=== PATIENT | female | born 1990 | race American Indian/Alaskan Native ===

== ENCOUNTER 2022-01-29 11:52 | Emergency (ER) | payer MEDICARE ==
[2022-01-29 12:26] VITALS: BP 134/95
--- NOTE | 2022-01-29 13:37 | Emergency Department Report ---
ED Abdominal Pain HPI - General Chief Complaint: Abdominal Pain Stated Complaint: LOW ABDOMINAL PAIN (PREG) Time Seen by Provider: 01/29/22 13:13 Source: patient Mode of arrival: Ambulatory Limitations: No Limitations - History of Present Illness Initial Comments: Patient presents questioning the status of her fetus. She states that she is . She is due sometime in March. She had received her care at [place]. She states that recently something happened and she is not going back there. She states that some geriatric social work professor created a problem for her and she is not can to be able to go back there. She does not have a ASSISTANT STORE DIRECTOR to see. She states that she came here because she was worried about the status of her fetus. She is asking for pictures that we can use) for her and document the status of her . She has no fevers or chills. There is no cough or congestion. She has no dysuria. She states that she did feel some movement prior to me walking in the room. Patient also states that she is concerned about her family stealing her tax information. She states that she has been working on that independently. She has no other complaint at this time. Patient states that she was actually at the L&D area of this institution earlier today. Apparently they walked her over here for evaluation. There is no documentation in [facility] that they evaluated the patient. The triage staff does state that she was walked over by the L&D staff. - Related Data Allergies Allergy/AdvReac Type Severity Reaction Status Date / Time No Known Allergies Allergy Verified 01/29/22 12:22 ED Review of Systems ROS: Stated complaint: LOW ABDOMINAL PAIN (PREG) Other details as noted in HPI Comment: All other systems reviewed and negative Constitutional: denies: fever Eyes: denies: vision change ENT: denies: throat pain Respiratory: other (Congestion). denies: cough Cardiovascular: denies: chest pain Endocrine: denies: unexplained weight loss Gastrointestinal: as per HPI Genitourinary: denies: dysuria Musculoskeletal: denies: back pain Skin: denies: rash Neurological: denies: headache Hematological/Lymphatic: denies: easy bruising ED Past Medical Hx - Past Medical History Hx Psychiatric Treatment: Yes - Family History Family history: no significant - Social History Smoking Status: Never Smoker ED Physical Exam - General Limitations: Physical Limitation (Patient is a difficult historian. She requires redirection.), Other (Pulse ox noted and normal) General appearance: alert, in no apparent distress, obese, other (She is restless) - Head Head exam: Present: atraumatic, normocephalic - Eye Eye exam: Present: normal appearance, PERRL, EOMI. Absent: scleral icterus - ENT ENT exam: Present: normal orophraynx, normal external ear exam - Neck Neck exam: Present: normal inspection. Absent: tenderness, meningismus - Respiratory Respiratory exam: Present: normal lung sounds bilaterally. Absent: respiratory distress - Cardiovascular Cardiovascular Exam: Present: regular rate, normal rhythm (90 on my exam) - GI/Abdominal GI/Abdominal exam: Present: soft, other (Obese with gravid uterus palpable above the umbilicus). Absent: tenderness - Extremities Exam Extremities exam: Present: normal capillary refill. Absent: pedal edema, calf tenderness - Back Exam Back exam: Absent: CVA tenderness (R), CVA tenderness (L) - Neurological Exam Neurological exam: Present: alert, oriented X3, CN II-XII intact, normal gait - Psychiatric Psychiatric exam: Present: normal mood, other (Tangential thought) - Skin Skin exam: Present: warm, dry ED Course Vital Signs 01/29/22 12:22 Temperature 97.8 F Pulse Rate 107 H Respiratory 16 Rate Blood Pressure 134/95 [Left] O2 Sat by Pulse 96 Oximetry - Reevaluation(s) Reevaluation #1: 01/29/22 14:19 Bedside ultrasound was completed. Patient has an obvious gravid uterus with good movement and good cardiac activity. There is good fluid noted. This is certainly greater than 24 weeks. - Procedure Description Procedures done: Procedure note: Bedside ultrasound. Indication: Evaluate intrauterine for activity. Patient was supine on the bed. Curvilinear probe was used to evaluate the abdominal and pelvis areas. Patient had obvious intrauterine that was greater than 24 weeks. There was good cardiac activity. There is good fluid. Patient was able to visualize the ultrasound as it was being completed. There are no complications. ED Medical Decision Making - Medical Decision Making Patient presented secondary to reports of abdominal issues and concern for the wellbeing of her fetus. She does have an intrauterine here and that certainly is greater than 24 weeks. She states that her due date would have been in March. This would put her at closed to 32 to 36 weeks depending on her actual due date. Patient does not have any abdominal discomfort on exam. She has been referred to ASSISTANT STORE DIRECTOR here. There is no dysuria or frequency. She denies having a headache or blurry vision. There is no clonus on exam. Critical care attestation.: If time is entered above; I have spent that time in minutes in the direct care of this critically ill patient, excluding procedure time. ED Disposition Clinical Impression: Intrauterine Disposition: HOME / SELF CARE / HOMELESS Is pt being admited?: No Condition: Stable Instructions: Third Trimester of , [id number], Before Baby Comes Home, Abdominal Pain (ED) Additional Instructions: Drink water. Follow-up with gynecology as referred. Return for problems. Referrals: TRACY CRISTINA MD [Staff Physician] - 3-5 Days
== END 2022-01-29 14:45 | disposition home or self-care (01) ==
LOC: ED 11:52
DX: O26.892 Other specified pregnancy related conditions, second trimester (principal); Z3A.24 24 weeks gestation of pregnancy; R10.9 Unspecified abdominal pain
CPT/HCPCS: 99282; 99283

== ENCOUNTER 2022-02-03 07:51 | Inpatient (IN) | payer MEDICARE ==
[2022-02-03] MEDS ORDERED: SODIUM CHLORIDE 0.9% 1000 ML 1,000 ML IV ONE ×2 (07:58→10:13)
--- NOTE | 2022-02-03 07:58 | Emergency Department Report ---
ED General Adult HPI - General Stated complaint: ABD PAIN Time Seen by Provider: 02/03/22 07:57 - History of Present Illness Initial comments: Patient presents secondary to abdominal pain. She came in by EMS. EMS reports that they were called for abdominal pain the patient is intermittently cooperative. Sometimes she does not want to speak and will not talk to them. They report that they would just call for abdominal pain and transported the patient here. Patient recalls seeing me a couple of days ago. She states that I did not "fix her." She states that she is incontinent of stool and urine. She states that all I did was do an ultrasound. Patient reports that she is not . She states that there is something wrong with her and that she needs to see a crime scene investigator. Patient reports that the ultrasound that I did at the [facility] and demonstrated the fetus and the cardiac activity was at her heart. She states it was not a baby and that she is not . She reports that there is something else going on and that this needs to be investigated. She then quickly starts asking for something to drink. She is asking for Ensure. She initially asked for milk and then stated that she did not want to milk. Patient is adamant that she is not despite the recent ultrasound. When asked her what the heartbeat that I demonstrated on ultrasound belong to, she stated "Shaquanna." - Related Data Allergies Allergy/AdvReac Type Severity Reaction Status Date / Time No Known Allergies Allergy Verified 02/03/22 07:58 ED Review of Systems ROS: Stated complaint: ABD PAIN Other details as noted in HPI Comment: All other systems reviewed and negative Constitutional: denies: fever Eyes: denies: vision change ENT: denies: throat pain Respiratory: denies: cough Cardiovascular: denies: chest pain Endocrine: denies: unexplained weight loss Gastrointestinal: as per HPI Genitourinary: denies: dysuria Musculoskeletal: denies: back pain Skin: denies: rash Neurological: denies: headache Hematological/Lymphatic: denies: easy bruising ED Past Medical Hx - Past Medical History Hx Psychiatric Treatment: Yes Additional medical history: - Family History Family history: other (Denied) - Social History Smoking Status: Never Smoker ED Physical Exam - General Limitations: Altered Mental Status (Delusional), Other General appearance: alert, in no apparent distress - Head Head exam: Present: atraumatic, normocephalic, normal inspection - Eye Eye exam: Present: normal appearance, PERRL, EOMI. Absent: scleral icterus - ENT ENT exam: Present: normal orophraynx, normal external ear exam - Neck Neck exam: Present: normal inspection. Absent: meningismus - Respiratory Respiratory exam: Present: normal lung sounds bilaterally. Absent: respiratory distress - Cardiovascular Cardiovascular Exam: Present: normal rhythm, tachycardia - GI/Abdominal GI/Abdominal exam: Present: soft, other (Gravid uterus palpable above the umbilicus). Absent: tenderness - Extremities Exam Extremities exam: Present: normal capillary refill - Back Exam Back exam: Absent: CVA tenderness (R), CVA tenderness (L) - Neurological Exam Neurological exam: Present: alert, oriented X3, CN II-XII intact. Absent: motor sensory deficit - Psychiatric Psychiatric exam: Present: flat affect, other (Patient is adamant that she is not despite ultrasound demonstration.) - Skin Skin exam: Present: warm, dry ED Course Vital Signs 02/03/22 02/03/22 02/03/22 07:54 08:18 08:43 Temperature 98.9 F 98.0 F Pulse Rate 114 H 106 H 104 H Respiratory 20 18 18 Rate Blood Pressure 137/88 Blood Pressure 154/100 137/88 [Right] O2 Sat by Pulse 98 99 98 Oximetry 02/03/22 02/03/22 02/03/22 08:53 08:59 09:01 Temperature Pulse Rate 103 H Respiratory 18 13 Rate Blood Pressure 137/88 170/121 Blood Pressure [Right] O2 Sat by Pulse 99 98 100 Oximetry 02/03/22 02/03/22 09:15 09:30 Temperature Pulse Rate 91 H Respiratory 24 Rate Blood Pressure 170/121 170/121 Blood Pressure [Right] O2 Sat by Pulse 100 100 Oximetry - Reevaluation(s) Reevaluation #1: 02/03/22 07:57 EMS was met. IV and labs were ordered. Old records noted. Reevaluation #2: 02/03/22 10:16 Glucose has been noted. Bicarbonate was noted. OFFICE PROFESSIONALS will be paged. Patient will be started on an insulin drip for DKA. She will require medical admission. We still have psychiatric concerns in addition. Psychiatric consult can be obtained as an inpatient. She will likely need to go to the ICU. Sodium corrects to 133. Reevaluation #3: 02/03/22 10:32 Case was briefly discussed with the hospitalist who defers the consult to the lead carpenter. They state that the health advisor will need to admit primarily with a consult to the lead carpenter and to psychiatry. The lead carpenter has been p aged. Reevaluation #4: 02/03/22 10:55 Case was discussed with the lead carpenter as well as Dr. Munoz now on for the hospitalist. It was agreed that the patient will be a medical admit with a consult to OFFICE PROFESSIONALS. ED Medical Decision Making - Lab Data Result diagrams: 02/03/22 08:56 02/03/22 08:56 Rhythm strip: Sinus tachycardia without ectopy per monitor observe 10 seconds. - Radiology Data Radiology results: report reviewed - Medical Decision Making Patient presents by ambulance secondary to reports of abdominal pain. She was completely delusional and believed that she was not here. She is currently 31 weeks. She is in DKA. She was known to be a diabetic, but there was some question as to compliance. Regardless, she has been started on insulin drip. Further IV hydration has been ordered. She is on a mental health hold due to the delusion. Psychiatric services can weigh in. OFFICE PROFESSIONALS can help manage. Patient is not actively suicidal or homicidal at this time. We will still obtain urine looking for evidence of infection. Critical Care Time: Yes (55 minutes exclusive of all procedures) Critical care attestation.: If time is entered above; I have spent that time in minutes in the direct care of this critically ill patient, excluding procedure time. ED Disposition Clinical Impression: Delusion Qualifiers: Weeks of gestation: 31 weeks Qualified Code(s): Z3A.31 - 31 weeks gestation of DKA (diabetic ketoacidosis) Qualifiers: Diabetes mellitus type: due to underlying condition Diabetes mellitus complication detail: without coma Qualified Code(s): E08.10 - Diabetes mellitus due to underlying condition with ketoacidosis without coma Disposition: 09 ADMITTED INPATIENT Is pt being admited?: Yes Condition: Stable Instructions: Diabetic Ketoacidosis (ED) Referrals: PRIMARY CARE, [Primary Care Provider] - 3-5 Days
--- NOTE | 2022-02-03 09:23 | Ultrasound Report ---
ULTRASOUND OBSTETRIC INDICATION / CLINICAL INFORMATION: abd pain, gestational age. TECHNIQUE: Transabdominal. COMPARISON: None available. FINDINGS: There is a single intrauterine . Biparietal Diameter = 7.5 cm = 30.1 weeks.days Head Circumference = 26.08 cm = 28.3 weeks.days Abdominal Circumference = 29.09 cm = 33.1 weeks.days Femur Length = 6.42 cm = 33.1 weeks.days Average Ultrasound Age (AUA) = 31.2 weeks.days Heart Rate: 145 beats per minute. Estimated Weight in grams (if calculated): 1948 Estimated Weight Growth Percentile (if calculated): 45 Position: cephalic. Cervix: closed. Length in cm (if measured): 3.3 Placenta: anterior and free of the os. Amniotic Fluid Volume: Qualitatively normal, deepest pocket measures 3.4 cm Maternal Adnexa: No significant abnormality. IMPRESSION: 1. Single, living intrauterine with estimated sonographic age of 31.2 weeks.days 2. No significant sonographic abnormality. Signer Name: Gorge Faith MD Signed: 02/03/2022 9:19 AM Workstation Name: [id number]
[2022-02-03 09:28] LABS: Basophils # (Auto) 0.1 K/mm3 (0.0-0.1); Eosinophils % (Auto) 0.3 % (0.0-4.3); Hematocrit 39.9 % (30.3-42.9); Hemoglobin 13.1 gm/dl (10.1-14.3); Lymphocytes # (Auto) 1.1 K/mm3 (1.2-5.4); Lymphocytes % (Auto) 16.4 % (13.4-35.0); Mean Corpuscular HGB Conc 33 % (30-34); Mean Corpuscular Volume 94 fl (79-97); Monocytes # (Auto) 0.4 K/mm3 (0.0-0.8); Monocytes % (Auto) 5.8 % (0.0-7.3); Platelet Count 294 K/mm3 (140-440); Red Blood Count 4.24 M/mm3 (3.65-5.03)
[2022-02-03 09:52] LABS: Alanine Aminotransferase 23 units/L (7-56); Albumin 3.9 g/dL (3.9-5); BUN/Creatinine Ratio 25; Blood Urea Nitrogen 20 mg/dL (7-17); Calcium 10.8 mg/dL (8.4-10.2); Hemolysis Index 14
[2022-02-03] MEDS ORDERED: DEXTROSE 50% IN WATER (25GM) 50 ML SYRINGE IV PRN (10:13)
[2022-02-03 10:19] LABS: Bacteria,Urine 1+ /HPF (Negative); Bilirubin,Urine NEG (Negative); Blood,Urine NEG (Negative); Color,Urine Straw (Yellow); Protein,Urine <15 mg/dL mg/dL (Negative); Urobilinogen,Urine < 2.0 mg/dL (<2.0)
[2022-02-03 10:29] LABS: Amphetamine Screen,Urine Negative; Benzodiazepines Screen,Urine Negative; Cannabinoid Screen,Urine Negative; Cocaine Screen,Urine Negative; Methadone Screen,Urine Negative; Opiate Screen,Urine Negative
[2022-02-03] MEDS: INSULIN REGULAR, HUMAN 100 UNITS in SODIUM CHLORIDE 0.9% 99 ML IV SCH (10:43)
[2022-02-03] MEDS ORDERED: ALBUTEROL 2.5 MG/3 ML NEBU IH PRN (10:53)
[2022-02-03] MEDS ORDERED: HYDROmorphone 1 MG/1 ML INJ IV PRN (10:53)
[2022-02-03] MEDS ORDERED: oxyCODONE /ACETAMINOPHEN 5-325MG TAB PO PRN (10:53)
[2022-02-03] MEDS ORDERED: ACETAMINOPHEN 325 MG TAB PO PRN (10:58)
[2022-02-03] MEDS ORDERED: SODIUM CHLORIDE 0.9% 1000 ML 2,000 ML IV ONE (10:59)
--- NOTE | 2022-02-03 10:59 | History and Physical Report ---
History of Present Illness Chief complaint: Im thirsty History of present illness: 31 YO Female with Obesity, Schizophrenia, Bipolar Disorder presents to ED for evaluation. Pt has tangential thinking and is unable to provide detailed history. Patient history taken from EMS staff, ED staff, as well as the patient's aunt who was made available by telephone for interview. As per patient's family, the patient has "always had problems". Patient reports that she last spoke with the patient 1 week ago. EMS was notified for complaints of abdominal pain. And upon arrival the patient was found to be in distress and s ubsequent transported to [facility] for further care and evaluation of the aforementioned symptoms. The patient was seen and evaluated in the emergency department. All lab and imaging studies reviewed. Patient underwent abdominal ultrasound and was found to have intrauterine at 31 weeks gestation. Patient also found to have new onset diabetes complicated by DKA. Patient admitted to ICU and initiated on DKA protocol. Critical care team consulted, CIVIL PROJECT ENGINEER team consulted. Patient exhibits tangential thinking but has a positive gag reflex and is able to protect her airway without difficulty. No further history is obtainable. No prior admission for review. No medication listed at time of admission for reconciliation. Advanced care planning conducted in ED. Patient is placed on 1013. Mental health team consulted. Past History Past Medical History: other (Schizophrenia, see HPI) Past Surgical History: Other (Neck surgery) Social history: single. denies: smoking, alcohol abuse, prescription drug abuse Family history: diabetes, hypertension Medications and Allergies Allergies Allergy/AdvReac Type Severity Reaction Status Date / Time No Known Allergies Allergy Verified 02/03/22 07:58 Active Meds: Active Medications Dextrose (Dextrose 50% In Water (25gm) 50 Ml Syringe) 0 ml IV Q30MIN PRN; Protocol PRN Reason: Hypoglycemia Insulin Human Regular 100 (units/ Sodium Chloride) 100 mls @ 1 mls/hr IV TITR SHARON; Protocol Last Admin: 02/03/22 10:43 Dose: 8 units/hr, 8 mls/hr Sodium Chloride (Nacl 0.9% 1000 Ml) 1,000 mls @ 999 mls/hr IV BOLUS ONE Stop: 02/03/22 11:13 Last Admin: 02/03/22 10:47 Dose: 999 mls/hr Review of Systems ROS unobtainable: due to mental status Exam - Constitutional Vitals: Temp Pulse Resp BP Pulse Ox 98.0 F 91 H 24 170/121 100 02/03/22 08:43 02/03/22 09:15 02/03/22 09:15 02/03/22 09:30 02/03/22 09:30 General appearance: Present: mild distress, obese - EENT Eyes: Present: PERRL ENT: hearing intact, clear oral mucosa - Neck Neck: Present: supple, normal ROM - Respiratory Respiratory effort: normal Respiratory: bilateral: CTA - Cardiovascular Rhythm: other (tachycardia) Heart Sounds: Present: S1 & S2. Absent: rub, click - Extremities Extremities: pulses symmetrical, No edema Peripheral Pulses: within normal limits - Abdominal General gastrointestinal: Present: soft, non-tender, non-distended Female genitourinary: Present: normal - Integumentary Integumentary: Present: clear, dry - Musculoskeletal Musculoskeletal: generalized weakness - Psychiatric Psychiatric: no appropriate mood/affect, no intact judgment & insight, no memory intact, agitated - Neurologic Neurologic: CNII-XII intact, moves all extremities Results - Labs CBC & Chem 7: 02/03/22 08:56 02/03/22 13:24 Labs: Abnormal lab results 02/03/22 02/03/22 02/03/22 Range/Units 08:56 08:56 08:56 Lymph # (Auto) 1.1 L (1.2-5.4) K/mm3 Seg Neutrophils % 76.5 H (40.0-70.0) % Sodium 124 L (137-145) mmol/L Potassium 5.1 H (3.6-5.0) mmol/L Chloride 86.9 L (98-107) mmol/L Carbon Dioxide 12 L (22-30) mmol/L BUN 20 H (7-17) mg/dL Glucose 661 H* (65-100) mg/dL Calcium 10.8 H (8.4-10.2) mg/dL Salicylates < 0.3 L (2.8-20.0) mg/dL Acetaminophen (10.0-30.0) ug/mL 02/03/22 Range/Units 08:56 Lymph # (Auto) (1.2-5.4) K/mm3 Seg Neutrophils % (40.0-70.0) % Sodium (137-145) mmol/L Potassium (3.6-5.0) mmol/L Chloride (98-107) mmol/L Carbon Dioxide (22-30) mmol/L BUN (7-17) mg/dL Glucose (65-100) mg/dL Calcium (8.4-10.2) mg/dL Salicylates (2.8-20.0) mg/dL Acetaminophen 5.0 L (10.0-30.0) ug/mL Assessment and Plan - Patient Problems (1) DKA (diabetic ketoacidosis) Current Visit: Yes Status: Acute Qualifiers: Diabetes mellitus type: due to underlying condition Diabetes mellitus complication detail: without coma Qualified Code(s): E08.10 - Diabetes mellitus due to underlying condition with ketoacidosis without coma Plan to address problem: DKA protocol: Insulin protocol, IV fluid resuscitation therapy, serial lactic acid level, serial BMP, monitor anion gap, monitor fluid balance, potassium repletion as per protocol. The high probability of a clinically significant, sudden or life threatening deterioration of the [endocrine, renal] system(s) required my full and direct attention, intervention and personal management. The aggregate critical care time was [65] minutes. This time is in addition to time spent performing reported procedures but includes the following: [x] Data Review and interpretation [x] Patient assessment and monitoring of vital signs [x] Documentation [x] Medication orders and management (2) Encephalopathy Current Visit: Yes Status: Acute Plan to address problem: Neuro check, seizure precautions, aspiration precautions. Treat DKA. (3) Schizophrenia Current Visit: Yes Status: Acute Qualifiers: 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(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 Plan to address problem: Mental health team consulted, medical management as per mental health team. Supportive care. (4) Psychosis Current Visit: Yes Status: Acute Plan to address problem: Mental health team consulted. [address] (5) Obesity hypoventilation syndrome Current Visit: Yes Status: Acute Plan to address problem: Balanced diet, increase physical activity at discharge, outpatient pulmonary follow-up for sleep study. (6) DVT prophylaxis Current Visit: Yes Status: Acute Plan to address problem: SCDs bilateral lower extremities while in bed (7) Advance care planning Current Visit: Yes Status: Acute Plan to address problem: Disease education conducted, care plan discussed, diagnoses discussed, prognosis discussed, patient is full code. Discussed Patient care with Aunt, Adalgisa Gr . Pt Aunt is 83 years old and is hearing impaired. Pt aunt last spoke with patient 1 week ago and acknowledges that patient has schizophrenia and was diagnosed in high school. Pt in unable to live independently as per family. +30 minutes. Case management consulted for assistance with discharge planning and placement.
--- NOTE | 2022-02-03 11:29 | Consultation ---
History of Present Illness - Reason for Consult Consult date: 02/03/22 Reason for consult: delusional - History of Present Psychiatric Illness The patient was seen today. She is a/o x 3, but her thoughts are somewhat disorganized. The patient says she is not doing so good. She says her stomach is hurting and she want's whatever is in her out. The patient starts jumping from subject to subject of unrelated things. When asked was she suicidal, she says "I want some fish, hushpuppies, and sanjana slaw." She then says "I had an apartment but I got kicked out of in during the pandemic." She says "I was arrested once." I ask the patient again was she suicidal, she says "no, not at the moment but I was at one point. Can you get me some fish?" She denies hallucinations of any kind. She denies any illicit drug use. She says "I used to do crack cocaine but I been clean a year." She says she has a history of bipolar and schizophrenia. She says "I take depakote, and I was on lithium." She says "I take my medication everyday so I don't need to be no 1013." PAST PSYCHIATRIC HISTORY Diagnoses: schizophrenia and bipolar Suicide attempts or Self-harm behavior: Denies Prior psychiatric hospitalizations: Yes Substance Abuse history: Crack cocaine Previous psychiatric medications tried: depakote, lithium Outpatient treatment: Yes PAST MEDICAL HISTORY: None reported Family Psychiatric History: None reported or documented SOCIAL HISTORY Living arrangement: states she lives alone Marital status: Single REVIEW OF SYSTEMS Constitutional: Negative for weight loss ENT: Negative for stridor Respiratory: Negative for cough or hemoptysis All other systems reviewed and are negative MENTAL STATUS EXAMINATION General Appearance and Behavior: Age appropriate, good hygiene, wearing appropriate clothes, good eye contact, calm, cooperative Cooperation: Participating/engaged Psychomotor Behavior: Psychomotor normal Mood: not good Affect and affective range: congruent with stated mood Thought Process: illogical, disorganized Thought Content: None Speech: normal tone and pace Suicidal Ideation: Denies Homicidal Ideation: Denies Hallucinations: Denies Delusions: None elicited Impulse Control: Limited Insight and Judgment: Limited insight and judgment Memory: Limited Attention: Divided Orientation: Alert, oriented Assessment and Plan Delirium Treatment Plan No meds at this time. Will reassess the need for meds once blood glucose is normalized The patients disorientation is likely due to elevated blood glucose Medical: per primary Sitter: per primary Disposition: Do not recommend acute psychiatric inpatient treatment Will follow for med management Case staffed with Dr. Frederick Medications and Allergies Allergies Allergy/AdvReac Type Severity Reaction Status Date / Time No Known Allergies Allergy Verified 02/03/22 07:58 Active Meds: Active Medications Acetaminophen (Acetaminophen 325 Mg Tab) 650 mg PO Q6H PRN PRN Reason: Pain MILD(1-3)/Fever >100.5/TERRELL Albuterol (Albuterol 2.5 Mg/3 Ml Nebu) 2.5 mg IH Q3H PRN PRN Reason: Shortness Of Breath Dextrose (Dextrose 50% In Water (25gm) 50 Ml Syringe) 0 ml IV Q30MIN PRN; Protocol PRN Reason: Hypoglycemia Hydromorphone HCl (Hydromorphone 1 Mg/1 Ml Inj) 0.5 mg IV Q23H PRN PRN Reason: Pain , Severe (7-10) Insulin Human Regular 100 (units/ Sodium Chloride) 100 mls @ 1 mls/hr IV TITR SHARON; Protocol Last Admin: 02/03/22 10:43 Dose: 8 units/hr, 8 mls/hr Sodium Chloride (Nacl 0.9% 1000 Ml) 2,000 mls @ 999 mls/hr IV BOLUS ONE Stop: 02/03/22 12:59 Sodium Chloride (Nacl 0.9% 1000 Ml) 1,000 mls @ 150 mls/hr IV DIRECT SHARON Oxycodone/Acetaminophen (Oxycodone /Acetaminophen 5-325mg Tab) 1 tab PO Q16H PRN PRN Reason: Pain, Moderate (4-6) Sodium Bicarbonate (Sodium Bicarb 8.4% 50 Meq/50 Ml Syringe) 50 meq IV ONCE ONE Stop: 02/03/22 12:01 Sodium Chloride (Sodium Chloride 0.9% 10 Ml Flush Syringe) 10 ml IV BID SHARON Sodium Chloride (Sodium Chloride 0.9% 10 Ml Flush Syringe) 10 ml IV PRN PRN PRN Reason: LINE FLUSH Mental Status Exam - Vital signs Last Vital Signs Temp 98.0 F 02/03/22 08:43 Pulse 91 H 02/03/22 09:15 Resp 24 02/03/22 09:15 BP 170/121 02/03/22 09:30 Pulse Ox 100 02/03/22 09:30 Results Result Diagrams: 02/03/22 08:56 02/03/22 08:56 Abnormal lab results 02/03/22 02/03/22 02/03/22 Range/Units 08:56 08:56 08:56 Lymph # (Auto) 1.1 L (1.2-5.4) K/mm3 Seg Neutrophils % 76.5 H (40.0-70.0) % Sodium 124 L (137-145) mmol/L Potassium 5.1 H (3.6-5.0) mmol/L Chloride 86.9 L (98-107) mmol/L Carbon Dioxide 12 L (22-30) mmol/L BUN 20 H (7-17) mg/dL Glucose 661 H* (65-100) mg/dL Calcium 10.8 H (8.4-10.2) mg/dL Salicylates < 0.3 L (2.8-20.0) mg/dL Acetaminophen (10.0-30.0) ug/mL 02/03/22 Range/Units 08:56 Lymph # (Auto) (1.2-5.4) K/mm3 Seg Neutrophils % (40.0-70.0) % Sodium (137-145) mmol/L Potassium (3.6-5.0) mmol/L Chloride (98-107) mmol/L Carbon Dioxide (22-30) mmol/L BUN (7-17) mg/dL Glucose (65-100) mg/dL Calcium (8.4-10.2) mg/dL Salicylates (2.8-20.0) mg/dL Acetaminophen 5.0 L (10.0-30.0) ug/mL All other labs normal.
[2022-02-03] MEDS ORDERED: SODIUM BICARB 8.4% 50 MEQ/50 ML SYRINGE IV ONE (12:00)
[2022-02-03 14:15] LABS: BUN/Creatinine Ratio 23; Blood Urea Nitrogen 18 mg/dL (7-17); Calcium 9.9 mg/dL (8.4-10.2); Hemolysis Index 8
[2022-02-03 18:40] LABS: Blood Urea Nitrogen 17 mg/dL (7-17); Hemolysis Index 1
[2022-02-03 18:42] LABS: BUN/Creatinine Ratio 24
[2022-02-03] MEDS: SODIUM CHLORIDE 0.9% 1000 ML 1,000 ML IV SCH (20:30)
[2022-02-03 20:55] LABS: Blood Urea Nitrogen 18 mg/dL (7-17); Calcium 9.6 mg/dL (8.4-10.2); Hemolysis Index 3
[2022-02-03 20:56] LABS: BUN/Creatinine Ratio 30
[2022-02-03 23:49] LABS: Blood Urea Nitrogen 17 mg/dL (7-17); Calcium 9.3 mg/dL (8.4-10.2); Hemolysis Index 8
[2022-02-03 23:51] LABS: BUN/Creatinine Ratio 28
[2022-02-04] MEDS: SODIUM CHLORIDE 0.9% 1000 ML 1,000 ML IV SCH (03:00)
[2022-02-04] MEDS: INSULIN REGULAR, HUMAN 100 UNITS in SODIUM CHLORIDE 0.9% 99 ML IV SCH (03:00)
[2022-02-04 04:34] LABS: Blood Urea Nitrogen 16 mg/dL (7-17); Calcium 8.8 mg/dL (8.4-10.2); Hemolysis Index 2
[2022-02-04 04:35] LABS: BUN/Creatinine Ratio 32
[2022-02-04] MEDS ORDERED: D5W/0.45% NACL/KCL 20 MEQ 20 MEQ/1,000 ML BAG IV SCH (07:00)
[2022-02-04] MEDS ORDERED: DEXTROSE 50% IN WATER (25GM) 50 ML SYRINGE IV PRN (08:42)
[2022-02-04] MEDS ORDERED: oxyCODONE /ACETAMINOPHEN 5-325MG TAB PO PRN (08:44)
[2022-02-04] MEDS ORDERED: DEXTROSE 10% *Hypoglycemia IV PRN (08:51)
[2022-02-04] MEDS ORDERED: INSULIN GLARGINE 100 UNITS/ML SUB-Q SCH ×2 (09:00→22:00)
[2022-02-04 10:56] LABS: Blood Urea Nitrogen 14 mg/dL (7-17); Calcium 9.2 mg/dL (8.4-10.2); Hemolysis Index 18
[2022-02-04 10:58] LABS: BUN/Creatinine Ratio 23
[2022-02-04] MEDS: INSULIN LISPRO 100 UNIT/ML SUB-Q SCH ×3 (11:40→22:36)
[2022-02-04] MEDS ORDERED: LACTATED RINGERS 1,000 ML IV ONE (12:15)
--- NOTE | 2022-02-04 13:34 | Consultation ---
History of Present Illness Consult date: 02/04/22 Requesting physician: CHEPE DAVEY History of present illness: PULMONARY/CCM CONSULT NOTE (Full dictation # [id number]) Please see dictated notes for full details Past History Past Medical History: other (Schizophrenia, see HPI) Past Surgical History: Other (Neck surgery) Social history: single. denies: smoking, alcohol abuse, prescription drug abuse Family history: diabetes, hypertension Medications and Allergies Allergies Allergy/AdvReac Type Severity Reaction Status Date / Time No Known Allergies Allergy Verified 02/03/22 07:58 Home Medications Medication Instructions Recorded Confirmed Last Taken Type Aspirin EC [Halfprin EC] 81 mg PO QDAY 02/05/22 02/05/[address] [DepaKOTE DR] 500 mg PO BID 02/05/22 02/05/22 Unknown History Fluticasone [Flonase] 1 spray NS QDAY 02/05/22 02/05/22 Unknown History Loratadine [Allergy Relief] 10 mg PO QDAY 02/05/22 02/05/22 Unknown History OLANzapine ZYDIS [ZyPREXA Zydis] 5 mg PO DAILY 02/05/22 02/05/22 Unknown History Olanzapine [Olanzapine Odt] 10 mg PO QHS 02/05/22 02/05/22 Unknown History Vit-Fe Fumar-FA [ 1 tab PO QDAY 02/05/22 02/05/22 Unknown History Vitamin] Active Meds: Active Medications Acetaminophen (Acetaminophen 325 Mg Tab) 650 mg PO Q6H PRN PRN Reason: Pain MILD(1-3)/Fever >100.5/TERRELL Albuterol (Albuterol 2.5 Mg/3 Ml Nebu) 2.5 mg IH Q3H PRN PRN Reason: Shortness Of Breath Dextrose (Dextrose 10% *Hypoglycemia) 0 ml IV PRN PRN PRN Reason: Hypoglycemia Insulin Glargine (Insulin Glargine 100 Units/Ml) 30 units SUB-Q QAMDIAB SHARON Last Admin: 02/04/22 09:23 Dose: 30 units Insulin Human Lispro (Insulin Lispro 100 Unit/Ml) 0 unit SUB-Q ACHS SHARON; Protocol Last Admin: 02/04/22 11:40 Dose: 6 unit Oxycodone/Acetaminophen (Oxycodone /Acetaminophen 5-325mg Tab) 1 tab PO Q6H PRN PRN Reason: Pain, Moderate (4-6) Sodium Chloride (Sodium Chloride 0.9% 10 Ml Flush Syringe) 10 ml IV BID SHARON Last Admin: 02/04/22 09:24 Dose: 10 ml Sodium Chloride (Sodium Chloride 0.9% 10 Ml Flush Syringe) 10 ml IV PRN PRN PRN Reason: LINE FLUSH Physical Examination Vital signs: Vital Signs Temp Pulse Resp BP Pulse Ox 98.9 F 114 H 20 154/100 98 02/03/22 07:54 02/03/22 07:54 02/03/22 07:54 02/03/22 07:54 02/03/22 07:54 Results - Laboratory Findings CBC and BMP: 02/05/22 05:30 02/05/22 05:30 Abnormal lab findings: Abnormal Labs 02/03/22 02/03/22 02/03/22 08:56 08:56 08:56 Lymph # (Auto) 1.1 L Seg Neutrophils % 76.5 H VBG pH Sodium 124 L Potassium 5.1 H Chloride 86.9 L Carbon Dioxide 12 L BUN 20 H Creatinine Glucose 661 H* POC Glucose Hemoglobin A1c Calcium 10.8 H Phosphorus Salicylates < 0.3 L Acetaminophen 02/03/22 02/03/22 02/03/22 08:56 12:03 13:07 Lymph # (Auto) Seg Neutrophils % VBG pH Sodium Potassium Chloride Carbon Dioxide BUN Creatinine Glucose POC Glucose 507 H 474 H Hemoglobin A1c Calcium Phosphorus Salicylates Acetaminophen 5.0 L 02/03/22 02/03/22 02/03/22 13:21 13:24 13:24 Lymph # (Auto) Seg Neutrophils % VBG pH 7.292 L Sodium 128 L Potassium Chloride 93.6 L Carbon Dioxide 13 L BUN 18 H Creatinine Glucose 508 H* POC Glucose Hemoglobin A1c Calcium Phosphorus 5.10 H Salicylates Acetaminophen 02/03/22 02/03/22 02/03/22 14:22 15:14 16:18 Lymph # (Auto) Seg Neutrophils % VBG pH Sodium Potassium Chloride Carbon Dioxide BUN Creatinine Glucose POC Glucose 509 H 483 H 385 H Hemoglobin A1c Calcium Phosphorus Salicylates Acetaminophen 02/03/22 02/03/22 02/03/22 17:09 18:06 18:15 Lymph # (Auto) Seg Neutrophils % VBG pH Sodium 130 L Potassium Chloride 95.6 L Carbon Dioxide 17 L BUN Creatinine Glucose 452 H POC Glucose 445 H 411 H Hemoglobin A1c Calcium Phosphorus Salicylates Acetaminophen 02/03/22 02/03/22 02/03/22 19:38 20:26 20:50 Lymph # (Auto) Seg Neutrophils % VBG pH Sodium 128 L Potassium Chloride 96.2 L Carbon Dioxide 15 L BUN 18 H Creatinine Glucose 415 H POC Glucose 422 H 380 H Hemoglobin A1c Calcium Phosphorus Salicylates Acetaminophen 02/03/22 02/03/22 02/03/22 21:58 23:04 23:13 Lymph # (Auto) Seg Neutrophils % VBG pH Sodium 129 L Potassium Chloride 97.1 L Carbon Dioxide 15 L BUN Creatinine Glucose 389 H POC Glucose 318 H 398 H Hemoglobin A1c Calcium Phosphorus Salicylates Acetaminophen 02/04/22 02/04/22 02/04/22 00:14 01:21 02:44 Lymph # (Auto) Seg Neutrophils % VBG pH Sodium Potassium Chloride Carbon Dioxide BUN Creatinine Glucose POC Glucose 383 H 348 H 269 H Hemoglobin A1c Calcium Phosphorus Salicylates Acetaminophen 02/04/22 02/04/22 02/04/22 03:06 03:51 04:58 Lymph # (Auto) Seg Neutrophils % VBG pH Sodium 132 L Potassium Chloride Carbon Dioxide 15 L BUN Creatinine 0.5 L Glucose 252 H POC Glucose 231 H 212 H Hemoglobin A1c Calcium Phosphorus Salicylates Acetaminophen 02/04/22 02/04/22 02/04/22 05:43 06:43 07:32 Lymph # (Auto) Seg Neutrophils % VBG pH Sodium Potassium Chloride Carbon Dioxide BUN Creatinine Glucose POC Glucose 180 H 197 H 237 H Hemoglobin A1c Calcium Phosphorus Salicylates Acetaminophen 02/04/22 02/04/22 02/04/22 08:29 09:32 10:26 Lymph # (Auto) Seg Neutrophils % VBG pH Sodium 131 L Potassium Chloride Carbon Dioxide 14 L BUN Creatinine Glucose 427 H POC Glucose 238 H 285 H Hemoglobin A1c Calcium Phosphorus Salicylates Acetaminophen 02/04/22 02/04/22 02/04/22 10:26 10:28 11:31 Lymph # (Auto) Seg Neutrophils % VBG pH Sodium Potassium Chloride Carbon Dioxide BUN Creatinine Glucose POC Glucose 406 H 312 H Hemoglobin A1c 10.0 H Calcium Phosphorus Salicylates Acetaminophen
--- NOTE | 2022-02-04 14:13 | Progress Note ---
Subjective - Reason for Consult Consult date: 02/04/22 Reason for consult: mental health evaluation - Chief Complaint Chief complaint: The patient was seen today. She continues to present with some confusion and flight of ideas " I don't like to deal with younger people, they've lied on me before." She denies any current suicidal/homicidal ideation and denies hallucinations. REVIEW OF SYSTEMS Constitutional: Negative for weight loss ENT: Negative for stridor Respiratory: Negative for cough or hemoptysis All other systems reviewed and are negative MENTAL STATUS EXAMINATION General Appearance and Behavior: Age appropriate, good hygiene, wearing appropriate clothes, good eye contact, calm, cooperative Cooperation: Participating/engaged Psychomotor Behavior: Psychomotor normal Mood: " good" Affect and affective range: constricted Thought Process: illogical, disorganized Thought Content: None Speech: normal tone and pace Suicidal Ideation: Denies Homicidal Ideation: Denies Hallucinations: Denies Delusions: None elicited Impulse Control: Limited Insight and Judgment: Limited insight and judgment Memory: Limited Attention: Divided Orientation: Alert, oriented Assessment and Plan Delirium Treatment Plan Start Haldol 5mg po BID Medical: per primary Sitter: per primary Disposition: Do not recommend acute psychiatric inpatient treatment Will follow for med management Case staffed with Dr. Frederick Medications and Allergies Mental Status Exam - Vital signs Last Vital Signs Temp 98.1 F 02/04/22 12:30 Pulse 94 H 02/04/22 12:50 Resp 33 H 02/04/22 12:50 BP 157/79 02/04/22 12:50 Pulse Ox 99 02/04/22 12:50
[2022-02-04] MEDS ORDERED: HALOPERIDOL 5 MG TAB PO SCH (15:00)
--- NOTE | 2022-02-04 15:23 | Consultation ---
History of Present Illness Consult date: 02/04/22 Reason for consult: other () History of present illness: Pt casper 29 year old morbidly obese patient who presented to the ED confused and delusional. Pt was found to be in DKA. Pt happens to be 31 weeks although patient denies presence of . Pt has had no care. Past History Past Medical History: diabetes Social history: single Medications and Allergies Allergies Allergy/AdvReac Type Severity Reaction Status Date / Time No Known Allergies Allergy Verified 02/03/22 07:58 Home Medications Medication Instructions Recorded Confirmed Last Taken Type Aspirin EC [Halfprin EC] 81 mg PO QDAY 02/05/22 02/05/[address] [DepaKOTE DR] 500 mg PO BID 02/05/22 02/05/22 Unknown History Fluticasone [Flonase] 1 spray NS QDAY 02/05/22 02/05/22 Unknown History Loratadine [Allergy Relief] 10 mg PO QDAY 02/05/22 02/05/22 Unknown History OLANzapine ZYDIS [ZyPREXA Zydis] 5 mg PO DAILY 02/05/22 02/05/22 Unknown History Olanzapine [Olanzapine Odt] 10 mg PO QHS 02/05/22 02/05/22 Unknown History Vit-Fe Fumar-FA [ 1 tab PO QDAY 02/05/22 02/05/22 Unknown History Vitamin] Active Meds: Active Medications Acetaminophen (Acetaminophen 325 Mg Tab) 650 mg PO Q6H PRN PRN Reason: Pain MILD(1-3)/Fever >100.5/TERRELL Albuterol (Albuterol 2.5 Mg/3 Ml Nebu) 2.5 mg IH Q3H PRN PRN Reason: Shortness Of Breath Dextrose (Dextrose 10% *Hypoglycemia) 0 ml IV PRN PRN PRN Reason: Hypoglycemia Insulin Glargine (Insulin Glargine 100 Units/Ml) 30 units SUB-Q QAMDIAB SHARON Last Admin: 02/04/22 09:23 Dose: 30 units Insulin Human Lispro (Insulin Lispro 100 Unit/Ml) 0 unit SUB-Q ACHS SHARON; Protocol Last Admin: 02/04/22 11:40 Dose: 6 unit Multivitamins/Iron/Calcium ( Pnd83-Th Fumarate-Folic Acid Vit Tab) 1 each PO ONCE ONE Stop: 02/04/22 15:22 Oxycodone/Acetaminophen (Oxycodone /Acetaminophen 5-325mg Tab) 1 tab PO Q6H PRN PRN Reason: Pain, Moderate (4-6) Sodium Chloride (Sodium Chloride 0.9% 10 Ml Flush Syringe) 10 ml IV BID SHARON Last Admin: 02/04/22 09:24 Dose: 10 ml Sodium Chloride (Sodium Chloride 0.9% 10 Ml Flush Syringe) 10 ml IV PRN PRN PRN Reason: LINE FLUSH Review of Systems All systems: negative Psychiatric: anxiety, disorientation, hallucinations, paranoia, difficulties concentrating, confusion, mood swings - Vital Signs Vital signs: Vital Signs Temp Pulse Resp BP Pulse Ox 98.9 F 114 H 20 154/100 98 02/03/22 07:54 02/03/22 07:54 02/03/22 07:54 02/03/22 07:54 02/03/22 07:54 Temp Pulse Resp BP Pulse Ox 98.1 F 97 H 23 163/68 100 02/04/22 12:30 02/04/22 14:40 02/04/22 14:40 02/04/22 14:40 02/04/22 14:40 - Physical Exam Breasts: Cardiovascular: Normal S2 Abdomen: Positive: normal appearance, distention Vulva: both: normal Adnexa: both: normal Extremities: Deep Tendon Reflex Grade: Normal +2 Results Result Diagrams: 02/05/22 05:30 02/05/22 05:30 Abnormal lab results 02/03/22 02/03/22 02/03/22 Range/Units 16:18 17:09 18:06 Sodium 130 L (137-145) mmol/L Chloride 95.6 L (98-107) mmol/L Carbon Dioxide 17 L (22-30) mmol/L BUN (7-17) mg/dL Creatinine (0.6-1.2) mg/dL Glucose 452 H (65-100) mg/dL POC Glucose 385 H 445 H (70-105) mg/dL Hemoglobin A1c (4-6) % 02/03/22 02/03/22 02/03/22 Range/Units 18:15 19:38 20:26 Sodium 128 L (137-145) mmol/L Chloride 96.2 L (98-107) mmol/L Carbon Dioxide 15 L (22-30) mmol/L BUN 18 H (7-17) mg/dL Creatinine (0.6-1.2) mg/dL Glucose 415 H (65-100) mg/dL POC Glucose 411 H 422 H (70-105) mg/dL Hemoglobin A1c (4-6) % 02/03/22 02/03/22 02/03/22 Range/Units 20:50 21:58 23:04 Sodium 129 L (137-145) mmol/L Chloride 97.1 L (98-107) mmol/L Carbon Dioxide 15 L (22-30) mmol/L BUN (7-17) mg/dL Creatinine (0.6-1.2) mg/dL Glucose 389 H (65-100) mg/dL POC Glucose 380 H 318 H (70-105) mg/dL Hemoglobin A1c (4-6) % 02/03/22 02/04/22 02/04/22 Range/Units 23:13 00:14 01:21 Sodium (137-145) mmol/L Chloride (98-107) mmol/L Carbon Dioxide (22-30) mmol/L BUN (7-17) mg/dL Creatinine (0.6-1.2) mg/dL Glucose (65-100) mg/dL POC Glucose 398 H 383 H 348 H (70-105) mg/dL Hemoglobin A1c (4-6) % 02/04/22 02/04/22 02/04/22 Range/Units 02:44 03:06 03:51 Sodium 132 L (137-145) mmol/L Chloride (98-107) mmol/L Carbon Dioxide 15 L (22-30) mmol/L BUN (7-17) mg/dL Creatinine 0.5 L (0.6-1.2) mg/dL Glucose 252 H (65-100) mg/dL POC Glucose 269 H 231 H (70-105) mg/dL Hemoglobin A1c (4-6) % 02/04/22 02/04/22 02/04/22 Range/Units 04:58 05:43 06:43 Sodium (137-145) mmol/L Chloride (98-107) mmol/L Carbon Dioxide (22-30) mmol/L BUN (7-17) mg/dL Creatinine (0.6-1.2) mg/dL Glucose (65-100) mg/dL POC Glucose 212 H 180 H 197 H (70-105) mg/dL Hemoglobin A1c (4-6) % 02/04/22 02/04/22 02/04/22 Range/Units 07:32 08:29 09:32 Sodium (137-145) mmol/L Chloride (98-107) mmol/L Carbon Dioxide (22-30) mmol/L BUN (7-17) mg/dL Creatinine (0.6-1.2) mg/dL Glucose (65-100) mg/dL POC Glucose 237 H 238 H 285 H (70-105) mg/dL Hemoglobin A1c (4-6) % 02/04/22 02/04/22 02/04/22 Range/Units 10:26 10:26 10:28 Sodium 131 L (137-145) mmol/L Chloride (98-107) mmol/L Carbon Dioxide 14 L (22-30) mmol/L BUN (7-17) mg/dL Creatinine (0.6-1.2) mg/dL Glucose 427 H (65-100) mg/dL POC Glucose 406 H (70-105) mg/dL Hemoglobin A1c 10.0 H (4-6) % 02/04/22 Range/Units 11:31 Sodium (137-145) mmol/L Chloride (98-107) mmol/L Carbon Dioxide (22-30) mmol/L BUN (7-17) mg/dL Creatinine (0.6-1.2) mg/dL Glucose (65-100) mg/dL POC Glucose 312 H (70-105) mg/dL Hemoglobin A1c (4-6) % All other labs normal. Assessment and Plan Pt is a 31 year old female with extensive psych history and delusional. Pt also in severe DKA requiring ICU management. Recommend testing q shift. Psych management. Will consult manager social responsibility and case management to deal with psych issues.
[2022-02-04 16:09] LABS: Blood Urea Nitrogen 16 mg/dL (7-17); Hemolysis Index 6
[2022-02-04 16:14] LABS: BUN/Creatinine Ratio 32
[2022-02-04] MEDS ORDERED: LACTATED RINGERS 1,000 ML IV SCH (17:00)
[2022-02-04] MEDS ORDERED: PRENATAL VIT27-FE FUMARATE-FOLIC ACID VIT TAB PO ONE (18:00)
--- NOTE | 2022-02-04 18:17 | Progress Note ---
<MARCIANOSaeLESLIEChiquita - Last Filed: 02/04/22 18:15> Assessment and Plan Assessment and plan: This is a 31-year-old female with obesity, schizophrenia, bipolar disorder who is 31 weeks admitted with DKA and new onset diabetes mellitus Neuro: Delirium, h/o schizophrenia and bipolar disorder -Psych consulted, appreciate recommendations -Currently 1013 -Avoid delirium -Reorientation as needed -Maintain sleep-wake cycle -Transfer with sitter -Home medications list includes Depakote which we will hold at this time Cardiac: SR -Blood pressure monitor per protocol Respiratory: NAD -Supplemental oxygen as needed -SPO2 monitoring -Pulmonary hygiene GI: Morbid obesity -24 hours +25 mL -PPI -CC diet -Encourage lifestyle modifications upon discharge : Pseudo-hyponatremia, metabolic acidosis -Corrected sodium 146 -Strict intake and output -Renally dose medications -Avoid nephrotoxic medications -Trend BMP ID: NAD -COVID-19 PCR negative -Monitor WBC and temperature curve Endo: S/p DKA, new onset diabetes mellitus -S/p insulin drip -Avoid hypoglycemia -Transition to SSI and long-acting insulin, titrate as needed -Accu-checks AC and at bedtime -Hemoglobin A1c 10.0 -We will likely need discharge with diabetic supplies. -Given to liters LR bolus today Heme: NAD -Trend CBC -Transfuse hemoglobin less than 7 -Monitor for signs of bleeding -SCDs to BLE while in bed OB: Intrauterine at 31 weeks gestation -OB consulted, appreciate recommendations -Per protocol OB will be primary upon transfer from ICU - care per OB The high probability of a clinically significant, sudden or life threatening deterioration of the [endo/psych] system(s) required my full and direct attention, intervention and personal management. The aggregate critical care time was [60] minutes. This time is in addition to time spent performing reported procedures but includes the following: [x] Data Review and interpretation [x] Patient assessment and monitoring of vital signs [x] Documentation [x] Medication orders and management Disposition Plan: Transfer to floor Total Time Spent with Patient (Minutes): 60 History Interval history: This is a 31-year-old female with obesity, schizophrenia, bipolar disorder who presented to the emergency department on 02/03 with tangential thinking via EMS with complaints of abdominal pain. Patient underwent abdominal ultrasound and was found to have intrauterine at 31 weeks gestation and lab work revealed DKA with new onset diabetes mellitus. Patient was initiated on the DKA protocol admitted to the ICU with CC, AUTO BODY ESTIMATOR consults. Patient was placed at this time 13 in the emergency department and psych was consulted. Hospital course to date: 02/04: Patient anion gap closed, given 2 L LR bolus, transition to SSI and long- acting insulin. Patient will be transferred to the floor. Per policy OB will become attending. Hospitalist Physical - Physical exam Narrative exam: Unable to complete physical exam as patient refused examination - Constitutional Vitals: Temp Pulse Resp BP Pulse Ox 97.8 F 95 H 23 163/68 99 02/04/22 16:00 02/04/22 15:37 02/04/22 15:38 02/04/22 14:40 02/04/22 15:38 General appearance: Present: mild distress, obese Results - Labs CBC & Chem 7: 02/03/22 08:56 02/04/22 15:26 Labs: Laboratory Last Values WBC 6.9 K/mm3 (4.5-11.0) 02/03/22 08:56 RBC 4.24 M/mm3 (3.65-5.03) 02/03/22 08:56 Hgb 13.1 gm/dl (10.1-14.3) 02/03/22 08:56 Hct 39.9 % (30.3-42.9) 02/03/22 08:56 MCV 94 fl (79-97) 02/03/22 08:56 MCH 31 pg (28-32) 02/03/22 08:56 MCHC 33 % (30-34) 02/03/22 08:56 RDW 14.0 % (13.2-15.2) 02/03/22 08:56 Plt Count 294 K/mm3 (140-440) 02/03/22 08:56 Lymph % (Auto) 16.4 % (13.4-35.0) 02/03/22 08:56 Edmonson % (Auto) 5.8 % (0.0-7.3) 02/03/22 08:56 Eos % (Auto) 0.3 % (0.0-4.3) 02/03/22 08:56 Baso % (Auto) 1.0 % (0.0-1.8) 02/03/22 08:56 Lymph # (Auto) 1.1 K/mm3 (1.2-5.4) L 02/03/22 08:56 Edmonson # (Auto) 0.4 K/mm3 (0.0-0.8) 02/03/22 08:56 Eos # (Auto) 0.0 K/mm3 (0.0-0.4) 02/03/22 08:56 Baso # (Auto) 0.1 K/mm3 (0.0-0.1) 02/03/22 08:56 Seg Neutrophils % 76.5 % (40.0-70.0) H 02/03/22 08:56 Seg Neutrophils # 5.3 K/mm3 (1.8-7.7) 02/03/22 08:56 VBG pH 7.292 (7.320-7.420) L 02/03/22 13:21 Sodium 131 mmol/L (137-145) L 02/04/22 15:26 Potassium 4.1 mmol/L (3.6-5.0) 02/04/22 15:26 Chloride 99.5 mmol/L (98-107) 02/04/22 15:26 Carbon Dioxide 16 mmol/L (22-30) L 02/04/22 15:26 Anion Gap 20 mmol/L 02/04/22 15:26 BUN 16 mg/dL (7-17) 02/04/22 15:26 Creatinine 0.5 mg/dL (0.6-1.2) L 02/04/22 15:26 Estimated GFR > 60 ml/min 02/04/22 15:26 BUN/Creatinine Ratio 32 % 02/04/22 15:26 Glucose 321 mg/dL (65-100) H 02/04/22 15:26 POC Glucose 296 mg/dL (70-105) H 02/04/22 16:29 Hemoglobin A1c 10.0 % (4-6) H 02/04/22 10:26 Calcium 9.0 mg/dL (8.4-10.2) 02/04/22 15:26 Phosphorus 5.10 mg/dL (2.5-4.5) H 02/03/22 13:24 Magnesium 1.80 mg/dL (1.7-2.3) 02/03/22 13:24 Total Bilirubin 0.30 mg/dL (0.1-1.2) 02/03/22 08:56 AST 18 units/L (5-40) 02/03/22 08:56 ALT 23 units/L (7-56) 02/03/22 08:56 Alkaline Phosphatase 107 units/L (35-129) 02/03/22 08:56 Total Protein 7.9 g/dL (6.3-8.2) 02/03/22 08:56 Albumin 3.9 g/dL (3.9-5) 02/03/22 08:56 Albumin/Globulin Ratio 1.0 % 02/03/22 08:56 TSH 2.740 mlU/mL (0.270-4.200) 02/03/22 08:56 Urine Color Straw (Yellow) 02/03/22 09:41 Urine Turbidity Clear (Clear) 02/03/22 09:41 Urine pH 5.0 (5.0-7.0) 02/03/22 09:41 Ur Specific Holstein 1.025 (1.003-1.030) 02/03/22 09:41 Urine Protein <15 mg/dl mg/dL (Negative) 02/03/22 09:41 Urine Glucose (UA) >=500 mg/dL (Negative) 02/03/22 09:41 Urine Ketones 80 mg/dL (Negative) 02/03/22 09:41 Urine Blood Neg (Negative) 02/03/22 09:41 Urine Nitrite Neg (Negative) 02/03/22 09:41 Urine Bilirubin Neg (Negative) 02/03/22 09:41 Urine Urobilinogen < 2.0 mg/dL (<2.0) 02/03/22 09:41 Ur Leukocyte Esterase Neg (Negative) 02/03/22 09:41 Urine WBC (Auto) 1.0 /HPF (0.0-6.0) 02/03/22 09:41 Urine RBC (Auto) 1.0 /HPF (0.0-6.0) 02/03/22 09:41 U Epithel Cells (Auto) < 1.0 /HPF (0-13.0) 02/03/22 09:41 Urine Bacteria (Auto) 1+ /HPF (Negative) 02/03/22 09:41 Urine Yeast (Budding) Few /HPF 02/03/22 09:41 Salicylates < 0.3 mg/dL (2.8-20.0) L 02/03/22 08:56 Urine Opiates Screen Negative 02/03/22 09:41 Urine Methadone Screen Negative 02/03/22 09:41 Acetaminophen 5.0 ug/mL (10.0-30.0) L 02/03/22 08:56 Ur Barbiturates Screen Negative 02/03/22 09:41 Ur Phencyclidine Scrn Negative 02/03/22 09:41 Ur Amphetamines Screen Negative 02/03/22 09:41 U Benzodiazepines Scrn Negative 02/03/22 09:41 Urine Cocaine Screen Negative 02/03/22 09:41 U Marijuana (THC) Screen Negative 02/03/22 09:41 Drugs of Abuse Note Disclamer 02/03/22 09:41 Plasma/Serum Alcohol < 0.01 % (0-0.07) 02/03/22 08:56 Coronavirus (PCR) Negative (Negative) 02/03/22 09:41 Easley/IV: Voiding Method Toilet Active Medications - Current Medications Current Medications: Generic Name Dose Route Start Last Admin Trade Name Freq PRN Reason Stop Dose Admin Acetaminophen 650 mg 02/03/22 10:58 Acetaminophen 325 Mg Tab PO Q6H PRN Pain MILD(1-3)/Fever >100.5/TERRELL Albuterol 2.5 mg 02/03/22 10:53 Albuterol 2.5 Mg/3 Ml Nebu IH Q3H PRN Shortness Of Breath Dextrose 0 ml 02/04/22 08:51 Dextrose 10% *Hypoglycemia IV PRN PRN Hypoglycemia Lactated Ringer's 1,000 mls @ 999 mls/hr 02/04/22 17:00 02/04/22 17:21 Lactated Ringers IV 02/04/22 20:00 999 mls/hr BOLUS SHARON Administration Insulin Glargine 30 units 02/04/22 22:00 Insulin Glargine 100 Units/Ml SUB-Q QHS SHARON Insulin Human Lispro 0 unit 02/04/22 11:30 02/04/22 17:20 Insulin Lispro 100 Unit/Ml SUB-Q 4 unit ACHS SHARON Administration Protocol Oxycodone/Acetaminophen 1 tab 02/04/22 08:44 Oxycodone /Acetaminophen 5-325mg Tab PO Q6H PRN Pain, Moderate (4-6) Sodium Chloride 10 ml 02/03/22 22:00 02/04/22 09:24 Sodium Chloride 0.9% 10 Ml Flush Syringe IV 10 ml BID SHARON Administration Sodium Chloride 10 ml 02/03/22 10:58 Sodium Chloride 0.9% 10 Ml Flush Syringe IV PRN PRN LINE FLUSH Nutrition/Malnutrition Assess - Dietary Evaluation Nutrition/Malnutrition Findings: Nutrition Notes Start: 02/04/22 15:36 Freq: Status: Active Protocol: Document 02/04/22 15:36 JESÚSMANI (Rec: 02/04/22 15:43 TNALL [id number]) Nutrition Notes Need for Assessment generated from: MD Order,Education Initial or Follow up Brief Note Current Diagnosis Diabetes Other Pertinent Diagnosis New onset DM, 31-week , DKA, schizophrenia, Bipolar D/O Current Diet Consistent CHO Labs/Tests A1C 10 Subjective/Other Information RD consulted for diet education. Pt requests double portions; consumed 100% of lunch today. Pt with tangential conversation, but aware of current dx of DM. Pt willing to listen to discussion about food sources of CHO and necessity of monitoring CHO intake to better control BS. Burn Absent Trauma Absent Current % PO Good (75-100%) Minimum of two criteria No #1 Nutrition Diagnosis Food and nutrition-related knowledge deficit Etiology new onset DM As Evidenced by Signs and Symptoms A1C 10; pt unable to verbalize food sources of CHO Nutrition Intervention Teaching Recipient Patient Learning Readiness Good Teaching Methods Discussion,Demonstration, Handout Response to Teaching Return demonstration, Reinforcement needed Education Handouts Provided Meal Planning using MyPlate Food Sources of Carbohydrates Barriers to Learning Emotional,Financial, Environmental Actions To Overcome Barriers Other Goal #1 Improve BS control Goal #2 Adhere to CHO-controlled diet Anticipated Discharge Needs: CHO-controlled diet Revisit per MD consult or patient Sign Off request: <JAMISON GILLIS E - Last Filed: 02/05/22 07:32> Assessment and Plan Assessment and plan: I saw and evaluated the patient. I agree with the findings and the plan of care as documented in the Nurse Practitioner's~note, with the following corrections and additions. Hospitalist Physical - Constitutional Vitals: Temp Pulse Resp BP Pulse Ox 98.0 F 79 18 136/75 97 02/05/22 06:00 02/05/22 05:04 02/05/22 05:04 02/05/22 05:04 02/05/22 05:04 Results - Labs CBC & Chem 7: 02/05/22 05:30 02/05/22 05:30 Labs: Laboratory Last Values WBC 5.7 K/mm3 (4.5-11.0) 02/05/22 05:30 RBC 3.45 M/mm3 (3.65-5.03) L 02/05/22 05:30 Hgb 11.0 gm/dl (10.1-14.3) 02/05/22 05:30 Hct 31.3 % (30.3-42.9) D 02/05/22 05:30 MCV 91 fl (79-97) 02/05/22 05:30 MCH 32 pg (28-32) 02/05/22 05:30 MCHC 35 % (30-34) H 02/05/22 05:30 RDW 13.6 % (13.2-15.2) 02/05/22 05:30 Plt Count 175 K/mm3 (140-440) 02/05/22 05:30 Lymph % (Auto) 16.4 % (13.4-35.0) 02/03/22 08:56 Edmonson % (Auto) 5.8 % (0.0-7.3) 02/03/22 08:56 Eos % (Auto) 0.3 % (0.0-4.3) 02/03/22 08:56 Baso % (Auto) 1.0 % (0.0-1.8) 02/03/22 08:56 Lymph # (Auto) 1.1 K/mm3 (1.2-5.4) L 02/03/22 08:56 Edmonson # (Auto) 0.4 K/mm3 (0.0-0.8) 02/03/22 08:56 Eos # (Auto) 0.0 K/mm3 (0.0-0.4) 02/03/22 08:56 Baso # (Auto) 0.1 K/mm3 (0.0-0.1) 02/03/22 08:56 Seg Neutrophils % 76.5 % (40.0-70.0) H 02/03/22 08:56 Seg Neutrophils # 5.3 K/mm3 (1.8-7.7) 02/03/22 08:56 ABG pH 7.366 (7.320-7.450) 02/05/22 05:00 POC ABG pCO2 32.0 mmHg (32.0-48.0) 02/05/22 05:00 POC ABG pO2 87.0 mmHg (83-108) 02/05/22 05:00 POC ABG HCO3 17.9 02/05/22 05:00 ABG O2 Saturation 97.1 (0-100) 02/05/22 05:00 POC ABG Base Excess -6.1 02/05/22 05:00 ABG Hemoglobin 16.9 (12.0-17.5) 02/05/22 05:00 ABG Oxyhemoglobin 96.1 (94-98) 02/05/22 05:00 ABG Methemoglobin 0 (0.0-1.5) 02/05/22 05:00 VBG pH 7.292 (7.320-7.420) L 02/03/22 13:21 Carboxyhemoglobin 1.0 (0.5-1.5) 02/05/22 05:00 FiO2 % 80 02/05/22 05:00 Sodium 136 mmol/L (137-145) L 02/05/22 05:30 Potassium 4.1 mmol/L (3.6-5.0) 02/05/22 05:30 Chloride 104.4 mmol/L (98-107) 02/05/22 05:30 Carbon Dioxide 18 mmol/L (22-30) L 02/05/22 05:30 Anion Gap 18 mmol/L 02/05/22 05:30 BUN 14 mg/dL (7-17) 02/05/22 05:30 Creatinine 0.5 mg/dL (0.6-1.2) L 02/05/22 05:30 Estimated GFR > 60 ml/min 02/05/22 05:30 BUN/Creatinine Ratio 28 % 02/05/22 05:30 Glucose 298 mg/dL (65-100) H 02/05/22 05:30 POC Glucose 287 mg/dL (70-105) H 02/04/22 21:08 Hemoglobin A1c 10.0 % (4-6) H 02/04/22 10:26 Calcium 8.5 mg/dL (8.4-10.2) 02/05/22 05:30 Phosphorus 3.60 mg/dL (2.5-4.5) 02/05/22 05:30 Magnesium 1.60 mg/dL (1.7-2.3) L 02/05/22 05:30 Total Bilirubin 0.30 mg/dL (0.1-1.2) 02/03/22 08:56 AST 18 units/L (5-40) 02/03/22 08:56 ALT 23 units/L (7-56) 02/03/22 08:56 Alkaline Phosphatase 107 units/L (35-129) 02/03/22 08:56 Total Protein 7.9 g/dL (6.3-8.2) 02/03/22 08:56 Albumin 3.9 g/dL (3.9-5) 02/03/22 08:56 Albumin/Globulin Ratio 1.0 % 02/03/22 08:56 TSH 2.740 mlU/mL (0.270-4.200) 02/03/22 08:56 Urine Color Straw (Yellow) 02/03/22 09:41 Urine Turbidity Clear (Clear) 02/03/22 09:41 Urine pH 5.0 (5.0-7.0) 02/03/22 09:41 Ur Specific Holstein 1.025 (1.003-1.030) 02/03/22 09:41 Urine Protein <15 mg/dl mg/dL (Negative) 02/03/22 09:41 Urine Glucose (UA) >=500 mg/dL (Negative) 02/03/22 09:41 Urine Ketones 80 mg/dL (Negative) 02/03/22 09:41 Urine Blood Neg (Negative) 02/03/22 09:41 Urine Nitrite Neg (Negative) 02/03/22 09:41 Urine Bilirubin Neg (Negative) 02/03/22 09:41 Urine Urobilinogen < 2.0 mg/dL (<2.0) 02/03/22 09:41 Ur Leukocyte Esterase Neg (Negative) 02/03/22 09:41 Urine WBC (Auto) 1.0 /HPF (0.0-6.0) 02/03/22 09:41 Urine RBC (Auto) 1.0 /HPF (0.0-6.0) 02/03/22 09:41 U Epithel Cells (Auto) < 1.0 /HPF (0-13.0) 02/03/22 09:41 Urine Bacteria (Auto) 1+ /HPF (Negative) 02/03/22 09:41 Urine Yeast (Budding) Few /HPF 02/03/22 09:41 Salicylates < 0.3 mg/dL (2.8-20.0) L 02/03/22 08:56 Urine Opiates Screen Negative 02/03/22 09:41 Urine Methadone Screen Negative 02/03/22 09:41 Acetaminophen 5.0 ug/mL (10.0-30.0) L 02/03/22 08:56 Ur Barbiturates Screen Negative 02/03/22 09:41 Ur Phencyclidine Scrn Negative 02/03/22 09:41 Ur Amphetamines Screen Negative 02/03/22 09:41 U Benzodiazepines Scrn Negative 02/03/22 09:41 Urine Cocaine Screen Negative 02/03/22 09:41 U Marijuana (THC) Screen Negative 02/03/22 09:41 Drugs of Abuse Note Disclamer 02/03/22 09:41 Plasma/Serum Alcohol < 0.01 % (0-0.07) 02/03/22 08:56 Coronavirus (PCR) Negative (Negative) 02/03/22 09:41 Easley/IV: Voiding Method Toilet Active Medications - Current Medications Current Medications: Generic Name Dose Route Start Last Admin Trade Name Freq PRN Reason Stop Dose Admin Acetaminophen 650 mg 02/03/22 10:58 Acetaminophen 325 Mg Tab PO Q6H PRN Pain MILD(1-3)/Fever >100.5/TERRELL Albuterol 2.5 mg 02/03/22 10:53 Albuterol 2.5 Mg/3 Ml Nebu IH Q3H PRN Shortness Of Breath Dextrose 0 ml 02/04/22 08:51 Dextrose 10% *Hypoglycemia IV PRN PRN Hypoglycemia Insulin Glargine 30 units 02/04/22 22:00 02/04/22 22:33 Insulin Glargine 100 Units/Ml SUB-Q 30 units QHS SHARON Administration Insulin Human Lispro 0 unit 02/04/22 11:30 02/04/22 22:36 Insulin Lispro 100 Unit/Ml SUB-Q 6 unit ACHS SHARON Administration Protocol Oxycodone/Acetaminophen 1 tab 02/04/22 08:44 Oxycodone /Acetaminophen 5-325mg Tab PO Q6H PRN Pain, Moderate (4-6) Sodium Chloride 10 ml 02/03/22 22:00 02/04/22 22:45 Sodium Chloride 0.9% 10 Ml Flush Syringe IV 10 ml BID SHARON Administration Sodium Chloride 10 ml 02/03/22 10:58 Sodium Chloride 0.9% 10 Ml Flush Syringe IV PRN PRN LINE FLUSH Nutrition/Malnutrition Assess - Dietary Evaluation Nutrition/Malnutrition Findings: Nutrition Notes Start: 02/04/22 15:36 Freq: Status: Active Protocol: Document 02/04/22 15:36 JESÚSMANI (Rec: 02/04/22 15:43 NHALL [id number]) Nutrition Notes Need for Assessment generated from: MD Order,Education Initial or Follow up Brief Note Current Diagnosis Diabetes Other Pertinent Diagnosis New onset DM, 31-week , DKA, schizophrenia, Bipolar D/O Current Diet Consistent CHO Labs/Tests A1C 10 Subjective/Other Information RD consulted for diet education. Pt requests double portions; consumed 100% of lunch today. Pt with tangential conversation, but aware of current dx of DM. Pt willing to listen to discussion about food sources of CHO and necessity of monitoring CHO intake to better control BS. Burn Absent Trauma Absent Current % PO Good (75-100%) Minimum of two criteria No #1 Nutrition Diagnosis Food and nutrition-related knowledge deficit Etiology new onset DM As Evidenced by Signs and Symptoms A1C 10; pt unable to verbalize food sources of CHO Nutrition Intervention Teaching Recipient Patient Learning Readiness Good Teaching Methods Discussion,Demonstration, Handout Response to Teaching Return demonstration, Reinforcement needed Education Handouts Provided Meal Planning using MyPlate Food Sources of Carbohydrates Barriers to Learning Emotional,Financial, Environmental Actions To Overcome Barriers Other Goal #1 Improve BS control Goal #2 Adhere to CHO-controlled diet Anticipated Discharge Needs: CHO-controlled diet Revisit per MD consult or patient Sign Off request:
[2022-02-05 06:03] LABS: Hematocrit 31.3 % (30.3-42.9); Mean Corpuscular HGB Conc 35 % (30-34); Mean Corpuscular Volume 91 fl (79-97); Platelet Count 175 K/mm3 (140-440); Red Blood Count 3.45 M/mm3 (3.65-5.03); Red Cell Distribution Width 13.6 % (13.2-15.2)
[2022-02-05 06:21] LABS: Blood Urea Nitrogen 14 mg/dL (7-17); Calcium 8.5 mg/dL (8.4-10.2); Hemolysis Index 0
[2022-02-05 06:38] LABS: BUN/Creatinine Ratio 28
[2022-02-05] MEDS: INSULIN LISPRO 100 UNIT/ML SUB-Q SCH ×4 (08:11→22:09)
--- NOTE | 2022-02-05 12:26 | Progress Note ---
Assessment and Plan Diabetic ketoacidosis Mild metabolic encephalopathy Schizophrenia Obesity Gravid state Mild hyperkalemia Bipolar disorder - Psych evaluation - HYDROTREATER OPERATOR following - prn supplemental oxygen to keep O2 sats > 90% - prn bronchodilators (ASA) with pulm hygiene per RT - avoid nephrotoxins, renally dose all medications - mobility protocols to prevent pressure ulcers - PT/OT as tolerated - Wound care per RN/WCT - continue accuchecks with glycemic control per SSI for target blood glucose < 180 mg/dL - tobacco abstinence strongly counseled at the bedside (attempted) - home oxygen evaluation at discharge - GI & VTE prophylaxis - Flu & pneumovax per protocol - prn analgesia per pain score - continue other care per attending / other consultants ... re-evaluate in am & prn Subjective Date of service: 02/05/22 Principal diagnosis: DKA; AMS; Schizophrenia; Obesity; Gravid state; Bipolar disorder Interval history: Patient is seen today for: DKA; AMS; Schizophrenia; Obesity; Gravid state; Bipolar disorder Seen and examined at bedside; 24hour events reviewed; nursing and respiratory care staff consulted; no adverse overnight events reported to me; resting in bed; no new issues; still with schizoid personality Objective Vital Signs - 12hr 02/05/22 02/05/22 02/05/22 01:19 04:00 05:04 Temperature 97.5 F L Pulse Rate 91 H 89 79 Respiratory 18 18 Rate Blood Pressure 112/71 136/75 O2 Sat by Pulse 99 97 Oximetry 02/05/22 02/05/22 02/05/22 06:00 08:20 10:39 Temperature 98.0 F 97.3 F L Pulse Rate 94 H Respiratory 19 Rate Blood Pressure 137/71 O2 Sat by Pulse 99 98 Oximetry Constitutional: no acute distress Eyes: non-icteric ENT: oropharynx moist Neck: supple, no lymphadenopathy, no JVD Effort: normal Ascultation: Bilateral: clear Percussion: Bilateral: not dull Cardiovascular: regular rate and rhythm Gastrointestinal: normoactive bowel sounds, soft, non-tender, non-distended Integumentary: normal Extremities: no cyanosis, no edema, pulses normal, no ischemia or petechiae Neurologic: non-focal exam, pupils equal and round, motor strength normal and Psychiatric: other (poor insight and judgment) CBC and BMP: 02/05/22 05:30 02/06/22 05:19 ABG, PT/INR, D-dimer: ABG ABG pH 7.366 (7.320-7.450) 02/05/22 05:00 POC ABG pCO2 32.0 mmHg (32.0-48.0) 02/05/22 05:00 POC ABG pO2 87.0 mmHg (83-108) 02/05/22 05:00 POC ABG HCO3 17.9 02/05/22 05:00 ABG O2 Saturation 97.1 (0-100) 02/05/22 05:00 Abnormal lab findings: Abnormal Labs 02/03/22 02/03/22 02/03/22 08:56 08:56 08:56 RBC MCHC Lymph # (Auto) 1.1 L Seg Neutrophils % 76.5 H VBG pH Sodium 124 L Potassium 5.1 H Chloride 86.9 L Carbon Dioxide 12 L BUN 20 H Creatinine Glucose 661 H* POC Glucose Hemoglobin A1c Calcium 10.8 H Phosphorus Magnesium Salicylates < 0.3 L Acetaminophen 02/03/22 02/03/22 02/03/22 08:56 12:03 13:07 RBC MCHC Lymph # (Auto) Seg Neutrophils % VBG pH Sodium Potassium Chloride Carbon Dioxide BUN Creatinine Glucose POC Glucose 507 H 474 H Hemoglobin A1c Calcium Phosphorus Magnesium Salicylates Acetaminophen 5.0 L 02/03/22 02/03/22 02/03/22 13:21 13:24 13:24 RBC MCHC Lymph # (Auto) Seg Neutrophils % VBG pH 7.292 L Sodium 128 L Potassium Chloride 93.6 L Carbon Dioxide 13 L BUN 18 H Creatinine Glucose 508 H* POC Glucose Hemoglobin A1c Calcium Phosphorus 5.10 H Magnesium Salicylates Acetaminophen 02/03/22 02/03/22 02/03/22 14:22 15:14 16:18 RBC MCHC Lymph # (Auto) Seg Neutrophils % VBG pH Sodium Potassium Chloride Carbon Dioxide BUN Creatinine Glucose POC Glucose 509 H 483 H 385 H Hemoglobin A1c Calcium Phosphorus Magnesium Salicylates Acetaminophen 02/03/22 02/03/22 02/03/22 17:09 18:06 18:15 RBC MCHC Lymph # (Auto) Seg Neutrophils % VBG pH Sodium 130 L Potassium Chloride 95.6 L Carbon Dioxide 17 L BUN Creatinine Glucose 452 H POC Glucose 445 H 411 H Hemoglobin A1c Calcium Phosphorus Magnesium Salicylates Acetaminophen 02/03/22 02/03/22 02/03/22 19:38 20:26 20:50 RBC MCHC Lymph # (Auto) Seg Neutrophils % VBG pH Sodium 128 L Potassium Chloride 96.2 L Carbon Dioxide 15 L BUN 18 H Creatinine Glucose 415 H POC Glucose 422 H 380 H Hemoglobin A1c Calcium Phosphorus Magnesium Salicylates Acetaminophen 02/03/22 02/03/22 02/03/22 21:58 23:04 23:13 RBC MCHC Lymph # (Auto) Seg Neutrophils % VBG pH Sodium 129 L Potassium Chloride 97.1 L Carbon Dioxide 15 L BUN Creatinine Glucose 389 H POC Glucose 318 H 398 H Hemoglobin A1c Calcium Phosphorus Magnesium Salicylates Acetaminophen 02/04/22 02/04/22 02/04/22 00:14 01:21 02:44 RBC MCHC Lymph # (Auto) Seg Neutrophils % VBG pH Sodium Potassium Chloride Carbon Dioxide BUN Creatinine Glucose POC Glucose 383 H 348 H 269 H Hemoglobin A1c Calcium Phosphorus Magnesium Salicylates Acetaminophen 02/04/22 02/04/22 02/04/22 03:06 03:51 04:58 RBC MCHC Lymph # (Auto) Seg Neutrophils % VBG pH Sodium 132 L Potassium Chloride Carbon Dioxide 15 L BUN Creatinine 0.5 L Glucose 252 H POC Glucose 231 H 212 H Hemoglobin A1c Calcium Phosphorus Magnesium Salicylates Acetaminophen 02/04/22 02/04/22 02/04/22 05:43 06:43 07:32 RBC MCHC Lymph # (Auto) Seg Neutrophils % VBG pH Sodium Potassium Chloride Carbon Dioxide BUN Creatinine Glucose POC Glucose 180 H 197 H 237 H Hemoglobin A1c Calcium Phosphorus Magnesium Salicylates Acetaminophen 02/04/22 02/04/22 02/04/22 08:29 09:32 10:26 RBC MCHC Lymph # (Auto) Seg Neutrophils % VBG pH Sodium 131 L Potassium Chloride Carbon Dioxide 14 L BUN Creatinine Glucose 427 H POC Glucose 238 H 285 H Hemoglobin A1c Calcium Phosphorus Magnesium Salicylates Acetaminophen 02/04/22 02/04/22 02/04/22 10:26 10:28 11:31 RBC MCHC Lymph # (Auto) Seg Neutrophils % VBG pH Sodium Potassium Chloride Carbon Dioxide BUN Creatinine Glucose POC Glucose 406 H 312 H Hemoglobin A1c 10.0 H Calcium Phosphorus Magnesium Salicylates Acetaminophen 02/04/22 02/04/22 02/04/22 15:26 16:29 21:08 RBC MCHC Lymph # (Auto) Seg Neutrophils % VBG pH Sodium 131 L Potassium Chloride Carbon Dioxide 16 L BUN Creatinine 0.5 L Glucose 321 H POC Glucose 296 H 287 H Hemoglobin A1c Calcium Phosphorus Magnesium Salicylates Acetaminophen 02/05/22 02/05/22 02/05/22 05:30 05:30 07:31 RBC 3.45 L MCHC 35 H Lymph # (Auto) Seg Neutrophils % VBG pH Sodium 136 L Potassium Chloride Carbon Dioxide 18 L BUN Creatinine 0.5 L Glucose 298 H POC Glucose 295 H Hemoglobin A1c Calcium Phosphorus Magnesium 1.60 L Salicylates Acetaminophen 02/05/22 11:41 RBC MCHC Lymph # (Auto) Seg Neutrophils % VBG pH Sodium Potassium Chloride Carbon Dioxide BUN Creatinine Glucose POC Glucose 269 H Hemoglobin A1c Calcium Phosphorus Magnesium Salicylates Acetaminophen Allied health notes reviewed: nursing
--- NOTE | 2022-02-05 12:30 | Event Note ---
Date: 02/05/22 Upon entry into the room, the patient requested that I leave. I notified the patient of who I was and why I was coming to see her; however, she still requested that I leave without examining her. Will reassess tomorrow morning.
--- NOTE | 2022-02-05 18:43 | Consultation ---
DATE OF CONSULTATION: 02/04/2022 PULMONARY CRITICAL CARE CONSULTATION CONSULTING PHYSICIAN: Dr. Munoz. REASON FOR CONSULTATION: Diabetic ketoacidosis. CHIEF COMPLAINT AND HISTORY OF PRESENT ILLNESS: The patient is a now 31-year-old female with past medical history significant amongst other things for a diagnosis of obesity, but also schizophrenia, who came into the Emergency Room after Emergency Medical Services were called for complaints of abdominal pain. EMS found her in distress. They brought her to the Emergency Room. On abdominal ultrasound showed that she had an intrauterine at 31 weeks of gestation. She also had new-onset diabetes complicated by diabetic ketoacidosis. She was admitted to the intensive care unit, started on IV insulin on DKA protocol, and we are asked to assist with management. When I stopped by to see her, she was resting in her room. She actually had a one-on-one sitter in the room. She was having obvious tangential thinking, but she was not agitated at that time. History taking was virtually impossible. The patient had apparently been placed on a 1013 hold and psychiatric consult has been placed. She remained on an insulin drip up until this morning when she was transitioned to a longer acting product after her anion gap closed. I do not have any history of cough or hemoptysis, fevers or chills. She states she is feeling better in a brief period of lucidity. The above is as much of the history of presentation as I have. Her tobacco use history is unknown, as she is unable to answer my question. PAST MEDICAL HISTORY: Schizophrenia, obesity, bipolar disorder. PAST SURGICAL HISTORY: She has had neck surgery. MEDICATIONS: She was on at the time I stopped by to see her according to the medication administration record included the following: Tylenol 650 mg p.o. q. 6 hours p.r.n. mild pain or fever, albuterol nebulizer treatments 2.5 mg nebulized q. 3 hours p.r.n. shortness of breath, Lantus insulin 30 units subcutaneous q.a.m., insulin via sliding scale. Percocet 5/325 mg 1 tablet p.o. q. 6 hours p.r.n. moderate pain. ALLERGIES: No known drug allergies. DIET: Obese lady, acute weight loss or gain history is unknown. FAMILY AND SOCIAL HISTORY: Lives in the community . Alcohol, tobacco or illicit drug use or abuse history is unknown. FAMILY HISTORY: Otherwise unknown. REVIEW OF SYSTEMS: Unobtainable secondary to the patient's medical and mental condition since she has been here, no gross hematochezia or melena, no gross hematuria, no hematemesis, no hemoptysis, no witnessed seizures. Review of systems otherwise unobtainable or as in body of history above. PHYSICAL EXAMINATION: VITAL SIGNS: On presentation and since she has been afebrile, temperature 98.9 degrees Fahrenheit, pulse of 114, respiratory rate of 20, blood pressure 154/100, O2 sats 98%, inspired oxygen concentration at that time was not recorded. GENERAL: She is a young, obese female. Normocephalic, atraumatic. Resting in bed with normal respiratory effort at rest. HEAD, EYES, EARS, NOSE AND THROAT: Anicteric. No conjunctival erythema. Oropharynx was moist. NECK: No gross jugular venous distention, no thyromegaly. She does have a large neck circumference. Grossly, there were no palpable lymph nodes in the supraclavicular or submandibular lymph node chains. LUNGS: Auscultation of both lung cassidy unremarkable. Lungs are clear bilaterally. HEART: Sounds 1 and 2 are heard. There were regular rate and rhythm at the time of my evaluation without overt rubs or murmurs. ABDOMEN: Soft, full, distended. Bowel sounds are positive, nontender, no palpable hepatosplenomegaly. EXTREMITIES: Without overt digital clubbing or cyanosis, no pedal edema. Pedal pulses are 2+ bilaterally. NEUROLOGIC: Pupils are equal, round, about 4 mm, reactive to light. Extraocular muscle movements are intact. She moves all 4 extremities spontaneously. SKIN: Normal turgor in the areas examined without overt cellulitis or rash. Please see the wound care nurses' notes for full description of her skin. PSYCHIATRIC: Mood was normal. Affect was somewhat excited. She had tangential thinking with poor judgment and insight. LABORATORY DATA: From my review are as follows: Admission white cell count was 6900, hemoglobin 13.1, hematocrit 39.9, platelet count 294. No manual differential. Serum sodium was 124 at presentation, potassium 5.1, chloride 87, bicarbonate 12, BUN 23, creatinine 0.8, glucose was 661. Liver function tests are within normal limits. TSH within normal limits. Urinalysis was negative for nitrites and leukocyte esterase, 1+ bacteria. Urine drug screen was presumptive negative. Aspirin, Tylenol, alcohol levels within normal limits, not elevated. Coronavirus PCR was negative. No microbiology studies for my review. An ultrasound was done, an obstetrics ultrasound. It was read as showing a gravid uterus. Single, living, intrauterine with estimated sonographic age of 31 weeks and 2 days. No significant abnormality. ASSESSMENT: 1. Diabetic ketoacidosis. 2. Mild metabolic encephalopathy. 3. History of schizophrenia. 4. Obesity. 5. Gravid state. 6. Mild hyperkalemia at presentation. 7. History of bipolar disorder. PLAN: She has done well. She is now off the IV insulin therapy. We will continue long-acting insulin while also using the sliding scale. Diabetic education will probably be a challenge, but will be offered about the same. Psychiatry evaluation is ongoing. She will remain on a 1013. She will be transferred to the medical floor, doing better. Thank you very much for the consult. We will follow along and make further recommendations as picture progresses/becomes clearer. TID: [id number] RECEIPT: [id number] JOSIAH/SANJEEV/JOHANNY
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
[2022-02-05] MEDS: INSULIN GLARGINE 100 UNITS/ML SUB-Q SCH (22:10)
[2022-02-06 06:36] LABS: Alanine Aminotransferase 20 units/L (7-56); Albumin 3.5 g/dL (3.9-5); BUN/Creatinine Ratio 24; Blood Urea Nitrogen 12 mg/dL (7-17); Calcium 9.2 mg/dL (8.4-10.2); Hemolysis Index 2
[2022-02-06] MEDS: INSULIN LISPRO 100 UNIT/ML SUB-Q SCH ×3 (11:13→21:18)
--- NOTE | 2022-02-06 13:35 | Progress Note ---
Assessment and Plan Diabetic ketoacidosis Mild metabolic encephalopathy Schizophrenia Obesity Gravid state Mild hyperkalemia Bipolar disorder - Psych evaluation ongoing - tighten glycemic control - continue care as below otherwise; - FIRE ENGINEER following - prn supplemental oxygen to keep O2 sats > 90% - prn bronchodilators (ASA) with pulm hygiene per RT - avoid nephrotoxins, renally dose all medications - mobility protocols to prevent pressure ulcers - PT/OT as tolerated - Wound care per RN/WCT - continue accuchecks with glycemic control per SSI for target blood glucose < 180 mg/dL - tobacco abstinence strongly counseled at the bedside (attempted) - home oxygen evaluation at discharge - GI & VTE prophylaxis - Flu & pneumovax per protocol - prn analgesia per pain score - continue other care per attending / other consultants ... re-evaluate in am & prn Subjective Date of service: 02/06/22 Principal diagnosis: DKA; AMS; Schizophrenia; Obesity; Gravid state; Bipolar disorder Interval history: Patient is seen today for: DKA; AMS; Schizophrenia; Obesity; Gravid state; Bipolar disorder Seen and examined at bedside; 24hour events reviewed; nursing and respiratory care staff consulted; no adverse overnight events reported to me; resting in bed; no new issues; pleasant today; less pressured speech or tangential thinking; denies acute chest pain or SOB; says "still trying to understand her diabetes diagnosis" Objective Vital Signs - 12hr 02/06/22 02/06/22 02/06/22 04:18 05:58 06:00 Temperature 96.5 F L 98.6 F 97.8 F Pulse Rate 84 81 84 Respiratory 18 18 20 Rate Blood Pressure 120/63 127/77 Blood Pressure 120/63 [Right] O2 Sat by Pulse 96 96 96 Oximetry 02/06/22 10:54 Temperature 97.7 F Pulse Rate 92 H Respiratory 22 Rate Blood Pressure 137/87 Blood Pressure [Right] O2 Sat by Pulse 99 Oximetry Constitutional: no acute distress Eyes: non-icteric ENT: oropharynx moist Neck: supple, no lymphadenopathy, no JVD Effort: normal Ascultation: Bilateral: clear Percussion: Bilateral: not dull Cardiovascular: regular rate and rhythm Gastrointestinal: normoactive bowel sounds, soft, non-tender, non-distended Integumentary: normal Extremities: no cyanosis, no edema, pulses normal, no ischemia or petechiae Neurologic: non-focal exam, pupils equal and round, CN II-XII normal, motor strength normal and Psychiatric: mood appropriate, affect normal CBC and BMP: 02/05/22 05:30 02/06/22 05:19 ABG, PT/INR, D-dimer: ABG ABG pH 7.366 (7.320-7.450) 02/05/22 05:00 POC ABG pCO2 32.0 mmHg (32.0-48.0) 02/05/22 05:00 POC ABG pO2 87.0 mmHg (83-108) 02/05/22 05:00 POC ABG HCO3 17.9 02/05/22 05:00 ABG O2 Saturation 97.1 (0-100) 02/05/22 05:00 Abnormal lab findings: Abnormal Labs 02/03/22 02/03/22 02/03/22 08:56 08:56 08:56 RBC MCHC Lymph # (Auto) 1.1 L Seg Neutrophils % 76.5 H VBG pH Sodium 124 L Potassium 5.1 H Chloride 86.9 L Carbon Dioxide 12 L BUN 20 H Creatinine Glucose 661 H* POC Glucose Hemoglobin A1c Calcium 10.8 H Phosphorus Magnesium Albumin Salicylates < 0.3 L Acetaminophen 02/03/22 02/03/22 02/03/22 08:56 12:03 13:07 RBC MCHC Lymph # (Auto) Seg Neutrophils % VBG pH Sodium Potassium Chloride Carbon Dioxide BUN Creatinine Glucose POC Glucose 507 H 474 H Hemoglobin A1c Calcium Phosphorus Magnesium Albumin Salicylates Acetaminophen 5.0 L 02/03/22 02/03/22 02/03/22 13:21 13:24 13:24 RBC MCHC Lymph # (Auto) Seg Neutrophils % VBG pH 7.292 L Sodium 128 L Potassium Chloride 93.6 L Carbon Dioxide 13 L BUN 18 H Creatinine Glucose 508 H* POC Glucose Hemoglobin A1c Calcium Phosphorus 5.10 H Magnesium Albumin Salicylates Acetaminophen 02/03/22 02/03/22 02/03/22 14:22 15:14 16:18 RBC MCHC Lymph # (Auto) Seg Neutrophils % VBG pH Sodium Potassium Chloride Carbon Dioxide BUN Creatinine Glucose POC Glucose 509 H 483 H 385 H Hemoglobin A1c Calcium Phosphorus Magnesium Albumin Salicylates Acetaminophen 02/03/22 02/03/22 02/03/22 17:09 18:06 18:15 RBC MCHC Lymph # (Auto) Seg Neutrophils % VBG pH Sodium 130 L Potassium Chloride 95.6 L Carbon Dioxide 17 L BUN Creatinine Glucose 452 H POC Glucose 445 H 411 H Hemoglobin A1c Calcium Phosphorus Magnesium Albumin Salicylates Acetaminophen 02/03/22 02/03/22 02/03/22 19:38 20:26 20:50 RBC MCHC Lymph # (Auto) Seg Neutrophils % VBG pH Sodium 128 L Potassium Chloride 96.2 L Carbon Dioxide 15 L BUN 18 H Creatinine Glucose 415 H POC Glucose 422 H 380 H Hemoglobin A1c Calcium Phosphorus Magnesium Albumin Salicylates Acetaminophen 02/03/22 02/03/22 02/03/22 21:58 23:04 23:13 RBC MCHC Lymph # (Auto) Seg Neutrophils % VBG pH Sodium 129 L Potassium Chloride 97.1 L Carbon Dioxide 15 L BUN Creatinine Glucose 389 H POC Glucose 318 H 398 H Hemoglobin A1c Calcium Phosphorus Magnesium Albumin Salicylates Acetaminophen 02/04/22 02/04/22 02/04/22 00:14 01:21 02:44 RBC MCHC Lymph # (Auto) Seg Neutrophils % VBG pH Sodium Potassium Chloride Carbon Dioxide BUN Creatinine Glucose POC Glucose 383 H 348 H 269 H Hemoglobin A1c Calcium Phosphorus Magnesium Albumin Salicylates Acetaminophen 02/04/22 02/04/22 02/04/22 03:06 03:51 04:58 RBC MCHC Lymph # (Auto) Seg Neutrophils % VBG pH Sodium 132 L Potassium Chloride Carbon Dioxide 15 L BUN Creatinine 0.5 L Glucose 252 H POC Glucose 231 H 212 H Hemoglobin A1c Calcium Phosphorus Magnesium Albumin Salicylates Acetaminophen 02/04/22 02/04/22 02/04/22 05:43 06:43 07:32 RBC MCHC Lymph # (Auto) Seg Neutrophils % VBG pH Sodium Potassium Chloride Carbon Dioxide BUN Creatinine Glucose POC Glucose 180 H 197 H 237 H Hemoglobin A1c Calcium Phosphorus Magnesium Albumin Salicylates Acetaminophen 02/04/22 02/04/22 02/04/22 08:29 09:32 10:26 RBC MCHC Lymph # (Auto) Seg Neutrophils % VBG pH Sodium 131 L Potassium Chloride Carbon Dioxide 14 L BUN Creatinine Glucose 427 H POC Glucose 238 H 285 H Hemoglobin A1c Calcium Phosphorus Magnesium Albumin Salicylates Acetaminophen 02/04/22 02/04/22 02/04/22 10:26 10:28 11:31 RBC MCHC Lymph # (Auto) Seg Neutrophils % VBG pH Sodium Potassium Chloride Carbon Dioxide BUN Creatinine Glucose POC Glucose 406 H 312 H Hemoglobin A1c 10.0 H Calcium Phosphorus Magnesium Albumin Salicylates Acetaminophen 02/04/22 02/04/22 02/04/22 15:26 16:29 21:08 RBC MCHC Lymph # (Auto) Seg Neutrophils % VBG pH Sodium 131 L Potassium Chloride Carbon Dioxide 16 L BUN Creatinine 0.5 L Glucose 321 H POC Glucose 296 H 287 H Hemoglobin A1c Calcium Phosphorus Magnesium Albumin Salicylates Acetaminophen 02/05/22 02/05/22 02/05/22 05:30 05:30 07:31 RBC 3.45 L MCHC 35 H Lymph # (Auto) Seg Neutrophils % VBG pH Sodium 136 L Potassium Chloride Carbon Dioxide 18 L BUN Creatinine 0.5 L Glucose 298 H POC Glucose 295 H Hemoglobin A1c Calcium Phosphorus Magnesium 1.60 L Albumin Salicylates Acetaminophen 02/05/22 02/05/22 02/05/22 11:41 16:04 20:39 RBC MCHC Lymph # (Auto) Seg Neutrophils % VBG pH Sodium Potassium Chloride Carbon Dioxide BUN Creatinine Glucose POC Glucose 269 H 338 H 337 H Hemoglobin A1c Calcium Phosphorus Magnesium Albumin Salicylates Acetaminophen 02/05/22 02/06/22 02/06/22 21:59 05:19 05:51 RBC MCHC Lymph # (Auto) Seg Neutrophils % VBG pH Sodium 136 L Potassium Chloride Carbon Dioxide 21 L BUN Creatinine 0.5 L Glucose 263 H POC Glucose 385 H 277 H Hemoglobin A1c Calcium Phosphorus Magnesium Albumin 3.5 L Salicylates Acetaminophen 02/06/22 11:08 RBC MCHC Lymph # (Auto) Seg Neutrophils % VBG pH Sodium Potassium Chloride Carbon Dioxide BUN Creatinine Glucose POC Glucose 318 H Hemoglobin A1c Calcium Phosphorus Magnesium Albumin Salicylates Acetaminophen Allied health notes reviewed: nursing
--- NOTE | 2022-02-06 13:51 | Ultrasound Report ---
ULTRASOUND OBSTETRIC LIMITED INDICATION / CLINICAL INFORMATION: well being. Clinical Gestational Age (GA) in weeks.days: 33 weeks 4 days TECHNIQUE: Transabdominal. COMPARISON: OB ultrasound 02/03/2022. FINDINGS: NUMBER: Single PRESENTATION: cephalic CERVIX: closed. Length in cm (if measured): Not measured. PLACENTA: Anterior grade 1 and free of the os. MATERNAL ADNEXA: No significant abnormality. AMNIOTIC FLUID VOLUME: normal AMNIOTIC FLUID INDEX (BANDAR) in cm (if measured): 18.1 cm MEASUREMENTS: - Biparietal Diameter = 7.6 cm = 30.5 weeks.days - Head Circumference = 28.5 cm = 31.2 weeks.days - Abdominal Circumference = 28.3 cm = 32.2 weeks.days - Femur Length = 6.3 cm = 32.5 weeks.days - Estimated Weight (in grams, if calculated): 1918 g - Heart Rate (beats per minute): 147 BPM ADDITIONAL FINDINGS: None. PERCENTILE ESTIMATED WEIGHT (if calculated): Not calculated. AVERAGE ULTRASOUND AGE (AUA) in weeks.days = 31.5 IMPRESSION: 1. Single intrauterine with AUA of 31.5 weeks.days 2. No significant sonographic abnormality. Scribed by: Jessi Mcdonald RDMS, [employer], [place] Scribed: 02/06/2022 10:40 AM I have reviewed the images, agree with this report, and edited this report as needed. Signer Name: Connor Mcgee MD Signed: 02/06/2022 1:46 PM Workstation Name: [id number]
[2022-02-06] MEDS: INSULIN GLARGINE 100 UNITS/ML SUB-Q SCH (21:25)
[2022-02-07] MEDS: INSULIN LISPRO 100 UNIT/ML SUB-Q SCH ×4 (08:38→17:43)
--- NOTE | 2022-02-07 10:57 | Progress Note ---
Assessment and Plan 31year old female with uncontrolled diabetes and schizophrenia Transfer to L&D Consult [facility] for uncontrolled diabetes management Discontinue 1013 hold for psych. Contact case management for discharge plan Subjective - Subjective Date of service: 02/07/22 Principal diagnosis: DKA; AMS; Schizophrenia; Obesity; Gravid state; Bipolar disorder Interval history: Pt is a 31 year old who presented to ED with DKA and confusion. Pt is no longer in ICU, but her sugars remain very elevated. Pt is also 32 weeks . Pt was placed on 1013 hold due to ER doctor assessment, but does not seem to be a threat to herself or her baby at this time. Pt seems confused with some timeline and details of past events, but reports that she had a baby in 2019 that was taken from her by her brothers girlfriend and that she has been trying to get custody of the child. Pt is also concerned about establishing a stable living situation once she is discharged and would like help facilitating the same. Patient reports: new complaints, movement normal Objective - Vital Signs Vital Signs: Vital Signs - 12hr 02/07/22 02/07/22 05:07 08:41 Temperature 97.8 F Pulse Rate 81 Respiratory 20 Rate Blood Pressure 114/56 O2 Sat by Pulse 97 97 Oximetry - Exam Breasts: deferred Cardiovascular: Regular rate, Normal S1, Normal S2 Lungs: Clear to auscultation, Normal air movement Abdomen: Present: normal appearance, soft, normal bowel sounds Vulva: both: normal Uterus: Present: normal, firm - Labs Labs: Abnormal Labs 02/03/22 02/03/22 02/03/22 08:56 08:56 08:56 RBC MCHC Lymph # (Auto) 1.1 L Seg Neutrophils % 76.5 H VBG pH Sodium 124 L Potassium 5.1 H Chloride 86.9 L Carbon Dioxide 12 L BUN 20 H Creatinine Glucose 661 H* POC Glucose Hemoglobin A1c Calcium 10.8 H Phosphorus Magnesium Albumin Salicylates < 0.3 L Acetaminophen 02/03/22 02/03/22 02/03/22 08:56 12:03 13:07 RBC MCHC Lymph # (Auto) Seg Neutrophils % VBG pH Sodium Potassium Chloride Carbon Dioxide BUN Creatinine Glucose POC Glucose 507 H 474 H Hemoglobin A1c Calcium Phosphorus Magnesium Albumin Salicylates Acetaminophen 5.0 L 02/03/22 02/03/22 02/03/22 13:21 13:24 13:24 RBC MCHC Lymph # (Auto) Seg Neutrophils % VBG pH 7.292 L Sodium 128 L Potassium Chloride 93.6 L Carbon Dioxide 13 L BUN 18 H Creatinine Glucose 508 H* POC Glucose Hemoglobin A1c Calcium Phosphorus 5.10 H Magnesium Albumin Salicylates Acetaminophen 02/03/22 02/03/22 02/03/22 14:22 15:14 16:18 RBC MCHC Lymph # (Auto) Seg Neutrophils % VBG pH Sodium Potassium Chloride Carbon Dioxide BUN Creatinine Glucose POC Glucose 509 H 483 H 385 H Hemoglobin A1c Calcium Phosphorus Magnesium Albumin Salicylates Acetaminophen 02/03/22 02/03/22 02/03/22 17:09 18:06 18:15 RBC MCHC Lymph # (Auto) Seg Neutrophils % VBG pH Sodium 130 L Potassium Chloride 95.6 L Carbon Dioxide 17 L BUN Creatinine Glucose 452 H POC Glucose 445 H 411 H Hemoglobin A1c Calcium Phosphorus Magnesium Albumin Salicylates Acetaminophen 02/03/22 02/03/22 02/03/22 19:38 20:26 20:50 RBC MCHC Lymph # (Auto) Seg Neutrophils % VBG pH Sodium 128 L Potassium Chloride 96.2 L Carbon Dioxide 15 L BUN 18 H Creatinine Glucose 415 H POC Glucose 422 H 380 H Hemoglobin A1c Calcium Phosphorus Magnesium Albumin Salicylates Acetaminophen 02/03/22 02/03/22 02/03/22 21:58 23:04 23:13 RBC MCHC Lymph # (Auto) Seg Neutrophils % VBG pH Sodium 129 L Potassium Chloride 97.1 L Carbon Dioxide 15 L BUN Creatinine Glucose 389 H POC Glucose 318 H 398 H Hemoglobin A1c Calcium Phosphorus Magnesium Albumin Salicylates Acetaminophen 02/04/22 02/04/22 02/04/22 00:14 01:21 02:44 RBC MCHC Lymph # (Auto) Seg Neutrophils % VBG pH Sodium Potassium Chloride Carbon Dioxide BUN Creatinine Glucose POC Glucose 383 H 348 H 269 H Hemoglobin A1c Calcium Phosphorus Magnesium Albumin Salicylates Acetaminophen 02/04/22 02/04/22 02/04/22 03:06 03:51 04:58 RBC MCHC Lymph # (Auto) Seg Neutrophils % VBG pH Sodium 132 L Potassium Chloride Carbon Dioxide 15 L BUN Creatinine 0.5 L Glucose 252 H POC Glucose 231 H 212 H Hemoglobin A1c Calcium Phosphorus Magnesium Albumin Salicylates Acetaminophen 02/04/22 02/04/22 02/04/22 05:43 06:43 07:32 RBC MCHC Lymph # (Auto) Seg Neutrophils % VBG pH Sodium Potassium Chloride Carbon Dioxide BUN Creatinine Glucose POC Glucose 180 H 197 H 237 H Hemoglobin A1c Calcium Phosphorus Magnesium Albumin Salicylates Acetaminophen 02/04/22 02/04/22 02/04/22 08:29 09:32 10:26 RBC MCHC Lymph # (Auto) Seg Neutrophils % VBG pH Sodium 131 L Potassium Chloride Carbon Dioxide 14 L BUN Creatinine Glucose 427 H POC Glucose 238 H 285 H Hemoglobin A1c Calcium Phosphorus Magnesium Albumin Salicylates Acetaminophen 02/04/22 02/04/22 02/04/22 10:26 10:28 11:31 RBC MCHC Lymph # (Auto) Seg Neutrophils % VBG pH Sodium Potassium Chloride Carbon Dioxide BUN Creatinine Glucose POC Glucose 406 H 312 H Hemoglobin A1c 10.0 H Calcium Phosphorus Magnesium Albumin Salicylates Acetaminophen 02/04/22 02/04/22 02/04/22 15:26 16:29 21:08 RBC MCHC Lymph # (Auto) Seg Neutrophils % VBG pH Sodium 131 L Potassium Chloride Carbon Dioxide 16 L BUN Creatinine 0.5 L Glucose 321 H POC Glucose 296 H 287 H Hemoglobin A1c Calcium Phosphorus Magnesium Albumin Salicylates Acetaminophen 02/05/22 02/05/22 02/05/22 05:30 05:30 07:31 RBC 3.45 L MCHC 35 H Lymph # (Auto) Seg Neutrophils % VBG pH Sodium 136 L Potassium Chloride Carbon Dioxide 18 L BUN Creatinine 0.5 L Glucose 298 H POC Glucose 295 H Hemoglobin A1c Calcium Phosphorus Magnesium 1.60 L Albumin Salicylates Acetaminophen 02/05/22 02/05/22 02/05/22 11:41 16:04 20:39 RBC MCHC Lymph # (Auto) Seg Neutrophils % VBG pH Sodium Potassium Chloride Carbon Dioxide BUN Creatinine Glucose POC Glucose 269 H 338 H 337 H Hemoglobin A1c Calcium Phosphorus Magnesium Albumin Salicylates Acetaminophen 02/05/22 02/06/22 02/06/22 21:59 05:19 05:51 RBC MCHC Lymph # (Auto) Seg Neutrophils % VBG pH Sodium 136 L Potassium Chloride Carbon Dioxide 21 L BUN Creatinine 0.5 L Glucose 263 H POC Glucose 385 H 277 H Hemoglobin A1c Calcium Phosphorus Magnesium Albumin 3.5 L Salicylates Acetaminophen 02/06/22 02/06/22 02/07/22 11:08 21:05 07:53 RBC MCHC Lymph # (Auto) Seg Neutrophils % VBG pH Sodium Potassium Chloride Carbon Dioxide BUN Creatinine Glucose POC Glucose 318 H 393 H 232 H Hemoglobin A1c Calcium Phosphorus Magnesium Albumin Salicylates Acetaminophen Laboratory Results - last 24 hr 02/06/22 02/06/22 02/07/22 11:08 21:05 07:53 POC Glucose 318 H 393 H 232 H
--- NOTE | 2022-02-07 11:25 | Progress Note ---
Assessment and Plan Diabetic ketoacidosis Mild metabolic encephalopathy Schizophrenia Obesity Gravid state Mild hyperkalemia Bipolar disorder - Psych evaluation ongoing - tighten glycemic control - continue care as below otherwise; - ASSISTANT PROFESSOR OF NURSING following - prn supplemental oxygen to keep O2 sats > 90% - prn bronchodilators (ASA) with pulm hygiene per RT - avoid nephrotoxins, renally dose all medications - mobility protocols to prevent pressure ulcers - PT/OT as tolerated - Wound care per RN/WCT - continue accuchecks with glycemic control per SSI for target blood glucose < 180 mg/dL - tobacco abstinence strongly counseled at the bedside (attempted) - home oxygen evaluation at discharge - GI & VTE prophylaxis - Flu & pneumovax per protocol - prn analgesia per pain score - continue other care per attending / other consultants ... re-evaluate in am & prn ... will see prn post transfer Subjective Date of service: 02/07/22 Principal diagnosis: DKA; AMS; Schizophrenia; Obesity; Gravid state; Bipolar disorder Interval history: Patient is seen today for: DKA; AMS; Schizophrenia; Obesity; Gravid state; Bipolar disorder Seen and examined at bedside; 24hour events reviewed; nursing and respiratory care staff consulted; no adverse overnight events reported to me; resting in bed; to transfer to ASSISTANT PROFESSOR OF NURSING [place]; no new issues Objective Vital Signs - 12hr 02/07/22 02/07/22 05:07 08:41 Temperature 97.8 F Pulse Rate 81 Respiratory 20 Rate Blood Pressure 114/56 O2 Sat by Pulse 97 97 Oximetry Constitutional: no acute distress Eyes: non-icteric ENT: oropharynx moist Neck: supple, no lymphadenopathy, no JVD Effort: normal Ascultation: Bilateral: clear Percussion: Bilateral: not dull Cardiovascular: regular rate and rhythm Gastrointestinal: normoactive bowel sounds, soft, non-tender, non-distended Integumentary: normal Extremities: no cyanosis, no edema, pulses normal, no ischemia or petechiae Neurologic: non-focal exam, pupils equal and round, CN II-XII normal, motor strength normal and Psychiatric: mood appropriate, affect normal CBC and BMP: 02/08/22 09:43 02/06/22 05:19 ABG, PT/INR, D-dimer: ABG ABG pH 7.366 (7.320-7.450) 02/05/22 05:00 POC ABG pCO2 32.0 mmHg (32.0-48.0) 02/05/22 05:00 POC ABG pO2 87.0 mmHg (83-108) 02/05/22 05:00 POC ABG HCO3 17.9 02/05/22 05:00 ABG O2 Saturation 97.1 (0-100) 02/05/22 05:00 Abnormal lab findings: Abnormal Labs 02/03/22 02/03/22 02/03/22 08:56 08:56 08:56 RBC MCHC Lymph # (Auto) 1.1 L Seg Neutrophils % 76.5 H VBG pH Sodium 124 L Potassium 5.1 H Chloride 86.9 L Carbon Dioxide 12 L BUN 20 H Creatinine Glucose 661 H* POC Glucose Hemoglobin A1c Calcium 10.8 H Phosphorus Magnesium Albumin Salicylates < 0.3 L Acetaminophen 02/03/22 02/03/22 02/03/22 08:56 12:03 13:07 RBC MCHC Lymph # (Auto) Seg Neutrophils % VBG pH Sodium Potassium Chloride Carbon Dioxide BUN Creatinine Glucose POC Glucose 507 H 474 H Hemoglobin A1c Calcium Phosphorus Magnesium Albumin Salicylates Acetaminophen 5.0 L 02/03/22 02/03/22 02/03/22 13:21 13:24 13:24 RBC MCHC Lymph # (Auto) Seg Neutrophils % VBG pH 7.292 L Sodium 128 L Potassium Chloride 93.6 L Carbon Dioxide 13 L BUN 18 H Creatinine Glucose 508 H* POC Glucose Hemoglobin A1c Calcium Phosphorus 5.10 H Magnesium Albumin Salicylates Acetaminophen 02/03/22 02/03/22 02/03/22 14:22 15:14 16:18 RBC MCHC Lymph # (Auto) Seg Neutrophils % VBG pH Sodium Potassium Chloride Carbon Dioxide BUN Creatinine Glucose POC Glucose 509 H 483 H 385 H Hemoglobin A1c Calcium Phosphorus Magnesium Albumin Salicylates Acetaminophen 02/03/22 02/03/22 02/03/22 17:09 18:06 18:15 RBC MCHC Lymph # (Auto) Seg Neutrophils % VBG pH Sodium 130 L Potassium Chloride 95.6 L Carbon Dioxide 17 L BUN Creatinine Glucose 452 H POC Glucose 445 H 411 H Hemoglobin A1c Calcium Phosphorus Magnesium Albumin Salicylates Acetaminophen 02/03/22 02/03/22 02/03/22 19:38 20:26 20:50 RBC MCHC Lymph # (Auto) Seg Neutrophils % VBG pH Sodium 128 L Potassium Chloride 96.2 L Carbon Dioxide 15 L BUN 18 H Creatinine Glucose 415 H POC Glucose 422 H 380 H Hemoglobin A1c Calcium Phosphorus Magnesium Albumin Salicylates Acetaminophen 02/03/22 02/03/22 02/03/22 21:58 23:04 23:13 RBC MCHC Lymph # (Auto) Seg Neutrophils % VBG pH Sodium 129 L Potassium Chloride 97.1 L Carbon Dioxide 15 L BUN Creatinine Glucose 389 H POC Glucose 318 H 398 H Hemoglobin A1c Calcium Phosphorus Magnesium Albumin Salicylates Acetaminophen 02/04/22 02/04/22 02/04/22 00:14 01:21 02:44 RBC MCHC Lymph # (Auto) Seg Neutrophils % VBG pH Sodium Potassium Chloride Carbon Dioxide BUN Creatinine Glucose POC Glucose 383 H 348 H 269 H Hemoglobin A1c Calcium Phosphorus Magnesium Albumin Salicylates Acetaminophen 02/04/22 02/04/22 02/04/22 03:06 03:51 04:58 RBC MCHC Lymph # (Auto) Seg Neutrophils % VBG pH Sodium 132 L Potassium Chloride Carbon Dioxide 15 L BUN Creatinine 0.5 L Glucose 252 H POC Glucose 231 H 212 H Hemoglobin A1c Calcium Phosphorus Magnesium Albumin Salicylates Acetaminophen 02/04/22 02/04/22 02/04/22 05:43 06:43 07:32 RBC MCHC Lymph # (Auto) Seg Neutrophils % VBG pH Sodium Potassium Chloride Carbon Dioxide BUN Creatinine Glucose POC Glucose 180 H 197 H 237 H Hemoglobin A1c Calcium Phosphorus Magnesium Albumin Salicylates Acetaminophen 02/04/22 02/04/22 02/04/22 08:29 09:32 10:26 RBC MCHC Lymph # (Auto) Seg Neutrophils % VBG pH Sodium 131 L Potassium Chloride Carbon Dioxide 14 L BUN Creatinine Glucose 427 H POC Glucose 238 H 285 H Hemoglobin A1c Calcium Phosphorus Magnesium Albumin Salicylates Acetaminophen 02/04/22 02/04/22 02/04/22 10:26 10:28 11:31 RBC MCHC Lymph # (Auto) Seg Neutrophils % VBG pH Sodium Potassium Chloride Carbon Dioxide BUN Creatinine Glucose POC Glucose 406 H 312 H Hemoglobin A1c 10.0 H Calcium Phosphorus Magnesium Albumin Salicylates Acetaminophen 02/04/22 02/04/22 02/04/22 15:26 16:29 21:08 RBC MCHC Lymph # (Auto) Seg Neutrophils % VBG pH Sodium 131 L Potassium Chloride Carbon Dioxide 16 L BUN Creatinine 0.5 L Glucose 321 H POC Glucose 296 H 287 H Hemoglobin A1c Calcium Phosphorus Magnesium Albumin Salicylates Acetaminophen 02/05/22 02/05/22 02/05/22 05:30 05:30 07:31 RBC 3.45 L MCHC 35 H Lymph # (Auto) Seg Neutrophils % VBG pH Sodium 136 L Potassium Chloride Carbon Dioxide 18 L BUN Creatinine 0.5 L Glucose 298 H POC Glucose 295 H Hemoglobin A1c Calcium Phosphorus Magnesium 1.60 L Albumin Salicylates Acetaminophen 02/05/22 02/05/22 02/05/22 11:41 16:04 20:39 RBC MCHC Lymph # (Auto) Seg Neutrophils % VBG pH Sodium Potassium Chloride Carbon Dioxide BUN Creatinine Glucose POC Glucose 269 H 338 H 337 H Hemoglobin A1c Calcium Phosphorus Magnesium Albumin Salicylates Acetaminophen 02/05/22 02/06/22 02/06/22 21:59 05:19 05:51 RBC MCHC Lymph # (Auto) Seg Neutrophils % VBG pH Sodium 136 L Potassium Chloride Carbon Dioxide 21 L BUN Creatinine 0.5 L Glucose 263 H POC Glucose 385 H 277 H Hemoglobin A1c Calcium Phosphorus Magnesium Albumin 3.5 L Salicylates Acetaminophen 02/06/22 02/06/22 02/07/22 11:08 21:05 07:53 RBC MCHC Lymph # (Auto) Seg Neutrophils % VBG pH Sodium Potassium Chloride Carbon Dioxide BUN Creatinine Glucose POC Glucose 318 H 393 H 232 H Hemoglobin A1c Calcium Phosphorus Magnesium Albumin Salicylates Acetaminophen Allied health notes reviewed: nursing
[2022-02-07] MEDS: INSULIN NPH/REGULAR 70/30 INJ SUB-Q SCH ×2 (12:30→17:42)
--- NOTE | 2022-02-07 13:34 | Consultation ---
History of Present Illness Consult date: 02/07/22 Requesting physician: SIM SANCHEZ Reason for consult: medical complication (DKA, Schitzophrenia at 32 weeks) History of present illness: RE: MELA LYONS (: : 1990) Intrauterine at approximately 32 weeks Diabetic ketoacidosis. Mild metabolic encephalopathy. Schizophrenia. Morbid obesity. Mild hyperkalemia. Bipolar disorder. Hemoglobin A1C: Not available Date: January As you are aware, this is a 31 year old para 1001 who is currently at ~32 weeks gestation (based on an CANDACE of ----- ). This patient presents to the emergency room at [facility] and noted to have diabetic ketoacidosis and confusion. Patient was previously in the ICU and is currently now on the hospital floor. Her blood sugars remain elevated. [facility] was called to evaluate this patient and to determine the need and utility of insulin therapy. I was able to discuss the case with the patient however patient is having flight of ideas and it is unclear if I communicating effectively with the patient. We would recommend ongoing psychiatric assessment while the patient is hospitalized CURRENT PRESENTATION: As noted above the patient has flight of ideas but does not express suicidal ideation at this time. Her most recent blood sugar value was 258 mg/dL. Current blood pressure: WNL. RECENT BLOOD SUGAR VALUES: 318, 393, 232, 258 PAST OBSTETRICAL HISTORY: See notes in hospital chart. 2019: at term. weight unknown delivered at [facility] patient does not have custody of this child. PAST MEDICAL HISTORY: Diabetic ketoacidosis. Mild metabolic encephalopathy. Schizophrenia. Morbid obesity. Mild hyperkalemia. Bipolar disorder. Hemoglobin A1C: Not available ULTRASOUND AT [facility] (02/06/2022) [place] location: anterior, grade 1 Presentation: cephalic heart rate: 148 beats/minute Amniotic fluid index: 18.1 cm Biophysical profile score: Not done EFW: 1918 g FHR: 147 bpm AUA consistent with 31.5 weeks. No significant sonographic abnormality PREVIOUS ULTRASOUNDS AT [facility]: none. CURRENT LABS: See notes in patients chart. Past History Past Medical History: diabetes Medications and Allergies Allergies Allergy/AdvReac Type Severity Reaction Status Date / Time No Known Allergies Allergy Verified 02/03/22 07:58 Home Medications Medication Instructions Recorded Confirmed Last Taken Type Aspirin EC [Halfprin EC] 81 mg PO QDAY 02/05/22 02/05/[address] [DepYordan DR] 500 mg PO BID 02/05/22 02/05/22 Unknown History Fluticasone [Flonase] 1 spray NS QDAY 02/05/22 02/05/22 Unknown History Loratadine [Allergy Relief] 10 mg PO QDAY 02/05/22 02/05/22 Unknown History OLANzapine ZYDIS [ZyPREXA Zydis] 5 mg PO DAILY 02/05/22 02/05/22 Unknown History Olanzapine [Olanzapine Odt] 10 mg PO QHS 02/05/22 02/05/22 Unknown History Vit-Fe Fumar-FA [ 1 tab PO QDAY 02/05/22 02/05/22 Unknown History Vitamin] Active Meds: Active Medications Acetaminophen (Acetaminophen 325 Mg Tab) 650 mg PO Q6H PRN PRN Reason: Pain MILD(1-3)/Fever >100.5/TERRELL Albuterol (Albuterol 2.5 Mg/3 Ml Nebu) 2.5 mg IH Q3H PRN PRN Reason: Shortness Of Breath Dextrose (Dextrose 10% *Hypoglycemia) 0 ml IV PRN PRN PRN Reason: Hypoglycemia Insulin Glargine (Insulin Glargine 100 Units/Ml) [facility] Admin: 02/06/22 21:25 Dose: 60 units Insulin Human Isoph/Insulin Regular (Insulin Nph/Regular 70/30 Inj) 18 unit SUB-Q [facility] Last Admin: 02/07/22 12:30 Dose: 18 unit Insulin Human Lispro (Insulin Lispro 100 Unit/Ml) 0 unit SUB-Q [facility]; Protocol Last Admin: 02/07/22 12:30 Dose: 6 unit Oxycodone/Acetaminophen (Oxycodone /Acetaminophen 5-325mg Tab) 1 tab PO Q6H PRN PRN Reason: Pain, Moderate (4-6) Sodium Chloride (Sodium Chloride 0.9% 10 Ml Flush Syringe) 10 ml IV BID [facility] Last Admin: 02/07/22 12:31 Dose: 10 ml Sodium Chloride (Sodium Chloride 0.9% 10 Ml Flush Syringe) 10 ml IV PRN PRN PRN Reason: LINE FLUSH - Vital Signs Vital signs: Vital Signs Temp Pulse Resp BP Pulse Ox 98.9 F 114 H 20 154/100 98 02/03/22 07:54 02/03/22 07:54 02/03/22 07:54 02/03/22 07:54 02/03/22 07:54 Temp Pulse Resp BP Pulse Ox 98.3 F 102 H 16 142/89 98 02/07/22 11:24 02/07/22 11:24 02/07/22 11:24 02/07/22 11:24 02/07/22 11:24 Results Result Diagrams: 02/05/22 05:30 02/06/22 05:19 Abnormal lab results 02/06/22 02/07/22 02/07/22 Range/Units 21:05 07:53 11:46 POC Glucose 393 H 232 H 258 H (70-105) mg/dL All other labs normal. Assessment and Plan 2020 Criteria for GDM: Pre--gestational diabetes, well controlled. Delivery at full-term. 39 weeks and zero days to 39 weeks and six days Pre--gestational diabetes with vascular complications, poor glucose control or prior stillbirth. Late delivery early term. 36 weeks and zero days to 38 weeks and six days. Gestational diabetes well controlled on diet and exercise. Full term delivery. 39 weeks and zero days to 40 weeks and six days. Gestational diabetes on medication. Full term delivery. 39 weeks and zero days to 39 weeks and six days Gestational diabetes is poorly controlled. Late and early term delivery. Individualized based on patient criteria. Anywhere from 36 weeks and zero days to 38 weeks and six days. ASSESSMENT Intrauterine at approximately 32 weeks Diabetic ketoacidosis. Mild metabolic encephalopathy. Schizophrenia. Morbid obesity. Mild hyperkalemia. Bipolar disorder. Hemoglobin A1C: Not available RECOMMENDATIONS: 1. We appreciate the consultations from the hospitalist and pulmonology. 2. As needed supplemental oxygen to keep O2 sats greater than 90%. 3. As needed bronchodilators with pulmonary hygiene for respiratory therapist. 4. Mobility protocols to prevent pressure ulcers. 5. Physical therapy as 6. tolerated. 7. Agree with continuation of Accu-Cheks with glycemic control per SSI for target blood sugars below 180 mg/dL. Per hospitalist. 8. Once the patient achieves blood sugars less than 180 we would recommend a standing dose of insulin and a gestational sliding scale as noted below. 9. Retake blood sugar at 2 hours after EACH sliding dose noted below and repeat sliding scale dose of insulin based on FSG. a. < 140: Hold Humalog Insulin b. 140-160: Humalog 4 Units c. 161-180: Humalog 6 Units d. 180-200: Humalog 10 Units e. 200-220: Humalog 12 Units f. 220-260: Humalog 14 Units g. >260: 16 Humalog Units 10. 11. We have reviewed the importance of proper glycemic control in order to avoid complications including stillbirth. 12. We recommend ongoing psychiatric evaluation as well as social work interventions in this . 13. At this time the patient is not a candidate for steroids to mature lung maturity Thank you for allowing us to participate in the care of this patient. We look forward to the opportunity to assist in her continued management. If you have any questions, we may be reached [phone]. Brandyn Vargas M.D.
--- NOTE | 2022-02-07 14:36 | Progress Note ---
Subjective - Reason for Consult Consult date: 02/07/22 Reason for consult: Delirium - Chief Complaint Chief complaint: The patient was seen today. She continues be disorganized and hyperverbal. The patient states that she is doing well. She reports that she is not sure if she is , showing her abdomen and stating " do this look like or sickness? I don't trust what they are saying." She denies any current suicidal/homicidal ideation and denies hallucinations. REVIEW OF SYSTEMS Constitutional: Negative for weight loss ENT: Negative for stridor Respiratory: Negative for cough or hemoptysis All other systems reviewed and are negative MENTAL STATUS EXAMINATION General Appearance and Behavior: Age appropriate, good hygiene, wearing appropriate clothes, good eye contact, calm, cooperative Cooperation: Participating/engaged Psychomotor Behavior: Psychomotor normal Mood: " ok" Affect and affective range: Incongruent with stated mood Thought Process: illogical, disorganized Thought Content: Paranoid Speech: normal tone and pace Suicidal Ideation: Denies Homicidal Ideation: Denies Hallucinations: Denies Delusions:Paranoid Impulse Control: Limited Insight and Judgment: Limited insight and judgment Memory: Limited Attention: Divided Orientation: Alert, oriented Assessment and Plan Delirium Treatment Plan Medical: per primary Sitter: per primary Disposition: Do not recommend acute psychiatric inpatient treatment Will follow for med management Case staffed with Dr. Frederick Medications and Allergies Mental Status Exam - Vital signs Last Vital Signs Temp 98.3 F 02/07/22 11:24 Pulse 102 H 02/07/22 11:24 Resp 16 02/07/22 11:24 BP 142/89 02/07/22 11:24 Pulse Ox 98 02/07/22 11:24
[2022-02-07] MEDS ORDERED: INSULIN NPH/REGULAR 70/30 INJ SUB-Q SCH (17:00)
[2022-02-07] MEDS ORDERED: ZOLPIDEM 5 MG TAB PO PRN (20:12)
[2022-02-07] MEDS: INSULIN GLARGINE 100 UNITS/ML SUB-Q SCH (21:44)
[2022-02-08] MEDS: INSULIN LISPRO 100 UNIT/ML SUB-Q SCH ×4 (00:23→16:04)
[2022-02-08] MEDS: INSULIN NPH/REGULAR 70/30 INJ SUB-Q SCH (07:16)
[2022-02-08 10:30] LABS: Hematocrit 31.9 % (30.3-42.9); Hemoglobin 11.1 gm/dl (10.1-14.3); Mean Corpuscular HGB Conc 35 % (30-34); Mean Corpuscular Volume 93 fl (79-97); Platelet Count 188 K/mm3 (140-440); Red Blood Count 3.45 M/mm3 (3.65-5.03)
[2022-02-08 10:52] LABS: Alanine Aminotransferase 18 units/L (7-56); Albumin 3.2 g/dL (3.9-5); Blood Urea Nitrogen 18 mg/dL (7-17); Calcium 9.5 mg/dL (8.4-10.2); Hemolysis Index 13
[2022-02-08 10:55] LABS: BUN/Creatinine Ratio 30
--- NOTE | 2022-02-08 11:20 | Progress Note ---
Subjective - Reason for Consult Consult date: 02/08/22 Reason for consult: delusional - Chief Complaint Chief complaint: The patient was seen today. She is calm and cooperative. She is pleasant. She appears slightly delusional, but they are not harmful or threatening in nature. The patient remembers me from a few days ago. She says she's doing a lot better. She says she is ready to get out of the hospital. The patient says "I'm ready to get my life together. If I got to go to a fpc or whatever. I just hope I don't get anybody nasty or the wrong roommate." She says "I'm not perfect but I do pretty good taking care of myself." She says "I also want any program that would help me take care of my baby." She denies SI/HI. She says "no, I never had any of that." She denies hallucinations of any kind,. The patient says she's been sleeping real good and her appetite is good. REVIEW OF SYSTEMS Constitutional: Negative for weight loss ENT: Negative for stridor Respiratory: Negative for cough or hemoptysis All other systems reviewed and are negative MENTAL STATUS EXAMINATION General Appearance and Behavior: Age appropriate, good hygiene, wearing appropriate clothes, good eye contact, calm, cooperative Cooperation: Participating/engaged Psychomotor Behavior: Psychomotor normal Mood: a lot better Affect and affective range: congruent with stated mood Thought Process: goal directed Thought Content: None Speech: normal tone and pace Suicidal Ideation: Denies Homicidal Ideation: Denies Hallucinations: Denies Delusions: None elicited Impulse Control: Limited Insight and Judgment: Limited insight and judgment Memory: Limited Attention: Divided Orientation: Alert, oriented Assessment and Plan Delirium Hx of schizophrenia Treatment Plan Olanzapine 2.5mg po daily Medical: per primary Sitter: per primary Disposition: Do not recommend acute psychiatric inpatient treatment The [facility]par[facility] buncher to give the patient all necessary resources Will sign off. Thanks Case staffed with Dr. Frederick Mental Status Exam - Vital signs Last Vital Signs Temp 96.7 F L 02/08/22 07:23 Pulse 85 02/08/22 07:23 Resp 14 02/08/22 07:23 BP 154/72 02/08/22 07:23 Pulse Ox 98 02/08/22 07:23
--- NOTE | 2022-02-08 12:04 | Progress Note ---
Assessment and Plan IUP at 32 weeks with type 2 diabetes and schizphrenia. Pt is now refusing insulin and is "ready to go" Pt states that she can and will manage her blood sugar at home. Psychiatry left a prescription on the chart and "signed off" stating that the patient needs no further treatment that they can offer. Case management has found placement for patient that will take her today. Will arrange for patient to get clothes and be relocated to facility with follow up with OB as an outpatient. Subjective - Subjective Date of service: 02/08/22 Principal diagnosis: DKA; AMS; Schizophrenia; Obesity; Gravid state; Bipolar disorder Interval history: Pt is a 31 year old who presented to ED with DKA and confusion. Pt is also 32 weeks . Pt was placed on 1013 hold due to ER doctor assessment, but does not seem to be a threat to herself or her baby at this time. Pt seems confused with some timeline and details of past events, but reports that she had a baby in 2019 that was taken from her by her brothers girlfriend and that she has been trying to get custody of the child. Pt is also concerned about establishing a stable living situation once she is discharged and would like help facilitating the same. She is not looking to harm herself or the baby. Pt stated today, "I'm ready to get out of here" Pt has intermittently refused further insulin stating that "she can manage it herself". Patient reports: new complaints, movement normal Objective - Vital Signs Vital Signs: Vital Signs - 12hr 02/08/22 02/08/22 07:06 07:23 Temperature 96.7 F L Pulse Rate 85 Respiratory 14 Rate Blood Pressure 154/72 Blood Pressure 154/72 [Right] O2 Sat by Pulse 98 Oximetry O2 Sat by Pulse 98 Oximetry [ Bilateral Throughout] - Exam Breasts: deferred Cardiovascular: Regular rate, Normal S1, Normal S2 Lungs: Clear to auscultation Abdomen: Present: normal appearance, soft, normal bowel sounds, other (gravid) Uterus: Present: normal, firm FHR: auscultation normal Uterine Contraction Monitor Mode: Palpation - Labs Labs: Abnormal Labs 02/03/22 02/03/22 02/03/22 08:56 08:56 08:56 RBC MCHC Lymph # (Auto) 1.1 L Seg Neutrophils % 76.5 H VBG pH Sodium 124 L Potassium 5.1 H Chloride 86.9 L Carbon Dioxide 12 L BUN 20 H Creatinine Glucose 661 H* POC Glucose Hemoglobin A1c Calcium 10.8 H Phosphorus Magnesium Albumin Salicylates < 0.3 L Acetaminophen 02/03/22 02/03/22 02/03/22 08:56 12:03 13:07 RBC MCHC Lymph # (Auto) Seg Neutrophils % VBG pH Sodium Potassium Chloride Carbon Dioxide BUN Creatinine Glucose POC Glucose 507 H 474 H Hemoglobin A1c Calcium Phosphorus Magnesium Albumin Salicylates Acetaminophen 5.0 L 02/03/22 02/03/22 02/03/22 13:21 13:24 13:24 RBC MCHC Lymph # (Auto) Seg Neutrophils % VBG pH 7.292 L Sodium 128 L Potassium Chloride 93.6 L Carbon Dioxide 13 L BUN 18 H Creatinine Glucose 508 H* POC Glucose Hemoglobin A1c Calcium Phosphorus 5.10 H Magnesium Albumin Salicylates Acetaminophen 02/03/22 02/03/22 02/03/22 14:22 15:14 16:18 RBC MCHC Lymph # (Auto) Seg Neutrophils % VBG pH Sodium Potassium Chloride Carbon Dioxide BUN Creatinine Glucose POC Glucose 509 H 483 H 385 H Hemoglobin A1c Calcium Phosphorus Magnesium Albumin Salicylates Acetaminophen 02/03/22 02/03/22 02/03/22 17:09 18:06 18:15 RBC MCHC Lymph # (Auto) Seg Neutrophils % VBG pH Sodium 130 L Potassium Chloride 95.6 L Carbon Dioxide 17 L BUN Creatinine Glucose 452 H POC Glucose 445 H 411 H Hemoglobin A1c Calcium Phosphorus Magnesium Albumin Salicylates Acetaminophen 02/03/22 02/03/22 02/03/22 19:38 20:26 20:50 RBC MCHC Lymph # (Auto) Seg Neutrophils % VBG pH Sodium 128 L Potassium Chloride 96.2 L Carbon Dioxide 15 L BUN 18 H Creatinine Glucose 415 H POC Glucose 422 H 380 H Hemoglobin A1c Calcium Phosphorus Magnesium Albumin Salicylates Acetaminophen 02/03/22 02/03/22 02/03/22 21:58 23:04 23:13 RBC MCHC Lymph # (Auto) Seg Neutrophils % VBG pH Sodium 129 L Potassium Chloride 97.1 L Carbon Dioxide 15 L BUN Creatinine Glucose 389 H POC Glucose 318 H 398 H Hemoglobin A1c Calcium Phosphorus Magnesium Albumin Salicylates Acetaminophen 02/04/22 02/04/22 02/04/22 00:14 01:21 02:44 RBC MCHC Lymph # (Auto) Seg Neutrophils % VBG pH Sodium Potassium Chloride Carbon Dioxide BUN Creatinine Glucose POC Glucose 383 H 348 H 269 H Hemoglobin A1c Calcium Phosphorus Magnesium Albumin Salicylates Acetaminophen 02/04/22 02/04/22 02/04/22 03:06 03:51 04:58 RBC MCHC Lymph # (Auto) Seg Neutrophils % VBG pH Sodium 132 L Potassium Chloride Carbon Dioxide 15 L BUN Creatinine 0.5 L Glucose 252 H POC Glucose 231 H 212 H Hemoglobin A1c Calcium Phosphorus Magnesium Albumin Salicylates Acetaminophen 02/04/22 02/04/22 02/04/22 05:43 06:43 07:32 RBC MCHC Lymph # (Auto) Seg Neutrophils % VBG pH Sodium Potassium Chloride Carbon Dioxide BUN Creatinine Glucose POC Glucose 180 H 197 H 237 H Hemoglobin A1c Calcium Phosphorus Magnesium Albumin Salicylates Acetaminophen 02/04/22 02/04/22 02/04/22 08:29 09:32 10:26 RBC MCHC Lymph # (Auto) Seg Neutrophils % VBG pH Sodium 131 L Potassium Chloride Carbon Dioxide 14 L BUN Creatinine Glucose 427 H POC Glucose 238 H 285 H Hemoglobin A1c Calcium Phosphorus Magnesium Albumin Salicylates Acetaminophen 02/04/22 02/04/22 02/04/22 10:26 10:28 11:31 RBC MCHC Lymph # (Auto) Seg Neutrophils % VBG pH Sodium Potassium Chloride Carbon Dioxide BUN Creatinine Glucose POC Glucose 406 H 312 H Hemoglobin A1c 10.0 H Calcium Phosphorus Magnesium Albumin Salicylates Acetaminophen 02/04/22 02/04/22 02/04/22 15:26 16:29 21:08 RBC MCHC Lymph # (Auto) Seg Neutrophils % VBG pH Sodium 131 L Potassium Chloride Carbon Dioxide 16 L BUN Creatinine 0.5 L Glucose 321 H POC Glucose 296 H 287 H Hemoglobin A1c Calcium Phosphorus Magnesium Albumin Salicylates Acetaminophen 02/05/22 02/05/22 02/05/22 05:30 05:30 07:31 RBC 3.45 L MCHC 35 H Lymph # (Auto) Seg Neutrophils % VBG pH Sodium 136 L Potassium Chloride Carbon Dioxide 18 L BUN Creatinine 0.5 L Glucose 298 H POC Glucose 295 H Hemoglobin A1c Calcium Phosphorus Magnesium 1.60 L Albumin Salicylates Acetaminophen 02/05/22 02/05/22 02/05/22 11:41 16:04 20:39 RBC MCHC Lymph # (Auto) Seg Neutrophils % VBG pH Sodium Potassium Chloride Carbon Dioxide BUN Creatinine Glucose POC Glucose 269 H 338 H 337 H Hemoglobin A1c Calcium Phosphorus Magnesium Albumin Salicylates Acetaminophen 02/05/22 02/06/22 02/06/22 21:59 05:19 05:51 RBC MCHC Lymph # (Auto) Seg Neutrophils % VBG pH Sodium 136 L Potassium Chloride Carbon Dioxide 21 L BUN Creatinine 0.5 L Glucose 263 H POC Glucose 385 H 277 H Hemoglobin A1c Calcium Phosphorus Magnesium Albumin 3.5 L Salicylates Acetaminophen 02/06/22 02/06/22 02/07/22 11:08 21:05 07:53 RBC MCHC Lymph # (Auto) Seg Neutrophils % VBG pH Sodium Potassium Chloride Carbon Dioxide BUN Creatinine Glucose POC Glucose 318 H 393 H 232 H Hemoglobin A1c Calcium Phosphorus Magnesium Albumin Salicylates Acetaminophen 02/07/22 02/07/22 02/07/22 11:46 16:08 20:03 RBC MCHC Lymph # (Auto) Seg Neutrophils % VBG pH Sodium Potassium Chloride Carbon Dioxide BUN Creatinine Glucose POC Glucose 258 H 209 H 247 H Hemoglobin A1c Calcium Phosphorus Magnesium Albumin Salicylates Acetaminophen 02/08/22 02/08/22 02/08/22 00:09 06:06 09:12 RBC MCHC Lymph # (Auto) Seg Neutrophils % VBG pH Sodium Potassium Chloride Carbon Dioxide BUN Creatinine Glucose POC Glucose 502 H 388 H 360 H Hemoglobin A1c Calcium Phosphorus Magnesium Albumin Salicylates Acetaminophen 02/08/22 02/08/22 09:43 09:43 RBC 3.45 L MCHC 35 H Lymph # (Auto) Seg Neutrophils % VBG pH Sodium 133 L Potassium Chloride Carbon Dioxide 18 L BUN 18 H Creatinine Glucose 387 H POC Glucose Hemoglobin A1c Calcium Phosphorus Magnesium Albumin 3.2 L Salicylates Acetaminophen Laboratory Results - last 24 hr 02/07/22 02/07/22 02/08/22 16:08 20:03 00:09 WBC RBC Hgb Hct MCV MCH MCHC RDW Plt Count Sodium Potassium Chloride Carbon Dioxide Anion Gap BUN Creatinine Estimated GFR BUN/Creatinine Ratio Glucose POC Glucose 209 H 247 H 502 H Calcium Total Bilirubin AST ALT Alkaline Phosphatase Total Protein Albumin Albumin/Globulin Ratio 02/08/22 02/08/22 02/08/22 06:06 09:12 09:43 WBC 5.5 RBC 3.45 L Hgb 11.1 Hct 31.9 MCV 93 MCH 32 MCHC 35 H RDW 14.0 Plt Count 188 Sodium Potassium Chloride Carbon Dioxide Anion Gap BUN Creatinine Estimated GFR BUN/Creatinine Ratio Glucose POC Glucose 388 H 360 H Calcium Total Bilirubin AST ALT Alkaline Phosphatase Total Protein Albumin Albumin/Globulin Ratio 02/08/22 09:43 WBC RBC Hgb Hct MCV MCH MCHC RDW Plt Count Sodium 133 L Potassium 4.3 Chloride 98.5 Carbon Dioxide 18 L Anion Gap 21 BUN 18 H Creatinine 0.6 Estimated GFR > 60 BUN/Creatinine Ratio 30 Glucose 387 H POC Glucose Calcium 9.5 Total Bilirubin < 0.20 AST 14 ALT 18 Alkaline Phosphatase 81 Total Protein 6.3 Albumin 3.2 L Albumin/Globulin Ratio 1.0
--- NOTE | 2022-02-08 17:25 | Consultation ---
History of Present Illness Consult date: 02/08/22 Requesting physician: SIM SANCHEZ History of present illness: Ms. Posey this is a 31 year old para 1001 who is currently 33 5/7 weeks gestati on This patient presents to the emergency room at [facility] and noted to have diabetic ketoacidosis and confusion. Patient was previously in the ICU and is currently now on the hospital floor. Her blood sugars remain elevated. [facility] was called to evaluate this patient and to determine the need and utility of insulin therapy. Patient with Schiz and difficult to obtain accurate information Transferred from Med floor DKA and Insulin drip BS's remain high 387 and 235 US 02/06/22 EFW at 1918 grams 13% with AC at 21% EFM 120-130 Cat I per nurse Nurse reports current Insulin regimen - but patient noncompliant with insulin and diet Humulin 70/30 . Lantus 60 in am and Humulin 18 q 4 hours ??? See below changes would make if compliant Explained increase risk of Demise when BS's uncontrolled HbA1c at 10.0% on 02/04/22 CURRENT PRESENTATION: As noted above the patient has flight of ideas but does not express suicidal ideation at this time. Her most recent blood sugar value was 258 mg/dL. Current blood pressure: WNL. PAST OBSTETRICAL HISTORY: See notes in hospital chart. 2019: at term. weight unknown delivered at [facility] patient does not have custody of this child. PAST MEDICAL HISTORY: Diabetic ketoacidosis. Mild metabolic encephalopathy. Schizophrenia. Morbid obesity. Mild hyperkalemia. Bipolar disorder. Hemoglobin A1C: at 10% on 02/04/22 ULTRASOUND AT [facility] (02/06/2022) [place] Presentation: cephalic Amniotic fluid index: 18.1 cm EFW: 1918 g AUA consistent with 31.5 weeks. No significant sonographic abnormality Past History Past Medical History: diabetes - Obstetrical History : 3 Medications and Allergies Allergies Allergy/AdvReac Type Severity Reaction Status Date / Time No Known Allergies Allergy Verified 02/03/22 07:58 Home Medications Medication Instructions Recorded Confirmed Last Taken Type OLANzapine [ZyPREXA] 2.5 mg PO QDAY #30 tablet 02/08/22 Unknown Rx Active Meds: Active Medications Acetaminophen (Acetaminophen 325 Mg Tab) 650 mg PO Q6H PRN PRN Reason: Pain MILD(1-3)/Fever >100.5/TERRELL Dextrose (Dextrose 10% *Hypoglycemia) 0 ml IV PRN PRN PRN Reason: Hypoglycemia Insulin Glargine (Insulin Glargine 100 Units/Ml) 60 units SUB-Q QHS [facility] Last Admin: 02/07/22 21:44 Dose: 60 units Insulin Human Isoph/Insulin Regular (Insulin Nph/Regular 70/30 Inj) 18 unit SUB-Q AC [facility] Last Admin: 02/08/22 07:16 Dose: 18 unit Insulin Human Lispro (Insulin Lispro 100 Unit/Ml) 0 unit SUB-Q [facility]; Protocol Last Admin: 02/08/22 16:04 Dose: 4 unit Olanzapine (Olanzapine 2.5 Mg Tab) 2.5 mg PO QDAY [facility] Oxycodone/Acetaminophen (Oxycodone /Acetaminophen 5-325mg Tab) 1 tab PO Q6H PRN PRN Reason: Pain, Moderate (4-6) Sodium Chloride (Sodium Chloride 0.9% 10 Ml Flush Syringe) 10 ml IV BID [facility] Last Admin: 02/07/22 12:31 Dose: 10 ml Sodium Chloride (Sodium Chloride 0.9% 10 Ml Flush Syringe) 10 ml IV PRN PRN PRN Reason: LINE FLUSH Zolpidem Tartrate (Zolpidem 5 Mg Tab) 10 mg PO QHS PRN PRN Reason: Sleep - Vital Signs Vital signs: Vital Signs Temp Pulse Resp BP Pulse Ox 98.9 F 114 H 20 154/100 98 02/03/22 07:54 02/03/22 07:54 02/03/22 07:54 02/03/22 07:54 02/03/22 07:54 Temp Pulse Resp BP Pulse Ox 96.7 F L 85 14 154/72 98 02/08/22 07:23 02/08/22 07:23 02/08/22 07:23 02/08/22 07:23 02/08/22 07:23 Results Result Diagrams: 02/08/22 09:43 02/08/22 09:43 Abnormal lab results 02/07/22 02/08/22 02/08/22 Range/Units 20:03 00:09 06:06 RBC (3.65-5.03) M/mm3 MCHC (30-34) % Sodium (137-145) mmol/L Carbon Dioxide (22-30) mmol/L BUN (7-17) mg/dL Glucose (65-100) mg/dL POC Glucose 247 H 502 H 388 H (70-105) mg/dL Albumin (3.9-5) g/dL 02/08/22 02/08/22 02/08/22 Range/Units 09:12 09:43 09:43 RBC 3.45 L (3.65-5.03) M/mm3 MCHC 35 H (30-34) % Sodium 133 L (137-145) mmol/L Carbon Dioxide 18 L (22-30) mmol/L BUN 18 H (7-17) mg/dL Glucose 387 H (65-100) mg/dL POC Glucose 360 H (70-105) mg/dL Albumin 3.2 L (3.9-5) g/dL 02/08/22 02/08/22 Range/Units 12:05 15:59 RBC (3.65-5.03) M/mm3 MCHC (30-34) % Sodium (137-145) mmol/L Carbon Dioxide (22-30) mmol/L BUN (7-17) mg/dL Glucose (65-100) mg/dL POC Glucose 235 H 230 H (70-105) mg/dL Albumin (3.9-5) g/dL All other labs normal. Assessment and Plan ASSESSMENT Intrauterine at approximately 33 5/7 weeks Diabetic ketoacidosis. Mild metabolic encephalopathy. Schizophrenia. Morbid obesity. Mild hyperkalemia. Bipolar disorder. Hemoglobin A1C: 10% RECOMMENDATIONS: 1. We appreciate the consultations from the hospitalist and pulmonology. 2. As needed supplemental oxygen to keep O2 sats greater than 90%. 3. As needed bronchodilators with pulmonary hygiene for respiratory therapist. 4. Mobility protocols to prevent pressure ulcers. 5. Physical therapy as 6. tolerated. 7. Agree with continuation of Accu-Cheks with glycemic control per SSI for target blood sugars below 180 mg/dL. Per hospitalist. 8. Once the patient achieves blood sugars less than 180 we would recommend a standing dose of insulin and a gestational sliding scale as noted below. 9. Retake blood sugar at 2 hours after EACH sliding dose noted below and repeat sliding scale dose of insulin based on FSG. a. < 140: Hold Humalog Insulin b. 140-160: Humalog 4 Units c. 161-180: Humalog 6 Units d. 180-200: Humalog 10 Units e. 200-220: Humalog 12 Units f. 220-260: Humalog 14 Units g. >260: 16 Humalog Units 10. 11. We have reviewed the importance of proper glycemic control in order to avoid complications including stillbirth. 12. We recommend ongoing psychiatric evaluation as well as social work interventions in this . 13. At this time the patient is not a candidate for steroids to mature lung maturit 14. Agricultural Mechanic arranged for patient to be placed a GROCERY WORKER arranged housing for patient at [facility] [address]ESS [address] [address] [address] [place] [phone] [place] [phone]. 15. Would try to arrange for [facility] to assist wi th Insulin and diabetic control 16. Based on weight would follow sliding scale above and start new Spit Dose Regimen as Follows Humulin N 60 units and Humolog 30 units before breakfast Humulog 22 units before dinner Humulin N 22 units at bedtime accuchecks fasting and 2 hour PP's FU APA weekly US/BPP Consider delivery at 35 weeks if remains noncompliant and BS uncontrolled
--- NOTE | 2022-02-08 18:07 | Discharge Summary ---
Providers - Providers Date of Admission: 02/03/22 10:58 Date of discharge: 02/08/22 Attending physician: SIM SANCHEZ 02/03/22 07:58 Consult to Mental Health [CONS] Stat Reason For Exam: delusional 02/03/22 10:13 Consult to Dietitian/Nutrition [CONS] Routine Physician Instructions: Reason For Exam: DKA Reason for Consult: Nutrition Recommendations Reason for Consult: Diet education 02/03/22 10:29 Consult to Physician [CONS] Routine Comment: Consulting Provider: KEITH ROWLAND Physician Instructions: Reason For Exam: dka 02/03/22 10:54 Consult to Physician [CONS] Routine Comment: Consulting Provider: SIM SANCHEZ Physician Instructions: Reason For Exam: 02/03/22 15:03 Consult to Case Management [CONS] Routine Services Needed at Discharge: Other Notified:: In a.m. Additional Physician Instructions: Discharge planning/placement. Patient has schizophrenia and is unable to live independently. Patient is currently and at 31 weeks gestation. Anticipate department of her family and children services involvement. 02/05/22 19:44 Consult to Physician [CONS] Urgent Comment: Consulting Provider: DANNIE WILLIAM Physician Instructions: Reason For Exam: diabetic management 02/07/22 10:59 Consult to Case Management [CONS] Stat Services Needed at Discharge: Hand Etcher Notified:: case management Additional Physician Instructions: Pt needs discharge planning. She is schizophrenic but has apparently lived on her own before. Pt is "unsure" that she is really , however she does want to be sent home and needs help with placement. She will also need help with medications Primary care physician: ADDICTION SOCIAL WORKER Hospitalization Reason for admission: other (diabetes and DKA) Condition at discharge: Stable Disposition: 04 INTERMED[facility]ATE [facility]ARE FACILITY - Discharge Diagnoses (1) DKA (diabetic ketoacidosis) Status: Acute Qualifiers: Diabetes mellitus type: due to underlying condition Diabetes mellitus complication detail: without coma Qualified Code(s): E08.10 - Diabetes mellitus due to underlying condition with ketoacidosis without coma (2) Delusion Status: Acute (3) Status: Acute Qualifiers: Weeks of gestation: 31 weeks Qualified Code(s): Z3A.31 - 31 weeks gestation of (4) Schizophrenia Status: Acute Qualifiers: 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(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 Plan - Discharge Medications Prescriptions: OLANzapine [ZyPREXA] 2.5 mg PO QDAY #30 tablet - Provider Discharge Summary Activity: routine, no sex for 6 weeks, no heavy lifting 4 weeks, no strenuous exercise Diet: routine Instructions: routine Additional instructions: [] Smoking cessation referral if applicable(refer to patient education folder for contact #) [] Refer to [facility]'s [facility] Booklet Call your doctor immediately for: * Fever > 100.5 * Heavy vaginal bleeding ( >1 pad per hour) * Severe persistent headache * Shortness of breath * Reddened, hot, painful area to leg or breast * Drainage or odor from incision. * Keep incision clean and dry at all times and follow doctor's instructions regarding bathing/showering - Follow up plan Follow up: PRIMARY CARE, [Primary Care Provider] - 10 Days
[2022-02-09] MEDS: INSULIN LISPRO 100 UNIT/ML SUB-Q SCH (08:07)
[2022-02-09] MEDS: INSULIN NPH/REGULAR 70/30 INJ SUB-Q SCH (08:08)
[2022-02-09 10:07] VITALS: BP 117/69
--- NOTE | 2022-02-09 10:11 | Ultrasound Report ---
ULTRASOUND OBSTETRIC LIMITED ULTRASOUND BIOPHYSICAL PROFILE INDICATION / CLINICAL INFORMATION: nonreactive NST. TECHNIQUE: Transabdominal. COMPARISON: None available. FINDINGS: BREATHING MOVEMENT = 2 GROSS BODY MOVEMENT = 2 TONE = 2 QUALITATIVE AMNIOTIC FLUID VOLUME = 2 TOTAL BIOPHYSICAL SCORE = 8/8 HEART RATE (beats per minute): 135 PRESENTATION: Cephalic. ADDITIONAL FINDINGS: None. IMPRESSION: 1. Biophysical Score = 8/8 Signer Name: Govind Acosta MD Signed: 02/09/2022 10:06 AM Workstation Name: [id number]
== END 2022-02-09 10:00 | disposition short-term general hospital (02) | DRG 831 ==
LOC: ED 07:51 → CC1 10:58 → 3A 02-04 22:07 → UNDODISIN 02-06 14:35 → LD 02-07 15:41
PROVIDERS: ADMIT Internal Medicine; ATTEND Obstetrics & Gynecology
DX: O24.419 Gestational diabetes mellitus in pregnancy, unspecified control (principal); G93.41 Metabolic encephalopathy; F20.1 Disorganized schizophrenia; E87.2 Acidosis; E66.2 Morbid (severe) obesity with alveolar hypoventilation; Z3A.31 31 weeks gestation of pregnancy; F29 Unspecified psychosis not due to a substance or known physiological condition; Z20.822 Contact with and (suspected) exposure to COVID-19; O99.343 Other mental disorders complicating pregnancy, third trimester; F20.9 Schizophrenia, unspecified; O99.213 Obesity complicating pregnancy, third trimester; Z71.3 Dietary counseling and surveillance; F31.9 Bipolar disorder, unspecified; O99.283 Endocrine, nutritional and metabolic diseases complicating pregnancy, third trimester; E87.5 Hyperkalemia; O99.353 Diseases of the nervous system complicating pregnancy, third trimester; Z82.49 Family history of ischemic heart disease and other diseases of the circulatory system; Z83.3 Family history of diabetes mellitus
CPT/HCPCS: 36415; 76805; 76816; 76819; 80048; 80053; 80307; 80320; 81001; 82010; 82805; 82962; 83036; 83735; 84100; 84443; 85025; 85027; G0378; J3480; Q0162; Q0177; Q9967; G0480; J1815; J7030; J7120; U0003

== ENCOUNTER 2022-02-09 19:18 | Inpatient (IN) | payer MEDICARE ==
[2022-02-09] MEDS ORDERED: diphenhydrAMINE 25 MG CAP PO PRN (21:37)
[2022-02-09] MEDS ORDERED: SIMETHICONE 80 MG CHEW TAB PO PRN (21:37)
[2022-02-09] MEDS ORDERED: ONDANSETRON 4 MG/2 ML INJ IV PRN (21:37)
[2022-02-09] MEDS ORDERED: ACETAMINOPHEN 325 MG TAB PO PRN (21:37)
[2022-02-09] MEDS ORDERED: MAGNESIUM HYDROXIDE (MOM) ORAL LIQD UDC PO PRN (21:37)
[2022-02-09] MEDS ORDERED: DOCUSATE SODIUM 100 MG CAP PO PRN (21:37)
[2022-02-09] MEDS ORDERED: ALUM-MAG HYDROXIDE-SIMETHICONE 200-200-20MG/5ML ORAL LIQD 30 ML PO PRN (21:37)
--- NOTE | 2022-02-09 21:59 | History and Physical Report ---
<JESSY ROJAS AristeoChiquita - Last Filed: 02/10/22 01:19> History of Present Illness Date of examination: 02/09/22 Date of admission: 02/09/2022 Chief complaint: I came to the hospital because I am diabetic and don't want my baby to . History of present illness: Pt is a @ 32+ wks who presented to triage with c/o wanting to check on her baby because she does not want her baby to d/t diabetes. She has a long history of mental illness: schizophrenia and bipolar disease. Her previous admissions to [facility] were reviewed. She was recently admitted to the hospital d/t DKA, newly diagnosed diabetes. She was delusional and confused so she was placed on a 1013 hold. She was sent to a medication floor for management of her diabetes with an insulin drip, but was eventually sent back to labor and delivery for an unknown cause. CM found a home for the patient to go to, but when she arrived at the home, the patient refused to get off the stretcher and she was sent back to [facility] for further management? Her brother apparently drop her off. So it is unknown how she got from the senior living back to the hospital. Case management note from 02/09/2022 1235 pm: 008- 09:00-12:07 David Posey-FRANCINE received call from Janeth- [phone] with [facility] who stated the drivers are @ [facility] and the facility is stating they dont have a room for her. FRANCINE contacted Jhonatan [phone] with [facility] who stated he forgot to tell staff the room is reserved for Ms. Posey. Ms Edmondson. Returned [employer] call @ [facility] and informed her of the above and the room was available. However, Ms. Posey was stating to [facility] Staff there were more men than women at the facility and she doesnt feel safe and refuse to get off the stretcher. [facility] will bring back to [facility]. FRANCINE contacted [facility] Service Board [phone], spoke with telephone services sales representative Mikaela, [facility] (per previous note) and informed of the above who stated they will send out mobile crisis unit. FRANCINE informed ER Charge Nurse-Chris of the above. Charge Nurse stated patient came back to the facility got off the stretcher and left the hospital prior to being triaged. FRANCINE contacted Levarmarlon at [facility] and informed her the patient is not longer at the hospital. CM then attempted to contact NOK aunt Adalgisa Gr [phone] to inform of the above, contact information left with message to return call. CM the contacted cousin Rodríguez Gr [phone] and informed him of the above. Mr. Gr stated she does this. (Of note. Mr. Gr did not answer phone when CM called from hospital phone. He did fruit picker machine operator when called from [facility] personal phone. Past History Past Medical History: diabetes, other (Schziophrenia, Bi-polar) Past Surgical History: no surgical history - Obstetrical History : 3 Medications and Allergies Allergies Allergy/AdvReac Type Severity Reaction Status Date / Time No Known Allergies Allergy Verified 02/03/22 07:58 Home Medications Medication Instructions Recorded Confirmed Last Taken Type OLANzapine [ZyPREXA] 2.5 mg PO QDAY #30 tablet 02/08/22 02/10/22 Unknown Rx Active Meds: Active Medications Acetaminophen (Acetaminophen 325 Mg Tab) 650 mg PO Q4H PRN PRN Reason: Pain MILD(1-3)/Fever >100.5/TERRELL Al Hydrox/Mg Hydrox/Simethicone (Alum-Mag Hydroxide-Simethicone [phone]/5ml Oral Liqd 30 Ml) 30 ml PO Q6H PRN PRN Reason: Indigestion Diphenhydramine HCl (Diphenhydramine 25 Mg Cap) 25 mg PO Q6H PRN PRN Reason: Itching Docusate Sodium (Docusate Sodium 100 Mg Cap) 100 mg PO Q12H PRN PRN Reason: Constipation Magnesium Hydroxide (Magnesium Hydroxide (Mom) Oral Liqd Udc) 30 ml PO QHS PRN PRN Reason: Laxative Effect Multivitamins/Iron/Calcium ( Hta51-Kq Fumarate-Folic Acid Vit Tab) 1 each PO QDAY SHARON Ondansetron HCl (Ondansetron 4 Mg/2 Ml Inj) 4 mg IV Q6H PRN PRN Reason: Nausea And Vomiting Simethicone (Simethicone 80 Mg Chew Tab) 80 mg PO Q6H PRN PRN Reason: Gas pain - Physical Exam Breasts: Positive: deferred Cardiovascular: Regular rate Lungs: Positive: Normal air movement Abdomen: Positive: normal appearance, soft Uterus: Positive: enlarged (Morbid obese, uterus. ) Extremities: Positive: edema (+ 1 trace edema.) - Obstetrical FHR: category 1 Uterine Contraction Monitor Mode: External Uterine Contraction Pattern: Absent Results Result Diagrams: 02/09/22 22:30 02/09/22 22:30 Abnormal lab results 02/09/22 Range/Units 21:06 POC Glucose 443 H (70-105) mg/dL All other labs normal. <DEDRICK VO D - Last Filed: 02/10/22 14:58> History of Present Illness Date of admission: 02/10/22 03:42 Past History Past Medical History: other (Schziophrenia, Bi-polar, has been admitted to [facility] in the past) Social history: single, other (h/o drug abuse according to Mental health provider note at last visit) - Obstetrical History Para: 1 Hx # Term Pregnancies: 1 (Preeclampsia (2019) [place]) Induced : 1 (states she was admitted to [facility] and made to have the baby at ~3mos, she does not knpw why(2010)) Medications and Allergies Active Meds: Active Medications Acetaminophen (Acetaminophen 500 Mg Tab) 1,000 mg PO Q6H PRN PRN Reason: Pain MILD(1-3)/Fever >100.5/TERRELL Al Hydrox/Mg Hydrox/Simethicone (Alum-Mag Hydroxide-Simethicone [phone]/5ml Oral Liqd 30 Ml) 30 ml PO Q6H PRN PRN Reason: Indigestion Dextrose (Dextrose 10% *Hypoglycemia) 0 ml IV PRN PRN PRN Reason: Hypoglycemia Diphenhydramine HCl (Diphenhydramine 25 Mg Cap) 25 mg PO Q6H PRN PRN Reason: Itching Docusate Sodium (Docusate Sodium 100 Mg Cap) 100 mg PO Q12H PRN PRN Reason: Constipation Insulin Glargine (Insulin Glargine 100 Units/Ml) 10 units SUB-Q QHS SHARON Insulin Human Lispro (Insulin Lispro 100 Unit/Ml) 0 unit SUB-Q ACHS SHARON; Protocol Magnesium Hydroxide (Magnesium Hydroxide (Mom) Oral Liqd Udc) 30 ml PO QHS PRN PRN Reason: Laxative Effect Multivitamins/Iron/Calcium ( Xrb22-Pq Fumarate-Folic Acid Vit Tab) 1 each PO QDAY SHARON Olanzapine (Olanzapine 2.5 Mg Tab) 2.5 mg PO QDAY SHARON Ondansetron HCl (Ondansetron 4 Mg/2 Ml Inj) 4 mg IV Q6H PRN PRN Reason: Nausea And Vomiting Simethicone (Simethicone 80 Mg Chew Tab) 80 mg PO Q6H PRN PRN Reason: Gas pain Review of Systems All systems: negative - Vital Signs Vital signs: Vital Signs Pulse BP 93 H 128/71 02/09/22 22:12 02/09/22 22:12 Temp Pulse Resp BP Pulse Ox 98.0 F 92 H 20 140/89 100 02/10/22 03:56 02/10/22 03:56 02/10/22 03:56 02/10/22 03:56 02/10/22 03:56 Results Result Diagrams: 02/09/22 22:30 02/09/22 22:30 Abnormal lab results 02/09/22 02/09/22 02/09/22 Range/Units 21:06 22:30 22:30 RBC 3.51 L (3.65-5.03) M/mm3 MCHC 35 H (30-34) % Story % (Auto) 12.8 H (0.0-7.3) % ABG pO2 (80.0-90.0) mm Hg ABG HCO3 (20.0-26.0) mmol/L ABG Base Excess (-2.0-3.0) mmol/L ABG Hemoglobin (12.0-16.0) gm/dl Sodium 134 L (137-145) mmol/L Carbon Dioxide 20 L (22-30) mmol/L Glucose 452 H (65-100) mg/dL POC Glucose 443 H (70-105) mg/dL Albumin 3.4 L (3.9-5) g/dL 02/10/22 02/10/22 Range/Units 04:16 04:35 RBC (3.65-5.03) M/mm3 MCHC (30-34) % Story % (Auto) (0.0-7.3) % ABG pO2 104.0 H (80.0-90.0) mm Hg ABG HCO3 19.0 L (20.0-26.0) mmol/L ABG Base Excess -4.8 L (-2.0-3.0) mmol/L ABG Hemoglobin 11.7 L (12.0-16.0) gm/dl Sodium (137-145) mmol/L Carbon Dioxide (22-30) mmol/L Glucose (65-100) mg/dL POC Glucose 291 H (70-105) mg/dL Albumin (3.9-5) g/dL All other labs normal. Assessment and Plan - Patient Problems (1) Intrauterine Current Visit: Yes Status: Acute Plan to address problem: Patient was transferred to Medical floor d/t L&D staffs' concern for the ability to management this patient. 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
--- NOTE | 2022-02-09 22:03 | Ultrasound Report ---
ULTRASOUND OBSTETRIC LIMITED ULTRASOUND BIOPHYSICAL PROFILE INDICATION / CLINICAL INFORMATION: well being. TECHNIQUE: Transabdominal. COMPARISON: Earlier same day FINDINGS: BREATHING MOVEMENT = 2 GROSS BODY MOVEMENT = 2 TONE = 2 QUALITATIVE AMNIOTIC FLUID VOLUME = 2 TOTAL BIOPHYSICAL SCORE = 8/8 HEART RATE (beats per minute): 137 AMNIOTIC FLUID INDEX (cm) = 8.2 (normal = 7-24 cm) PRESENTATION: Cephalic. ADDITIONAL FINDINGS: None. IMPRESSION: 1. Biophysical Score = 8/8 Signer Name: Govind Acosta MD Signed: 02/09/2022 9:58 PM Workstation Name: [id number]
[2022-02-09 23:08] LABS: Basophils % (Auto) 0.5 % (0.0-1.8); Eosinophils % (Auto) 0.7 % (0.0-4.3); Hematocrit 32.5 % (30.3-42.9); Hemoglobin 11.4 gm/dl (10.1-14.3); Lymphocytes # (Auto) 1.8 K/mm3 (1.2-5.4); Lymphocytes % (Auto) 28.7 % (13.4-35.0); Mean Corpuscular HGB Conc 35 % (30-34); Mean Corpuscular Volume 93 fl (79-97); Monocytes # (Auto) 0.8 K/mm3 (0.0-0.8); Monocytes % (Auto) 12.8 % (0.0-7.3); Platelet Count 196 K/mm3 (140-440); Red Blood Count 3.51 M/mm3 (3.65-5.03)
[2022-02-09 23:16] LABS: INR 0.9 (0.87-1.13)
[2022-02-09 23:25] LABS: Alanine Aminotransferase 18 units/L (7-56); Albumin 3.4 g/dL (3.9-5); Blood Urea Nitrogen 16 mg/dL (7-17); Calcium 9.1 mg/dL (8.4-10.2); Hemolysis Index 1
[2022-02-09 23:26] LABS: BUN/Creatinine Ratio 23
[2022-02-10] MEDS ORDERED: DEXTROSE 50% IN WATER (25GM) 50 ML SYRINGE IV PRN (00:09)
[2022-02-10] MEDS ORDERED: DEXTROSE 10% *Hypoglycemia IV PRN (00:22)
--- NOTE | 2022-02-10 00:56 | Consultation ---
History of Present Illness - Reason for Consult Consult date: 02/10/22 hyperglycemia Requesting physician: DEDRICK VO - History of Present Illness @ 32+ wks who presented to triage with c/o wanting to check on her baby because she does not want her baby to d/t diabetes. She has a long history of mental illness: schizophrenia and bipolar disease. Her previous admissions to [facility] were reviewed. She was recently admitted to the hospital d/t DKA, newly diagnosed diabetes. In the hospital patient blood glucose is 452, bicarb 20 anion gap 19 ketone neg ative's were going to. Put the patient on insulin sliding scale and Lantus subcu and consult diabetic education Past History Past Medical History: diabetes, other (Schizophrenia, bipolar disorder) Past Surgical History: No surgical history Social history: no significant social history Family history: no significant family history Medications and Allergies Allergies Allergy/AdvReac Type Severity Reaction Status Date / Time No Known Allergies Allergy Verified 02/03/22 07:58 Home Medications Medication Instructions Recorded Confirmed Last Taken Type OLANzapine [ZyPREXA] 2.5 mg PO QDAY #30 tablet 02/08/22 Unknown Rx Active Meds: Active Medications Acetaminophen (Acetaminophen 500 Mg Tab) 1,000 mg PO Q6H PRN PRN Reason: Pain MILD(1-3)/Fever >100.5/TERRELL Al Hydrox/Mg Hydrox/Simethicone (Alum-Mag Hydroxide-Simethicone [phone]/5ml Oral Liqd 30 Ml) 30 ml PO Q6H PRN PRN Reason: Indigestion Dextrose (Dextrose 10% *Hypoglycemia) 0 ml IV PRN PRN PRN Reason: Hypoglycemia Diphenhydramine HCl (Diphenhydramine 25 Mg Cap) 25 mg PO Q6H PRN PRN Reason: Itching Docusate Sodium (Docusate Sodium 100 Mg Cap) 100 mg PO Q12H PRN PRN Reason: Constipation Insulin Glargine (Insulin Glargine 100 Units/Ml) 10 units SUB-Q QHS SHARON Insulin Human Lispro (Insulin Lispro 100 Unit/Ml) 0 unit SUB-Q ACHS SHARON; Protocol Magnesium Hydroxide (Magnesium Hydroxide (Mom) Oral Liqd Udc) 30 ml PO QHS PRN PRN Reason: Laxative Effect Multivitamins/Iron/Calcium ( Lgm34-Me Fumarate-Folic Acid Vit Tab) 1 each PO QDAY SHARON Olanzapine (Olanzapine 2.5 Mg Tab) 2.5 mg PO QDAY SHARON Olanzapine (Olanzapine 2.5 Mg Tab) 2.5 mg PO QDAY SHARON Ondansetron HCl (Ondansetron 4 Mg/2 Ml Inj) 4 mg IV Q6H PRN PRN Reason: Nausea And Vomiting Simethicone (Simethicone 80 Mg Chew Tab) 80 mg PO Q6H PRN PRN Reason: Gas pain Review of Systems Constitutional: other Exam - Constitutional Vitals: Temp Pulse Resp BP Pulse Ox 97.7 F 80 128/71 98 02/09/22 22:37 02/10/22 00:49 02/09/22 22:12 02/10/22 00:49 General appearance: Present: no acute distress, well-nourished - EENT Eyes: Present: PERRL ENT: hearing intact, clear oral mucosa - Neck Neck: Present: supple, normal ROM - Respiratory Respiratory effort: normal Respiratory: bilateral: CTA - Cardiovascular Heart Sounds: Present: S1 & S2. Absent: rub, click - Extremities Extremities: pulses symmetrical, No edema Peripheral Pulses: within normal limits - Abdominal General gastrointestinal: Present: soft, non-tender, non-distended, normal bowel sounds Female genitourinary: Present: normal - Integumentary Integumentary: Present: clear, warm, dry - Musculoskeletal Musculoskeletal: gait normal, strength equal bilaterally - Psychiatric Psychiatric: appropriate mood/affect, intact judgment & insight - Neurologic Neurologic: CNII-XII intact, moves all extremities Results - Labs CBC & Chem 7: 02/09/22 22:30 02/09/22 22:30 Labs: Abnormal lab results 02/09/22 02/09/22 02/09/22 Range/Units 21:06 22:30 22:30 RBC 3.51 L (3.65-5.03) M/mm3 MCHC 35 H (30-34) % [place] % (Auto) 12.8 H (0.0-7.3) % Sodium 134 L (137-145) mmol/L Carbon Dioxide 20 L (22-30) mmol/L Glucose 452 H (65-100) mg/dL POC Glucose 443 H (70-105) mg/dL Albumin 3.4 L (3.9-5) g/dL Assessment and Plan - Patient Problems (1) Hyperglycemia due to type 2 diabetes mellitus Current Visit: Yes Status: Acute Plan to address problem: Put the patient on 1800 kcal ADA diet. Humalog sliding scale Accu-Chek before meals and at bedtime moderate dose coverage. Lantus 10 units subcu nightly and diabetic education. We will recheck the hemoglobin A1c. BMP in the morning (2) Current Visit: No Status: Acute Qualifiers: Weeks of gestation: 31 weeks Qualified Code(s): Z3A.31 - 31 weeks gestation of Plan to address problem: Patient is G2, P1 at 32+ weeks. Management as per INVENTORY ASSOCIATE (3) Schizophrenia Current Visit: No Status: Acute Qualifiers: 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(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 Plan to address problem: Stable. We will continue the Zyprexa 2.5 mg p.o. daily if okay with INVENTORY ASSOCIATE. (4) DVT prophylaxis Current Visit: No Status: Acute Plan to address problem: As per OBG
[2022-02-10 04:43] LABS: ABG Base Excess -4.8 mmol/L (-2.0-3.0); ABG Methemoglobin 0.5 % (0.0-1.5); ABG Oxygen Saturation 97.8 % (95.0-99.0); ABG PCO2 31.3 mm Hg; ABG PH 7.401 pH Units (7.350-7.450)
--- NOTE | 2022-02-10 08:42 | Event Note ---
Date: 02/10/22 History of Present Illness @ 32+ wks who presented to triage with c/o wanting to check on her baby because she does not want her baby to d/t diabetes. She has a long history of mental illness: schizophrenia and bipolar disease. Her previous admissions to [facility] were reviewed. She was recently admitted to the hospital d/t DKA, newly diagnosed diabetes. In the hospital patient blood glucose is 452, bicarb 20 anion gap 19 ketone negative's were going to. Put the patient on insulin sliding scale and Lantus subcu and consult diabetic education Hospital Course: 02/10: Talked to patient this morning who was initially refusing all therapy. OB was in room and patient eventually agreed to be complaint with testing and therapy administered. Addition of basal bolus regimen for optimized glycemic control. D/w OBgyn, ok to transfer to L&D. Would recommend d/c olanzipine as this can make gestational diabetes worse. Would consider Abilify and psych consultation if patient will be remaining in hospital. Assessment and Plan (1) Hyperglycemia due to type 2 diabetes mellitus Current Visit: Yes Status: Acute Plan to address problem: Put the patient on 1800 kcal ADA diet. Blood sugars elevated overnight, last check 238. Increase lantus to 30 units subq qhs Add humulin R 5 units achs Correctional scale insulin accuchecks achs would recommend d/c zyprexa. Patient is refusing med this AM but it is a known agent that can worsen gestational diabetes. May benefit from alternative agent such as abilify. (2) Current Visit: No Status: Acute Qualifiers: Weeks of gestation: 31 weeks Qualified Code(s): Z3A.31 - 31 weeks gestation of Plan to address problem: Patient is G2, P1 at 32+ weeks. Management as per HOME ENERGY CONSULTANT (3) Schizophrenia Current Visit: No Status: Acute Qualifiers: 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(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 Plan to address problem: d/c Zyprexa 2.5 mg p.o. daily if okay with HOME ENERGY CONSULTANT. Would recommend Abilify, risk/benefit. At this time, patient was declining all antipyschotics d/t concerns for harm to baby. Would likely benefit from further education. Would recommend psychiatry consultation if patient will remain in hospital. (4) DVT prophylaxis Current Visit: No Status: Acute Plan to address problem: As per OBG
[2022-02-10] MEDS: INSULIN LISPRO 100 UNIT/ML SUB-Q SCH ×4 (10:29→21:58)
[2022-02-10] MEDS: PRENATAL VIT27-FE FUMARATE-FOLIC ACID VIT TAB PO SCH (10:30)
--- NOTE | 2022-02-10 11:17 | Progress Note ---
Assessment and Plan - Patient Problems (1) Intrauterine Current Visit: No Status: Acute Plan to address problem: I was informed this am NST cannot be performed on telemetry b/c the monitor is broken, will move patient \back to L&D for monitoring, Dr. Faith aware/ (2) Hyperglycemia due to type 2 diabetes mellitus Current Visit: Yes Status: Chronic Plan to address problem: Patient state she was not aware she had DM until her recent admission, again explaine the importance of BS control and increased risk for her baby dying if her BS are not controlled. She was informed she will be taught to [facility] check her BS and the give herslf insulin. She was also informed she will be transferred back to L&D. She voiced understanding and agrees with POC at this time (3) Obesity, Class III, BMI 40-49.9 (morbid obesity) Current Visit: Yes Status: Acute (4) DVT prophylaxis Current Visit: No Status: Acute (5) Schizophrenia Current Visit: No Status: Acute Qualifiers: 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(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 Plan to address problem: Continue Zyprexa (6) Homeless single person Current Visit: Yes Status: Acute Plan to address problem: She did not feel safe at the previous facility where was taken, SW/CM consulted Subjective - Subjective Date of service: 02/10/22 Principal diagnosis: IUP@32 1/ ewga, uncontrolled DM Interval history: Sitting on the sise of her bed, no new complaints. Patient reports: movement normal, no new complaints, no loss of fluid, no vaginal bleeding, no contractions Objective - Vital Signs Vital Signs: Vital Signs - 12hr 02/09/22 02/09/22 02/09/22 22:19 22:24 22:29 Temperature Pulse Rate 84 94 H 88 Respiratory Rate Blood Pressure O2 Sat by Pulse 98 98 99 Oximetry 02/09/22 02/09/22 02/09/22 22:34 22:37 22:39 Temperature 97.7 F Pulse Rate 87 83 Respiratory Rate Blood Pressure O2 Sat by Pulse 100 98 Oximetry 02/09/22 02/09/22 02/09/22 22:44 22:49 22:54 Temperature Pulse Rate 82 80 82 Respiratory Rate Blood Pressure O2 Sat by Pulse 99 99 98 Oximetry 02/09/22 02/09/22 02/09/22 22:59 23:04 23:09 Temperature Pulse Rate 89 84 88 Respiratory Rate Blood Pressure O2 Sat by Pulse 99 99 99 Oximetry 02/09/22 02/09/22 02/09/22 23:14 23:19 23:24 Temperature Pulse Rate 93 H 84 85 Respiratory Rate Blood Pressure O2 Sat by Pulse 97 95 100 Oximetry 02/09/22 02/09/22 02/09/22 23:29 23:34 23:39 Temperature Pulse Rate 85 87 85 Respiratory Rate Blood Pressure O2 Sat by Pulse 99 99 98 Oximetry 02/09/22 02/09/22 02/09/22 23:44 23:49 23:54 Temperature Pulse Rate 100 H 85 78 Respiratory Rate Blood Pressure O2 Sat by Pulse 99 98 99 Oximetry 02/09/22 02/10/22 02/10/22 23:59 00:04 00:09 Temperature Pulse Rate 78 79 80 Respiratory Rate Blood Pressure O2 Sat by Pulse 100 98 100 Oximetry 02/10/22 02/10/22 02/10/22 00:14 00:19 00:24 Temperature Pulse Rate 85 78 82 Respiratory Rate Blood Pressure O2 Sat by Pulse 99 98 98 Oximetry 02/10/22 02/10/22 02/10/22 00:29 00:34 00:39 Temperature Pulse Rate 79 82 83 Respiratory Rate Blood Pressure O2 Sat by Pulse 98 98 98 Oximetry 02/10/22 02/10/22 02/10/22 00:44 00:49 00:54 Temperature Pulse Rate 81 80 83 Respiratory Rate Blood Pressure O2 Sat by Pulse 99 98 98 Oximetry 02/10/22 02/10/22 02/10/22 00:59 01:04 01:09 Temperature Pulse Rate 83 86 87 Respiratory Rate Blood Pressure O2 Sat by Pulse 98 98 98 Oximetry 02/10/22 02/10/22 02/10/22 01:14 01:19 01:25 Temperature Pulse Rate 91 H 99 H 100 H Respiratory Rate Blood Pressure O2 Sat by Pulse 98 99 81 L Oximetry 02/10/22 02/10/22 02/10/22 01:26 01:31 01:36 Temperature Pulse Rate 91 H 95 H 86 Respiratory Rate Blood Pressure O2 Sat by Pulse 81 L 99 99 Oximetry 02/10/22 02/10/22 02/10/22 01:41 03:56 08:00 Temperature 98.0 F Pulse Rate 84 92 H Respiratory 20 Rate Blood Pressure 140/89 O2 Sat by Pulse 99 100 96 Oximetry - Labs Labs: Abnormal Labs 02/09/22 02/09/22 02/09/22 21:06 22:30 22:30 RBC 3.51 L MCHC 35 H [place] % (Auto) 12.8 H ABG pO2 ABG HCO3 ABG Base Excess ABG Hemoglobin Sodium 134 L Carbon Dioxide 20 L Glucose 452 H POC Glucose 443 H Albumin 3.4 L 02/10/22 02/10/22 02/10/22 04:16 04:35 09:49 RBC MCHC [place] % (Auto) ABG pO2 104.0 H ABG HCO3 19.0 L ABG Base Excess -4.8 L ABG Hemoglobin 11.7 L Sodium Carbon Dioxide Glucose POC Glucose 291 H 248 H Albumin Laboratory Results - last 24 hr 02/09/22 02/09/22 02/09/22 21:06 22:30 22:30 WBC 6.3 RBC 3.51 L Hgb 11.4 Hct 32.5 MCV 93 MCH 32 MCHC 35 H RDW 14.0 Plt Count 196 Lymph % (Auto) 28.7 Mil[place] % (Auto) 12.8 H Eos % (Auto) 0.7 Baso % (Auto) 0.5 Lymph # (Auto) 1.8 [place] # (Auto) 0.8 Eos # (Auto) 0.0 Baso # (Auto) 0.0 Seg Neutrophils % 57.3 Seg Neutrophils # 3.6 PT 13.1 INR 0.90 ABG pH ABG pCO2 ABG pO2 ABG HCO3 ABG O2 Saturation ABG O2 Content ABG Base Excess ABG Hemoglobin ABG Carboxyhemoglobin ABG Methemoglobin Oxyhemoglobin FiO2 Sodium Potassium Chloride Carbon Dioxide Anion Gap BUN Creatinine Estimated GFR BUN/Creatinine Ratio Glucose POC Glucose 443 H Ketones Quantitative Calcium Total Bilirubin AST ALT Alkaline Phosphatase Total Protein Albumin Albumin/Globulin Ratio 02/09/22 02/09/22 02/10/22 22:30 22:30 04:16 WBC RBC Hgb Hct MCV MCH MCHC RDW Plt Count Lymph % (Auto) Mil[place] % (Auto) Eos % (Auto) Baso % (Auto) Lymph # (Auto) [place] # (Auto) Eos # (Auto) Baso # (Auto) Seg Neutrophils % Seg Neutrophils # PT INR ABG pH ABG pCO2 ABG pO2 ABG HCO3 ABG O2 Saturation ABG O2 Content ABG Base Excess ABG Hemoglobin ABG Carboxyhemoglobin ABG Methemoglobin Oxyhemoglobin FiO2 Sodium 134 L Potassium 4.6 Chloride 99.8 Carbon Dioxide 20 L Anion Gap 19 BUN 16 Creatinine 0.7 Estimated GFR > 60 BUN/Creatinine Ratio 23 Glucose 452 H POC Glucose 291 H Ketones Quantitative Negative Calcium 9.1 Total Bilirubin < 0.20 AST 14 ALT 18 Alkaline Phosphatase 81 Total Protein 6.6 Albumin 3.4 L Albumin/Globulin Ratio 1.1 02/10/22 02/10/22 04:35 09:49 WBC RBC Hgb Hct MCV MCH MCHC RDW Plt Count Lymph % (Auto) [place] % (Auto) Eos % (Auto) Baso % (Auto) Lymph # (Auto) [place] # (Auto) Eos # (Auto) Baso # (Auto) Seg Neutrophils % Seg Neutrophils # PT INR ABG pH 7.401 ABG pCO2 31.3 ABG pO2 104.0 H ABG HCO3 19.0 L ABG O2 Saturation 97.8 ABG O2 Content 16.0 ABG Base Excess -4.8 L ABG Hemoglobin 11.7 L ABG Carboxyhemoglobin 1.1 ABG Methemoglobin 0.5 Oxyhemoglobin 96.3 FiO2 21 Sodium Potassium Chloride Carbon Dioxide Anion Gap BUN Creatinine Estimated GFR BUN/Creatinine Ratio Glucose POC Glucose 248 H Ketones Quantitative Calcium Total Bilirubin AST ALT Alkaline Phosphatase Total Protein Albumin Albumin/Globulin Ratio
--- NOTE | 2022-02-10 12:11 | Event Note ---
Date: 02/10/22 Now cheese weigher states patient cannot be transferred back to L&D for monitoring b/c there is no staff available. RN Banking And Finance Instructor aware. Will order BPP now. She still needs to be transferred to L&D for monitoring. cheese weigher aware.
[2022-02-10] MEDS ORDERED: INSULIN REGULAR, HUMAN 100 UNITS/1 ML SUB-Q ONE (12:15)
[2022-02-10] MEDS: INSULIN REGULAR, HUMAN 100 UNITS/1 ML SUB-Q SCH ×3 (12:28→21:57)
[2022-02-10] MEDS ORDERED: INSULIN GLARGINE 100 UNITS/ML SUB-Q SCH ×2 (22:00)
[2022-02-10 23:58] LABS: Blood Urea Nitrogen 11 mg/dL (7-17); Calcium 8.5 mg/dL (8.4-10.2); Hemolysis Index 8
[2022-02-11] LABS: BUN/Creatinine Ratio 28
--- NOTE | 2022-02-11 08:37 | Event Note ---
Improved AM blood sugars and glycemic control with BS < 200. Patient would likely benefit from superintendent operating services OP and education on diabetic diet. IM service will sign off. Thank you for allowing for us to participate in the care of this patient and please re-consult if further assistance is needed.
--- NOTE | 2022-02-11 09:07 | Progress Note ---
Assessment and Plan earliest known u/s done 11/30/2021(23+0) gives EDC of 03/29/2022. u/s from 12/04/2020 @ [facility] gives EDC 03/30/2022. will assign 03/29/2022 as final EDC. Nurse informed of new EDC. Pt standing up eating breakfast. She reports +FM, denies ctx/SROM/vag bleeding. Pt requesting to go outside she may go to garden for 30 minutes if accompanied by hospital staff. Pt denies any current complaints or concerns. - Patient Problems (1) 33 weeks gestation of Current Visit: Yes Status: Acute Plan to address problem: NST q4hrs (2) GDM (gestational diabetes mellitus) Current Visit: Yes Status: Acute Qualifiers: Gestational diabetes mellitus control: insulin-controlled Trimester: third trimester Qualified Code(s): O24.414 - Gestational diabetes mellitus in , insulin controlled (3) Homeless single person Current Visit: Yes Status: Acute (4) Schizophrenia Current Visit: No Status: Acute Qualifiers: Schizophrenia type: paranoid schizophrenia Qualified Code(s): F20.0 - Paranoid schizophrenia Plan to address problem: mental health consult ordered continue with therapeutic communication and reorienting patient as needed. Pt seems to be in good spirits today. (5) Gestational hypertension Current Visit: Yes Status: Acute Qualifiers: Trimester: third trimester Qualified Code(s): O13.3 - Gestational [-induced] hypertension without significant proteinuria, third trimester Plan to address problem: [place] [facility] [place] Will closely monitor b/p's Subjective - Subjective Date of service: 02/11/22 Principal diagnosis: IUP@ 33 3/7 ewga, uncontrolled DM & GHTN Patient reports: movement normal, no new complaints, no loss of fluid, no vaginal bleeding, no contractions Objective - Vital Signs Vital Signs: Vital Signs - 12hr 02/11/22 05:05 Temperature 98.7 F - Labs Labs: Abnormal Labs 02/09/22 02/09/22 02/09/22 21:06 22:30 22:30 RBC 3.51 L MCHC 35 H [place] % (Auto) 12.8 H ABG pO2 ABG HCO3 ABG Base Excess ABG Hemoglobin Sodium 134 L Chloride Carbon Dioxide 20 L Creatinine Glucose 452 H POC Glucose 443 H Albumin 3.4 L 02/10/22 02/10/22 02/10/22 04:16 04:35 09:49 RBC MCHC [place] % (Auto) ABG pO2 104.0 H ABG HCO3 19.0 L ABG Base Excess -4.8 L ABG Hemoglobin 11.7 L Sodium Chloride Carbon Dioxide Creatinine Glucose POC Glucose 291 H 248 H Albumin 02/10/22 02/10/22 02/10/22 11:39 17:07 21:33 RBC MCHC [place] % (Auto) ABG pO2 ABG HCO3 ABG Base Excess ABG Hemoglobin Sodium Chloride Carbon Dioxide Creatinine Glucose POC Glucose 350 H 201 H 187 H Albumin 02/10/22 02/11/22 23:00 08:13 RBC MCHC [place] % (Auto) ABG pO2 ABG HCO3 ABG Base Excess ABG Hemoglobin Sodium 130 L Chloride 96.9 L Carbon Dioxide 19 L Creatinine 0.4 L Glucose 223 H POC Glucose 170 H Albumin Laboratory Results - last 24 hr 02/10/22 02/10/22 02/10/22 06:05 09:45 09:49 Sodium Potassium Chloride Carbon Dioxide Anion Gap BUN Creatinine Estimated GFR BUN/Creatinine Ratio Glucose POC Glucose 248 H Calcium Nasal Screen MRSA (PCR) Negative Coronavirus (PCR) Negative 02/10/22 02/10/22 02/10/22 11:39 17:07 21:33 Sodium Potassium Chloride Carbon Dioxide Anion Gap BUN Creatinine Estimated GFR BUN/Creatinine Ratio Glucose POC Glucose 350 H 201 H 187 H Calcium Nasal Screen MRSA (PCR) Coronavirus (PCR) 02/10/22 02/11/22 23:00 08:13 Sodium 130 L Potassium 4.0 Chloride 96.9 L Carbon Dioxide 19 L Anion Gap 18 BUN 11 Creatinine 0.4 L Estimated GFR > 60 BUN/Creatinine Ratio 28 Glucose 223 H POC Glucose 170 H Calcium 8.5 Nasal Screen MRSA (PCR) Coronavirus (PCR)
[2022-02-11] MEDS: INSULIN LISPRO 100 UNIT/ML SUB-Q SCH ×3 (09:25→17:04)
[2022-02-11] MEDS: INSULIN REGULAR, HUMAN 100 UNITS/1 ML SUB-Q SCH ×3 (09:27→17:03)
--- NOTE | 2022-02-11 13:12 | Event Note ---
Date: 02/11/22 Agree with wood caulker exam and note. Will con't current management. Medicine teams has signed off at this time as BGs have improved. Will await recommendations from MFM and input from psych. Case manage will also need to provide guidance in placement for this pt in [facility]pc as she states she is homeless.
--- NOTE | 2022-02-11 20:35 | Event Note ---
Date: 02/11/22 Pt stepped out of her room, and then called JuanJ osé and asked to speak to me. Pt states she doesn't want anyone to take care of her tonight except for blood sugar checks. Patient states "It's getting late and I have a bad eye. I am an old lady." She states she does not want any monitoring until the morning when a new nurse comes on. Pt voiced wanting an older nurse and that Jordyn is too young. Pt states she will allow CN Juan José to check her sugars "but its not time yet." Advised patient that she has the right to refuse care but we are trying to take care of her and her baby. Patient states she understands.
[2022-02-12] MEDS: INSULIN LISPRO 100 UNIT/ML SUB-Q SCH ×5 (07:36→20:59)
--- NOTE | 2022-02-12 08:13 | Progress Note ---
Assessment and Plan - Patient Problems (1) Intrauterine Current Visit: Yes Status: Acute Plan to address problem: CANDACE changed to 03/30/22 by 23 wk US performed 11/30/21. Note in chart, CANDACE confirmed with patient who agrees. (2) Hyperglycemia due to type 2 diabetes mellitus Current Visit: Yes Status: Chronic Plan to address problem: The below pertinent recommendations are from the previous admission's [facility] note dated 02/08/2022. Will start Split mixed and the SSI regimen as recommended. Waiting for any additional recommendations. She has not been reassessed by [facility] as of yet. Agree with continuation of Accu-Cheks with glycemic control per SSI for target blood sugars below 180 mg/dL. Per hospitalist. 8. Once the patient achieves blood sugars less than 180 we would recommend a standing dose of insulin and a gestational sliding scale as noted below. 9. Retake blood sugar at 2 hours after EACH sliding dose noted below and repeat sliding scale dose of insulin based on FSG. a. < 140: Hold Humalog Insulin b. 140-160: Humalog 4 Units c. 161-180: Humalog 6 Units d. 180-200: Humalog 10 Units e. 200-220: Humalog 12 Units f. 220-260: Humalog 14 Units g. >260: 16 Humalog Units 10. 11. We have reviewed the importance of proper glycemic control in order to avoid complications including stillbirth. 12. We recommend ongoing psychiatric evaluation as well as social work interventions in this . 13. At this time the patient is not a candidate for steroids to mature lung maturit 15. Would try to arrange for [facility] to assist with Insulin and diabetic control 16. Based on weight would follow sliding scale above and start new Spit Dose Regimen as Follows Humulin N 60 units and Humolog 30 units before breakfast Humulog 22 units before dinner Humulin N 22 units at bedtime accuchecks fasting and 2 hour PP's FU [facility] weekly US/BPP Consider delivery at 35 weeks if remains noncompliant and BS uncontrolled NICU consulted Waiting for MFM to determine if inpatient hospitalization until delivery is a recommendation for this patient who is noncompliant, homeless, has uncontrolled DM, limited resources and schizophrenia. Also need to confirm any changes in management since her last admission. Orders and plan of care were meticulously reviewed with RN and patient. Questions were encouraged and answered. She voiced understanding. Again emphaisized the importance of controlled BS to prevent brain damage or . (3) Obesity, Class III, BMI 40-49.9 (morbid obesity) Current Visit: Yes Status: Acute (4) DVT prophylaxis Current Visit: Yes Status: Acute (5) Schizophrenia Current Visit: No Status: Acute Qualifiers: Schizophrenia type: paranoid schizophrenia Qualified Code(s): F20.0 - Paranoid schizophrenia Subjective - Subjective Date of service: 02/12/22 Principal diagnosis: IUP@ 33 02/04 ewga, uncontrolled DM & GHTN Interval history: No complaints, +FM Patient reports: movement normal, no new complaints, no loss of fluid, no vaginal bleeding, no contractions Objective - Labs Labs: Abnormal Labs 02/09/22 02/09/22 02/09/22 21:06 22:30 22:30 RBC 3.51 L MCHC 35 H [place] % (Auto) 12.8 H ABG pO2 ABG HCO3 ABG Base Excess ABG Hemoglobin Sodium 134 L Chloride Carbon Dioxide 20 L Creatinine Glucose 452 H POC Glucose 443 H Albumin 3.4 L 02/10/22 02/10/22 02/10/22 04:16 04:35 09:49 RBC MCHC [place] % (Auto) ABG pO2 104.0 H ABG HCO3 19.0 L ABG Base Excess -4.8 L ABG Hemoglobin 11.7 L Sodium Chloride Carbon Dioxide Creatinine Glucose POC Glucose 291 H 248 H Albumin 02/10/22 02/10/22 02/10/22 11:39 17:07 21:33 RBC MCHC [place] % (Auto) ABG pO2 ABG HCO3 ABG Base Excess ABG Hemoglobin Sodium Chloride Carbon Dioxide Creatinine Glucose POC Glucose 350 H 201 H 187 H Albumin 02/10/22 02/11/22 02/11/22 23:00 08:13 11:47 RBC MCHC [place] % (Auto) ABG pO2 ABG HCO3 ABG Base Excess ABG Hemoglobin Sodium 130 L Chloride 96.9 L Carbon Dioxide 19 L Creatinine 0.4 L Glucose 223 H POC Glucose 170 H 188 H Albumin 02/11/22 02/12/22 16:48 07:14 RBC MCHC [place] % (Auto) ABG pO2 ABG HCO3 ABG Base Excess ABG Hemoglobin Sodium Chloride Carbon Dioxide Creatinine Glucose POC Glucose 157 H 173 H Albumin Laboratory Results - last 24 hr 02/11/22 02/11/22 02/11/22 08:13 11:47 16:48 POC Glucose 170 H 188 H 157 H 02/12/22 07:14 POC Glucose 173 H
[2022-02-12] MEDS: INSULIN REGULAR, HUMAN 100 UNITS/1 ML SUB-Q SCH (08:20)
--- NOTE | 2022-02-12 08:26 | Event Note ---
Date: 02/12/22 Pt states that she is doing okay this AM. We discussed coordination of her care. Pt states that she has been working on finding a place to stay. Provider witnessed patient giving herself insulin and nurse teaching her how to given herself insulin. What will be taught to the patient at noon is how to draw up her insulin, administer the insulin, and proper insulin regime. Pt has no OB complaints. Denies vaginal bleeding, LOF, ctxs. Awaiting recommendations from mental health and [facility].
[2022-02-12] MEDS: PRENATAL VIT27-FE FUMARATE-FOLIC ACID VIT TAB PO SCH ×2 (10:10→11:13)
--- NOTE | 2022-02-12 11:23 | Progress Note ---
Subjective - Reason for Consult Consult date: 02/12/22 Reason for consult: MHE - Chief Complaint Chief complaint: The patient was seen today. She was recently seen by psych and cleared. During my evaluation, the patient is calm, cooperative and pleasant. She is a/o x 3. She is sitting on side of the bed writing out goals. She asks me to read them and let her know what I think. She then reads them out to me, she has one goal listed that she will call the [facility] to help find her a place to live. She says she will walk for exercise to help keep her baby healthy. She also states a goal as being able to take her own blood sugar and learn how to give herself insulin. She denies SI/HI or hallucinations. The patient says "there is noting wrong with my mental health. I've been calm and everything. I haven't been hype. I just need a place to go." She says "I just want them to find me a place to go." The patient says "so my great aunt wont worry about me." I ask her where was her great aunt. The patient replied that she was at home. She says "but I don't want to live with her. I want me and my baby to have out own place." REVIEW OF SYSTEMS Constitutional: Negative for weight loss ENT: Negative for stridor Respiratory: Negative for cough or hemoptysis All other systems reviewed and are negative MENTAL STATUS EXAMINATION General Appearance and Behavior: Age appropriate, good hygiene, wearing appropriate clothes, good eye contact, calm, cooperative Cooperation: Participating/engaged Psychomotor Behavior: Psychomotor normal Mood: a lot better Affect and affective range: congruent with stated mood Thought Process: goal directed Thought Content: None Speech: normal tone and pace Suicidal Ideation: Denies Homicidal Ideation: Denies Hallucinations: Denies Delusions: None elicited Impulse Control: Limited Insight and Judgment: Limited insight and judgment Memory: Limited Attention: Divided Orientation: Alert, oriented Assessment and Plan Hx of schizophrenia Treatment Plan Restart Olanzapine 2.5mg po daily Consult case management for assistance with placement Medical: per primary Sitter: per primary Disposition: Do not recommend acute psychiatric inpatient treatment The client services manager to give the patient all necessary resources including shelters and group homes Will sign off. Thanks Case staffed with Dr. Frederick Mental Status Exam - Vital signs Last Vital Signs Temp 97.9 F 02/11/22 12:18 Pulse 90 02/12/22 10:37 Resp 16 02/10/22 17:20 BP 140/71 02/12/22 10:12 Pulse Ox 98 02/12/22 10:37
--- NOTE | 2022-02-12 18:13 | Event Note ---
Date: 02/12/22 Now available to speak with patient. Called Danielle BEAR who now states the patient no longer desires to speak with me.
[2022-02-13 06:30] LABS: Blood Urea Nitrogen 7 mg/dL (7-17); Hemolysis Index 0
[2022-02-13 06:31] LABS: BUN/Creatinine Ratio 18
[2022-02-13] MEDS: INSULIN LISPRO 100 UNIT/ML SUB-Q SCH ×8 (08:00→23:21)
--- NOTE | 2022-02-13 08:41 | Progress Note ---
Assessment and Plan 31y/o @ 33+4, no care., dated by earliest known u/s (11/30 - 0). She continues to refuse care and tell providers and staff when they can come to her room and when they must leave. pt does not do well with any change of plans. She does not seem to understand the importance diabetic management in or otherwise. She frequently refuses monitoring of the baby. pt refused zyprexa yesterday, if she refuses zyprexa again today will re- consult mental health. Dr. Castano aware of patient's status. - Patient Problems (1) 33 weeks gestation of Current Visit: Yes Status: Acute (2) GDM (gestational diabetes mellitus) Current Visit: Yes Status: Acute Qualifiers: Gestational diabetes mellitus control: insulin-controlled Trimester: third trimester Qualified Code(s): O24.414 - Gestational diabetes mellitus in , insulin controlled (3) Homeless single person Current Visit: Yes Status: Acute (4) Schizophrenia Current Visit: No Status: Acute Qualifiers: Schizophrenia type: paranoid schizophrenia Qualified Code(s): F20.0 - Paranoid schizophrenia Plan to address problem: pt evaluated by mental char, they do not feel she needs inpatient psychiatric care Pt currently refusing all medications (except insulin) Continue teaching re: selfcare and diabetes management Utilize therapeutic communication and redirection (5) Gestational hypertension Current Visit: Yes Status: Acute Qualifiers: Trimester: third trimester Qualified Code(s): O13.3 - Gestational [-induced] hypertension without significant proteinuria, third trimester Plan to address problem: dx noted on records from [facility] [place] visit 11/30/2021 Will closely monitor b/p's no s/s pre-e (6) Noncompliance by refusing service Current Visit: Yes Status: Acute Plan to address problem: Pt frequently refuses monitoring and/or vital signs She has shown interest in checking her blood glucose and giving herself insulin but not consistently she has yet to go 24hrs without refusing care. Subjective - Subjective Date of service: 02/13/22 Principal diagnosis: IUP@ 33 4/7 ewga, uncontrolled DM & GHTN, psychosis Patient reports: movement normal, no new complaints, no loss of fluid, no vaginal bleeding, no contractions Objective - Vital Signs Vital Signs: Vital Signs - 12hr 02/13/22 02/13/22 02/13/22 01:00 01:01 01:05 Pulse Rate 118 H 93 H O2 Sat by Pulse 83 L 82 L 97 Oximetry 02/13/22 02/13/22 02/13/22 01:10 01:15 01:20 Pulse Rate 85 92 H 86 O2 Sat by Pulse 99 99 99 Oximetry 02/13/22 02/13/22 01:25 01:30 Pulse Rate 84 88 O2 Sat by Pulse 99 98 Oximetry - Exam Breasts: normal Cardiovascular: Regular rate Lungs: Normal air movement Abdomen: Present: normal appearance, soft Uterine Contraction Pattern: Absent - Labs Labs: Abnormal Labs 02/09/22 02/09/22 02/09/22 21:06 22:30 22:30 RBC 3.51 L MCHC 35 H [place] % (Auto) 12.8 H ABG pO2 ABG HCO3 ABG Base Excess ABG Hemoglobin Sodium 134 L Chloride Carbon Dioxide 20 L Creatinine Glucose 452 H POC Glucose 443 H Albumin 3.4 L 02/10/22 02/10/22 02/10/22 04:16 04:35 09:49 RBC MCHC [place] % (Auto) ABG pO2 104.0 H ABG HCO3 19.0 L ABG Base Excess -4.8 L ABG Hemoglobin 11.7 L Sodium Chloride Carbon Dioxide Creatinine Glucose POC Glucose 291 H 248 H Albumin 02/10/22 02/10/22 02/10/22 11:39 17:07 21:33 RBC MCHC [place] % (Auto) ABG pO2 ABG HCO3 ABG Base Excess ABG Hemoglobin Sodium Chloride Carbon Dioxide Creatinine Glucose POC Glucose 350 H 201 H 187 H Albumin 02/10/22 02/11/22 02/11/22 23:00 08:13 11:47 RBC MCHC [place] % (Auto) ABG pO2 ABG HCO3 ABG Base Excess ABG Hemoglobin Sodium 130 L Chloride 96.9 L Carbon Dioxide 19 L Creatinine 0.4 L Glucose 223 H POC Glucose 170 H 188 H Albumin 02/11/22 02/12/22 02/12/22 16:48 07:14 10:49 RBC MCHC [place] % (Auto) ABG pO2 ABG HCO3 ABG Base Excess ABG Hemoglobin Sodium Chloride Carbon Dioxide Creatinine Glucose POC Glucose 157 H 173 H 220 H Albumin 02/12/22 02/12/22 02/12/22 13:02 16:03 20:44 RBC MCHC [place] % (Auto) ABG pO2 ABG HCO3 ABG Base Excess ABG Hemoglobin Sodium Chloride Carbon Dioxide Creatinine Glucose POC Glucose 208 H 113 H 162 H Albumin 02/13/22 05:40 RBC MCHC [place] % (Auto) ABG pO2 ABG HCO3 ABG Base Excess ABG Hemoglobin Sodium 132 L Chloride Carbon Dioxide 17 L Creatinine 0.4 L Glucose 168 H POC Glucose Albumin Laboratory Results - last 24 hr 02/12/22 02/12/22 02/12/22 10:49 13:02 16:03 Sodium Potassium Chloride Carbon Dioxide Anion Gap BUN Creatinine Estimated GFR BUN/Creatinine Ratio Glucose POC Glucose 220 H 208 H 113 H Calcium 02/12/22 02/13/22 20:44 05:40 Sodium 132 L Potassium 4.1 Chloride 100.8 Carbon Dioxide 17 L Anion Gap 18 BUN 7 Creatinine 0.4 L Estimated GFR > 60 BUN/Creatinine Ratio 18 Glucose 168 H POC Glucose 162 H Calcium 9.0
[2022-02-13] MEDS: INSULIN NPH, HUMAN 100 UNIT/1 ML SUB-Q SCH ×2 (09:21→23:24)
[2022-02-13] MEDS: PRENATAL VIT27-FE FUMARATE-FOLIC ACID VIT TAB PO SCH (10:10)
--- NOTE | 2022-02-13 10:55 | Ultrasound Report ---
ULTRASOUND OBSTETRIC LIMITED ULTRASOUND BIOPHYSICAL PROFILE INDICATION / CLINICAL INFORMATION: well being. Clinical Gestational Age (GA) in weeks, days: 34 weeks 4 days TECHNIQUE: Transabdominal. COMPARISON: Ultrasound biophysical profile 02/09/2022. FINDINGS: BREATHING MOVEMENT = 2 GROSS BODY MOVEMENT = 2 TONE = 2 QUALITATIVE AMNIOTIC FLUID VOLUME = 2 TOTAL BIOPHYSICAL SCORE = 8/8 HEART RATE (beats per minute): 156 BPM PRESENTATION: Cephalic. ADDITIONAL FINDINGS: None. IMPRESSION: 1. Biophysical Score = 8/8 Scribed by: Jessi Mcdonald RDMS, RVT, RMSKS Scribed: 02/13/2022 9:11 AM I have reviewed the images, agree with this report, and edited this report as needed. Signer Name: Silvio Keane MD Signed: 02/13/2022 10:51 AM Workstation Name: [id number]
--- NOTE | 2022-02-13 11:15 | Event Note ---
Date: 02/13/22 Pt refused some of her AM insulin and is continuing to refuse zyprexa. Dr. will aware, will re-consult mental health.
--- NOTE | 2022-02-13 13:21 | Event Note ---
Date: 02/13/22 Dr. Orourke from [facility] called to review blood sugar log. Reviewed all results for past 48hrs and advised MD that patient has been noncompliant with taking insulin and allowing staff to monitor baby. BPP this AM 07/08. requested MD to come see patient to see if she would respond differently to his teaching. MD states to make sure we are documenting patient's refusal of care.
--- NOTE | 2022-02-13 14:50 | Consultation ---
Consult Note - Parent Education I met with parent(s) and discussed the following:: Possible need for IV fluids/T PN and IV antibiotics, Possible need for umbilical lines, Slow feeding advancement and monitoring of tolerance. NG/OG feeds Parent(s) demonstrated understanding of all the information:: No Additional Comment: Thank for asking the NICU team for consult on Ms. Posey. She is 31y/o at 33+4, date is based on earlier ultrasound done at 23 weeks. She has limited care and non compliant. Ms Posey suffers from paranoid schizophrenia and diabetes. She is said to be non compliant with treatment and instruction. The following issues associated with IDM was discussed with Ms Posey. Risk of respiratory distress. Risk of hypoglycemia. Risk of delivery problems due to macrosomia. Feeding Difficulties. Cardiac problems associated with of diabetic mother. I also discussed uncertain length of stay in the NICU based on baby's condition. Delivery is planned at 35 weeks. Ms Posey was very distracted all during the consult and unsure if she fully understand the information that was given to her about her baby. Also present at the consult was Ms Yoder (L&D nurse for Ms Posey). Total time spent for consult was 30 minutes Assessment and Plan - Assessment Gestation:: 33 Baby's gender: Female - Plan Plan: Agree with Mag & steroids Will attend delivery Please call NICU with questions
[2022-02-14] MEDS: INSULIN LISPRO 100 UNIT/ML SUB-Q SCH ×6 (07:58→22:08)
[2022-02-14] MEDS: INSULIN NPH, HUMAN 100 UNIT/1 ML SUB-Q SCH (08:43)
[2022-02-14] MEDS: PRENATAL VIT27-FE FUMARATE-FOLIC ACID VIT TAB PO SCH ×2 (08:45→09:58)
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
--- NOTE | 2022-02-14 12:40 | Progress Note ---
Subjective - Reason for Consult Consult date: 02/14/22 Reason for consult: refusing meds - Chief Complaint Chief complaint: The patient was seen today. She was recently seen by psych and cleared. Psych was consulted again due to the patient refusing her medications. During my evaluation the patient is calm, cooperative and polite. She is writing a letter and asks me if I want to read it. She says she's writing it to the social security place to see what she can do to help her child's father get disability. I ask the patient why had she not taken her medication. The patient replies, "Ms. Dubon, like I told you. There is nothing wrong with me mentally. I feel stable. I just need them to find a place to go." She states "yesterday the social media strategist and another lady came in here. I asked them politely if they would leave my room, because I didn't like the way they were talking to me." The patient says "but I was calm. I was a little upset but I still was calm." The patient says "I take care of myself. I do what I'm supposed to do. I don't know why they keep sending you up here." The patient denies SI/HI or hallucinations of any kind. REVIEW OF SYSTEMS Constitutional: Negative for weight loss ENT: Negative for stridor Respiratory: Negative for cough or hemoptysis All other systems reviewed and are negative MENTAL STATUS EXAMINATION General Appearance and Behavior: Age appropriate, good hygiene, wearing appropriate clothes, good eye contact, calm, cooperative, polite Cooperation: Participating/engaged Psychomotor Behavior: Psychomotor normal Mood: good Affect and affective range: congruent with stated mood Thought Process: goal directed Thought Content: None Speech: normal tone and pace Suicidal Ideation: Denies Homicidal Ideation: Denies Hallucinations: Denies Delusions: None elicited Impulse Control: Limited Insight and Judgment: Limited insight and judgment Memory: Limited Attention: Divided Orientation: Alert, oriented Assessment and Plan Hx of schizophrenia Treatment Plan Consult case management for assistance with placement Medical: per primary Sitter: per primary Disposition: The patient disposition still stands. Do not recommend acute psychiatric inpatient treatment. The strip machine tender to give the patient all necessary resources including shelters and group homes Will sign off. Thanks Case staffed with Dr. Frederick Mental Status Exam - Vital signs Last Vital Signs Temp 97.5 F L 02/14/22 12:08 Pulse 101 H 02/14/22 12:08 Resp 18 02/14/22 12:08 BP 156/88 02/14/22 12:08 Pulse Ox 100 02/14/22 12:08
--- NOTE | 2022-02-14 13:34 | Progress Note ---
Assessment and Plan A. IUP 33.6 weeks DM - most recent HGbA1C of 10% ( 02/04/2022) - under her current medical management improved BS levels during this admission - 02/14/2022 FBS 121 - 02/14/2022 PPB 142 - under the management of PSYCHIATRIC hospitalist - recently admitted and discharged for DKA - pt refused am NPH insulin Morbid Obesity Mental health disorders ( Schizophrenia and Bioplar disorder ) - refuses her medical therapy of Zyrexa - evaluation by Mental char providers - denies HI/SI History of drug use GHTN - am BP of 132/81 mm Hg History of PTD at 24 weeks - FTD s/p PTD History of PreE - No ANESTHESIA ATTENDING features History of COVID 19 infection during this - 02/10/2022 Negative screen during this admission s/p NICU consult P. if possible continuous EFM Regarding refusal of pysch meds Consult mental health Increase QHS NPH to 24 units SQ ( currently NPH 22 units SQ) Obtain PreE labs inc 24 hr urine Obtain US for interval growth BPP twice a week Perform PreE labs As per ACOG poorly controlled /noncompliance of DM timing of delivery at 36 weeks unless there is intervening indication Contraindication to continued expectant management, in which delivery is indicated, include the followin. -Cerbrovascular disturbances unresponsive to medical management 2. -Unrelenting right upper quadrant pain 3. -Liver function tests greater than 2x the upper limit of normal 4. -Thrombocytopenia <100,000/microL 5. -Creatinine greater than 1.1 mg/dL 6. -Eclampsia 7. -Pulmonary edema 8. -Hypertension requiring initiation of fast upward titration of oral agents or multiple pushes of IV anti-hypetensives unresponsive to therapy Subjective - Subjective Date of service: 02/14/22 (@ 1200) Principal diagnosis: IUP@ 33 6/7 weeks, uncontrolled DM, GHTN, psychosis Patient reports: movement normal, other (Denies sxs of PreE ), no new complaints, no loss of fluid, no vaginal bleeding, no contractions Objective - Vital Signs Vital Signs: Vital Signs - 12hr 02/14/22 02/14/22 02/14/22 07:30 07:42 07:43 Temperature Pulse Rate 84 93 H Respiratory Rate Blood Pressure 142/84 O2 Sat by Pulse 87 86 Oximetry O2 Sat by Pulse 98 Oximetry [ Bilateral] 02/14/22 02/14/22 02/14/22 07:44 12:05 12:06 Temperature 97.5 F L Pulse Rate 91 H 58 L Respiratory 18 Rate Blood Pressure 132/81 O2 Sat by Pulse 100 83 L 86 Oximetry O2 Sat by Pulse Oximetry [ Bilateral] 02/14/22 02/14/22 12:07 12:08 Temperature 97.5 F L Pulse Rate 93 H 101 H Respiratory 18 Rate Blood Pressure 149/92 156/88 O2 Sat by Pulse 100 Oximetry O2 Sat by Pulse Oximetry [ Bilateral] - Exam Breasts: deferred Lungs: Normal air movement Abdomen: Present: other (NT). Absent: tenderness, guarding Uterus: Present: normal (for EGA ) FHR: category 1 (During am NST ) Uterine Contraction Monitor Mode: Palpation Uterine Contraction Pattern: Absent Extremities: normal - Labs Labs: Abnormal Labs 02/09/22 02/09/22 02/09/22 21:06 22:30 22:30 RBC 3.51 L MCHC 35 H [place] % (Auto) 12.8 H ABG pO2 ABG HCO3 ABG Base Excess ABG Hemoglobin Sodium 134 L Chloride Carbon Dioxide 20 L Creatinine Glucose 452 H POC Glucose 443 H Albumin 3.4 L 02/10/22 02/10/22 02/10/22 04:16 04:35 09:49 RBC MCHC [place] % (Auto) ABG pO2 104.0 H ABG HCO3 19.0 L ABG Base Excess -4.8 L ABG Hemoglobin 11.7 L Sodium Chloride Carbon Dioxide Creatinine Glucose POC Glucose 291 H 248 H Albumin 02/10/22 02/10/22 02/10/22 11:39 17:07 21:33 RBC MCHC [place] % (Auto) ABG pO2 ABG HCO3 ABG Base Excess ABG Hemoglobin Sodium Chloride Carbon Dioxide Creatinine Glucose POC Glucose 350 H 201 H 187 H Albumin 02/10/22 02/11/22 02/11/22 23:00 08:13 11:47 RBC MCHC [place] % (Auto) ABG pO2 ABG HCO3 ABG Base Excess ABG Hemoglobin Sodium 130 L Chloride 96.9 L Carbon Dioxide 19 L Creatinine 0.4 L Glucose 223 H POC Glucose 170 H 188 H Albumin 02/11/22 02/12/22 02/12/22 16:48 07:14 10:49 RBC MCHC [place] % (Auto) ABG pO2 ABG HCO3 ABG Base Excess ABG Hemoglobin Sodium Chloride Carbon Dioxide Creatinine Glucose POC Glucose 157 H 173 H 220 H Albumin 02/12/22 02/12/22 02/12/22 13:02 16:03 20:44 RBC MCHC [place] % (Auto) ABG pO2 ABG HCO3 ABG Base Excess ABG Hemoglobin Sodium Chloride Carbon Dioxide Creatinine Glucose POC Glucose 208 H 113 H 162 H Albumin 02/13/22 02/13/22 02/13/22 05:40 08:23 12:19 RBC MCHC [place] % (Auto) ABG pO2 ABG HCO3 ABG Base Excess ABG Hemoglobin Sodium 132 L Chloride Carbon Dioxide 17 L Creatinine 0.4 L Glucose 168 H POC Glucose 148 H 150 H Albumin 02/13/22 02/13/22 02/13/22 16:54 20:03 22:51 RBC MCHC [place] % (Auto) ABG pO2 ABG HCO3 ABG Base Excess ABG Hemoglobin Sodium Chloride Carbon Dioxide Creatinine Glucose POC Glucose 156 H 154 H 155 H Albumin 02/14/22 02/14/22 07:41 11:19 RBC MCHC [place] % (Auto) ABG pO2 ABG HCO3 ABG Base Excess ABG Hemoglobin Sodium Chloride Carbon Dioxide Creatinine Glucose POC Glucose 121 H 142 H Albumin Laboratory Results - last 24 hr 02/13/22 02/13/22 02/13/22 16:54 20:03 22:51 POC Glucose 156 H 154 H 155 H 02/14/22 02/14/22 07:41 11:19 POC Glucose 121 H 142 H - Allied health notes Allied health notes reviewed: case management (prior Mental health note reviewed) - Results US- obstetric: report reviewed (02/13/2022 PSYCHIATRIC BPP ultrasound BPP of 07/08)
--- NOTE | 2022-02-15 00:02 | Event Note ---
Date: 02/14/22 (Late Entry) Spoke with patient round 2000 regarding the need to collect a 24 hour urine starting in the AM. Explained why 24 hour urine is to be collect and the process for collecting it. Pt was allowed to ask questions but at the time, she did not have any.
[2022-02-15 08:16] LABS: Alanine Aminotransferase 17 units/L (7-56)
[2022-02-15] MEDS: INSULIN LISPRO 100 UNIT/ML SUB-Q SCH ×3 (08:29→17:54)
[2022-02-15] MEDS: INSULIN NPH, HUMAN 100 UNIT/1 ML SUB-Q SCH (08:29)
--- NOTE | 2022-02-15 09:40 | Progress Note ---
Assessment and Plan Pt denies TERRELL, RUQ pain, SOB, chest pain, vision changes, edema, abdominal pain, LOF, and VB. Reports +FM. Pt appears anxious. POC and precautions reviewed. Pt verbalizes understanding and agrees to POC. - Patient Problems (1) 34 weeks gestation of Current Visit: Yes Status: Acute Plan to address problem: if possible continuous EFM BPP twice a week, 02/09/2207/08 and 02/13/2207/08; next ordered with growth scan on 02/16/22 As per APA recommendations, DM timing of delivery at 36 weeks unless there is intervening indication Contraindication to continued expectant management, in which delivery is indicated, include the followin. -Cerbrovascular disturbances unresponsive to medical management 2. -Unrelenting right upper quadrant pain 3. -Liver function tests greater than 2x the upper limit of normal 4. -Thrombocytopenia <100,000/microL 5. -Creatinine greater than 1.1 mg/dL 6. -Eclampsia 7. -Pulmonary edema 8. -Hypertension requiring initiation of fast upward titration of oral agents or multiple pushes of IV anti-hypetensives unresponsive to therapy (2) Bipolar disorder Current Visit: Yes Status: Acute Plan to address problem: Psych to follow (3) Gestational hypertension Current Visit: Yes Status: Acute Qualifiers: Trimester: third trimester Qualified Code(s): O13.3 - Gestational [-induced] hypertension without significant proteinuria, third trimester Plan to address problem: Preeclampsia labs ordered with 24 hr urine testing Monitor BP and ssx for worsening status (4) Homeless single person Current Visit: Yes Status: Acute (5) Noncompliance by refusing service Current Visit: Yes Status: Acute (6) Obesity, Class III, BMI 40-49.9 (morbid obesity) Current Visit: Yes Status: Acute (7) Schizophrenia Current Visit: No Status: Acute Qualifiers: Schizophrenia type: paranoid schizophrenia Qualified Code(s): F20.0 - Paranoid schizophrenia (8) Diabetes mellitus affecting Current Visit: Yes Status: Acute Plan to address problem: Accuchecks and sliding scale as ordered Humulin N 60 / Humulog 30 in am Humulog 22 at dinner Humulin N 24 at bedtime Subjective - Subjective Date of service: 02/15/22 Principal diagnosis: IUP@ 34 weeks, uncontrolled DM, GHTN, psychosis Patient reports: movement normal, other (Denies ssx of PreE ), no new complaints, no loss of fluid, no vaginal bleeding, no contractions Objective - Vital Signs Vital Signs: Vital Signs - 12hr 02/14/22 02/14/22 02/14/22 22:22 22:23 22:24 Temperature 97.3 F L Pulse Rate 90 90 89 Respiratory 18 Rate Blood Pressure 132/73 Blood Pressure 132/73 [Left] O2 Sat by Pulse 98 99 Oximetry O2 Sat by Pulse Oximetry [ Bilateral] 02/14/22 22:25 Temperature Pulse Rate Respiratory Rate Blood Pressure Blood Pressure [Left] O2 Sat by Pulse Oximetry O2 Sat by Pulse 98 Oximetry [ Bilateral] - Exam Breasts: deferred Lungs: Normal air movement Abdomen: Present: normal appearance, soft. Absent: distention, tenderness, guarding Uterus: Present: normal, other (Gravid) FHR comments: minimal variability noted at 1630, otherwise category 1 FHT's strip noted; RN aware and requested to put pt back on monitor now Uterine Contraction Monitor Mode: Palpation Uterine Contraction Pattern: Absent Uterine Tone Measurement Phase: Resting Extremities: normal - Labs Labs: Abnormal Labs 02/09/22 02/09/22 02/09/22 21:06 22:30 22:30 RBC 3.51 L MCHC 35 H [place] % (Auto) 12.8 H ABG pO2 ABG HCO3 ABG Base Excess ABG Hemoglobin Sodium 134 L Chloride Carbon Dioxide 20 L Creatinine Glucose 452 H POC Glucose 443 H Albumin 3.4 L 02/10/22 02/10/22 02/10/22 04:16 04:35 09:49 RBC MCHC [place] % (Auto) ABG pO2 104.0 H ABG HCO3 19.0 L ABG Base Excess -4.8 L ABG Hemoglobin 11.7 L Sodium Chloride Carbon Dioxide Creatinine Glucose POC Glucose 291 H 248 H Albumin 02/10/22 02/10/22 02/10/22 11:39 17:07 21:33 RBC MCHC [place] % (Auto) ABG pO2 ABG HCO3 ABG Base Excess ABG Hemoglobin Sodium Chloride Carbon Dioxide Creatinine Glucose POC Glucose 350 H 201 H 187 H Albumin 02/10/22 02/11/22 02/11/22 23:00 08:13 11:47 RBC MCHC [place] % (Auto) ABG pO2 ABG HCO3 ABG Base Excess ABG Hemoglobin Sodium 130 L Chloride 96.9 L Carbon Dioxide 19 L Creatinine 0.4 L Glucose 223 H POC Glucose 170 H 188 H Albumin 02/11/22 02/12/22 02/12/22 16:48 07:14 10:49 RBC MCHC [place] % (Auto) ABG pO2 ABG HCO3 ABG Base Excess ABG Hemoglobin Sodium Chloride Carbon Dioxide Creatinine Glucose POC Glucose 157 H 173 H 220 H Albumin 02/12/22 02/12/22 02/12/22 13:02 16:03 20:44 RBC MCHC [place] % (Auto) ABG pO2 ABG HCO3 ABG Base Excess ABG Hemoglobin Sodium Chloride Carbon Dioxide Creatinine Glucose POC Glucose 208 H 113 H 162 H Albumin 02/13/22 02/13/22 02/13/22 05:40 08:23 12:19 RBC MCHC [place] % (Auto) ABG pO2 ABG HCO3 ABG Base Excess ABG Hemoglobin Sodium 132 L Chloride Carbon Dioxide 17 L Creatinine 0.4 L Glucose 168 H POC Glucose 148 H 150 H Albumin 02/13/22 02/13/22 02/13/22 16:54 20:03 22:51 RBC MCHC [place] % (Auto) ABG pO2 ABG HCO3 ABG Base Excess ABG Hemoglobin Sodium Chloride Carbon Dioxide Creatinine Glucose POC Glucose 156 H 154 H 155 H Albumin 02/14/22 02/14/22 02/14/22 07:41 11:19 14:06 RBC MCHC [place] % (Auto) ABG pO2 ABG HCO3 ABG Base Excess ABG Hemoglobin Sodium Chloride Carbon Dioxide Creatinine Glucose POC Glucose 121 H 142 H 110 H Albumin 02/14/22 02/14/22 02/15/22 17:08 22:01 07:43 RBC MCHC [place] % (Auto) ABG pO2 ABG HCO3 ABG Base Excess ABG Hemoglobin Sodium Chloride Carbon Dioxide Creatinine 0.4 L Glucose POC Glucose 148 H 151 H Albumin 02/15/22 08:01 RBC MCHC [place] % (Auto) ABG pO2 ABG HCO3 ABG Base Excess ABG Hemoglobin Sodium Chloride Carbon Dioxide Creatinine Glucose POC Glucose 134 H Albumin Laboratory Results - last 24 hr 02/14/22 02/14/22 02/14/22 11:19 14:06 16:18 Creatinine Estimated GFR POC Glucose 142 H 110 H 98 Uric Acid AST ALT Lactate Dehydrogenase 02/14/22 02/14/22 02/15/22 17:08 22:01 07:43 Creatinine 0.4 L Estimated GFR > 60 POC Glucose 148 H 151 H Uric Acid 4.0 AST 18 ALT 17 Lactate Dehydrogenase 156 02/15/22 08:01 Creatinine Estimated GFR POC Glucose 134 H Uric Acid AST ALT Lactate Dehydrogenase
[2022-02-15] MEDS: PRENATAL VIT27-FE FUMARATE-FOLIC ACID VIT TAB PO SCH (11:33)
--- NOTE | 2022-02-15 13:09 | Consultation ---
History of Present Illness Consult date: 02/15/22 Requesting physician: DEDRICK VO History of present illness: IUP 33.6 weeks DM - most recent HGbA1C of 10% ( 02/04/2022) - under her current medical management improved BS levels during this admission Now compliant taking Insulin Humulin N 60 / Humulog 30 in am Humulog 22 at dinner Humulin N 24 at bedtime - 02/14 - FBS at 121, PB at 142, PL at 110, PD at 148 - 02/15 - FBS at 134, PB at 106 Nurses report High BS 162 since - under the management of [facility] hospitalist - recently admitted and discharged for DKA - pt refused am NPH insulin Morbid Obesity Mental health disorders ( Schizophrenia and Bioplar disorder ) - refuses her medical therapy of Zyrexa - evaluation by Mental char providers - denies HI/SI History of drug use GHTN 132/73 on 02/15/22 History of PTD at 24 weeks - FTD s/p PTD History of PreE - 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 History of COVID 19 infection during this - 02/10/2022 Negative screen during this admission s/p NICU consult EFM Categ I - 135 to 145 Occ ctx BPP 02/13/22 8/8 Past History Past Medical History: other (Schziophrenia, Bi-polar, has been admitted to [facility] in the past) - Obstetrical History : 3 Medications and Allergies Allergies Allergy/AdvReac Type Severity Reaction Status Date / Time No Known Allergies Allergy Verified 02/03/22 07:58 Home Medications Medication Instructions Recorded Confirmed Last Taken Type OLANzapine [ZyPREXA] 2.5 mg PO QDAY #30 tablet 02/08/22 02/10/22 Unknown Rx Active Meds: Active Medications Acetaminophen (Acetaminophen 500 Mg Tab) 1,000 mg PO Q6H PRN PRN Reason: Pain MILD(1-3)/Fever >100.5/TERRELL Al Hydrox/Mg Hydrox/Simethicone (Alum-Mag Hydroxide-Simethicone [id number]/5ml Oral Liqd 30 Ml) 30 ml PO Q6H PRN PRN Reason: Indigestion Dextrose (Dextrose 10% *Hypoglycemia) 0 ml IV PRN PRN PRN Reason: Hypoglycemia Diphenhydramine HCl (Diphenhydramine 25 Mg Cap) 25 mg PO Q6H PRN PRN Reason: Itching Docusate Sodium (Docusate Sodium 100 Mg Cap) 100 mg PO Q12H PRN PRN Reason: Constipation Insulin Human Lispro (Insulin Lispro 100 Unit/Ml) 0 unit SUB-Q ACHS [facility]; Protocol Last Admin: 02/15/22 08:40 Dose: Not Given Insulin Human Lispro (Insulin Lispro 100 Unit/Ml) 30 unit SUB-Q QDDIAB [facility] Last Admin: 02/15/22 08:29 Dose: 30 unit Insulin Human Lispro (Insulin Lispro 100 Unit/Ml) 22 unit SUB-Q QPMDIAB [facility] Last Admin: 02/14/22 17:21 Dose: 22 unit Insulin Human NPH (Insulin Nph, Human 100 Unit/1 Ml) 60 unit SUB-Q QDDIAB [facility] Last Admin: 02/15/22 08:29 Dose: 60 unit Insulin Human NPH (Insulin Nph, Human 100 Unit/1 Ml) [facility] Magn[facility] Hydroxide (Magnesium Hydroxide (Mom) Oral Liqd Udc) 30 ml PO QHS PRN PRN Reason: Laxative Effect Multivitamins/Iron/Calcium ( Mir74-Ka Fumarate-Folic Acid Vit Tab) 1 each PO QDAY [facility] Last Admin: 02/15/22 11:33 Dose: 1 each Olanzapine (Olanzapine 2.5 Mg Tab) 2.5 mg PO QDAY [facility] Last Admin: 02/15/22 11:34 Dose: Not Given Ondansetron HCl (Ondansetron 4 Mg/2 Ml Inj) 4 mg IV Q6H PRN PRN Reason: Nausea And Vomiting Simethicone (Simethicone 80 Mg Chew Tab) 80 mg PO Q6H PRN PRN Reason: Gas pain - Vital Signs Vital signs: Vital Signs Pulse BP 93 H 128/71 02/09/22 22:12 02/09/22 22:12 Temp Pulse Resp BP Pulse Ox 98.3 F 89 18 132/73 98 02/15/22 08:00 02/15/22 08:00 02/14/22 22:22 02/15/22 08:00 02/15/22 08:00 Results Result Diagrams: 02/09/22 22:30 02/15/22 07:43 Abnormal lab results 02/14/22 02/14/22 02/14/22 Range/Units 14:06 17:08 22:01 Creatinine (0.6-1.2) mg/dL POC Glucose 110 H 148 H 151 H (70-105) mg/dL 02/15/22 02/15/22 02/15/22 Range/Units 07:43 08:01 12:12 Creatinine 0.4 L (0.6-1.2) mg/dL POC Glucose 134 H 106 H (70-105) mg/dL All other labs normal. Assessment and Plan Impression 1. [place] IUP at 33 6/7 weeks 2. DM 3. Gest HTN 4. Obesity 5. Schiz Recommendations P. if possible continuous EFM Psyh to follow Continue Humulin N 60 / Humulog 30 in am Humulog 22 at dinner Humulin N 24 at bedtime Also Sliding Scale orders were written Delivery at 36 weeks if remains compliant in house Obtain PreE labs inc 24 hr urine Obtain US for interval growth BPP twice a week Perform PreE labs As per ACOG poorly controlled /noncompliance of DM timing of delivery at 36 weeks unless there is intervening indication Contraindication to continued expectant management, in which delivery is indicated, include the followin. -Cerbrovascular disturbances unresponsive to medical management 2. -Unrelenting right upper quadrant pain 3. -Liver function tests greater than 2x the upper limit of normal 4. -Thrombocytopenia <100,000/microL 5. -Creatinine greater than 1.1 mg/dL 6. -Eclampsia 7. -Pulmonary edema 8. -Hypertension requiring initiation of fast upward titration of oral agents or multiple pushes of IV anti-hypetensives unresponsive to therapy
--- NOTE | 2022-02-15 19:42 | Event Note ---
Date: 02/15/22 Patient refused Zypexa, stating it's not the right medication, appears manic at this time will reconsult psychiatrist
[2022-02-16] MEDS: INSULIN LISPRO 100 UNIT/ML SUB-Q SCH ×6 (01:53→19:25)
[2022-02-16] MEDS: INSULIN NPH, HUMAN 100 UNIT/1 ML SUB-Q SCH ×2 (01:57→09:20)
[2022-02-16] MEDS: PRENATAL VIT27-FE FUMARATE-FOLIC ACID VIT TAB PO SCH ×2 (10:36→18:50)
--- NOTE | 2022-02-16 12:12 | Progress Note ---
Assessment and Plan - Patient Problems (1) 34 weeks gestation of Current Visit: Yes Status: Acute (2) Bipolar disorder Current Visit: Yes Status: Acute Plan to address problem: -refusing meds prescribed by psych providers -Reconsulted by Dr. Hdez on yesterday as pt seems more manic (3) Diabetes mellitus affecting Current Visit: Yes Status: Acute Qualifiers: Trimester: third trimester Qualified Code(s): O24.913 - Unspecified diabet es mellitus in , third trimester Plan to address problem: -care and recommendations as per MFM -BS are improved -refused sono today for growth and well being. Will order again for the am (4) Gestational hypertension Current Visit: Yes Status: Acute Qualifiers: Trimester: third trimester Qualified Code(s): O13.3 - Gestational [-induced] hypertension without significant proteinuria, third trimester Plan to address problem: -s/p spike in BP on yesterday -24hour urine completed but results pending (5) Homeless single person Current Visit: Yes Status: Acute Plan to address problem: -has not been coorperative with clinical social work aide regarding placement and has refused to speak to clinical social work aide personel at times Subjective - Subjective Date of service: 02/16/22 Principal diagnosis: IUP@ 34 weeks, uncontrolled DM, GHTN, psychosis Interval history: Pt did not allow sonogram to be done this am stating they did not knock on her door an when the pet resort concierge asked her if she remembered her the pt states the tech was lying and she did not know her. I d/w the importance of monitoring well being to prevent . Pt states she knows this and that her baby is not going to though every one keeps telling her this. Again I redirected pt and stated that the purpose for the monitoring is to prevent a poor out come ie . She states she knows this and did not want them to do the ultrasound today because they did not know on her door before entering and that was a vilation #1. Pt continued to speak over the provider as I was trying to given plan of care. I d/w pt the purpose of the 24 hr urine. She states her blood pressure was elevated due to no answering her regarding if students were attending her care. I d/w that I am not a student and that she is getting the urine to determine if she has pre E as this could mean delivery at 34 to 36 wks vs 36 weeks as planned or discussed previously by DENIS. She expressed understanding. She continues to decline psych meds and questions insulin regimen. I d/w that changes that have been made and as she is is better controlled on the scheduled dosages, she will not need the SSI as much. She e xpressed understanding. Charge nurse and RN taking care of pt today at bedside this am at time of my visit. She has no OB complaints at this time. Patient reports: movement normal, other (Denies ssx of PreE ), no new complaints, no loss of fluid, no vaginal bleeding, no contractions Objective - Vital Signs Vital Signs: Vital Signs - 12hr 02/16/22 02/16/22 02/16/22 00:11 00:16 00:21 Temperature Pulse Rate 81 79 81 Respiratory Rate Blood Pressure Blood Pressure [Left] O2 Sat by Pulse 99 99 99 Oximetry O2 Sat by Pulse Oximetry [ Bilateral] 02/16/22 02/16/22 02/16/22 00:26 00:31 00:36 Temperature Pulse Rate 81 80 77 Respiratory Rate Blood Pressure Blood Pressure [Left] O2 Sat by Pulse 99 99 99 Oximetry O2 Sat by Pulse Oximetry [ Bilateral] 02/16/22 02/16/22 02/16/22 00:41 00:46 00:51 Temperature Pulse Rate 84 82 80 Respiratory Rate Blood Pressure Blood Pressure [Left] O2 Sat by Pulse 99 99 99 Oximetry O2 Sat by Pulse Oximetry [ Bilateral] 02/16/22 02/16/22 02/16/22 00:56 01:01 01:06 Temperature Pulse Rate 78 80 79 Respiratory Rate Blood Pressure Blood Pressure [Left] O2 Sat by Pulse 99 99 99 Oximetry O2 Sat by Pulse Oximetry [ Bilateral] 02/16/22 02/16/22 02/16/22 01:11 01:16 01:21 Temperature Pulse Rate 76 84 81 Respiratory Rate Blood Pressure Blood Pressure [Left] O2 Sat by Pulse 99 99 99 Oximetry O2 Sat by Pulse Oximetry [ Bilateral] 02/16/22 02/16/22 02/16/22 01:26 01:31 01:36 Temperature Pulse Rate 79 76 78 Respiratory Rate Blood Pressure Blood Pressure [Left] O2 Sat by Pulse 98 98 96 Oximetry O2 Sat by Pulse Oximetry [ Bilateral] 02/16/22 02/16/22 02/16/22 01:41 01:46 01:51 Temperature Pulse Rate 78 74 84 Respiratory Rate Blood Pressure Blood Pressure [Left] O2 Sat by Pulse 99 98 98 Oximetry O2 Sat by Pulse Oximetry [ Bilateral] 02/16/22 02/16/22 02/16/22 01:56 02:01 02:06 Temperature Pulse Rate 82 72 86 Respiratory Rate Blood Pressure Blood Pressure [Left] O2 Sat by Pulse 98 98 98 Oximetry O2 Sat by Pulse Oximetry [ Bilateral] 02/16/22 02/16/22 02/16/22 02:11 02:16 02:21 Temperature Pulse Rate 88 92 H 82 Respiratory Rate Blood Pressure Blood Pressure [Left] O2 Sat by Pulse 98 99 99 Oximetry O2 Sat by Pulse Oximetry [ Bilateral] 02/16/22 02/16/22 02/16/22 02:26 02:31 02:36 Temperature Pulse Rate 78 84 85 Respiratory Rate Blood Pressure Blood Pressure [Left] O2 Sat by Pulse 99 98 99 Oximetry O2 Sat by Pulse Oximetry [ Bilateral] 02/16/22 02/16/22 02/16/22 02:41 02:46 02:51 Temperature Pulse Rate 86 85 96 H Respiratory Rate Blood Pressure Blood Pressure [Left] O2 Sat by Pulse 98 99 99 Oximetry O2 Sat by Pulse Oximetry [ Bilateral] 02/16/22 02/16/22 02/16/22 02:56 03:01 03:04 Temperature Pulse Rate 92 H 85 88 Respiratory Rate Blood Pressure 141/90 Blood Pressure [Left] O2 Sat by Pulse 99 100 Oximetry O2 Sat by Pulse Oximetry [ Bilateral] 02/16/22 02/16/22 02/16/22 03:06 03:08 03:11 Temperature 97.6 F Pulse Rate 84 89 Respiratory Rate Blood Pressure Blood Pressure [Left] O2 Sat by Pulse 99 99 Oximetry O2 Sat by Pulse Oximetry [ Bilateral] 02/16/22 02/16/22 02/16/22 03:16 03:24 03:29 Temperature Pulse Rate 83 93 H 87 Respiratory Rate Blood Pressure Blood Pressure [Left] O2 Sat by Pulse 99 100 100 Oximetry O2 Sat by Pulse Oximetry [ Bilateral] 02/16/22 02/16/22 02/16/22 03:34 03:39 03:44 Temperature Pulse Rate 87 82 82 Respiratory Rate Blood Pressure Blood Pressure [Left] O2 Sat by Pulse 100 100 100 Oximetry O2 Sat by Pulse Oximetry [ Bilateral] 02/16/22 02/16/22 02/16/22 03:49 03:54 03:59 Temperature Pulse Rate 81 82 77 Respiratory Rate Blood Pressure Blood Pressure [Left] O2 Sat by Pulse 99 100 100 Oximetry O2 Sat by Pulse Oximetry [ Bilateral] 02/16/22 02/16/22 02/16/22 04:04 04:09 04:14 Temperature Pulse Rate 85 86 86 Respiratory Rate Blood Pressure Blood Pressure [Left] O2 Sat by Pulse 98 99 99 Oximetry O2 Sat by Pulse Oximetry [ Bilateral] 02/16/22 02/16/22 02/16/22 04:19 04:24 04:29 Temperature Pulse Rate 87 79 83 Respiratory Rate Blood Pressure Blood Pressure [Left] O2 Sat by Pulse 100 100 99 Oximetry O2 Sat by Pulse Oximetry [ Bilateral] 02/16/22 02/16/22 02/16/22 04:34 04:39 04:44 Temperature Pulse Rate 85 85 87 Respiratory Rate Blood Pressure Blood Pressure [Left] O2 Sat by Pulse 98 99 99 Oximetry O2 Sat by Pulse Oximetry [ Bilateral] 02/16/22 02/16/22 02/16/22 04:49 04:54 04:59 Temperature Pulse Rate 92 H 91 H 96 H Respiratory Rate Blood Pressure Blood Pressure [Left] O2 Sat by Pulse 99 100 100 Oximetry O2 Sat by Pulse Oximetry [ Bilateral] 02/16/22 02/16/22 02/16/22 05:04 05:09 05:14 Temperature Pulse Rate 87 85 86 Respiratory Rate Blood Pressure Blood Pressure [Left] O2 Sat by Pulse 100 100 100 Oximetry O2 Sat by Pulse Oximetry [ Bilateral] 02/16/22 02/16/22 02/16/22 05:19 05:24 05:29 Temperature Pulse Rate 86 79 79 Respiratory Rate Blood Pressure Blood Pressure [Left] O2 Sat by Pulse 99 99 99 Oximetry O2 Sat by Pulse Oximetry [ Bilateral] 02/16/22 02/16/22 02/16/22 05:34 05:39 05:44 Temperature Pulse Rate 83 82 79 Respiratory Rate Blood Pressure Blood Pressure [Left] O2 Sat by Pulse 98 99 100 Oximetry O2 Sat by Pulse Oximetry [ Bilateral] 02/16/22 02/16/22 02/16/22 05:49 05:54 05:59 Temperature Pulse Rate 75 80 80 Respiratory Rate Blood Pressure Blood Pressure [Left] O2 Sat by Pulse 100 99 99 Oximetry O2 Sat by Pulse Oximetry [ Bilateral] 02/16/22 02/16/22 02/16/22 06:04 06:09 06:14 Temperature Pulse Rate 86 74 94 H Respiratory Rate Blood Pressure Blood Pressure [Left] O2 Sat by Pulse 99 98 100 Oximetry O2 Sat by Pulse Oximetry [ Bilateral] 02/16/22 02/16/22 02/16/22 06:19 06:24 06:29 Temperature Pulse Rate 92 H 100 H 80 Respiratory Rate Blood Pressure Blood Pressure [Left] O2 Sat by Pulse 99 99 100 Oximetry O2 Sat by Pulse Oximetry [ Bilateral] 02/16/22 02/16/22 02/16/22 06:34 06:36 06:39 Temperature Pulse Rate 87 77 79 Respiratory Rate Blood Pressure 161/102 137/72 Blood Pressure [Left] O2 Sat by Pulse 100 99 Oximetry O2 Sat by Pulse Oximetry [ Bilateral] 02/16/22 02/16/22 02/16/22 06:43 06:44 06:49 Temperature 97.7 F Pulse Rate 83 82 Respiratory Rate Blood Pressure Blood Pressure [Left] O2 Sat by Pulse 99 99 Oximetry O2 Sat by Pulse Oximetry [ Bilateral] 02/16/22 02/16/22 02/16/22 06:54 06:59 07:04 Temperature Pulse Rate 86 76 85 Respiratory Rate Blood Pressure Blood Pressure [Left] O2 Sat by Pulse 99 98 100 Oximetry O2 Sat by Pulse Oximetry [ Bilateral] 02/16/22 02/16/22 02/16/22 07:10 07:11 07:23 Temperature 98.1 F Pulse Rate 80 80 Respiratory 20 Rate Blood Pressure 136/79 Blood Pressure 136/79 [Left] O2 Sat by Pulse 100 Oximetry O2 Sat by Pulse 100 Oximetry [ Bilateral] - Exam Lungs: Normal air movement FHR: category 1 - Labs Labs: Abnormal Labs 02/09/22 02/09/22 02/09/22 21:06 22:30 22:30 RBC 3.51 L MCHC 35 H [place] % (Auto) 12.8 H ABG pO2 ABG HCO3 ABG Base Excess ABG Hemoglobin Sodium 134 L Chloride Carbon Dioxide 20 L Creatinine Glucose 452 H POC Glucose 443 H Albumin 3.4 L 03/02/10/22 02/10/22 04:16 04:35 09:49 RBC MCHC [place] % (Auto) ABG pO2 104.0 H ABG HCO3 19.0 L ABG Base Excess -4.8 L ABG Hemoglobin 11.7 L Sodium Chloride Carbon Dioxide Creatinine Glucose POC Glucose 291 H 248 H Albumin 02/10/22 02/10/22 02/10/22 11:39 17:07 21:33 RBC MCHC [place] % (Auto) ABG pO2 ABG HCO3 ABG Base Excess ABG Hemoglobin Sodium Chloride Carbon Dioxide Creatinine Glucose POC Glucose 350 H 201 H 187 H Albumin 02/10/22 02/11/22 02/11/22 23:00 08:13 11:47 RBC MCHC [place] % (Auto) ABG pO2 ABG HCO3 ABG Base Excess ABG Hemoglobin Sodium 130 L Chloride 96.9 L Carbon Dioxide 19 L Creatinine 0.4 L Glucose 223 H POC Glucose 170 H 188 H Albumin 02/11/22 02/12/22 02/12/22 16:48 07:14 10:49 RBC MCHC [place] % (Auto) ABG pO2 ABG HCO3 ABG Base Excess ABG Hemoglobin Sodium Chloride Carbon Dioxide Creatinine Glucose POC Glucose 157 H 173 H 220 H Albumin 02/12/22 02/12/22 02/12/22 13:02 16:03 20:44 RBC MCHC [place] % (Auto) ABG pO2 ABG HCO3 ABG Base Excess ABG Hemoglobin Sodium Chloride Carbon Dioxide Creatinine Glucose POC Glucose 208 H 113 H 162 H Albumin 02/13/22 02/13/22 02/13/22 05:40 08:23 12:19 RBC MCHC [place] % (Auto) ABG pO2 ABG HCO3 ABG Base Excess ABG Hemoglobin Sodium 132 L Chloride Carbon Dioxide 17 L Creatinine 0.4 L Glucose 168 H POC Glucose 148 H 150 H Albumin 02/13/22 02/13/22 02/13/22 16:54 20:03 22:51 RBC MCHC [place] % (Auto) ABG pO2 ABG HCO3 ABG Base Excess ABG Hemoglobin Sodium Chloride Carbon Dioxide Creatinine Glucose POC Glucose 156 H 154 H 155 H Albumin 02/14/22 02/14/22 02/14/22 07:41 11:19 14:06 RBC MCHC [place] % (Auto) ABG pO2 ABG HCO3 ABG Base Excess ABG Hemoglobin Sodium Chloride Carbon Dioxide Creatinine Glucose POC Glucose 121 H 142 H 110 H Albumin 02/14/22 02/14/22 02/15/22 17:08 22:01 07:43 RBC MCHC [place] % (Auto) ABG pO2 ABG HCO3 ABG Base Excess ABG Hemoglobin Sodium Chloride Carbon Dioxide Creatinine 0.4 L Glucose POC Glucose 148 H 151 H Albumin 02/15/22 02/15/22 02/15/22 08:01 12:12 22:07 RBC MCHC [place] % (Auto) ABG pO2 ABG HCO3 ABG Base Excess ABG Hemoglobin Sodium Chloride Carbon Dioxide Creatinine Glucose POC Glucose 134 H 106 H 66 L Albumin 02/16/22 06:31 RBC MCHC [place] % (Auto) ABG pO2 ABG HCO3 ABG Base Excess ABG Hemoglobin Sodium Chloride Carbon Dioxide Creatinine Glucose POC Glucose 135 H Albumin Laboratory Results - last 24 hr 02/15/22 02/15/22 02/15/22 07:03 07:35 12:12 POC Glucose 106 H Urine Total Volume 1900 1900 02/15/22 02/15/22 02/16/22 17:01 22:07 06:31 POC Glucose 82 66 L 135 H Urine Total Volume
--- NOTE | 2022-02-16 13:39 | Progress Note ---
Subjective Date of service: 02/16/22 Principal diagnosis: IUP@ 34 weeks, uncontrolled DM, GHTN, psychosis Subjective Comment: The patient was seen today. She was seen responding to internal stimuli and continues to present with disorganized thoughts. She reports having uncontrollable laugh. REVIEW OF SYSTEMS Constitutional: Negative for weight loss ENT: Negative for stridor Respiratory: Negative for cough or hemoptysis All other systems reviewed and are negative MENTAL STATUS EXAMINATION General Appearance and Behavior: Age appropriate, good hygiene, wearing appropriate clothes, good eye contact, calm, cooperative, polite Cooperation: Participating/engaged Psychomotor Behavior: Psychomotor normal Mood: "ok" Affect and affective range: Incongruent with stated mood Thought Process: Disorganized Thought Content: Delusions Speech: normal tone and pace Suicidal Ideation: Denies Homicidal Ideation: Denies Hallucinations: Denies Delusions: Yes Impulse Control: Limited Insight and Judgment: Limited insight and judgment Memory: Limited Attention: Divided Orientation: Alert, oriented Assessment and Plan Schizophrenia 1013 Treatment Plan Latuda is preferred for the patient however, not available on Hospital's formulary. The patient agreed on the treatment plan, and understood the potential benefits outweigh potential risks . Start Haldol 2mg po BID Consult case management for assistance with placement Medical: per primary Sitter: per primary Disposition: The patient disposition still stands. Do not recommend acute psychiatric inpatient treatment. The yarn man to give the patient all necessary resources including shelters and group homes Will follow for medication management. Thanks Case staffed with Dr. Frederick Mental Status Exam Medications and Allergies Allergies Allergy/AdvReac Type Severity Reaction Status Date / Time No Known Allergies Allergy Verified 02/03/22 07:58 Home Medications Medication Instructions Recorded Confirmed Last Taken Type OLANzapine [ZyPREXA] 2.5 mg PO QDAY #30 tablet 02/08/22 02/10/22 Unknown Rx Active Meds: Active Medications Acetaminophen (Acetaminophen 500 Mg Tab) 1,000 mg PO Q6H PRN PRN Reason: Pain MILD(1-3)/Fever >100.5/TERRELL Al Hydrox/Mg Hydrox/Simethicone (Alum-Mag Hydroxide-Simethicone [id number]/5ml Oral Liqd 30 Ml) 30 ml PO Q6H PRN PRN Reason: Indigestion Dextrose (Dextrose 10% *Hypoglycemia) 0 ml IV PRN PRN PRN Reason: Hypoglycemia Docusate Sodium (Docusate Sodium 100 Mg Cap) 100 mg PO Q12H PRN PRN Reason: Constipation Insulin Human Lispro (Insulin Lispro 100 Unit/Ml) 0 unit SUB-Q ACHS [facility]; Protocol Last Admin: 02/16/22 09:37 Dose: Not Given Insulin Human Lispro (Insulin Lispro 100 Unit/Ml) 30 unit SUB-Q QDDIAB [facility] Last Admin: 02/16/22 09:20 Dose: 30 unit Insulin Human Lispro (Insulin Lispro 100 Unit/Ml) 22 unit SUB-Q QPMDIAB [facility] Last Admin: 02/15/22 17:54 Dose: 22 unit Insulin Human NPH (Insulin Nph, Human 100 Unit/1 Ml) 60 unit SUB-Q QDDIAB [facility] Last Admin: 02/16/22 09:20 Dose: 60 unit Insulin Human NPH (Insulin Nph, Human 100 Unit/1 Ml) [facility] Last Admin: 02/16/22 01:57 Dose: Not Given Magnesium Hydroxide (Magnesium Hydroxide (Mom) Oral Liqd Udc) 30 ml PO QHS PRN PRN Reason: Laxative Effect Multivitamins/Iron/Calcium ( Mby59-Ho Fumarate-Folic Acid Vit Tab) 1 each PO QDAY [facility] Last Admin: 02/16/22 10:36 Dose: Not Given Olanzapine (Olanzapine 2.5 Mg Tab) 2.5 mg PO QDAY [facility] Last Admin: 02/16/22 10:36 Dose: Not Given Ondansetron HCl (Ondansetron 4 Mg/2 Ml Inj) 4 mg IV Q6H PRN PRN Reason: Nausea And Vomiting Simethicone (Simethicone 80 Mg Chew Tab) 80 mg PO Q6H PRN PRN Reason: Gas pain Results - Results Labs/Vitals: Laboratory Last Values WBC 6.3 K/mm3 (4.5-11.0) 02/09/22 22:30 RBC 3.51 M/mm3 (3.65-5.03) L 02/09/22 22:30 Hgb 11.4 gm/dl (10.1-14.3) 02/09/22 22:30 Hct 32.5 % (30.3-42.9) 02/09/22 22:30 MCV 93 fl (79-97) 02/09/22 22:30 MCH 32 pg (28-32) 02/09/22: MCHC 35 % (30-34) H 02/09/22: RDW 14.0 % (13.2-15.2) 02/09/22: Plt Count 196 K/mm3 (140-440) 02/09/22: Lymph % (Auto) 28.7 % (13.4-35.0) 02/09/22: [place] % (Auto) 12.8 % (0.0-7.3) H 02/09/22: Eos % (Auto) 0.7 % (0.0-4.3) 02/09/22: Baso % (Auto) 0.5 % (0.0-1.8) 02/09/22: Lymph # (Auto) 1.8 K/mm3 (1.2-5.4) 02/09/22: [place] # (Auto) 0.8 K/mm3 (0.0-0.8) 02/09/22: Eos # (Auto) 0.0 K/mm3 (0.0-0.4) 02/09/22: Baso # (Auto) 0.0 K/mm3 (0.0-0.1) 02/09/22: Seg Neutrophils % 57.3 % (40.0-70.0) 02/09/22: Seg Neutrophils # 3.6 K/mm3 (1.8-7.7) 02/09/22: PT 13.1 Sec. (12.2-14.9) 02/09/22: INR 0.90 (0.87-1.13) 02/09/22: ABG pH 7.401 pH Units (7.350-7.450) 02/10/22 04:35 ABG pCO2 31.3 mm Hg 02/10/22 04:35 ABG pO2 104.0 mm Hg (80.0-90.0) H 02/10/22 04:35 ABG HCO3 19.0 mmol/L (20.0-26.0) L 02/10/22 04:35 ABG O2 Saturation 97.8 % (95.0-99.0) 02/10/22 04:35 ABG O2 Content 16.0 (0.0-44) 02/10/22 04:35 ABG Base Excess -4.8 mmol/L (-2.0-3.0) L 02/10/22 04:35 ABG Hemoglobin 11.7 gm/dl (12.0-16.0) L 02/10/22 04:35 ABG Carboxyhemoglobin 1.1 % (0.0-5.0) 02/10/22 04:35 ABG Methemoglobin 0.5 % (0.0-1.5) 02/10/22 04:35 Oxyhemoglobin 96.3 % (95.0-99.0) 02/10/22 04:35 FiO2 21 % 02/10/22 04:35 Sodium 132 mmol/L (137-145) L 02/13/22 05:40 Potassium 4.1 mmol/L (3.6-5.0) 02/13/22 05:40 Chloride 100.8 mmol/L (98-107) 02/13/22 05:40 Carbon Dioxide 17 mmol/L (22-30) L 02/13/22 05:40 Anion Gap 18 mmol/L 02/13/22 05:40 BUN 7 mg/dL (7-17) 02/13/22 05:40 Creatinine 0.4 mg/dL (0.6-1.2) L 02/15/22 07:43 Estimated GFR > 60 ml/min 02/15/22 07:43 BUN/Creatinine Ratio 18 % 02/13/22 05:40 Glucose 168 mg/dL (65-100) H 02/13/22 05:40 POC Glucose 135 mg/dL (70-105) H 02/16/22 06:31 Ketones Quantitative Negative (Negative) 02/09/22 22:30 Uric Acid 4.0 mg/dL (3.5-7.6) 02/15/22 07:43 Calcium 9.0 mg/dL (8.4-10.2) 02/13/22 05:40 Total Bilirubin < 0.20 mg/dL (0.1-1.2) 02/09/22 22:30 AST 18 units/L (5-40) 02/15/22 07:43 ALT 17 units/L (7-56) 02/15/22 07:43 Alkaline Phosphatase 81 units/L (35-129) 02/09/22 22:30 Lactate Dehydrogenase 156 units/L (91-180) 02/15/22 07:43 Total Protein 6.6 g/dL (6.3-8.2) 02/09/22 22:30 Albumin 3.4 g/dL (3.9-5) L 02/09/22 22:30 Albumin/Globulin Ratio 1.1 % 02/09/22 22:30 Urine Total Volume 1900 ml 02/15/22 07:35 Nasal Screen MRSA (PCR) Negative (Negative) 02/10/22 06:05 Coronavirus (PCR) Negative (Negative) 02/10/22 09:45 Last Vital Signs Temp 98.1 F 02/16/22 07:11 Pulse 80 02/16/22 07:11 Resp 20 02/16/22 07:11 BP 136/79 02/16/22 07:11 Pulse Ox 100 02/16/22 07:23
[2022-02-16 13:44] LABS: Creatinine 24 Hour,Urine 1.3 (0.8-2.8)
--- NOTE | 2022-02-16 14:20 | Event Note ---
Date: 02/16/22 Total protein is <300mg /24hrs so does not appear to be superimposed pre E. Results d/w pt. Will con't current treatment.
--- NOTE | 2022-02-16 14:58 | Event Note ---
Date: 02/16/22 Called and spoke with mental health provider that saw pt today and confirmed as per notes she has been made a 1013. Charge nurse made aware of the order and arrangements being made on labor and delivery to put this in place. It is due to pt refusing meds and not getting better. It was stated that it was needed for pt to get the IM Haldol but this was not stated in the notes. Staff has been made aware of both IM and po orders for the Haldol that have been written. They are to call the psych provider if there are any questions regarding the this change in treatment plan.
[2022-02-16] MEDS ORDERED: HALOPERIDOL LACTATE 5 MG/1 ML INJ IM ONE (15:51)
--- NOTE | 2022-02-16 16:29 | Event Note ---
Date: 02/16/22 I was called by executive staff assistant Marcy stating that charge nurse was requesting restraints for the pt due to violent out burst and throwing objects while RN was in room trying to evaluate her. I advised that I was not sure about the policy with restraints and will need to check into it and see the pt prior to giving the order. Shortly after(about two to five minutes) I was called by domestic housekeeper who advised she did not feel the pt needed restraints but need time to calm down. I arrived on the floor as I was speaking to [facility] supervisor on the phone to find pt sitting in chair with sitter in the room and security outside the room. She was refusing to speak with me and answer any of my questions at this time stating she needed to calm down and does not want to talk at this time. Pt was given the IM haldol by domestic housekeeper prior to my arrival on the floor. I also spoke with risk management regarding the pt and it was advised that the restraints should not be used at this time if not needed whether the pt was on the labor floor or the medicine floor. Due to the high risk nature of the , she needs to be monitored on labor and delivery and I did not feel comfortable moving pt to medicine floor. When I was at the [facility] the pt was in the room with the sitter sitting the the chair and appeared to be agitated but was not violent toward this provider. I explained the need for monitoring and need to access if she and th shiraz are ok. States she does not need any evaluation at this time and she just wants to leave. I advised that she is not able to leave the hospital at this time. Pt now in room and allowing sitter to take vital signs. She did not allow assigned RN or charge nurse to speak to her or be in the room at this time or place monitors or obtain vital signs. I advised to staffing that we will do our best to monitor the pt and the baby as she allows us to. She is refusing the monitoring and the ultra sounds scheduled for today. Will allow the medication to take affect at this time and attempt the po regimen as recommended by psych.
[2022-02-16] MEDS: HALOPERIDOL 2 MG TAB PO SCH ×2 (19:24→22:12)
[2022-02-16] MEDS: ACETAMINOPHEN 500 MG TAB PO PRN (22:55)
--- NOTE | 2022-02-17 09:02 | Event Note ---
Date: 02/17/22 Called by [employer] informing provider that the pt is refusing any treatment at this time ie sonogram, accuchecks, monitoring the baby ect. It has been noted. Will speak with pt later this am when rounds are done. When speaking with the pt on yesterday evening she did not respond to provider when an evaluation was attempting to be made. There is some concern about the status of the baby as we are not able to monitor as we need to. Yesterday she did allow monitoring and heart tones were normal but she did not keep belts in place for full nst.
--- NOTE | 2022-02-17 12:31 | Progress Note ---
Assessment and Plan - Patient Problems (1) 34 weeks gestation of Current Visit: Yes Status: Acute (2) Bipolar disorder Current Visit: Yes Status: Acute Qualifiers: Current bipolar episode type: manic Plan to address problem: -psych wrote for IM haldol x 1 then po. pt has refused the po meds. She is not a hostile as on yesterday but did still need redirection and does not seem to fully grasp her treatment plan. -will defer to psych regarding regulation of pt medications. (3) Diabetes mellitus affecting Current Visit: Yes Status: Acute Qualifiers: Trimester: third trimester Qualified Code(s): O24.913 - Unspecified diabetes mellitus in , third trimester Plan to address problem: -uable to do continued monitoring, unable to do accuchecks, pt note eating food at this time stating to do so would put her in caridac arrest -otheriwse will attempt to follow plan laid out by mfm. (4) Gestational hypertension Current Visit: Yes Status: Acute Qualifiers: Trimester: third trimester Qualified Code(s): O13.3 - Gestational [-induced] hypertension without significant proteinuria, third trimester (5) Homeless single person Current Visit: Yes Status: Acute Plan to address problem: -has not been coorperative with social welfare administrator regarding placement and has refused to speak to social welfare administrator personel at times -currently 1013 status by psych Subjective - Subjective Date of service: 02/17/22 Principal diagnosis: IUP@ 34 1/7 weeks, uncontrolled DM, GHTN, psychosis Interval history: Pt has refused all treatments including NST, sonograms and accuchecks as well as blood pressure checks. She did allow me to do FHTs with the doppler and they were noted to be 143 to 146. She requested a particular nurse to do her blood pressures after she agreed to allow her to do so and when she arrived, she then declined. Pt states she knows that her baby is ok and she does not want to mess up her bed and this is why she did not allow the sonogram or the NST. I inquired if she would allow the sono on tomorrow and she states no. Pt does seem to understand the importance of needing these evaluations but states she does not feel like having them done at this time. She has not had any haldol since yesterday when it was given IM. She has refused all po meds and her insulin. I d/w with bath house attendant regarding if pt needs to be transferred to a facility that has an ob psych unit. She advised that tomorrow pt would be discussed on the teams meeting and would give provider more input regarding this. Patient reports: movement normal, other (Denies ssx of PreE ), no new complaints, no loss of fluid, no vaginal bleeding, no contractions Objective - Vital Signs Vital Signs: Vital Signs - 12hr 02/17/22 02/17/22 02/17/22 06:16 06:17 06:22 Pulse Rate 99 H 90 92 H Blood Pressure 135/92 141/93 O2 Sat by Pulse 85 95 94 Oximetry 02/17/22 02/17/22 02/17/22 06:23 06:29 06:38 Pulse Rate 94 H 106 H Blood Pressure 133/85 O2 Sat by Pulse 90 0 L Oximetry 02/17/22 02/17/22 02/17/22 06:51 07:09 07:12 Pulse Rate 91 H 166 H Blood Pressure O2 Sat by Pulse 81 L 82 L 81 L Oximetry 02/17/22 02/17/22 02/17/22 07:16 07:21 07:32 Pulse Rate 78 93 H 115 H Blood Pressure O2 Sat by Pulse 81 L 86 81 L Oximetry 02/17/22 02/17/22 02/17/22 07:38 08:02 08:24 Pulse Rate 146 H 97 H Blood Pressure O2 Sat by Pulse 83 L 91 0 L Oximetry 02/17/22 02/17/22 02/17/22 08:33 08:40 08:41 Pulse Rate 63 Blood Pressure O2 Sat by Pulse 85 83 L 83 L Oximetry 02/17/22 02/17/22 02/17/22 08:45 08:51 11:53 Pulse Rate 95 H Blood Pressure 143/105 O2 Sat by Pulse 78 L 87 99 Oximetry 02/17/22 02/17/22 11:55 11:56 Pulse Rate 91 H 84 Blood Pressure 171/102 165/92 O2 Sat by Pulse Oximetry - Exam FHR: auscultation normal - Labs Labs: Abnormal Labs 02/09/22 02/09/22 02/09/22 21:06 22:30 22:30 RBC 3.51 L MCHC 35 H [place] % (Auto) 12.8 H ABG pO2 ABG HCO3 ABG Base Excess ABG Hemoglobin Sodium 134 L Chloride Carbon Dioxide 20 L Creatinine Glucose 452 H POC Glucose 443 H Albumin 3.4 L Urine Creatinine 02/10/22 02/10/22 02/10/22 04:16 04:35 09:49 RBC MCHC [place] % (Auto) ABG pO2 104.0 H ABG HCO3 19.0 L ABG Base Excess -4.8 L ABG Hemoglobin 11.7 L Sodium Chloride Carbon Dioxide Creatinine Glucose POC Glucose 291 H 248 H Albumin Urine Creatinine 02/10/22 02/10/22 02/10/22 11:39 17:07 21:33 RBC MCHC [place] % (Auto) ABG pO2 ABG HCO3 ABG Base Excess ABG Hemoglobin Sodium Chloride Carbon Dioxide Creatinine Glucose POC Glucose 350 H 201 H 187 H Albumin Urine Creatinine 02/10/22 02/11/22 02/11/22 23:00 08:13 11:47 RBC MCHC [place] % (Auto) ABG pO2 ABG HCO3 ABG Base Excess ABG Hemoglobin Sodium 130 L Chloride 96.9 L Carbon Dioxide 19 L Creatinine 0.4 L Glucose 223 H POC Glucose 170 H 188 H Albumin Urine Creatinine 02/11/22 02/12/22 02/12/22 16:48 07:14 10:49 RBC MCHC [place] % (Auto) ABG pO2 ABG HCO3 ABG Base Excess ABG Hemoglobin Sodium Chloride Carbon Dioxide Creatinine Glucose POC Glucose 157 H 173 H 220 H Albumin Urine Creatinine 02/12/22 02/12/22 02/12/22 13:02 16:03 20:44 RBC MCHC [place] % (Auto) ABG pO2 ABG HCO3 ABG Base Excess ABG Hemoglobin Sodium Chloride Carbon Dioxide Creatinine Glucose POC Glucose 208 H 113 H 162 H Albumin Urine Creatinine 02/13/22 02/13/22 02/13/22 05:40 08:23 12:19 RBC MCHC [place] % (Auto) ABG pO2 ABG HCO3 ABG Base Excess ABG Hemoglobin Sodium 132 L Chloride Carbon Dioxide 17 L Creatinine 0.4 L Glucose 168 H POC Glucose 148 H 150 H Albumin Urine Creatinine 02/13/22 02/13/22 02/13/22 16:54 20:03 22:51 RBC MCHC [place] % (Auto) ABG pO2 ABG HCO3 ABG Base Excess ABG Hemoglobin Sodium Chloride Carbon Dioxide Creatinine Glucose POC Glucose 156 H 154 H 155 H Albumin Urine Creatinine 02/14/22 02/14/22 02/14/22 07:41 11:19 14:06 RBC MCHC [place] % (Auto) ABG pO2 ABG HCO3 ABG Base Excess ABG Hemoglobin Sodium Chloride Carbon Dioxide Creatinine Glucose POC Glucose 121 H 142 H 110 H Albumin Urine Creatinine 02/14/22 02/14/22 02/15/22 17:08 22:01 07:35 RBC MCHC [place] % (Auto) ABG pO2 ABG HCO3 ABG Base Excess ABG Hemoglobin Sodium Chloride Carbon Dioxide Creatinine Glucose POC Glucose 148 H 151 H Albumin Urine Creatinine 69.0 H 02/15/22 02/15/22 02/15/22 07:43 08:01 12:12 RBC MCHC [place] % (Auto) ABG pO2 ABG HCO3 ABG Base Excess ABG Hemoglobin Sodium Chloride Carbon Dioxide Creatinine 0.4 L Glucose POC Glucose 134 H 106 H Albumin Urine Creatinine 02/15/22 02/16/22 02/16/22 22:07 06:31 17:51 RBC MCHC [place] % (Auto) ABG pO2 ABG HCO3 ABG Base Excess ABG Hemoglobin Sodium Chloride Carbon Dioxide Creatinine Glucose POC Glucose 66 L 135 H 142 H Albumin Urine Creatinine Laboratory Results - last 24 hr 02/15/22 02/15/22 02/16/22 07:03 07:35 15:34 POC Glucose 78 Urine Creatinine 69.0 H Ur Creatinine 24 Hour 1.3 Ur Total Protein 24 Hr 152.00 Urine Total Protein 8 02/16/22 17:51 POC Glucose 142 H Urine Creatinine Ur Creatinine 24 Hour Ur Total Protein 24 Hr Urine Total Protein
[2022-02-17] MEDS: HALOPERIDOL 2 MG TAB PO SCH ×2 (13:34→22:34)
--- NOTE | 2022-02-17 13:51 | Progress Note ---
Subjective - Reason for Consult Consult date: 02/17/22 Reason for consult: Paranoia - Chief Complaint Chief complaint: The patient was seen today. She continues to be disorganized and paranoid. The patient is refusing meds; took meds this afternoon after some encouragement. REVIEW OF SYSTEMS Constitutional: Negative for weight loss ENT: Negative for stridor Respiratory: Negative for cough or hemoptysis All other systems reviewed and are negative MENTAL STATUS EXAMINATION General Appearance and Behavior: Age appropriate, good hygiene, wearing appropriate clothes, good eye contact, calm, cooperative, polite Cooperation: Participating Psychomotor Behavior: Psychomotor normal Mood: OK Affect and affective range: Incongruent with stated mood Thought Process: goal directed Thought Content: Paranoid Speech: normal tone and pace Suicidal Ideation: Denies Homicidal Ideation: Denies Hallucinations: Denies Delusions: Yes Impulse Control: Limited Insight and Judgment: Limited insight and judgment Memory: Limited Attention: Divided Orientation: Alert, oriented Assessment and Plan Schizophrenia Treatment Plan 1013 Continue Haldol 2mg po and give IM if patient refuse PO. Consult case management for assistance with placement Medical: per primary Sitter: per primary Disposition: The patient disposition still stands. Do not recommend acute ps ychiatric inpatient treatment. Will follow for medication management. Thanks Case staffed with Dr. Frederick Mental Status Exam - Vital signs Last Vital Signs Temp 97.2 F L 02/16/22 19:05 Pulse 84 02/17/22 11:56 Resp 20 02/16/22 19:05 BP 165/92 02/17/22 11:56 Pulse Ox 99 02/17/22 11:53
[2022-02-17] MEDS: INSULIN LISPRO 100 UNIT/ML SUB-Q SCH ×5 (19:11→22:33)
[2022-02-17] MEDS: INSULIN NPH, HUMAN 100 UNIT/1 ML SUB-Q SCH ×2 (19:13→22:33)
[2022-02-17] MEDS: PRENATAL VIT27-FE FUMARATE-FOLIC ACID VIT TAB PO SCH (19:13)
[2022-02-18] MEDS: INSULIN LISPRO 100 UNIT/ML SUB-Q SCH ×7 (07:20→23:11)
[2022-02-18] MEDS: INSULIN NPH, HUMAN 100 UNIT/1 ML SUB-Q SCH ×3 (09:06→22:25)
[2022-02-18] MEDS: PRENATAL VIT27-FE FUMARATE-FOLIC ACID VIT TAB PO SCH (09:11)
[2022-02-18] MEDS: HALOPERIDOL 2 MG TAB PO SCH ×2 (09:13→22:09)
--- NOTE | 2022-02-18 11:30 | Progress Note ---
Assessment and Plan Pt cooperative, alert, and calm during exam. POC and precautions reviewed. Questions encouraged. No questions voiced. Pt verbalizes understanding and agrees to POC. Sitter present at bedside. Dr. Orozco made aware. - Patient Problems (1) 34 weeks gestation of Current Visit: Yes Status: Acute Plan to address problem: NST q4h BPP twice a week, last completed on 02/17: 8/8, BANDAR 16.4cm, EFW 2356g; BPP next ordered 02/20/22 (2) Bipolar disorder Current Visit: Yes Status: Acute Qualifiers: Current bipolar episode type: manic Plan to address problem: 1013 status currently Psych to follow Haldol per orders (3) Gestational hypertension Current Visit: Yes Status: Acute Qualifiers: Trimester: third trimester Qualified Code(s): O13.3 - Gestational [-induced] hypertension without significant proteinuria, third trimester Plan to address problem: Preeclampsia labs completed Monitor BP and ssx for worsening status (4) Homeless single person Current Visit: Yes Status: Acute (5) Noncompliance by refusing service Current Visit: Yes Status: Acute (6) Obesity, Class III, BMI 40-49.9 (morbid obesity) Current Visit: Yes Status: Acute (7) Schizophrenia Current Visit: No Status: Acute Qualifiers: Schizophrenia type: paranoid schizophrenia Qualified Code(s): F20.0 - Paranoid schizophrenia (8) Diabetes mellitus affecting Current Visit: Yes Status: Acute Qualifiers: Trimester: third trimester Qualified Code(s): O24.913 - Unspecified diabetes mellitus in , third trimester Plan to address problem: Accuchecks and sliding scale as ordered Humulin N 60 / Humulog 30 in am Humulog 22 at dinner Humulin N 24 at bedtime Subjective - Subjective Date of service: 02/18/22 Principal diagnosis: IUP@ 34 2/7 weeks, uncontrolled DM, GHTN, psychosis Patient reports: movement normal, other (Denies TERRELL, vision changes, and RUQ pain today), no new complaints, no loss of fluid, no vaginal bleeding, no contractions Objective - Vital Signs Vital Signs: Vital Signs - 12hr 02/18/22 02/18/22 02/18/22 03:24 03:27 03:29 Temperature 98.1 F Pulse Rate 84 76 80 Respiratory Rate Blood Pressure 114/53 Blood Pressure 106/55 [Left] O2 Sat by Pulse 99 99 Oximetry O2 Sat by Pulse Oximetry [ Bilateral] 02/18/22 02/18/22 02/18/22 09:01 10:51 11:03 Temperature Pulse Rate 114 H 70 Respiratory Rate Blood Pressure Blood Pressure [Left] O2 Sat by Pulse 84 92 Oximetry O2 Sat by Pulse 98 Oximetry [ Bilateral] 02/18/22 02/18/22 02/18/22 11:04 11:11 11:17 Temperature 98.5 F Pulse Rate 95 H 88 Respiratory 15 Rate Blood Pressure 145/90 Blood Pressure 145/90 [Left] O2 Sat by Pulse 99 77 L 82 L Oximetry O2 Sat by Pulse Oximetry [ Bilateral] 02/18/22 02/18/22 02/18/22 11:22 11:23 11:27 Temperature Pulse Rate 85 151 H Respiratory Rate Blood Pressure Blood Pressure [Left] O2 Sat by Pulse 83 L 81 L 82 L Oximetry O2 Sat by Pulse Oximetry [ Bilateral] - Exam Lungs: Normal air movement Abdomen: Present: normal appearance, soft, other (gravid) FHR: auscultation normal, category 1 Uterine Contraction Monitor Mode: Palpation Uterine Tone Measurement Phase: Resting Extremities: normal - Labs Labs: Abnormal Labs 02/09/22 02/09/22 02/09/22 21:06 22:30 22:30 RBC 3.51 L MCHC 35 H [place] % (Auto) 12.8 H ABG pO2 ABG HCO3 ABG Base Excess ABG Hemoglobin Sodium 134 L Chloride Carbon Dioxide 20 L Creatinine Glucose 452 H POC Glucose 443 H Albumin 3.4 L Urine Creatinine 02/10/22 02/10/22 02/10/22 04:16 04:35 09:49 RBC MCHC [place] % (Auto) ABG pO2 104.0 H ABG HCO3 19.0 L ABG Base Excess -4.8 L ABG Hemoglobin 11.7 L Sodium Chloride Carbon Dioxide Creatinine Glucose POC Glucose 291 H 248 H Albumin Urine Creatinine 02/10/22 02/10/22 02/10/22 11:39 17:07 21:33 RBC MCHC [place] % (Auto) ABG pO2 ABG HCO3 ABG Base Excess ABG Hemoglobin Sodium Chloride Carbon Dioxide Creatinine Glucose POC Glucose 350 H 201 H 187 H Albumin Urine Creatinine 02/10/22 02/11/22 02/11/22 23:00 08:13 11:47 RBC MCHC [place] % (Auto) ABG pO2 ABG HCO3 ABG Base Excess ABG Hemoglobin Sodium 130 L Chloride 96.9 L Carbon Dioxide 19 L Creatinine 0.4 L Glucose 223 H POC Glucose 170 H 188 H Albumin Urine Creatinine 02/11/22 02/12/22 02/12/22 16:48 07:14 10:49 RBC MCHC [place] % (Auto) ABG pO2 ABG HCO3 ABG Base Excess ABG Hemoglobin Sodium Chloride Carbon Dioxide Creatinine Glucose POC Glucose 157 H 173 H 220 H Albumin Urine Creatinine 02/12/22 02/12/22 02/12/22 13:02 16:03 20:44 RBC MCHC [place] % (Auto) ABG pO2 ABG HCO3 ABG Base Excess ABG Hemoglobin Sodium Chloride Carbon Dioxide Creatinine Glucose POC Glucose 208 H 113 H 162 H Albumin Urine Creatinine 02/13/22 02/13/22 02/13/22 05:40 08:23 12:19 RBC MCHC [place] % (Auto) ABG pO2 ABG HCO3 ABG Base Excess ABG Hemoglobin Sodium 132 L Chloride Carbon Dioxide 17 L Creatinine 0.4 L Glucose 168 H POC Glucose 148 H 150 H Albumin Urine Creatinine 02/13/22 02/13/22 02/13/22 16:54 20:03 22:51 RBC MCHC [place] % (Auto) ABG pO2 ABG HCO3 ABG Base Excess ABG Hemoglobin Sodium Chloride Carbon Dioxide Creatinine Glucose POC Glucose 156 H 154 H 155 H Albumin Urine Creatinine 02/14/22 02/14/22 02/14/22 07:41 11:19 14:06 RBC MCHC [place] % (Auto) ABG pO2 ABG HCO3 ABG Base Excess ABG Hemoglobin Sodium Chloride Carbon Dioxide Creatinine Glucose POC Glucose 121 H 142 H 110 H Albumin Urine Creatinine 02/14/22 02/14/22 02/15/22 17:08 22:01 07:35 RBC MCHC [place] % (Auto) ABG pO2 ABG HCO3 ABG Base Excess ABG Hemoglobin Sodium Chloride Carbon Dioxide Creatinine Glucose POC Glucose 148 H 151 H Albumin Urine Creatinine 69.0 H 02/15/22 02/15/22 02/15/22 07:43 08:01 12:12 RBC MCHC [place] % (Auto) ABG pO2 ABG HCO3 ABG Base Excess ABG Hemoglobin Sodium Chloride Carbon Dioxide Creatinine 0.4 L Glucose POC Glucose 134 H 106 H Albumin Urine Creatinine 02/15/22 02/16/22 02/16/22 22:07 06:31 17:51 RBC MCHC [place] % (Auto) ABG pO2 ABG HCO3 ABG Base Excess ABG Hemoglobin Sodium Chloride Carbon Dioxide Creatinine Glucose POC Glucose 66 L 135 H 142 H Albumin Urine Creatinine 02/17/22 02/18/22 19:57 06:57 RBC MCHC [place] % (Auto) ABG pO2 ABG HCO3 ABG Base Excess ABG Hemoglobin Sodium Chloride Carbon Dioxide Creatinine Glucose POC Glucose 185 H 159 H Albumin Urine Creatinine Laboratory Results - last 24 hr 02/17/22 02/18/22 19:57 06:57 POC Glucose 185 H 159 H
--- NOTE | 2022-02-18 13:45 | Ultrasound Report ---
ULTRASOUND OBSTETRIC LIMITED ULTRASOUND BIOPHYSICAL PROFILE INDICATION / CLINICAL INFORMATION: GDM, well being. Clinical Gestational Age (GA) in weeks, days: 35 weeks 2 days TECHNIQUE: Transabdominal. COMPARISON: biophysical profile 02/13/2022. FINDINGS: BREATHING MOVEMENT = 2 GROSS BODY MOVEMENT = 2 TONE = 2 QUALITATIVE AMNIOTIC FLUID VOLUME = 2 TOTAL BIOPHYSICAL SCORE = 8/8 HEART RATE (beats per minute): 152 BPM AMNIOTIC FLUID INDEX (cm) = 16.4 cm (normal = 7-24 cm) PRESENTATION: Cephalic. MEASUREMENTS: - Biparietal Diameter = 8.0 cm = 32.0 weeks.days - Head Circumference = 29.7 cm = 32.6 weeks.days - Abdominal Circumference = 30.4 cm = 34.3 weeks.days - Femur Length = 6.8 cm = 0 35.0 weeks.days - Estimated Weight (in grams, if calculated): 2356 g AVERAGE ULTRASOUND AGE (AUA) in weeks.days = 33.4 ADDITIONAL FINDINGS: None. IMPRESSION: 1. Biophysical Score = 8/8 2. Single intrauterine with AUA of 33.4 weeks.days Scribed by: Jessi Mcdonald RDMS, [employer], [place] Scribed: 02/18/2022 10:09 AM I have reviewed the images, agree with this report, and edited this report as needed. Signer Name: Torsten Zhou MD Signed: 02/18/2022 1:41 PM Workstation Name: [id number]
[2022-02-19] MEDS: INSULIN LISPRO 100 UNIT/ML SUB-Q SCH ×6 (08:00→22:26)
--- NOTE | 2022-02-19 08:11 | Progress Note ---
Assessment and Plan Pt in chair about to eat breakfast. Denies CTX,LOF,VB. Voiced good FM. States "Everything is fine, now can I eat my breakfast" Discussed plan of care and encouraged to report an concerns. no distress noted LUZ MARIA Brooks CNM - Patient Problems (1) 33 weeks gestation of Current Visit: Yes Status: Acute Plan to address problem: NST q4h BPP twice a week, last completed on 02/17: 8, BANDAR 16.4cm, EFW 2356g; BPP next ordered 02/20/22 (2) GDM (gestational diabetes mellitus) Current Visit: Yes Status: Acute Qualifiers: Gestational diabetes mellitus control: insulin-controlled Trimester: third trimester Qualified Code(s): O24.414 - Gestational diabetes mellitus in , insulin controlled Plan to address problem: Accuchecks and sliding scale as ordered Humulin N 60 / Humulog 30 in am Humulog 22 at dinner Humulin N 24 at bedtime (3) Homeless single person Current Visit: Yes Status: Acute (4) Schizophrenia Current Visit: No Status: Acute Qualifiers: Schizophrenia type: paranoid schizophrenia Qualified Code(s): F20.0 - Paranoid schizophrenia Plan to address problem: pt evaluated by mental char, they do not feel she needs inpatient psychiatric care 1013 per mental health - sitter present in room Continue teaching re: selfcare and diabetes management Utilize therapeutic communication and redirection (5) Gestational hypertension Current Visit: Yes Status: Acute Qualifiers: Trimester: third trimester Qualified Code(s): O13.3 - Gestational [pregnanc y-induced] hypertension without significant proteinuria, third trimester Plan to address problem: dx noted on records from [facility] [place] Will closely monitor b/p's no s/s pre-e (6) Noncompliance by refusing service Current Visit: Yes Status: Acute Plan to address problem: Pt frequently refuses monitoring and/or vital signs Subjective - Subjective Date of service: 02/19/22 Principal diagnosis: IUP@ 34 3/7 weeks, uncontrolled DM, GHTN, psychosis Patient reports: movement normal, other (Denies TERRELL, vision changes, and RUQ pain today), no new complaints, no loss of fluid, no vaginal bleeding, no contractions Objective - Vital Signs Vital Signs: Vital Signs - 12hr 03/22/22 03/22/22 03/22/22 07:53 07:54 07:57 Temperature 98.3 F Pulse Rate 97 H 92 H Respiratory 18 Rate Blood Pressure 138/92 Blood Pressure 138/92 [Left] O2 Sat by Pulse 98 99 Oximetry O2 Sat by Pulse 99 Oximetry [ Bilateral] - Exam Abdomen: Present: normal appearance Uterus: Present: other (gravid) - Labs Labs: Abnormal Labs 02/09/22 02/09/22 02/09/22 21:06 22:30 22:30 RBC 3.51 L MCHC 35 H [place] % (Auto) 12.8 H ABG pO2 ABG HCO3 ABG Base Excess ABG Hemoglobin Sodium 134 L Chloride Carbon Dioxide 20 L Creatinine Glucose 452 H POC Glucose 443 H Albumin 3.4 L Urine Creatinine 02/10/22 02/10/22 02/10/22 04:16 04:35 09:49 RBC MCHC [place] % (Auto) ABG pO2 104.0 H ABG HCO3 19.0 L ABG Base Excess -4.8 L ABG Hemoglobin 11.7 L Sodium Chloride Carbon Dioxide Creatinine Glucose POC Glucose 291 H 248 H Albumin Urine Creatinine 02/10/22 02/10/22 02/10/22 11:39 17:07 21:33 RBC MCHC [place] % (Auto) ABG pO2 ABG HCO3 ABG Base Excess ABG Hemoglobin Sodium Chloride Carbon Dioxide Creatinine Glucose POC Glucose 350 H 201 H 187 H Albumin Urine Creatinine 02/10/22 02/11/22 02/11/22 23:00 08:13 11:47 RBC MCHC [place] % (Auto) ABG pO2 ABG HCO3 ABG Base Excess ABG Hemoglobin Sodium 130 L Chloride 96.9 L Carbon Dioxide 19 L Creatinine 0.4 L Glucose 223 H POC Glucose 170 H 188 H Albumin Urine Creatinine 02/11/22 02/12/22 02/12/22 16:48 07:14 10:49 RBC MCHC [place] % (Auto) ABG pO2 ABG HCO3 ABG Base Excess ABG Hemoglobin Sodium Chloride Carbon Dioxide Creatinine Glucose POC Glucose 157 H 173 H 220 H Albumin Urine Creatinine 02/12/22 02/12/22 02/12/22 13:02 16:03 20:44 RBC MCHC [place] % (Auto) ABG pO2 ABG HCO3 ABG Base Excess ABG Hemoglobin Sodium Chloride Carbon Dioxide Creatinine Glucose POC Glucose 208 H 113 H 162 H Albumin Urine Creatinine 02/13/22 02/13/22 02/13/22 05:40 08:23 12:19 RBC MCHC [place] % (Auto) ABG pO2 ABG HCO3 ABG Base Excess ABG Hemoglobin Sodium 132 L Chloride Carbon Dioxide 17 L Creatinine 0.4 L Glucose 168 H POC Glucose 148 H 150 H Albumin Urine Creatinine 02/13/22 02/13/22 02/13/22 16:54 20:03 22:51 RBC MCHC [place] % (Auto) ABG pO2 ABG HCO3 ABG Base Excess ABG Hemoglobin Sodium Chloride Carbon Dioxide Creatinine Glucose POC Glucose 156 H 154 H 155 H Albumin Urine Creatinine 02/14/22 02/14/22 02/14/22 07:41 11:19 14:06 RBC MCHC [place] % (Auto) ABG pO2 ABG HCO3 ABG Base Excess ABG Hemoglobin Sodium Chloride Carbon Dioxide Creatinine Glucose POC Glucose 121 H 142 H 110 H Albumin Urine Creatinine 02/14/22 02/14/22 02/15/22 17:08 22:01 07:35 RBC MCHC [place] % (Auto) ABG pO2 ABG HCO3 ABG Base Excess ABG Hemoglobin Sodium Chloride Carbon Dioxide Creatinine Glucose POC Glucose 148 H 151 H Albumin Urine Creatinine 69.0 H 02/15/22 02/15/22 02/15/22 07:43 08:01 12:12 RBC MCHC [place] % (Auto) ABG pO2 ABG HCO3 ABG Base Excess ABG Hemoglobin Sodium Chloride Carbon Dioxide Creatinine 0.4 L Glucose POC Glucose 134 H 106 H Albumin Urine Creatinine 02/15/22 02/16/22 02/16/22 22:07 06:31 17:51 RBC MCHC [place] % (Auto) ABG pO2 ABG HCO3 ABG Base Excess ABG Hemoglobin Sodium Chloride Carbon Dioxide Creatinine Glucose POC Glucose 66 L 135 H 142 H Albumin Urine Creatinine 02/17/22 02/18/22 02/18/22 19:57 06:57 17:02 RBC MCHC [place] % (Auto) ABG pO2 ABG HCO3 ABG Base Excess ABG Hemoglobin Sodium Chloride Carbon Dioxide Creatinine Glucose POC Glucose 185 H 159 H 131 H Albumin Urine Creatinine 02/18/22 22:10 RBC MCHC [place] % (Auto) ABG pO2 ABG HCO3 ABG Base Excess ABG Hemoglobin Sodium Chloride Carbon Dioxide Creatinine Glucose POC Glucose 157 H Albumin Urine Creatinine Laboratory Results - last 24 hr 02/18/22 02/18/22 02/18/22 06:57 11:56 17:02 POC Glucose 159 H 78 131 H 02/18/22 22:10 POC Glucose 157 H
[2022-02-19] MEDS: PRENATAL VIT27-FE FUMARATE-FOLIC ACID VIT TAB PO SCH ×2 (08:13→10:00)
[2022-02-19] MEDS: INSULIN NPH, HUMAN 100 UNIT/1 ML SUB-Q SCH ×2 (08:55→22:26)
[2022-02-19] MEDS: HALOPERIDOL 2 MG TAB PO SCH ×2 (10:48→22:22)
--- NOTE | 2022-02-19 10:57 | Progress Note ---
Subjective - Reason for Consult Consult date: 02/19/22 Reason for consult: psychosis - Chief Complaint Chief complaint: The patient was seen today. She is calm and cooperative. The patient is compliant with medications and states she feels better. She denies any current suicidal/homicidal ideation and denies hallucinations. REVIEW OF SYSTEMS Constitutional: Negative for weight loss ENT: Negative for stridor Respiratory: Negative for cough or hemoptysis All other systems reviewed and are negative MENTAL STATUS EXAMINATION General Appearance and Behavior: Age appropriate, good hygiene, wearing mynor ropriate clothes, good eye contact, calm, cooperative, polite Cooperation: Participating Psychomotor Behavior: Psychomotor normal Mood: OK Affect and affective range: Incongruent with stated mood Thought Process: Goal directed Thought Content: Reality oriented Speech: normal tone and pace Suicidal Ideation: Denies Homicidal Ideation: Denies Hallucinations: Denies Delusions: None Impulse Control: Limited Insight and Judgment: Limited insight and judgment Memory: Limited Attention: Divided Orientation: Alert, oriented Assessment and Plan Schizophrenia Treatment Plan 1013 Continue Haldol 2mg po and give IM if patient refuse PO. Consult case management for assistance with placement Medical: per primary Sitter: per primary Disposition: The patient disposition still stands. Do not recommend acute psychiatric inpatient treatment. Will follow for medication management. Thanks Case staffed with Dr. Frederick Mental Status Exam - Vital signs Last Vital Signs Temp 98.3 F 02/19/22 07:54 Pulse 83 02/19/22 10:49 Resp 18 02/19/22 07:54 BP 138/92 02/19/22 07:54 Pulse Ox 100 02/19/22 10:49
--- NOTE | 2022-02-19 14:21 | Progress Note ---
Assessment and Plan A. IUP 34.4 weeks DM - most recent HGbA1C of 10% ( 02/04/2022) - under her current medical management improved BS levels during this admission - under the management of [facility] hospitalist - recently admitted and discharged for DKA - staff reported prior intermittent refusal of insulin therapy Morbid Obesity Mental health disorders ( Schizophrenia and Bioplar disorder ) - was previously refusing her medical therapy of Zyrexa - s/p evaluation by Mental char providers -s/p Haldol pt calm and cooperative during [facility] visit with sitter at bedside History of drug use GHTN - most recent BP of 127/66 mm Hg - s/p Protein , 24 hr urine 152 mg/dl History of PTD at 24 weeks - FTD s/p PTD History of PreE - No SERVICE TECH features History of COVID 19 infection during this - 02/10/2022 Negative screen during this admission s/p NICU consult P. if possible continuous EFM if not NST Q 4 Regarding refusal of pysch meds Consult mental health Continue current insulin therapy QAM 60N / 30R QPM 22R QPM 24N Obtain US for interval growth Q 2 weeks BPP twice a week Repeat CBC and CMP As per ACOG poorly controlled /noncompliance of DM timing of delivery at 36 weeks unless there is intervening indication Contraindication to continued expectant management, in which delivery is indicated, include the followin. -Cerbrovascular disturbances unresponsive to medical management 2. -Unrelenting right upper quadrant pain 3. -Liver function tests greater than 2x the upper limit of normal 4. -Thrombocytopenia <100,000/microL 5. -Creatinine greater than 1.1 mg/dL 6. -Eclampsia 7. -Pulmonary edema 8. -Hypertension requiring initiation of fast upward titration of oral agents or multiple pushes of IV anti-hypetensives unresponsive to therapy Subjective - Subjective Date of service: 02/19/22 ([id number]) Principal diagnosis: IUP@ 34 3/7 weeks, uncontrolled DM, GHTN, psychosis Patient reports: movement normal, other (Denies TERRELL, vision changes, and RUQ pain today), no new complaints, no loss of fluid, no vaginal bleeding, no contractions Objective - Vital Signs Vital Signs: Vital Signs - 12hr 02/19/22 02/19/22 02/19/22 07:53 07:54 07:57 Temperature 98.3 F Pulse Rate 97 H 92 H Respiratory 18 Rate Blood Pressure 138/92 Blood Pressure 138/92 [Left] O2 Sat by Pulse 98 99 Oximetry O2 Sat by Pulse 99 Oximetry [ Bilateral] 02/19/22 02/19/22 02/19/22 09:52 09:53 09:57 Temperature Pulse Rate 89 66 66 Respiratory Rate Blood Pressure Blood Pressure [Left] O2 Sat by Pulse 85 84 94 Oximetry O2 Sat by Pulse Oximetry [ Bilateral] 02/19/22 02/19/22 02/19/22 09:59 10:04 10:09 Temperature Pulse Rate 95 H 94 H 89 Respiratory Rate Blood Pressure Blood Pressure [Left] O2 Sat by Pulse 99 99 99 Oximetry O2 Sat by Pulse Oximetry [ Bilateral] 02/19/22 02/19/22 02/19/22 10:14 10:19 10:24 Temperature Pulse Rate 91 H 81 87 Respiratory Rate Blood Pressure Blood Pressure [Left] O2 Sat by Pulse 99 99 100 Oximetry O2 Sat by Pulse Oximetry [ Bilateral] 02/19/22 02/19/22 02/19/22 10:29 10:34 10:39 Temperature Pulse Rate 82 86 84 Respiratory Rate Blood Pressure Blood Pressure [Left] O2 Sat by Pulse 100 100 100 Oximetry O2 Sat by Pulse Oximetry [ Bilateral] 02/19/22 02/19/22 02/19/22 10:44 10:49 10:54 Temperature Pulse Rate 89 83 85 Respiratory Rate Blood Pressure Blood Pressure [Left] O2 Sat by Pulse 100 100 100 Oximetry O2 Sat by Pulse Oximetry [ Bilateral] 02/19/22 02/19/22 02/19/22 10:59 11:02 12:11 Temperature Pulse Rate 85 79 Respiratory Rate Blood Pressure Blood Pressure [Left] O2 Sat by Pulse 100 84 69 L Oximetry O2 Sat by Pulse Oximetry [ Bilateral] 02/19/22 02/19/22 02/19/22 12:12 12:13 12:14 Temperature 97.6 F Pulse Rate 81 81 145 H Respiratory 18 Rate Blood Pressure 127/66 Blood Pressure 127/66 [Left] O2 Sat by Pulse 98 83 L Oximetry O2 Sat by Pulse Oximetry [ Bilateral] - Exam Cardiovascular: Regular rate Lungs: Normal air movement Abdomen: Absent: tenderness, guarding Uterus: Absent: tenderness FHR: category 1 (per RN during her am NST ...Reactive for EGA ) Uterine Contraction Monitor Mode: Palpation (no CTX palpated) Extremities: normal - Labs Labs: Abnormal Labs 02/09/22 02/09/22 02/09/22 21:06 22:30 22:30 RBC 3.51 L MCHC 35 H [place] % (Auto) 12.8 H ABG pO2 ABG HCO3 ABG Base Excess ABG Hemoglobin Sodium 134 L Chloride Carbon Dioxide 20 L Creatinine Glucose 452 H POC Glucose 443 H Albumin 3.4 L Urine Creatinine 02/10/22 02/10/22 02/10/22 04:16 04:35 09:49 RBC MCHC [place] % (Auto) ABG pO2 104.0 H ABG HCO3 19.0 L ABG Base Excess -4.8 L ABG Hemoglobin 11.7 L Sodium Chloride Carbon Dioxide Creatinine Glucose POC Glucose 291 H 248 H Albumin Urine Creatinine 02/10/22 02/10/22 02/10/22 11:39 17:07 21:33 RBC MCHC [place] % (Auto) ABG pO2 ABG HCO3 ABG Base Excess ABG Hemoglobin Sodium Chloride Carbon Dioxide Creatinine Glucose POC Glucose 350 H 201 H 187 H Albumin Urine Creatinine 02/10/22 02/11/22 02/11/22 23:00 08:13 11:47 RBC MCHC [place] % (Auto) ABG pO2 ABG HCO3 ABG Base Excess ABG Hemoglobin Sodium 130 L Chloride 96.9 L Carbon Dioxide 19 L Creatinine 0.4 L Glucose 223 H POC Glucose 170 H 188 H Albumin Urine Creatinine 02/11/22 02/12/22 02/12/22 16:48 07:14 10:49 RBC MCHC [place] % (Auto) ABG pO2 ABG HCO3 ABG Base Excess ABG Hemoglobin Sodium Chloride Carbon Dioxide Creatinine Glucose POC Glucose 157 H 173 H 220 H Albumin Urine Creatinine 02/12/22 02/12/22 02/12/22 13:02 16:03 20:44 RBC MCHC [place] % (Auto) ABG pO2 ABG HCO3 ABG Base Excess ABG Hemoglobin Sodium Chloride Carbon Dioxide Creatinine Glucose POC Glucose 208 H 113 H 162 H Albumin Urine Creatinine 02/13/22 02/13/22 02/13/22 05:40 08:23 12:19 RBC MCHC [place] % (Auto) ABG pO2 ABG HCO3 ABG Base Excess ABG Hemoglobin Sodium 132 L Chloride Carbon Dioxide 17 L Creatinine 0.4 L Glucose 168 H POC Glucose 148 H 150 H Albumin Urine Creatinine 02/13/22 02/13/22 02/13/22 16:54 20:03 22:51 RBC MCHC [place] % (Auto) ABG pO2 ABG HCO3 ABG Base Excess ABG Hemoglobin Sodium Chloride Carbon Dioxide Creatinine Glucose POC Glucose 156 H 154 H 155 H Albumin Urine Creatinine 02/14/22 02/14/22 02/14/22 07:41 11:19 14:06 RBC MCHC [place] % (Auto) ABG pO2 ABG HCO3 ABG Base Excess ABG Hemoglobin Sodium Chloride Carbon Dioxide Creatinine Glucose POC Glucose 121 H 142 H 110 H Albumin Urine Creatinine 02/14/22 02/14/22 02/15/22 17:08 22:01 07:35 RBC MCHC [place] % (Auto) ABG pO2 ABG HCO3 ABG Base Excess ABG Hemoglobin Sodium Chloride Carbon Dioxide Creatinine Glucose POC Glucose 148 H 151 H Albumin Urine Creatinine 69.0 H 02/15/22 02/15/22 02/15/22 07:43 08:01 12:12 RBC MCHC [place] % (Auto) ABG pO2 ABG HCO3 ABG Base Excess ABG Hemoglobin Sodium Chloride Carbon Dioxide Creatinine 0.4 L Glucose POC Glucose 134 H 106 H Albumin Urine Creatinine 02/15/22 02/16/22 02/16/22 22:07 06:31 17:51 RBC MCHC [place] % (Auto) ABG pO2 ABG HCO3 ABG Base Excess ABG Hemoglobin Sodium Chloride Carbon Dioxide Creatinine Glucose POC Glucose 66 L 135 H 142 H Albumin Urine Creatinine 02/17/22 02/18/22 02/18/22 19:57 06:57 17:02 RBC MCHC [place] % (Auto) ABG pO2 ABG HCO3 ABG Base Excess ABG Hemoglobin Sodium Chloride Carbon Dioxide Creatinine Glucose POC Glucose 185 H 159 H 131 H Albumin Urine Creatinine 02/18/22 22:10 RBC MCHC [place] % (Auto) ABG pO2 ABG HCO3 ABG Base Excess ABG Hemoglobin Sodium Chloride Carbon Dioxide Creatinine Glucose POC Glucose 157 H Albumin Urine Creatinine Laboratory Results - last 24 hr 02/18/22 02/18/22 17:02 22:10 POC Glucose 131 H 157 H - Results US- obstetric: report reviewed (most recent [facility] ultrasound BPP 07/08 with reas suring BANDAR assessment ...most recent EFW 2356 gram )
--- NOTE | 2022-02-20 07:43 | Progress Note ---
Assessment and Plan A: 31 y.o. @ 34.5 wks, gHTN, GDM, Schizophrenia, Bipolar. - Patient Problems (1) GDM (gestational diabetes mellitus) Current Visit: Yes Status: Acute Qualifiers: Gestational diabetes mellitus control: insulin-controlled Trimester: third trimester Qualified Code(s): O24.414 - Gestational diabetes mellitus in , insulin controlled Plan to address problem: Accuchecks and sliding scale as ordered Humulin N 60 / Humulog 30 in am Humulog 22 at dinner Humulin N 24 at bedtime Subjective (2) Gestational hypertension Current Visit: Yes Status: Acute Qualifiers: Trimester: third trimester Qualified Code(s): O13.3 - Gestational [-induced] hypertension without significant proteinuria, third trimester Plan to address problem: Dx noted on records from [facility] [place] visit 11/30/2021 Continue to monitor blood pressures. Continue to monitor for worsening s/sx of pre eclampsia. (3) Noncompliance by refusing service Current Visit: Yes Status: Acute Plan to address problem: Pt is cooperative at the moment with Accuchecks and NSTs. (4) Bipolar disorder Current Visit: Yes Status: Acute Qualifiers: Current bipolar episode type: manic (5) Schizophrenia Current Visit: No Status: Acute Qualifiers: Schizophrenia type: paranoid schizophrenia Qualified Code(s): F20.0 - Paranoid schizophrenia Plan to address problem: t evaluated by mental char, they do not feel she needs inpatient psychiatric care 1013 per mental health - sitter present in room Continue teaching re: selfcare and diabetes management Utilize therapeutic communication and redirection (6) 34 weeks gestation of Current Visit: Yes Status: Acute Plan to address problem: NST q4h BPP twice a week. Last completed on 02/17, 07/08, Next ordered for today. Growth Scans q 2 wks. Last completed on 02/17: EFW 2356g. Subjective - Subjective Date of service: 02/20/22 Principal diagnosis: IUP@ 34.5 weeks, uncontrolled DM, GHTN, psychosis Interval history: Pt denies vaginal bleeding, LOF, ctxs. Also denies TERRELL, blurred vision, spots before her eyes, chest pain, shortness of breath, and upper abdominal pain. Patient reports: movement normal, other (Denies TERRELL, vision changes, and RUQ pain today), no new complaints, no loss of fluid, no vaginal bleeding, no contractions Objective - Vital Signs Vital Signs: Vital Signs - 12hr 02/19/22 02/19/22 02/19/22 20:00 20:07 20:08 Pulse Rate 79 78 79 Respiratory 18 Rate Blood Pressure 152/80 Blood Pressure 152/80 [Left] O2 Sat by Pulse 98 97 Oximetry - Exam Narrative Exam: Blood pressure ranges have been mostly 140's/70-80's. She has a few elevated blood pressures throughout the day. Glucose level this AM has been 104. Breasts: deferred Cardiovascular: Regular rate, Normal S2 Abdomen: Present: normal appearance, soft Uterus: Present: normal FHR: category 1 (NSTs have been reactive.) Uterine Contraction Pattern: Absent - Labs Labs: Abnormal Labs 02/09/22 02/09/22 02/09/22 21:06 22:30 22:30 RBC 3.51 L MCHC 35 H [place] % (Auto) 12.8 H ABG pO2 ABG HCO3 ABG Base Excess ABG Hemoglobin Sodium 134 L Chloride Carbon Dioxide 20 L Creatinine Glucose 452 H POC Glucose 443 H Albumin 3.4 L Urine Creatinine 02/10/22 02/10/22 02/10/22 04:16 04:35 09:49 RBC MCHC [place] % (Auto) ABG pO2 104.0 H ABG HCO3 19.0 L ABG Base Excess -4.8 L ABG Hemoglobin 11.7 L Sodium Chloride Carbon Dioxide Creatinine Glucose POC Glucose 291 H 248 H Albumin Urine Creatinine 02/10/22 02/10/22 02/10/22 11:39 17:07 21:33 RBC MCHC [place] % (Auto) ABG pO2 ABG HCO3 ABG Base Excess ABG Hemoglobin Sodium Chloride Carbon Dioxide Creatinine Glucose POC Glucose 350 H 201 H 187 H Albumin Urine Creatinine 02/10/22 02/11/22 02/11/22 23:00 08:13 11:47 RBC MCHC [place] % (Auto) ABG pO2 ABG HCO3 ABG Base Excess ABG Hemoglobin Sodium 130 L Chloride 96.9 L Carbon Dioxide 19 L Creatinine 0.4 L Glucose 223 H POC Glucose 170 H 188 H Albumin Urine Creatinine 02/11/22 02/12/22 02/12/22 16:48 07:14 10:49 RBC MCHC [place] % (Auto) ABG pO2 ABG HCO3 ABG Base Excess ABG Hemoglobin Sodium Chloride Carbon Dioxide Creatinine Glucose POC Glucose 157 H 173 H 220 H Albumin Urine Creatinine 02/12/22 02/12/22 02/12/22 13:02 16:03 20:44 RBC MCHC [place] % (Auto) ABG pO2 ABG HCO3 ABG Base Excess ABG Hemoglobin Sodium Chloride Carbon Dioxide Creatinine Glucose POC Glucose 208 H 113 H 162 H Albumin Urine Creatinine 02/13/22 02/13/22 02/13/22 05:40 08:23 12:19 RBC MCHC [place] % (Auto) ABG pO2 ABG HCO3 ABG Base Excess ABG Hemoglobin Sodium 132 L Chloride Carbon Dioxide 17 L Creatinine 0.4 L Glucose 168 H POC Glucose 148 H 150 H Albumin Urine Creatinine 02/13/22 02/13/22 02/13/22 16:54 20:03 22:51 RBC MCHC [place] % (Auto) ABG pO2 ABG HCO3 ABG Base Excess ABG Hemoglobin Sodium Chloride Carbon Dioxide Creatinine Glucose POC Glucose 156 H 154 H 155 H Albumin Urine Creatinine 02/14/22 02/14/22 02/14/22 07:41 11:19 14:06 RBC MCHC [place] % (Auto) ABG pO2 ABG HCO3 ABG Base Excess ABG Hemoglobin Sodium Chloride Carbon Dioxide Creatinine Glucose POC Glucose 121 H 142 H 110 H Albumin Urine Creatinine 02/14/22 02/14/22 02/15/22 17:08 22:01 07:35 RBC MCHC [place] % (Auto) ABG pO2 ABG HCO3 ABG Base Excess ABG Hemoglobin Sodium Chloride Carbon Dioxide Creatinine Glucose POC Glucose 148 H 151 H Albumin Urine Creatinine 69.0 H 02/15/22 02/15/22 02/15/22 07:43 08:01 12:12 RBC MCHC [place] % (Auto) ABG pO2 ABG HCO3 ABG Base Excess ABG Hemoglobin Sodium Chloride Carbon Dioxide Creatinine 0.4 L Glucose POC Glucose 134 H 106 H Albumin Urine Creatinine 02/15/22 02/16/22 02/16/22 22:07 06:31 17:51 RBC MCHC [place] % (Auto) ABG pO2 ABG HCO3 ABG Base Excess ABG Hemoglobin Sodium Chloride Carbon Dioxide Creatinine Glucose POC Glucose 66 L 135 H 142 H Albumin Urine Creatinine 02/17/22 02/18/22 02/18/22 19:57 06:57 17:02 RBC MCHC [place] % (Auto) ABG pO2 ABG HCO3 ABG Base Excess ABG Hemoglobin Sodium Chloride Carbon Dioxide Creatinine Glucose POC Glucose 185 H 159 H 131 H Albumin Urine Creatinine 02/18/22 02/19/22 02/19/22 22:10 12:10 16:49 RBC MCHC [place] % (Auto) ABG pO2 ABG HCO3 ABG Base Excess ABG Hemoglobin Sodium Chloride Carbon Dioxide Creatinine Glucose POC Glucose 157 H 133 H 175 H Albumin Urine Creatinine 02/19/22 22:25 RBC MCHC [place] % (Auto) ABG pO2 ABG HCO3 ABG Base Excess ABG Hemoglobin Sodium Chloride Carbon Dioxide Creatinine Glucose POC Glucose 133 H Albumin Urine Creatinine Laboratory Results - last 24 hr 02/19/22 02/19/22 02/19/22 06:54 12:10 16:49 POC Glucose 94 133 H 175 H 02/19/22 22:25 POC Glucose 133 H
[2022-02-20] MEDS: PRENATAL VIT27-FE FUMARATE-FOLIC ACID VIT TAB PO SCH ×2 (08:10→11:48)
[2022-02-20] MEDS: INSULIN NPH, HUMAN 100 UNIT/1 ML SUB-Q SCH (08:12)
[2022-02-20] MEDS: INSULIN LISPRO 100 UNIT/ML SUB-Q SCH ×5 (08:14→16:50)
[2022-02-20 08:17] LABS: Hematocrit 36.3 % (30.3-42.9); Mean Corpuscular HGB Conc 33 % (30-34); Mean Corpuscular Volume 92 fl (79-97); Platelet Count 264 K/mm3 (140-440); Red Blood Count 3.95 M/mm3 (3.65-5.03); Red Cell Distribution Width 13.9 % (13.2-15.2)
[2022-02-20 08:43] LABS: Alanine Aminotransferase 17 units/L (7-56); Albumin 3.6 g/dL (3.9-5); Blood Urea Nitrogen 9 mg/dL (7-17); Calcium 9.6 mg/dL (8.4-10.2); Hemolysis Index 10
[2022-02-20 08:50] LABS: BUN/Creatinine Ratio 23
[2022-02-20] MEDS: HALOPERIDOL 2 MG TAB PO SCH ×2 (10:04→22:46)
--- NOTE | 2022-02-20 12:51 | Ultrasound Report ---
ULTRASOUND OBSTETRIC LIMITED ULTRASOUND BIOPHYSICAL PROFILE INDICATION / CLINICAL INFORMATION: wellbeing. Clinical Gestational Age (GA) in weeks, days: 34 weeks 4 days TECHNIQUE: Transabdominal. COMPARISON: biophysical profile 02/18/2022. FINDINGS: BREATHING MOVEMENT = 2 GROSS BODY MOVEMENT = 2 TONE = 2 QUALITATIVE AMNIOTIC FLUID VOLUME = 2 TOTAL BIOPHYSICAL SCORE = 8/8 HEART RATE (beats per minute): 144 BPM PRESENTATION: Cephalic. ADDITIONAL FINDINGS: None. IMPRESSION: 1. Biophysical Score = 8/8 Scribed by: Jessi Mcdonald RDMS, RVT, RMSKS Scribed: 02/20/2022 11:05 AM I have reviewed the images, agree with this report, and edited this report as needed. Signer Name: Ed Pierce MD Signed: 02/20/2022 12:47 PM Workstation Name: [id number]
--- NOTE | 2022-02-20 13:35 | Progress Note ---
Subjective - Reason for Consult Consult date: 02/20/22 Reason for consult: medication management - Chief Complaint Chief complaint: The patient was seen today. She is calm and states she is doing well. The patient is compliant with psychotropic medication. She denies any current suicidal/homicidal ideation and denies hallucinations. REVIEW OF SYSTEMS Constitutional: Negative for weight loss ENT: Negative for stridor Respiratory: Negative for cough or hemoptysis All other systems reviewed and are negative MENTAL STATUS EXAMINATION General Appearance and Behavior: Age appropriate, good hygiene, wearing appropriate clothes, good eye contact, calm, cooperative, polite Cooperation: Participating Psychomotor Behavior: Psychomotor normal Mood: OK Affect and affective range: Incongruent with stated mood Thought Process: Goal directed Thought Content: Reality oriented Speech: normal tone and pace Suicidal Ideation: Denies Homicidal Ideation: Denies Hallucinations: Denies Delusions: None Impulse Control: Limited Insight and Judgment: Limited insight and judgment Memory: Limited Attention: Divided Orientation: Alert, oriented Assessment and Plan Schizophrenia Treatment Plan DC 1013 Continue Haldol 2mg po and give IM if patient refuse PO. Consult case management for assistance with placement Medical: per primary Sitter: per primary Disposition: The patient disposition still stands. Do not recommend acute psychiatric inpatient treatment. Will follow for medication management. Thanks Case staffed with Dr. Frederick Mental Status Exam - Vital signs Last Vital Signs Temp 98.1 F 02/20/22 08:19 Pulse 214 H 02/20/22 08:23 Resp 18 02/20/22 08:19 BP 141/87 02/20/22 08:21 Pulse Ox 86 02/20/22 08:23
[2022-02-21] MEDS: INSULIN NPH, HUMAN 100 UNIT/1 ML SUB-Q SCH (08:58)
[2022-02-21] MEDS: INSULIN LISPRO 100 UNIT/ML SUB-Q SCH ×3 (09:01→18:18)
--- NOTE | 2022-02-21 09:01 | Progress Note ---
Assessment and Plan PT standing at door checking her BS, voiced no concerns. States good baby movement, denies CTX,LOF, VB. Reviewed plan of care. Agrees to continue taking Haldol although she stated she doesn't think she needs it. Encouraged to call the nurse if she has questions or concerns. LUZ MARIA Brooks CNM - Patient Problems (1) GDM (gestational diabetes mellitus) Current Visit: Yes Status: Acute Qualifiers: Gestational diabetes mellitus control: insulin-controlled Trimester: third trimester Qualified Code(s): O24.414 - Gestational diabetes mellitus in preg brandy, insulin controlled Plan to address problem: Accuchecks and sliding scale as ordered Humulin N 60 / Humulog 30 in am Humulog 22 at dinner Humulin N 24 at bedtime (2) Homeless single person Current Visit: Yes Status: Acute (3) Schizophrenia Current Visit: No Status: Acute Qualifiers: Schizophrenia type: paranoid schizophrenia Qualified Code(s): F20.0 - Paranoid schizophrenia Plan to address problem: pt followed by [facility] 1013 d/c'd by [facility] specialist Continue teaching re: selfcare and diabetes management Utilize therapeutic communication and redirection (4) Gestational hypertension Current Visit: Yes Status: Acute Qualifiers: Trimester: third trimester Qualified Code(s): O13.3 - Gestational [-induced] hypertension without significant proteinuria, third trimester Plan to address problem: dx noted on records from [facility] visit 11/30/2021 Will closely monitor b/p's no s/s pre-e (5) Noncompliance by refusing service Current Visit: Yes Status: Acute Plan to address problem: Pt is being more compliant with monitoring and/or vital signs (6) 34 weeks gestation of Current Visit: Yes Status: Acute Plan to address problem: NST q4h BPP twice a week, last completed on 02/20: 8/8, cephalic EFW 2356g; BPP next ordered 02/25/22 Subjective - Subjective Date of service: 02/21/22 Principal diagnosis: IUP@ 34.5 weeks, uncontrolled DM, GHTN, psychosis Patient reports: movement normal, other (Denies TERRELL, vision changes, and RUQ pain today), no new complaints, no loss of fluid, no vaginal bleeding, no contractions Objective - Vital Signs Vital Signs: Vital Signs - 12hr 03/24/22 03/24/22 00:46 05:44 Pulse Rate 72 86 Blood Pressure 116/61 121/67 - Exam Breasts: normal Cardiovascular: Regular rate Lungs: Normal air movement Abdomen: Present: normal appearance, soft Uterus: Present: other (gravid) FHR: auscultation normal Uterine Contraction Monitor Mode: Palpation Uterine Contraction Pattern: Absent Uterine Tone Measurement Phase: Resting Extremities: normal - Labs Labs: Abnormal Labs 02/09/22 02/09/22 02/09/22 21:06 22:30 22:30 RBC 3.51 L MCHC 35 H [place] % (Auto) 12.8 H ABG pO2 ABG HCO3 ABG Base Excess ABG Hemoglobin Sodium 134 L Chloride Carbon Dioxide 20 L Creatinine Glucose 452 H POC Glucose 443 H Albumin 3.4 L Urine Creatinine 02/10/22 02/10/22 02/10/22 04:16 04:35 09:49 RBC MCHC [place] % (Auto) ABG pO2 104.0 H ABG HCO3 19.0 L ABG Base Excess -4.8 L ABG Hemoglobin 11.7 L Sodium Chloride Carbon Dioxide Creatinine Glucose POC Glucose 291 H 248 H Albumin Urine Creatinine 02/10/22 02/10/22 02/10/22 11:39 17:07 21:33 RBC MCHC [place] % (Auto) ABG pO2 ABG HCO3 ABG Base Excess ABG Hemoglobin Sodium Chloride Carbon Dioxide Creatinine Glucose POC Glucose 350 H 201 H 187 H Albumin Urine Creatinine 02/10/22 02/11/22 02/11/22 23:00 08:13 11:47 RBC MCHC [place] % (Auto) ABG pO2 ABG HCO3 ABG Base Excess ABG Hemoglobin Sodium 130 L Chloride 96.9 L Carbon Dioxide 19 L Creatinine 0.4 L Glucose 223 H POC Glucose 170 H 188 H Albumin Urine Creatinine 02/11/22 02/12/22 02/12/22 16:48 07:14 10:49 RBC MCHC [place] % (Auto) ABG pO2 ABG HCO3 ABG Base Excess ABG Hemoglobin Sodium Chloride Carbon Dioxide Creatinine Glucose POC Glucose 157 H 173 H 220 H Albumin Urine Creatinine 02/12/22 02/12/22 02/12/22 13:02 16:03 20:44 RBC MCHC [place] % (Auto) ABG pO2 ABG HCO3 ABG Base Excess ABG Hemoglobin Sodium Chloride Carbon Dioxide Creatinine Glucose POC Glucose 208 H 113 H 162 H Albumin Urine Creatinine 02/13/22 02/13/22 02/13/22 05:40 08:23 12:19 RBC MCHC [place] % (Auto) ABG pO2 ABG HCO3 ABG Base Excess ABG Hemoglobin Sodium 132 L Chloride Carbon Dioxide 17 L Creatinine 0.4 L Glucose 168 H POC Glucose 148 H 150 H Albumin Urine Creatinine 02/13/22 02/13/22 02/13/22 16:54 20:03 22:51 RBC MCHC [place] % (Auto) ABG pO2 ABG HCO3 ABG Base Excess ABG Hemoglobin Sodium Chloride Carbon Dioxide Creatinine Glucose POC Glucose 156 H 154 H 155 H Albumin Urine Creatinine 02/14/22 02/14/22 02/14/22 07:41 11:19 14:06 RBC MCHC [place] % (Auto) ABG pO2 ABG HCO3 ABG Base Excess ABG Hemoglobin Sodium Chloride Carbon Dioxide Creatinine Glucose POC Glucose 121 H 142 H 110 H Albumin Urine Creatinine 02/14/22 02/14/22 02/15/22 17:08 22:01 07:35 RBC MCHC [place] % (Auto) ABG pO2 ABG HCO3 ABG Base Excess ABG Hemoglobin Sodium Chloride Carbon Dioxide Creatinine Glucose POC Glucose 148 H 151 H Albumin Urine Creatinine 69.0 H 02/15/22 02/15/22 02/15/22 07:43 08:01 12:12 RBC MCHC [place] % (Auto) ABG pO2 ABG HCO3 ABG Base Excess ABG Hemoglobin Sodium Chloride Carbon Dioxide Creatinine 0.4 L Glucose POC Glucose 134 H 106 H Albumin Urine Creatinine 02/15/22 02/16/22 02/16/22 22:07 06:31 17:51 RBC MCHC [place] % (Auto) ABG pO2 ABG HCO3 ABG Base Excess ABG Hemoglobin Sodium Chloride Carbon Dioxide Creatinine Glucose POC Glucose 66 L 135 H 142 H Albumin Urine Creatinine 02/17/22 02/18/22 02/18/22 19:57 06:57 17:02 RBC MCHC [place] % (Auto) ABG pO2 ABG HCO3 ABG Base Excess ABG Hemoglobin Sodium Chloride Carbon Dioxide Creatinine Glucose POC Glucose 185 H 159 H 131 H Albumin Urine Creatinine 02/18/22 02/19/22 02/19/22 22:10 12:10 16:49 RBC MCHC [place] % (Auto) ABG pO2 ABG HCO3 ABG Base Excess ABG Hemoglobin Sodium Chloride Carbon Dioxide Creatinine Glucose POC Glucose 157 H 133 H 175 H Albumin Urine Creatinine 02/19/22 02/20/22 02/20/22 22:25 07:38 16:16 RBC MCHC [place] % (Auto) ABG pO2 ABG HCO3 ABG Base Excess ABG Hemoglobin Sodium 133 L Chloride Carbon Dioxide 17 L Creatinine 0.4 L Glucose 110 H POC Glucose 133 H 159 H Albumin 3.6 L Urine Creatinine 02/20/22 21:58 RBC MCHC [place] % (Auto) ABG pO2 ABG HCO3 ABG Base Excess ABG Hemoglobin Sodium Chloride Carbon Dioxide Creatinine Glucose POC Glucose 69 L Albumin Urine Creatinine Laboratory Results - last 24 hr 02/20/22 02/20/22 02/20/22 11:43 16:16 21:58 POC Glucose 73 159 H 69 L
[2022-02-21] MEDS: HALOPERIDOL 2 MG TAB PO SCH ×2 (10:00→22:03)
[2022-02-21] MEDS: PRENATAL VIT27-FE FUMARATE-FOLIC ACID VIT TAB PO SCH (10:00)
[2022-02-22] MEDS: INSULIN LISPRO 100 UNIT/ML SUB-Q SCH ×5 (03:03→21:12)
[2022-02-22] MEDS ORDERED: cloNIDine 0.1 MG TAB PO PRN (07:02)
[2022-02-22] MEDS: INSULIN NPH, HUMAN 100 UNIT/1 ML SUB-Q SCH (08:16)
--- NOTE | 2022-02-22 08:31 | Progress Note ---
Assessment and Plan pt at door, states feels good and very pleasant. Voiced baby is moving, denies any CTX, LOF, VB. Reveiwed the plan of care and plans for IOL at 36 weeks. verbalized understanding. States after delivery she plans to live with [facility]. Encourage to call nurse for any questions or concerns. LUZ MARIA Brooks CNM - Patient Problems (1) GDM (gestational diabetes mellitus) Current Visit: Yes Status: Acute Qualifiers: Gestational diabetes mellitus control: insulin-controlled Trimester: third trimester Qualified Code(s): O24.414 - Gestational diabetes mellitus in , insulin controlled Plan to address problem: Accuchecks and sliding scale as ordered Humulin N 60 / Humulog 30 in am Humulog 22 at dinner Humulin N 24 at bedtime (2) Homeless single person Current Visit: Yes Status: Acute (3) Schizophrenia Current Visit: No Status: Acute Qualifiers: Schizophrenia type: paranoid schizophrenia Qualified Code(s): F20.0 - Paran oid schizophrenia Plan to address problem: pt followed by [facility] 1013 d/c'd by Pysch specialist Continue teaching re: self-care and diabetes management Utilize therapeutic communication and redirection (4) Gestational hypertension Current Visit: Yes Status: Acute Qualifiers: Trimester: third trimester Qualified Code(s): O13.3 - Gestational [-induced] hypertension without significant proteinuria, third trimester Plan to address problem: dx noted on records [facility] [place]/2021 Will closely monitor b/p's no s/s pre-e (5) Noncompliance by refusing service Current Visit: Yes Status: Acute Plan to address problem: Pt is being more compliant with monitoring and/or vital signs (6) 34 weeks gestation of Current Visit: Yes Status: Acute Plan to address problem: NST q4h BPP twice a week, last completed on 02/20: 8/8, cephalic EFW 2356g; BPP next ordered 02/25/22 Subjective - Subjective Date of service: 02/22/22 Principal diagnosis: IUP@ 34.5 weeks, uncontrolled DM, GHTN, psychosis Patient reports: movement normal, other (Denies TERRELL, vision changes, and RUQ pain today), no new complaints, no loss of fluid, no vaginal bleeding, no contractions Objective - Vital Signs Vital Signs: Vital Signs - 12hr 02/22/22 02/22/22 08:12 08:13 Pulse Rate 85 92 H Blood Pressure 137/73 O2 Sat by Pulse 99 Oximetry - Exam Breasts: normal Abdomen: Present: normal appearance Uterus: Present: other (Gravid) Extremities: normal - Labs Labs: Abnormal Labs 02/09/22 02/09/22 02/09/22 21:06 22:30 22:30 RBC 3.51 L MCHC 35 H [place] % (Auto) 12.8 H ABG pO2 ABG HCO3 ABG Base Excess ABG Hemoglobin Sodium 134 L Chloride Carbon Dioxide 20 L Creatinine Glucose 452 H POC Glucose 443 H Albumin 3.4 L Urine Creatinine 02/10/22 02/10/22 02/10/22 04:16 04:35 09:49 RBC MCHC [place] % (Auto) ABG pO2 104.0 H ABG HCO3 19.0 L ABG Base Excess -4.8 L ABG Hemoglobin 11.7 L Sodium Chloride Carbon Dioxide Creatinine Glucose POC Glucose 291 H 248 H Albumin Urine Creatinine 02/10/22 02/10/22 02/10/22 11:39 17:07 21:33 RBC MCHC [place] % (Auto) ABG pO2 ABG HCO3 ABG Base Excess ABG Hemoglobin Sodium Chloride Carbon Dioxide Creatinine Glucose POC Glucose 350 H 201 H 187 H Albumin Urine Creatinine 02/10/22 02/11/22 02/11/22 23:00 08:13 11:47 RBC MCHC [place] % (Auto) ABG pO2 ABG HCO3 ABG Base Excess ABG Hemoglobin Sodium 130 L Chloride 96.9 L Carbon Dioxide 19 L Creatinine 0.4 L Glucose 223 H POC Glucose 170 H 188 H Albumin Urine Creatinine 02/11/22 02/12/22 02/12/22 16:48 07:14 10:49 RBC MCHC [place] % (Auto) ABG pO2 ABG HCO3 ABG Base Excess ABG Hemoglobin Sodium Chloride Carbon Dioxide Creatinine Glucose POC Glucose 157 H 173 H 220 H Albumin Urine Creatinine 02/12/22 02/12/22 02/12/22 13:02 16:03 20:44 RBC MCHC [place] % (Auto) ABG pO2 ABG HCO3 ABG Base Excess ABG Hemoglobin Sodium Chloride Carbon Dioxide Creatinine Glucose POC Glucose 208 H 113 H 162 H Albumin Urine Creatinine 02/13/22 02/13/22 02/13/22 05:40 08:23 12:19 RBC MCHC [place] % (Auto) ABG pO2 ABG HCO3 ABG Base Excess ABG Hemoglobin Sodium 132 L Chloride Carbon Dioxide 17 L Creatinine 0.4 L Glucose 168 H POC Glucose 148 H 150 H Albumin Urine Creatinine 02/13/22 02/13/22 02/13/22 16:54 20:03 22:51 RBC MCHC [place] % (Auto) ABG pO2 ABG HCO3 ABG Base Excess ABG Hemoglobin Sodium Chloride Carbon Dioxide Creatinine Glucose POC Glucose 156 H 154 H 155 H Albumin Urine Creatinine 02/14/22 02/14/22 02/14/22 07:41 11:19 14:06 RBC MCHC [place] % (Auto) ABG pO2 ABG HCO3 ABG Base Excess ABG Hemoglobin Sodium Chloride Carbon Dioxide Creatinine Glucose POC Glucose 121 H 142 H 110 H Albumin Urine Creatinine 02/14/22 02/14/22 02/15/22 17:08 22:01 07:35 RBC MCHC [place] % (Auto) ABG pO2 ABG HCO3 ABG Base Excess ABG Hemoglobin Sodium Chloride Carbon Dioxide Creatinine Glucose POC Glucose 148 H 151 H Albumin Urine Creatinine 69.0 H 02/15/22 02/15/22 02/15/22 07:43 08:01 12:12 RBC MCHC [place] % (Auto) ABG pO2 ABG HCO3 ABG Base Excess ABG Hemoglobin Sodium Chloride Carbon Dioxide Creatinine 0.4 L Glucose POC Glucose 134 H 106 H Albumin Urine Creatinine 02/15/22 02/16/22 02/16/22 22:07 06:31 17:51 RBC MCHC [place] % (Auto) ABG pO2 ABG HCO3 ABG Base Excess ABG Hemoglobin Sodium Chloride Carbon Dioxide Creatinine Glucose POC Glucose 66 L 135 H 142 H Albumin Urine Creatinine 02/17/22 02/18/22 02/18/22 19:57 06:57 17:02 RBC MCHC [place] % (Auto) ABG pO2 ABG HCO3 ABG Base Excess ABG Hemoglobin Sodium Chloride Carbon Dioxide Creatinine Glucose POC Glucose 185 H 159 H 131 H Albumin Urine Creatinine 02/18/22 02/19/22 02/19/22 22:10 12:10 16:49 RBC MCHC [place] % (Auto) ABG pO2 ABG HCO3 ABG Base Excess ABG Hemoglobin Sodium Chloride Carbon Dioxide Creatinine Glucose POC Glucose 157 H 133 H 175 H Albumin Urine Creatinine 02/19/22 02/20/22 02/20/22 22:25 07:38 16:16 RBC MCHC [place] % (Auto) ABG pO2 ABG HCO3 ABG Base Excess ABG Hemoglobin Sodium 133 L Chloride Carbon Dioxide 17 L Creatinine 0.4 L Glucose 110 H POC Glucose 133 H 159 H Albumin 3.6 L Urine Creatinine 02/20/22 02/21/22 21:58 18:05 RBC MCHC [place] % (Auto) ABG pO2 ABG HCO3 ABG Base Excess ABG Hemoglobin Sodium Chloride Carbon Dioxide Creatinine Glucose POC Glucose 69 L 185 H Albumin Urine Creatinine Laboratory Results - last 24 hr 02/21/22 02/21/22 02/21/22 07:49 11:39 15:26 POC Glucose 73 80 92 02/21/22 18:05 POC Glucose 185 H
--- NOTE | 2022-02-22 08:40 | Event Note ---
Date: 02/22/22 Pt called provider to as I was passing. 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 I d/w treatment plan of bernadette at 36 weeks. We also discussed control of the DM once she has delivered. I advised of my own medical history and that I have been able to do so with diet and exercise. Pt was very pleasant and appropriate. She expressed understanding of the plan of care and only had questions this am regarding when her breakfast would be delivered. Will con't expectant management in house as MFM has not mad recommendations regarding being d/c for outpt tx as well as psych has not given clearance for d/c. Pt also still does not have placement for living that I am aware of.
[2022-02-22] MEDS: PRENATAL VIT27-FE FUMARATE-FOLIC ACID VIT TAB PO SCH (09:16)
[2022-02-22] MEDS ORDERED: LISINOPRIL 20 MG TAB PO SCH (10:00)
[2022-02-22] MEDS: HALOPERIDOL 2 MG TAB PO SCH ×2 (10:35→21:00)
--- NOTE | 2022-02-22 13:52 | Progress Note ---
Subjective - Reason for Consult Consult date: 02/22/22 Reason for consult: mental health evaluation - Chief Complaint Chief complaint: The patient was seen today. She is calm alert and oriented x3. She reports doing well. The patient is compliant with psychotropic medication. She denies any current suicidal/homicidal ideation and denies hallucinations. REVIEW OF SYSTEMS Constitutional: Negative for weight loss ENT: Negative for stridor Respiratory: Negative for cough or hemoptysis All other systems reviewed and are negative MENTAL STATUS EXAMINATION General Appearance and Behavior: Age appropriate, good hygiene, wearing appropriate clothes, good eye contact, calm, cooperative, polite Cooperation: Participating Psychomotor Behavior: Psychomotor normal Mood: OK Affect and affective range: Incongruent with stated mood Thought Process: Goal directed Thought Content: Reality oriented Speech: normal tone and pace Suicidal Ideation: Denies Homicidal Ideation: Denies Hallucinations: Denies Delusions: None Impulse Control: Limited Insight and Judgment: Limited insight and judgment Memory: Limited Attention: Divided Orientation: Alert, oriented Assessment and Plan Schizophrenia Treatment Plan DC 1013 Continue Haldol 2mg po Consult case management for assistance with placement Medical: per primary Sitter: per primary Disposition: The patient disposition still stands. Do not recommend acute psychiatric inpatient treatment. Will sign off. Thanks Case staffed with Dr. Frederick Mental Status Exam - Vital signs Last Vital Signs Temp 97.4 F L 02/22/22 11:20 Pulse 123 H 02/22/22 13:21 Resp 16 02/22/22 11:20 BP 144/85 02/22/22 11:05 Pulse Ox 72 L 02/22/22 13:21
--- NOTE | 2022-02-22 16:06 | Event Note ---
Date: 02/22/22 Spoke with Ms. Brown with psych team and inquired about pt being mentally competent to make medical decisions for her self.Provider states she feels pt is as she is taking her medication. I requested that provider would update progress notes stating this as they have signed off on the pt. Provider states she will try to go into the notes and update this status of the pt. All of my questions were addressed and answered.
--- NOTE | 2022-02-22 17:33 | Consultation ---
History of Present Illness Consult date: 02/22/22 Requesting physician: DEDRICK VO History of present illness: A. IUP 34.6 weeks DM - most recent HGbA1C of 10% ( 02/04/2022) - under her current medical management improved BS levels during this admission - under the management of [facility] hospitalist BS's swings due to non compliant diet 02/21 - 185, 63 02/22 - 206, 112 fasting, 112, 48, 198 BPP 02/20/2207/08 EFM 135 reactive categ I - recently admitted and discharged for DKA - staff reported prior intermittent refusal of insulin therapy Morbid Obesity Mental health disorders ( Schizophrenia and Bioplar disorder ) - was previously refusing her medical therapy of Zyrexa - s/p evaluation by Mental char providers -s/p Haldol pt calm and cooperative during APA visit with sitter at bedside History of drug use GHTN - most recent BP of 127/66 mm Hg - s/p Protein , 24 hr urine 152 mg/dl History of PTD at 24 weeks - FTD s/p PTD History of PreE - No [employer] features History of COVID 19 infection during this - 02/10/2022 Negative screen during this admission s/p NICU consult P. Psych singed off - cont Haldol if possible continuous EFM if not NST Q 4 Regarding refusal of pysch meds Consult mental health Continue current insulin therapy QAM 60N / 30R QPM 22R QPM 24N Obtain US for interval growth Q 2 weeks BPP twice a week Repeat CBC and CMP As per ACOG poorly controlled /noncompliance of DM timing of delivery at 36 weeks unless there is intervening indication Contraindication to continued expectant management, in which delivery is indicated, include the followin. -Cerbrovascular disturbances unresponsive to medical management 2. -Unrelenting right upper quadrant pain 3. -Liver function tests greater than 2x the upper limit of normal 4. -Thrombocytopenia <100,000/microL 5. -Creatinine greater than 1.1 mg/dL 6. -Eclampsia 7. -Pulmonary edema 8. -Hypertension requiring initiation of fast upward titration of oral agents or multiple pushes of IV anti-hypetensives unresponsive to therapy Subjective Past History Past Medical History: other (Schziophrenia, Bi-polar, has been admitted to [place] in the past) - Obstetrical History : 3 Medications and Allergies Allergies Allergy/AdvReac Type Severity Reaction Status Date / Time No Known Allergies Allergy Verified 02/03/22 07:58 Home Medications Medication Instructions Recorded Confirmed Last Taken Type OLANzapine [ZyPREXA] 2.5 mg PO QDAY #30 tablet 02/08/22 02/10/22 Unknown Rx Active Meds: Active Medications Acetaminophen (Acetaminophen 500 Mg Tab) 1,000 mg PO Q6H PRN PRN Reason: Pain MILD(1-3)/Fever >100.5/TERRELL Last Admin: 02/16/22 22:55 Dose: 500 mg Al Hydrox/Mg Hydrox/Simethicone (Alum-Mag Hydroxide-Simethicone 024-204-44bq/5ml Oral Liqd 30 Ml) 30 ml PO Q6H PRN PRN Reason: Indigestion Dextrose (Dextrose 10% *Hypoglycemia) 0 ml IV PRN PRN PRN Reason: Hypoglycemia Docusate Sodium (Docusate Sodium 100 Mg Cap) 100 mg PO Q12H PRN PRN Reason: Constipation Haloperidol (Haloperidol 2 Mg Tab) 2 mg PO BID [facility] Last Admin: 02/22/22 10:35 Dose: 2 mg Insulin Human Lispro (Insulin Lispro 100 Unit/Ml) 0 unit SUB-Q ACHS [facility]; Protocol Last Admin: 02/22/22 17:15 Dose: 10 unit Insulin Human Lispro (Insulin Lispro 100 Unit/Ml) 30 unit SUB-Q QDDIAB [facility] Last Admin: 02/22/22 08:13 Dose: 30 unit Insulin Human Lispro (Insulin Lispro 100 Unit/Ml) 22 unit SUB-Q QPMDIAB [facility] Last Admin: 02/22/22 17:11 Dose: 22 unit Insulin Human NPH (Insulin Nph, Human 100 Unit/1 Ml) 60 unit SUB-Q QDDIAB [facility] Last Admin: 02/22/22 08:16 Dose: 60 unit Insulin Human NPH (Insulin Nph, Human 100 Unit/1 Ml) 24 unit SUB-Q QHS [facility] Last Admin: 02/19/22 22:26 Dose: Not Given Magnesium Hydroxide (Magnesium Hydroxide (Mom) Oral Liqd Udc) 30 ml PO QHS PRN PRN Reason: Laxative Effect Multivitamins/Iron/Calcium ( Jur59-Us Fumarate-Folic Acid Vit Tab) 1 each PO QDAY [facility] Last Admin: 02/22/22 09:16 Dose: 1 each Ondansetron HCl (Ondansetron 4 Mg/2 Ml Inj) 4 mg IV Q6H PRN PRN Reason: Nausea And Vomiting Simethicone (Simethicone 80 Mg Chew Tab) 80 mg PO Q6H PRN PRN Reason: Gas pain - Vital Signs Vital signs: Vital Signs Pulse BP 93 H 128/71 02/09/22 22:12 02/09/22 22:12 Temp Pulse Resp BP Pulse Ox 97.9 F 88 18 143/78 100 02/22/22 16:15 02/22/22 16:16 02/22/22 16:15 02/22/22 16:16 02/22/22 16:15 Results Result Diagrams: 02/20/22 07:38 02/20/22 07:38 Abnormal lab results 02/21/22 02/21/22 02/22/22 Range/Units 18:05 22:05 02:49 POC Glucose 185 H 63 L 206 H (70-105) mg/dL 02/22/22 02/22/22 02/22/22 Range/Units 05:39 11:10 16:14 POC Glucose 112 H 48 L 198 H (70-105) mg/dL All other labs normal.
[2022-02-23] MEDS: INSULIN LISPRO 100 UNIT/ML SUB-Q SCH ×4 (07:47→17:45)
[2022-02-23] MEDS: INSULIN NPH, HUMAN 100 UNIT/1 ML SUB-Q SCH (08:03)
[2022-02-23] MEDS: PRENATAL VIT27-FE FUMARATE-FOLIC ACID VIT TAB PO SCH (10:19)
[2022-02-23] MEDS: HALOPERIDOL 2 MG TAB PO SCH (10:19)
--- NOTE | 2022-02-23 13:05 | Progress Note ---
Assessment and Plan pt walking in the hallway, states feels good and very pleasant. Voiced baby is moving, denies any CTX, LOF, VB. Reviewed plan of care for IOL at 36 weeks. Encouraged to call nurse for any questions or concerns. LUZ MARIA Brooks CNM - Patient Problems (1) GDM (gestational diabetes mellitus) Current Visit: Yes Status: Acute Qualifiers: Gestational diabetes mellitus control: insulin-controlled Trimester: third trimester Qualified Code(s): O24.414 - Gestational diabetes mellitus in , insulin controlled Plan to address problem: Accuchecks and sliding scale as ordered Humulin N 60 / Humulog 30 in am Humulog 22 at dinner Humulin N 24 at bedtime (2) Homeless single person Current Visit: Yes Status: Acute (3) Schizophrenia Current Visit: No Status: Acute Qualifiers: Schizophrenia type: paranoid schizophrenia Qualified Code(s): F20.0 - Paranoid schizophrenia Plan to address problem: pt followed by [facility] Continue teaching re: self-care and diabetes management Utilize therapeutic communication and redirection (4) Gestational hypertension Current Visit: Yes Status: Acute Qualifiers: Trimester: third trimester Qualified Code(s): O13.3 - Gestational [-induced] hypertension without significant proteinuria, third trimester Plan to address problem: dx noted on records from [facility] visit 11/30/2021 Will closely monitor b/p's no s/s pre-e (5) Noncompliance by refusing service Current Visit: Yes Status: Acute Plan to address problem: Pt is being more compliant with monitoring and/or vital signs (6) 35 weeks gestation of Current Visit: Yes Status: Acute Plan to address problem: NST q4h BPP twice a week, last completed on 02/20: 07/08, cephalic EFW 2356g; BPP next ordered 02/25/22 Subjective - Subjective Date of service: 02/23/22 Principal diagnosis: IUP@ 35 weeks, uncontrolled DM, GHTN, psychosis Patient reports: movement normal, other (Denies TERRELL, vision changes, and RUQ pain today), no new complaints, no loss of fluid, no vaginal bleeding, no contractions Objective - Vital Signs Vital Signs: Vital Signs - 12hr 02/23/22 02/23/22 02/23/22 07:36 07:37 07:45 Temperature 98.4 F Pulse Rate 69 82 Blood Pressure 138/79 Blood Pressure 138/79 [Left] O2 Sat by Pulse 79 L Oximetry O2 Sat by Pulse 99 Oximetry [ Bilateral] - Exam Breasts: normal Abdomen: Present: normal appearance, soft Uterus: Present: other (gravid) Extremities: normal - Labs Labs: Abnormal Labs 02/09/22 02/09/22 02/09/22 21:06 22:30 22:30 RBC 3.51 L MCHC 35 H [place] % (Auto) 12.8 H ABG pO2 ABG HCO3 ABG Base Excess ABG Hemoglobin Sodium 134 L Chloride Carbon Dioxide 20 L Creatinine Glucose 452 H POC Glucose 443 H Albumin 3.4 L Urine Creatinine 02/10/22 02/10/22 02/10/22 04:16 04:35 09:49 RBC MCHC [place] % (Auto) ABG pO2 104.0 H ABG HCO3 19.0 L ABG Base Excess -4.8 L ABG Hemoglobin 11.7 L Sodium Chloride Carbon Dioxide Creatinine Glucose POC Glucose 291 H 248 H Albumin Urine Creatinine 02/10/22 02/10/22 02/10/22 11:39 17:07 21:33 RBC MCHC [place] % (Auto) ABG pO2 ABG HCO3 ABG Base Excess ABG Hemoglobin Sodium Chloride Carbon Dioxide Creatinine Glucose POC Glucose 350 H 201 H 187 H Albumin Urine Creatinine 02/10/22 02/11/22 02/11/22 23:00 08:13 11:47 RBC MCHC [place] % (Auto) ABG pO2 ABG HCO3 ABG Base Excess ABG Hemoglobin Sodium 130 L Chloride 96.9 L Carbon Dioxide 19 L Creatinine 0.4 L Glucose 223 H POC Glucose 170 H 188 H Albumin Urine Creatinine 02/11/22 02/12/22 02/12/22 16:48 07:14 10:49 RBC MCHC [place] % (Auto) ABG pO2 ABG HCO3 ABG Base Excess ABG Hemoglobin Sodium Chloride Carbon Dioxide Creatinine Glucose POC Glucose 157 H 173 H 220 H Albumin Urine Creatinine 02/12/22 02/12/22 02/12/22 13:02 16:03 20:44 RBC MCHC [place] % (Auto) ABG pO2 ABG HCO3 ABG Base Excess ABG Hemoglobin Sodium Chloride Carbon Dioxide Creatinine Glucose POC Glucose 208 H 113 H 162 H Albumin Urine Creatinine 02/13/22 02/13/2222 05:40 08:23 12:19 RBC MCHC [place] % (Auto) ABG pO2 ABG HCO3 ABG Base Excess ABG Hemoglobin Sodium 132 L Chloride Carbon Dioxide 17 L Creatinine 0.4 L Glucose 168 H POC Glucose 148 H 150 H Albumin Urine Creatinine 02/13/22 02/13/22 02/13/22 16:54 20:03 22:51 RBC MCHC [place] % (Auto) ABG pO2 ABG HCO3 ABG Base Excess ABG Hemoglobin Sodium Chloride Carbon Dioxide Creatinine Glucose POC Glucose 156 H 154 H 155 H Albumin Urine Creatinine 02/14/22 02/14/22 02/14/22 07:41 11:19 14:06 RBC MCHC [place] % (Auto) ABG pO2 ABG HCO3 ABG Base Excess ABG Hemoglobin Sodium Chloride Carbon Dioxide Creatinine Glucose POC Glucose 121 H 142 H 110 H Albumin Urine Creatinine 02/14/22 02/14/22 02/15/22 17:08 22:01 07:35 RBC MCHC [place] % (Auto) ABG pO2 ABG HCO3 ABG Base Excess ABG Hemoglobin Sodium Chloride Carbon Dioxide Creatinine Glucose POC Glucose 148 H 151 H Albumin Urine Creatinine 69.0 H 02/15/22 02/15/22 02/15/22 07:43 08:01 12:12 RBC MCHC [place] % (Auto) ABG pO2 ABG HCO3 ABG Base Excess ABG Hemoglobin Sodium Chloride Carbon Dioxide Creatinine 0.4 L Glucose POC Glucose 134 H 106 H Albumin Urine Creatinine 02/15/22 02/16/22 02/16/22 22:07 06:31 17:51 RBC MCHC [place] % (Auto) ABG pO2 ABG HCO3 ABG Base Excess ABG Hemoglobin Sodium Chloride Carbon Dioxide Creatinine Glucose POC Glucose 66 L 135 H 142 H Albumin Urine Creatinine 02/17/22 02/18/22 02/18/22 19:57 06:57 17:02 RBC MCHC [place] % (Auto) ABG pO2 ABG HCO3 ABG Base Excess ABG Hemoglobin Sodium Chloride Carbon Dioxide Creatinine Glucose POC Glucose 185 H 159 H 131 H Albumin Urine Creatinine 02/18/22 02/19/22 02/19/22 22:10 12:10 16:49 RBC MCHC [place] % (Auto) ABG pO2 ABG HCO3 ABG Base Excess ABG Hemoglobin Sodium Chloride Carbon Dioxide Creatinine Glucose POC Glucose 157 H 133 H 175 H Albumin Urine Creatinine 02/19/22 02/20/22 02/20/22 22:25 07:38 16:16 RBC MCHC [place] % (Auto) ABG pO2 ABG HCO3 ABG Base Excess ABG Hemoglobin Sodium 133 L Chloride Carbon Dioxide 17 L Creatinine 0.4 L Glucose 110 H POC Glucose 133 H 159 H Albumin 3.6 L Urine Creatinine 02/20/22 02/21/22 02/21/22 21:58 18:05 22:05 RBC MCHC [place] % (Auto) ABG pO2 ABG HCO3 ABG Base Excess ABG Hemoglobin Sodium Chloride Carbon Dioxide Creatinine Glucose POC Glucose 69 L 185 H 63 L Albumin Urine Creatinine 02/22/22 02/22/22 02/22/22 02:49 05:39 11:10 RBC MCHC [place] % (Auto) ABG pO2 ABG HCO3 ABG Base Excess ABG Hemoglobin Sodium Chloride Carbon Dioxide Creatinine Glucose POC Glucose 206 H 112 H 48 L Albumin Urine Creatinine 02/22/22 02/23/22 16:14 07:34 RBC MCHC [place] % (Auto) ABG pO2 ABG HCO3 ABG Base Excess ABG Hemoglobin Sodium Chloride Carbon Dioxide Creatinine Glucose POC Glucose 198 H 106 H Albumin Urine Creatinine Laboratory Results - last 24 hr 02/21/22 02/22/22 02/22/22 22:05 02:49 05:39 POC Glucose 63 L 206 H 112 H 02/22/22 02/22/22 02/23/22 11:10 16:14 07:34 POC Glucose 48 L 198 H 106 H
[2022-02-23 17:50] LABS: Hematocrit 35.8 % (30.3-42.9); Hemoglobin 11.6 gm/dl (10.1-14.3); Mean Corpuscular HGB Conc 33 % (30-34); Mean Corpuscular Volume 92 fl (79-97); Platelet Count 239 K/mm3 (140-440); Red Blood Count 3.88 M/mm3 (3.65-5.03); Red Cell Distribution Width 13.5 % (13.2-15.2)
[2022-02-23 18:12] LABS: Alanine Aminotransferase 15 units/L (7-56); Albumin 3.4 g/dL (3.9-5); Blood Urea Nitrogen 10 mg/dL (7-17); Calcium 9.2 mg/dL (8.4-10.2); Hemolysis Index 7
[2022-02-23 18:20] LABS: BUN/Creatinine Ratio 20
--- NOTE | 2022-02-24 08:24 | Progress Note ---
Assessment and Plan pt at door waiting for breakfast. Voiced baby is moving, denies any CTX, LOF, VB. Reviewed plan of care is still the same for IOL at 36 weeks. Encouraged to call nurse for any questions or concerns. LUZ MARIA Brooks CNM - Patient Problems (1) GDM (gestational diabetes mellitus) Current Visit: Yes Status: Acute Qualifiers: Gestational diabetes mellitus control: insulin-controlled Trimester: third trimester Qualified Code(s): O24.414 - Gestational diabetes mellitus in , insulin controlled Plan to address problem: Accuchecks and sliding scale as ordered Humulin N 60 / Humulog 30 in am Humulog 22 at dinner Humulin N 24 at bedtime (2) Homeless single person Current Visit: Yes Status: Acute (3) Schizophrenia Current Visit: No Status: Acute Qualifiers: Schizophrenia type: paranoid schizophrenia Qualified Code(s): F20.0 - Paranoid schizophrenia Plan to address problem: pt followed by [facility] Continue teaching re: self-care and diabetes management Utilize therapeutic communication and redirection (4) Gestational hypertension Current Visit: Yes Status: Acute Qualifiers: Trimester: third trimester Qualified Code(s): O13.3 - Gestational [-induced] hypertension without significant proteinuria, third trimester Plan to address problem: Will closely monitor b/p's no s/s pre-e Twice weekly CBC/CMP - ordered yesterday 02/23/2022 - normal ptl and AST/ALT (5) Noncompliance by refusing service Current Visit: Yes Status: Acute (6) 35 weeks gestation of Current Visit: Yes Status: Acute Plan to address problem: NST q4h BPP twice a week, last completed on 02/20: 8/8, cephalic EFW 2356g; BPP next ordered 02/24/22 Subjective - Subjective Date of service: 02/24/22 Principal diagnosis: IUP@ 35+1 weeks: DM, GHTN, multiple mental health issues Patient reports: movement normal, other (Denies TERRELL, vision changes, and RUQ pain today), no new complaints, no loss of fluid, no vaginal bleeding, no contractions Objective - Exam Breasts: normal Cardiovascular: Regular rate Lungs: Normal air movement Abdomen: Present: normal appearance, soft. Absent: distention, tenderness Uterus: Present: normal, other (gravid) FHR: auscultation normal Uterine Contraction Monitor Mode: Palpation Uterine Contraction Pattern: Absent Uterine Tone Measurement Phase: Resting Extremities: normal - Labs Labs: Abnormal Labs 02/09/22 02/09/22 02/09/22 21:06 22:30 22:30 RBC 3.51 L MCHC 35 H [place] % (Auto) 12.8 H ABG pO2 ABG HCO3 ABG Base Excess ABG Hemoglobin Sodium 134 L Chloride Carbon Dioxide 20 L Creatinine Glucose 452 H POC Glucose 443 H Albumin 3.4 L Urine Creatinine 02/10/22 02/10/22 02/10/22 04:16 04:35 09:49 RBC MCHC [place] % (Auto) ABG pO2 104.0 H ABG HCO3 19.0 L ABG Base Excess -4.8 L ABG Hemoglobin 11.7 L Sodium Chloride Carbon Dioxide Creatinine Glucose POC Glucose 291 H 248 H Albumin Urine Creatinine 02/10/22 02/10/22 02/10/22 11:39 17:07 21:33 RBC MCHC [place] % (Auto) ABG pO2 ABG HCO3 ABG Base Excess ABG Hemoglobin Sodium Chloride Carbon Dioxide Creatinine Glucose POC Glucose 350 H 201 H 187 H Albumin Urine Creatinine 02/10/22 02/11/22 02/11/22 23:00 08:13 11:47 RBC MCHC [place] % (Auto) ABG pO2 ABG HCO3 ABG Base Excess ABG Hemoglobin Sodium 130 L Chloride 96.9 L Carbon Dioxide 19 L Creatinine 0.4 L Glucose 223 H POC Glucose 170 H 188 H Albumin Urine Creatinine 02/11/22 02/12/22 02/12/22 16:48 07:14 10:49 RBC MCHC [place] % (Auto) ABG pO2 ABG HCO3 ABG Base Excess ABG Hemoglobin Sodium Chloride Carbon Dioxide Creatinine Glucose POC Glucose 157 H 173 H 220 H Albumin Urine Creatinine 02/12/22 02/12/22 02/12/22 13:02 16:03 20:44 RBC MCHC [place] % (Auto) ABG pO2 ABG HCO3 ABG Base Excess ABG Hemoglobin Sodium Chloride Carbon Dioxide Creatinine Glucose POC Glucose 208 H 113 H 162 H Albumin Urine Creatinine 02/13/22 02/13/22 02/13/22 05:40 08:23 12:19 RBC MCHC [place] % (Auto) ABG pO2 ABG HCO3 ABG Base Excess ABG Hemoglobin Sodium 132 L Chloride Carbon Dioxide 17 L Creatinine 0.4 L Glucose 168 H POC Glucose 148 H 150 H Albumin Urine Creatinine 02/13/22 02/13/22 02/13/22 16:54 20:03 22:51 RBC MCHC [place] % (Auto) ABG pO2 ABG HCO3 ABG Base Excess ABG Hemoglobin Sodium Chloride Carbon Dioxide Creatinine Glucose POC Glucose 156 H 154 H 155 H Albumin Urine Creatinine 02/14/22 02/14/22 02/14/22 07:41 11:19 14:06 RBC MCHC [place] % (Auto) ABG pO2 ABG HCO3 ABG Base Excess ABG Hemoglobin Sodium Chloride Carbon Dioxide Creatinine Glucose POC Glucose 121 H 142 H 110 H Albumin Urine Creatinine 02/14/22 02/14/22 02/15/22 17:08 22:01 07:35 RBC MCHC [place] % (Auto) ABG pO2 ABG HCO3 ABG Base Excess ABG Hemoglobin Sodium Chloride Carbon Dioxide Creatinine Glucose POC Glucose 148 H 151 H Albumin Urine Creatinine 69.0 H 02/15/22 02/15/22 02/15/22 07:43 08:01 12:12 RBC MCHC [place] % (Auto) ABG pO2 ABG HCO3 ABG Base Excess ABG Hemoglobin Sodium Chloride Carbon Dioxide Creatinine 0.4 L Glucose POC Glucose 134 H 106 H Albumin Urine Creatinine 02/15/22 02/16/22 02/16/22 22:07 06:31 17:51 RBC MCHC [place] % (Auto) ABG pO2 ABG HCO3 ABG Base Excess ABG Hemoglobin Sodium Chloride Carbon Dioxide Creatinine Glucose POC Glucose 66 L 135 H 142 H Albumin Urine Creatinine 02/17/22 02/18/22 02/18/22 19:57 06:57 17:02 RBC MCHC [place] % (Auto) ABG pO2 ABG HCO3 ABG Base Excess ABG Hemoglobin Sodium Chloride Carbon Dioxide Creatinine Glucose POC Glucose 185 H 159 H 131 H Albumin Urine Creatinine 02/18/22 02/19/22 02/19/22 22:10 12:10 16:49 RBC MCHC [place] % (Auto) ABG pO2 ABG HCO3 ABG Base Excess ABG Hemoglobin Sodium Chloride Carbon Dioxide Creatinine Glucose POC Glucose 157 H 133 H 175 H Albumin Urine Creatinine 02/19/22 02/20/22 02/20/22 22:25 07:38 16:16 RBC MCHC [place] % (Auto) ABG pO2 ABG HCO3 ABG Base Excess ABG Hemoglobin Sodium 133 L Chloride Carbon Dioxide 17 L Creatinine 0.4 L Glucose 110 H POC Glucose 133 H 159 H Albumin 3.6 L Urine Creatinine 02/20/22 02/21/22 02/21/22 21:58 18:05 22:05 RBC MCHC [place] % (Auto) ABG pO2 ABG HCO3 ABG Base Excess ABG Hemoglobin Sodium Chloride Carbon Dioxide Creatinine Glucose POC Glucose 69 L 185 H 63 L Albumin Urine Creatinine 02/22/22 02/22/22 02/22/22 02:49 05:39 11:10 RBC MCHC [place] % (Auto) ABG pO2 ABG HCO3 ABG Base Excess ABG Hemoglobin Sodium Chloride Carbon Dioxide Creatinine Glucose POC Glucose 206 H 112 H 48 L Albumin Urine Creatinine 02/22/22 02/23/22 02/23/22 16:14 07:34 17:17 RBC MCHC [place] % (Auto) ABG pO2 ABG HCO3 ABG Base Excess ABG Hemoglobin Sodium 130 L Chloride Carbon Dioxide 17 L Creatinine 0.5 L Glucose 134 H POC Glucose 198 H 106 H Albumin 3.4 L Urine Creatinine 02/23/22 17:43 RBC MCHC [place] % (Auto) ABG pO2 ABG HCO3 ABG Base Excess ABG Hemoglobin Sodium Chloride Carbon Dioxide Creatinine Glucose POC Glucose 138 H Albumin Urine Creatinine Laboratory Results - last 24 hr 02/23/22 02/23/22 02/23/22 11:53 17:17 17:17 WBC 6.8 RBC 3.88 Hgb 11.6 Hct 35.8 MCV 92 MCH 30 MCHC 33 RDW 13.5 Plt Count 239 Sodium 130 L Potassium 4.0 Chloride 99.8 Carbon Dioxide 17 L Anion Gap 17 BUN 10 Creatinine 0.5 L Estimated GFR > 60 BUN/Creatinine Ratio 20 Glucose 134 H POC Glucose 103 Calcium 9.2 Total Bilirubin < 0.20 AST 15 ALT 15 Alkaline Phosphatase 107 Total Protein 6.8 Albumin 3.4 L Albumin/Globulin Ratio 1.0 02/23/22 02/23/22 17:43 20:06 WBC RBC Hgb Hct MCV MCH MCHC RDW Plt Count Sodium Potassium Chloride Carbon Dioxide Anion Gap BUN Creatinine Estimated GFR BUN/Creatinine Ratio Glucose POC Glucose 138 H 89 Calcium Total Bilirubin AST ALT Alkaline Phosphatase Total Protein Albumin Albumin/Globulin Ratio
[2022-02-24] MEDS: PRENATAL VIT27-FE FUMARATE-FOLIC ACID VIT TAB PO SCH (09:34)
[2022-02-24] MEDS: HALOPERIDOL 2 MG TAB PO SCH ×2 (09:35→21:41)
[2022-02-24] MEDS: INSULIN NPH, HUMAN 100 UNIT/1 ML SUB-Q SCH ×2 (09:36→21:40)
[2022-02-24] MEDS: INSULIN LISPRO 100 UNIT/ML SUB-Q SCH ×4 (09:38→21:41)
--- NOTE | 2022-02-24 10:51 | Ultrasound Report ---
OB ultrasound-biophysical profile INDICATION: well-being Impression: Biophysical profile 8 out of 8. 35 weeks 1 day by ultrasound. heart rate 142 Signer Name: Emanuel Carolina MD Signed: 02/24/2022 10:47 AM Workstation Name: [id number]
[2022-02-25] MEDS: INSULIN LISPRO 100 UNIT/ML SUB-Q SCH ×10 (07:51→16:46)
[2022-02-25] MEDS: INSULIN NPH, HUMAN 100 UNIT/1 ML SUB-Q SCH ×4 (07:54→21:32)
[2022-02-25] MEDS: PRENATAL VIT27-FE FUMARATE-FOLIC ACID VIT TAB PO SCH ×2 (08:07→10:59)
[2022-02-25] MEDS: HALOPERIDOL 2 MG TAB PO SCH ×3 (09:31→21:31)
--- NOTE | 2022-02-25 09:37 | Progress Note ---
Assessment and Plan Pt walking in halls without complaints this am. Reports +FM. Precautions reviewed. D/w pt POC for serial IOL to begin this Friday with continuous monitoring. - Patient Problems (1) Bipolar disorder Current Visit: Yes Status: Acute Qualifiers: Current bipolar episode type: manic Plan to address problem: 1013 status discontinued Haldol per orders (2) Gestational hypertension Current Visit: Yes Status: Acute Qualifiers: Trimester: third trimester Qualified Code(s): O13.3 - Gestational [-induced] hypertension without significant proteinuria, third trimester Plan to address problem: Twice weekly CBC and CMP, next ordered 02/27 Monitor BP and ssx for worsening status (3) Homeless single person Current Visit: Yes Status: Acute (4) Noncompliance by refusing service Current Visit: Yes Status: Acute (5) Obesity, Class III, BMI 40-49.9 (morbid obesity) Current Visit: Yes Status: Acute (6) Schizophrenia Current Visit: No Status: Acute Qualifiers: Schizophrenia type: paranoid schizophrenia Qualified Code(s): F20.0 - Paranoid schizophrenia (7) Diabetes mellitus affecting Current Visit: Yes Status: Acute Qualifiers: Trimester: third trimester Qualified Code(s): O24.913 - Unspecified diabetes mellitus in , third trimester Plan to address problem: Accuchecks and sliding scale as ordered Humulin N 60 / Humulog 30 in am Humulog 22 at dinner Humulin N 24 at bedtime (8) 35 weeks gestation of Current Visit: Yes Status: Acute Plan to address problem: BPP twice a week, last completed on 02/24: 07/08, next ordered 02/27/22 Growth scan q2wks, last completed 02/17: BANDAR 16.4cm, EFW 2356g, cephalic Subjective - Subjective Date of service: 02/25/22 Principal diagnosis: IUP@ 35+2 weeks: DM, GHTN, multiple mental health issues Patient reports: movement normal, other (Denies edema, TERRELL, vision changes, and RUQ pain today), no new complaints, no loss of fluid, no vaginal bleeding, no contractions Objective - Vital Signs Vital Signs: Vital Signs - 12hr 02/25/22 02/25/22 02/25/22 07:12 07:13 07:14 Temperature 97.7 F Pulse Rate 82 73 80 Respiratory 20 Rate Blood Pressure 117/69 Blood Pressure 117/69 [Left] O2 Sat by Pulse 100 100 Oximetry O2 Sat by Pulse 99 Oximetry [ Bilateral] 02/25/22 02/25/22 02/25/22 07:18 07:21 07:25 Temperature Pulse Rate 87 175 H 203 H Respiratory Rate Blood Pressure Blood Pressure [Left] O2 Sat by Pulse 100 77 L 78 L Oximetry O2 Sat by Pulse Oximetry [ Bilateral] 02/25/22 02/25/22 07:27 07:33 Temperature Pulse Rate 175 H Respiratory Rate Blood Pressure Blood Pressure [Left] O2 Sat by Pulse 80 L 75 L Oximetry O2 Sat by Pulse Oximetry [ Bilateral] - Exam Breasts: deferred Lungs: Normal air movement Abdomen: Present: normal appearance, soft. Absent: distention, tenderness, guarding Uterus: Present: other (gravid) FHR: auscultation normal, category 1 Uterine Contraction Monitor Mode: Palpation Uterine Contraction Pattern: Absent Uterine Tone Measurement Phase: Resting Extremities: normal - Labs Labs: Abnormal Labs 02/09/22 02/09/22 02/09/22 21:06 22:30 22:30 RBC 3.51 L MCHC 35 H [place] % (Auto) 12.8 H ABG pO2 ABG HCO3 ABG Base Excess ABG Hemoglobin Sodium 134 L Chloride Carbon Dioxide 20 L Creatinine Glucose 452 H POC Glucose 443 H Albumin 3.4 L Urine Creatinine 02/10/22 02/10/22 02/10/22 04:16 04:35 09:49 RBC MCHC [place] % (Auto) ABG pO2 104.0 H ABG HCO3 19.0 L ABG Base Excess -4.8 L ABG Hemoglobin 11.7 L Sodium Chloride Carbon Dioxide Creatinine Glucose POC Glucose 291 H 248 H Albumin Urine Creatinine 02/10/22 02/10/22 02/10/22 11:39 17:07 21:33 RBC MCHC [place] % (Auto) ABG pO2 ABG HCO3 ABG Base Excess ABG Hemoglobin Sodium Chloride Carbon Dioxide Creatinine Glucose POC Glucose 350 H 201 H 187 H Albumin Urine Creatinine 02/10/22 02/11/22 02/11/22 23:00 08:13 11:47 RBC MCHC [place] % (Auto) ABG pO2 ABG HCO3 ABG Base Excess ABG Hemoglobin Sodium 130 L Chloride 96.9 L Carbon Dioxide 19 L Creatinine 0.4 L Glucose 223 H POC Glucose 170 H 188 H Albumin Urine Creatinine 02/11/22 02/12/22 02/12/22 16:48 07:14 10:49 RBC MCHC [place] % (Auto) ABG pO2 ABG HCO3 ABG Base Excess ABG Hemoglobin Sodium Chloride Carbon Dioxide Creatinine Glucose POC Glucose 157 H 173 H 220 H Albumin Urine Creatinine 02/12/22 02/12/22 02/12/22 13:02 16:03 20:44 RBC MCHC [place] % (Auto) ABG pO2 ABG HCO3 ABG Base Excess ABG Hemoglobin Sodium Chloride Carbon Dioxide Creatinine Glucose POC Glucose 208 H 113 H 162 H Albumin Urine Creatinine 02/13/22 02/13/22 02/13/22 05:40 08:23 12:19 RBC MCHC [place] % (Auto) ABG pO2 ABG HCO3 ABG Base Excess ABG Hemoglobin Sodium 132 L Chloride Carbon Dioxide 17 L Creatinine 0.4 L Glucose 168 H POC Glucose 148 H 150 H Albumin Urine Creatinine 02/13/22 02/13/22 02/13/22 16:54 20:03 22:51 RBC MCHC [place] % (Auto) ABG pO2 ABG HCO3 ABG Base Excess ABG Hemoglobin Sodium Chloride Carbon Dioxide Creatinine Glucose POC Glucose 156 H 154 H 155 H Albumin Urine Creatinine 02/14/22 02/14/22 02/14/22 07:41 11:19 14:06 RBC MCHC [place] % (Auto) ABG pO2 ABG HCO3 ABG Base Excess ABG Hemoglobin Sodium Chloride Carbon Dioxide Creatinine Glucose POC Glucose 121 H 142 H 110 H Albumin Urine Creatinine 02/14/22 02/14/22 02/15/22 17:08 22:01 07:35 RBC MCHC [place] % (Auto) ABG pO2 ABG HCO3 ABG Base Excess ABG Hemoglobin Sodium Chloride Carbon Dioxide Creatinine Glucose POC Glucose 148 H 151 H Albumin Urine Creatinine 69.0 H 02/15/22 02/15/22 02/15/22 07:43 08:01 12:12 RBC MCHC [place] % (Auto) ABG pO2 ABG HCO3 ABG Base Excess ABG Hemoglobin Sodium Chloride Carbon Dioxide Creatinine 0.4 L Glucose POC Glucose 134 H 106 H Albumin Urine Creatinine 02/15/22 02/16/22 02/16/22 22:07 06:31 17:51 RBC MCHC [place] % (Auto) ABG pO2 ABG HCO3 ABG Base Excess ABG Hemoglobin Sodium Chloride Carbon Dioxide Creatinine Glucose POC Glucose 66 L 135 H 142 H Albumin Urine Creatinine 02/17/22 02/18/22 02/18/22 19:57 06:57 17:02 RBC MCHC [place] % (Auto) ABG pO2 ABG HCO3 ABG Base Excess ABG Hemoglobin Sodium Chloride Carbon Dioxide Creatinine Glucose POC Glucose 185 H 159 H 131 H Albumin Urine Creatinine 02/18/22 02/19/22 02/19/22 22:10 12:10 16:49 RBC MCHC [place] % (Auto) ABG pO2 ABG HCO3 ABG Base Excess ABG Hemoglobin Sodium Chloride Carbon Dioxide Creatinine Glucose POC Glucose 157 H 133 H 175 H Albumin Urine Creatinine 02/19/22 02/20/22 02/20/22 22:25 07:38 16:16 RBC MCHC [place] % (Auto) ABG pO2 ABG HCO3 ABG Base Excess ABG Hemoglobin Sodium 133 L Chloride Carbon Dioxide 17 L Creatinine 0.4 L Glucose 110 H POC Glucose 133 H 159 H Albumin 3.6 L Urine Creatinine 02/20/22 02/21/22 02/21/22 21:58 18:05 22:05 RBC MCHC [place] % (Auto) ABG pO2 ABG HCO3 ABG Base Excess ABG Hemoglobin Sodium Chloride Carbon Dioxide Creatinine Glucose POC Glucose 69 L 185 H 63 L Albumin Urine Creatinine 02/22/22 02/22/22 02/22/22 02:49 05:39 11:10 RBC MCHC [place] % (Auto) ABG pO2 ABG HCO3 ABG Base Excess ABG Hemoglobin Sodium Chloride Carbon Dioxide Creatinine Glucose POC Glucose 206 H 112 H 48 L Albumin Urine Creatinine 02/22/22 02/23/22 02/23/22 16:14 07:34 17:17 RBC MCHC [place] % (Auto) ABG pO2 ABG HCO3 ABG Base Excess ABG Hemoglobin Sodium 130 L Chloride Carbon Dioxide 17 L Creatinine 0.5 L Glucose 134 H POC Glucose 198 H 106 H Albumin 3.4 L Urine Creatinine 02/23/22 02/24/22 02/24/22 17:43 16:43 21:24 RBC MCHC [place] % (Auto) ABG pO2 ABG HCO3 ABG Base Excess ABG Hemoglobin Sodium Chloride Carbon Dioxide Creatinine Glucose POC Glucose 138 H 185 H 143 H Albumin Urine Creatinine Laboratory Results - last 24 hr 02/24/22 02/24/22 02/24/22 07:25 16:43 21:24 POC Glucose 97 185 H 143 H - Results US- obstetric: report reviewed
--- NOTE | 2022-02-25 14:06 | Event Note ---
Date: 02/25/22 Agree with senior cost estimator exam and note. Con't current management for now. Monitor as often as pt allows. Will await futher input from MFM. pt stills has no placement in terms of shelters due to gestation. Plan for delivery is at 36 weeks. BP stable and blood sugars improved since admission. Pt has been taking haldol and her insulin today as per CHEMA [place] as well as allowing monitoring of the baby.
--- NOTE | 2022-02-26 07:39 | Progress Note ---
<HARITHA RESTREPO - Last Filed: 02/26/22 08:28> Assessment and Plan Patient reports feeling energetic today, she wishes to walk in halls and go to garden when the weather warms up. her mood is good and cooperative. Voiced baby is moving, denies any CTX, LOF, VB. Reviewed plan of care is still the same for IOL at 36 weeks. Encouraged to call nurse for any questions or concerns. - Patient Problems (1) GDM (gestational diabetes mellitus) Current Visit: Yes Status: Acute Qualifiers: Gestational diabetes mellitus control: insulin-controlled Trimester: third trimester Qualified Code(s): O24.414 - Gestational diabetes mellitus in , insulin controlled Plan to address problem: Accuchecks and sliding scale as ordered Humulin N 60 / Humulog 30 in am Humulog 22 at dinner Humulin N 24 at bedtime (2) Homeless single person Current Visit: Yes Status: Acute (3) Schizophrenia Current Visit: No Status: Acute Qualifiers: Schizophrenia type: paranoid schizophrenia Qualified Code(s): F20.0 - Paranoid schizophrenia Plan to address problem: pt followed by [facility] Continue teaching re: self-care and diabetes management Utilize therapeutic communication and redirection (4) Gestational hypertension Current Visit: Yes Status: Acute Qualifiers: Trimester: third trimester Qualified Code(s): O13.3 - Gestational [-induced] hypertension without significant proteinuria, third trimester Plan to address problem: Will closely monitor b/p's no s/s pre-e Twice weekly CBC/CMP - ordered yesterday 02/23/2022 - normal ptl and AST/ALT (5) Noncompliance by refusing service Current Visit: Yes Status: Acute (6) 35 weeks gestation of Current Visit: Yes Status: Acute Plan to address problem: NST q4h BPP twice a week, last completed on 02/24: 07/08 BPP next ordered 02/27/22 Subjective - Subjective Date of service: 02/26/22 Principal diagnosis: IUP@ 35+3 weeks: DM, GHTN, multiple mental health issues Patient reports: movement normal, other (Denies edema, TERRELL, vision changes, and RUQ pain today), no new complaints, no loss of fluid, no vaginal bleeding, no contractions Objective - Vital Signs Vital Signs: Vital Signs - 12hr 02/25/22 02/25/22 02/25/22 19:37 19:38 19:40 Temperature 97.8 F Pulse Rate 88 Respiratory 18 Rate Blood Pressure 115/68 Blood Pressure 115/68 [Left] O2 Sat by Pulse 88 98 Oximetry O2 Sat by Pulse 99 Oximetry [ Bilateral] - Exam Breasts: normal Cardiovascular: Regular rate Lungs: Normal air movement Abdomen: Present: normal appearance, soft Uterus: Present: normal, fundal height above umbilicus Uterine Contraction Monitor Mode: Palpation Uterine Contraction Pattern: Absent Uterine Tone Measurement Phase: Resting Extremities: normal - Labs Labs: Abnormal Labs 02/09/22 02/09/22 02/09/22 21:06 22:30 22:30 RBC 3.51 L MCHC 35 H [place] % (Auto) 12.8 H ABG pO2 ABG HCO3 ABG Base Excess ABG Hemoglobin Sodium 134 L Chloride Carbon Dioxide 20 L Creatinine Glucose 452 H POC Glucose 443 H Albumin 3.4 L Urine Creatinine 02/10/22 02/10/22 02/10/22 04:16 04:35 09:49 RBC MCHC [place] % (Auto) ABG pO2 104.0 H ABG HCO3 19.0 L ABG Base Excess -4.8 L ABG Hemoglobin 11.7 L Sodium Chloride Carbon Dioxide Creatinine Glucose POC Glucose 291 H 248 H Albumin Urine Creatinine 02/10/22 02/10/22 02/10/22 11:39 17:07 21:33 RBC MCHC [place] % (Auto) ABG pO2 ABG HCO3 ABG Base Excess ABG Hemoglobin Sodium Chloride Carbon Dioxide Creatinine Glucose POC Glucose 350 H 201 H 187 H Albumin Urine Creatinine 02/10/22 02/11/22 02/11/22 23:00 08:13 11:47 RBC MCHC [place] % (Auto) ABG pO2 ABG HCO3 ABG Base Excess ABG Hemoglobin Sodium 130 L Chloride 96.9 L Carbon Dioxide 19 L Creatinine 0.4 L Glucose 223 H POC Glucose 170 H 188 H Albumin Urine Creatinine 02/11/22 02/12/22 02/12/22 16:48 07:14 10:49 RBC MCHC [place] % (Auto) ABG pO2 ABG HCO3 ABG Base Excess ABG Hemoglobin Sodium Chloride Carbon Dioxide Creatinine Glucose POC Glucose 157 H 173 H 220 H Albumin Urine Creatinine 02/12/22 02/12/22 02/12/22 13:02 16:03 20:44 RBC MCHC [place] % (Auto) ABG pO2 ABG HCO3 ABG Base Excess ABG Hemoglobin Sodium Chloride Carbon Dioxide Creatinine Glucose POC Glucose 208 H 113 H 162 H Albumin Urine Creatinine 02/13/22 02/13/22 02/13/22 05:40 08:23 12:19 RBC MCHC [place] % (Auto) ABG pO2 ABG HCO3 ABG Base Excess ABG Hemoglobin Sodium 132 L Chloride Carbon Dioxide 17 L Creatinine 0.4 L Glucose 168 H POC Glucose 148 H 150 H Albumin Urine Creatinine 02/13/22 02/13/22 02/13/22 16:54 20:03 22:51 RBC MCHC [place] % (Auto) ABG pO2 ABG HCO3 ABG Base Excess ABG Hemoglobin Sodium Chloride Carbon Dioxide Creatinine Glucose POC Glucose 156 H 154 H 155 H Albumin Urine Creatinine 02/14/22 02/14/22 02/14/22 07:41 11:19 14:06 RBC MCHC [place] % (Auto) ABG pO2 ABG HCO3 ABG Base Excess ABG Hemoglobin Sodium Chloride Carbon Dioxide Creatinine Glucose POC Glucose 121 H 142 H 110 H Albumin Urine Creatinine 02/14/22 02/14/22 02/15/22 17:08 22:01 07:35 RBC MCHC [place] % (Auto) ABG pO2 ABG HCO3 ABG Base Excess ABG Hemoglobin Sodium Chloride Carbon Dioxide Creatinine Glucose POC Glucose 148 H 151 H Albumin Urine Creatinine 69.0 H 02/15/22 02/15/22 02/15/22 07:43 08:01 12:12 RBC MCHC [place] % (Auto) ABG pO2 ABG HCO3 ABG Base Excess ABG Hemoglobin Sodium Chloride Carbon Dioxide Creatinine 0.4 L Glucose POC Glucose 134 H 106 H Albumin Urine Creatinine 02/15/22 02/16/22 02/16/22 22:07 06:31 17:51 RBC MCHC [place] % (Auto) ABG pO2 ABG HCO3 ABG Base Excess ABG Hemoglobin Sodium Chloride Carbon Dioxide Creatinine Glucose POC Glucose 66 L 135 H 142 H Albumin Urine Creatinine 02/17/22 02/18/22 02/18/22 19:57 06:57 17:02 RBC MCHC [place] % (Auto) ABG pO2 ABG HCO3 ABG Base Excess ABG Hemoglobin Sodium Chloride Carbon Dioxide Creatinine Glucose POC Glucose 185 H 159 H 131 H Albumin Urine Creatinine 02/18/22 02/19/22 02/19/22 22:10 12:10 16:49 RBC MCHC [place] % (Auto) ABG pO2 ABG HCO3 ABG Base Excess ABG Hemoglobin Sodium Chloride Carbon Dioxide Creatinine Glucose POC Glucose 157 H 133 H 175 H Albumin Urine Creatinine 02/19/22 02/20/22 02/20/22 22:25 07:38 16:16 RBC MCHC [place] % (Auto) ABG pO2 ABG HCO3 ABG Base Excess ABG Hemoglobin Sodium 133 L Chloride Carbon Dioxide 17 L Creatinine 0.4 L Glucose 110 H POC Glucose 133 H 159 H Albumin 3.6 L Urine Creatinine 02/20/22 02/21/22 02/21/22 21:58 18:05 22:05 RBC MCHC [place] % (Auto) ABG pO2 ABG HCO3 ABG Base Excess ABG Hemoglobin Sodium Chloride Carbon Dioxide Creatinine Glucose POC Glucose 69 L 185 H 63 L Albumin Urine Creatinine 02/22/22 02/22/22 02/22/22 02:49 05:39 11:10 RBC MCHC [place] % (Auto) ABG pO2 ABG HCO3 ABG Base Excess ABG Hemoglobin Sodium Chloride Carbon Dioxide Creatinine Glucose POC Glucose 206 H 112 H 48 L Albumin Urine Creatinine 02/22/22 02/23/22 02/23/22 16:14 07:34 17:17 RBC MCHC [place] % (Auto) ABG pO2 ABG HCO3 ABG Base Excess ABG Hemoglobin Sodium 130 L Chloride Carbon Dioxide 17 L Creatinine 0.5 L Glucose 134 H POC Glucose 198 H 106 H Albumin 3.4 L Urine Creatinine 02/23/22 02/24/22 02/24/22 17:43 16:43 21:24 RBC MCHC [place] % (Auto) ABG pO2 ABG HCO3 ABG Base Excess ABG Hemoglobin Sodium Chloride Carbon Dioxide Creatinine Glucose POC Glucose 138 H 185 H 143 H Albumin Urine Creatinine 02/25/22 02/25/22 10:55 21:26 RBC MCHC [place] % (Auto) ABG pO2 ABG HCO3 ABG Base Excess ABG Hemoglobin Sodium Chloride Carbon Dioxide Creatinine Glucose POC Glucose 128 H 111 H Albumin Urine Creatinine Laboratory Results - last 24 hr 02/25/22 02/25/22 02/25/22 07:32 10:55 16:42 POC Glucose 92 128 H 74 02/25/22 02/26/22 21:26 07:00 POC Glucose 111 H 96 <DEDRICK VO D - Last Filed: 02/26/22 11:48> Assessment and Plan Patient resting on sofa, states she went to the garden. Calm, cooperative and appropriately responsive. +FM, no bleeding, no LOF,no contractions. Plan of care discussed with patient, she was informed IOL may not occur until 03/02/22. States she wants her great aunt, Adalgisa Gr, to make decisions for her if she's unable to speak appropriately for herself (Listed as person to notify in demographics). Patient stated she does not have a legal guardian. Explained serial IOL as well as possible need for C/S. Risk associated with delivery were discussed, including but not limited to, bleeding that may require blood transfusion, infection that may be life threatening, injury to adjacent organs specifically bowel or bladder that may require further surgeries, or major vascular injury. She was also informed that when she has had a delivery she may require repeat deliveries for all subsequent pregnancies. She declines sterilization at this time. Importance of compliance emphasized. Questions were encouraged and answered. - Patient Problems (1) Intrauterine Current Visit: Yes Status: Inactive (2) Hyperglycemia due to type 2 diabetes mellitus Current Visit: Yes Status: Chronic (3) Obesity, Class III, BMI 40-49.9 (morbid obesity) Current Visit: Yes Status: Acute (4) DVT prophylaxis Current Visit: Yes Status: Acute (5) Schizophrenia Current Visit: No Status: Acute Qualifiers: Schizophrenia type: paranoid schizophrenia Qualified Code(s): F20.0 - Paranoid schizophrenia Objective - Vital Signs Vital Signs: Vital Signs - 12hr 02/26/22 02/26/22 02/26/22 09:19 09:20 09:47 Temperature 97.7 F Pulse Rate 149 H 94 H Blood Pressure 132/81 O2 Sat by Pulse 82 L Oximetry - Labs Labs: Abnormal Labs 02/09/22 02/09/22 02/09/22 21:06 22:30 22:30 RBC 3.51 L MCHC 35 H [place] % (Auto) 12.8 H ABG pO2 ABG HCO3 ABG Base Excess ABG Hemoglobin Sodium 134 L Chloride Carbon Dioxide 20 L Creatinine Glucose 452 H POC Glucose 443 H Albumin 3.4 L Urine Creatinine 02/10/22 02/10/22 02/10/22 04:16 04:35 09:49 RBC MCHC [place] % (Auto) ABG pO2 104.0 H ABG HCO3 19.0 L ABG Base Excess -4.8 L ABG Hemoglobin 11.7 L Sodium Chloride Carbon Dioxide Creatinine Glucose POC Glucose 291 H 248 H Albumin Urine Creatinine 02/10/22 02/10/22 02/10/22 11:39 17:07 21:33 RBC MCHC [place] % (Auto) ABG pO2 ABG HCO3 ABG Base Excess ABG Hemoglobin Sodium Chloride Carbon Dioxide Creatinine Glucose POC Glucose 350 H 201 H 187 H Albumin Urine Creatinine 02/10/22 02/11/22 02/11/22 23:00 08:13 11:47 RBC MCHC [place] % (Auto) ABG pO2 ABG HCO3 ABG Base Excess ABG Hemoglobin Sodium 130 L Chloride 96.9 L Carbon Dioxide 19 L Creatinine 0.4 L Glucose 223 H POC Glucose 170 H 188 H Albumin Urine Creatinine 02/11/22 02/12/22 02/12/22 16:48 07:14 10:49 RBC MCHC [place] % (Auto) ABG pO2 ABG HCO3 ABG Base Excess ABG Hemoglobin Sodium Chloride Carbon Dioxide Creatinine Glucose POC Glucose 157 H 173 H 220 H Albumin Urine Creatinine 02/12/22 02/12/22 02/12/22 13:02 16:03 20:44 RBC MCHC [place] % (Auto) ABG pO2 ABG HCO3 ABG Base Excess ABG Hemoglobin Sodium Chloride Carbon Dioxide Creatinine Glucose POC Glucose 208 H 113 H 162 H Albumin Urine Creatinine 02/13/22 02/13/22 02/13/22 05:40 08:23 12:19 RBC MCHC [place] % (Auto) ABG pO2 ABG HCO3 ABG Base Excess ABG Hemoglobin Sodium 132 L Chloride Carbon Dioxide 17 L Creatinine 0.4 L Glucose 168 H POC Glucose 148 H 150 H Albumin Urine Creatinine 02/13/22 02/13/22 02/13/22 16:54 20:03 22:51 RBC MCHC [place] % (Auto) ABG pO2 ABG HCO3 ABG Base Excess ABG Hemoglobin Sodium Chloride Carbon Dioxide Creatinine Glucose POC Glucose 156 H 154 H 155 H Albumin Urine Creatinine 02/14/22 02/14/22 02/14/22 07:41 11:19 14:06 RBC MCHC [place] % (Auto) ABG pO2 ABG HCO3 ABG Base Excess ABG Hemoglobin Sodium Chloride Carbon Dioxide Creatinine Glucose POC Glucose 121 H 142 H 110 H Albumin Urine Creatinine 02/14/22 02/14/22 02/15/22 17:08 22:01 07:35 RBC MCHC [place] % (Auto) ABG pO2 ABG HCO3 ABG Base Excess ABG Hemoglobin Sodium Chloride Carbon Dioxide Creatinine Glucose POC Glucose 148 H 151 H Albumin Urine Creatinine 69.0 H 02/15/22 02/15/22 02/15/22 07:43 08:01 12:12 RBC MCHC [place] % (Auto) ABG pO2 ABG HCO3 ABG Base Excess ABG Hemoglobin Sodium Chloride Carbon Dioxide Creatinine 0.4 L Glucose POC Glucose 134 H 106 H Albumin Urine Creatinine 02/15/22 02/16/22 02/16/22 22:07 06:31 17:51 RBC MCHC [place] % (Auto) ABG pO2 ABG HCO3 ABG Base Excess ABG Hemoglobin Sodium Chloride Carbon Dioxide Creatinine Glucose POC Glucose 66 L 135 H 142 H Albumin Urine Creatinine 02/17/22 02/18/22 02/18/22 19:57 06:57 17:02 RBC MCHC [place] % (Auto) ABG pO2 ABG HCO3 ABG Base Excess ABG Hemoglobin Sodium Chloride Carbon Dioxide Creatinine Glucose POC Glucose 185 H 159 H 131 H Albumin Urine Creatinine 02/18/22 02/19/22 02/19/22 22:10 12:10 16:49 RBC MCHC [place] % (Auto) ABG pO2 ABG HCO3 ABG Base Excess ABG Hemoglobin Sodium Chloride Carbon Dioxide Creatinine Glucose POC Glucose 157 H 133 H 175 H Albumin Urine Creatinine 02/19/22 02/20/22 02/20/22 22:25 07:38 16:16 RBC MCHC [place] % (Auto) ABG pO2 ABG HCO3 ABG Base Excess ABG Hemoglobin Sodium 133 L Chloride Carbon Dioxide 17 L Creatinine 0.4 L Glucose 110 H POC Glucose 133 H 159 H Albumin 3.6 L Urine Creatinine 02/20/22 02/21/22 02/21/22 21:58 18:05 22:05 RBC MCHC [place] % (Auto) ABG pO2 ABG HCO3 ABG Base Excess ABG Hemoglobin Sodium Chloride Carbon Dioxide Creatinine Glucose POC Glucose 69 L 185 H 63 L Albumin Urine Creatinine 02/22/22 02/22/22 02/22/22 02:49 05:39 11:10 RBC MCHC [place] % (Auto) ABG pO2 ABG HCO3 ABG Base Excess ABG Hemoglobin Sodium Chloride Carbon Dioxide Creatinine Glucose POC Glucose 206 H 112 H 48 L Albumin Urine Creatinine 02/22/22 02/23/22 02/23/22 16:14 07:34 17:17 RBC MCHC [place] % (Auto) ABG pO2 ABG HCO3 ABG Base Excess ABG Hemoglobin Sodium 130 L Chloride Carbon Dioxide 17 L Creatinine 0.5 L Glucose 134 H POC Glucose 198 H 106 H Albumin 3.4 L Urine Creatinine 02/23/22 02/24/22 02/24/22 17:43 16:43 21:24 RBC MCHC [place] % (Auto) ABG pO2 ABG HCO3 ABG Base Excess ABG Hemoglobin Sodium Chloride Carbon Dioxide Creatinine Glucose POC Glucose 138 H 185 H 143 H Albumin Urine Creatinine 02/25/22 02/25/22 10:55 21:26 RBC MCHC [place] % (Auto) ABG pO2 ABG HCO3 ABG Base Excess ABG Hemoglobin Sodium Chloride Carbon Dioxide Creatinine Glucose POC Glucose 128 H 111 H Albumin Urine Creatinine Laboratory Results - last 24 hr 02/25/22 02/25/22 02/25/22 07:32 10:55 16:42 POC Glucose 92 128 H 74 02/25/22 02/26/22 21:26 07:00 POC Glucose 111 H 96
--- NOTE | 2022-02-26 07:52 | Progress Note ---
Assessment and Plan A. 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 Due to patient's medical history requiring Frequent BS / BP monitoring with insulin therapy and her current homeless situation pt is to remain in house pending her delivery at 36 weeks if possible continuous EFM if not NST Q 4hr Until delivery at 36 weeks with any concerns or further evaluation kindly notify aviation ordnance officer APA provider Continue current insulin therapy with sliding scale QAM 60N / 30R QPM 22R QPM 24N Obtain US for interval growth Q 2 weeks BPP twice a week As per ACOG poorly controlled /noncompliance of DM timing of delivery at 36 weeks unless there is intervening indication Contraindication to continued expectant management, in which delivery is indicated, include the followin. -Cerbrovascular disturbances unresponsive to medical management 2. -Unrelenting right upper quadrant pain 3. -Liver function tests greater than 2x the upper limit of normal 4. -Thrombocytopenia <100,000/microL 5. -Creatinine greater than 1.1 mg/dL 6. -Eclampsia 7. -Pulmonary edema 8. -Hypertension requiring initiation of fast upward titration of oral agents or multiple pushes of IV anti-hypetensives unresponsive to therapy Subjective - Subjective Date of service: 02/26/22 (0745) Principal diagnosis: IUP@ 35+3 weeks: DM, GHTN, multiple mental health issues Patient reports: movement normal, other (Denies edema, TERRELL, vision changes, and RUQ pain today), no new complaints, no loss of fluid, no vaginal bleeding, no contractions Objective - Exam Breasts: deferred Cardiovascular: Regular rate Abdomen: Present: other (gravid ). Absent: tenderness, guarding Uterine Contraction Pattern: Absent Extremities: normal - Labs Labs: Abnormal Labs 02/09/22 02/09/22 02/09/22 21:06 22:30 22:30 RBC 3.51 L MCHC 35 H [place] % (Auto) 12.8 H ABG pO2 ABG HCO3 ABG Base Excess ABG Hemoglobin Sodium 134 L Chloride Carbon Dioxide 20 L Creatinine Glucose 452 H POC Glucose 443 H Albumin 3.4 L Urine Creatinine 02/10/22 02/10/22 02/10/22 04:16 04:35 09:49 RBC MCHC [place] % (Auto) ABG pO2 104.0 H ABG HCO3 19.0 L ABG Base Excess -4.8 L ABG Hemoglobin 11.7 L Sodium Chloride Carbon Dioxide Creatinine Glucose POC Glucose 291 H 248 H Albumin Urine Creatinine 02/10/22 02/10/22 02/10/22 11:39 17:07 21:33 RBC MCHC [place] % (Auto) ABG pO2 ABG HCO3 ABG Base Excess ABG Hemoglobin Sodium Chloride Carbon Dioxide Creatinine Glucose POC Glucose 350 H 201 H 187 H Albumin Urine Creatinine 02/10/22 02/11/22 02/11/22 23:00 08:13 11:47 RBC MCHC [place] % (Auto) ABG pO2 ABG HCO3 ABG Base Excess ABG Hemoglobin Sodium 130 L Chloride 96.9 L Carbon Dioxide 19 L Creatinine 0.4 L Glucose 223 H POC Glucose 170 H 188 H Albumin Urine Creatinine 02/11/22 02/12/22 02/12/22 16:48 07:14 10:49 RBC MCHC [place] % (Auto) ABG pO2 ABG HCO3 ABG Base Excess ABG Hemoglobin Sodium Chloride Carbon Dioxide Creatinine Glucose POC Glucose 157 H 173 H 220 H Albumin Urine Creatinine 02/12/22 02/12/22 02/12/22 13:02 16:03 20:44 RBC MCHC [place] % (Auto) ABG pO2 ABG HCO3 ABG Base Excess ABG Hemoglobin Sodium Chloride Carbon Dioxide Creatinine Glucose POC Glucose 208 H 113 H 162 H Albumin Urine Creatinine 02/13/22 02/13/22 02/13/22 05:40 08:23 12:19 RBC MCHC [place] % (Auto) ABG pO2 ABG HCO3 ABG Base Excess ABG Hemoglobin Sodium 132 L Chloride Carbon Dioxide 17 L Creatinine 0.4 L Glucose 168 H POC Glucose 148 H 150 H Albumin Urine Creatinine 02/13/22 02/13/22 02/13/22 16:54 20:03 22:51 RBC MCHC [place] % (Auto) ABG pO2 ABG HCO3 ABG Base Excess ABG Hemoglobin Sodium Chloride Carbon Dioxide Creatinine Glucose POC Glucose 156 H 154 H 155 H Albumin Urine Creatinine 02/14/22 02/14/22 02/14/22 07:41 11:19 14:06 RBC MCHC [place] % (Auto) ABG pO2 ABG HCO3 ABG Base Excess ABG Hemoglobin Sodium Chloride Carbon Dioxide Creatinine Glucose POC Glucose 121 H 142 H 110 H Albumin Urine Creatinine 02/14/22 02/14/22 02/15/22 17:08 22:01 07:35 RBC MCHC [place] % (Auto) ABG pO2 ABG HCO3 ABG Base Excess ABG Hemoglobin Sodium Chloride Carbon Dioxide Creatinine Glucose POC Glucose 148 H 151 H Albumin Urine Creatinine 69.0 H 02/15/22 02/15/22 02/15/22 07:43 08:01 12:12 RBC MCHC [place] % (Auto) ABG pO2 ABG HCO3 ABG Base Excess ABG Hemoglobin Sodium Chloride Carbon Dioxide Creatinine 0.4 L Glucose POC Glucose 134 H 106 H Albumin Urine Creatinine 02/15/22 02/16/22 02/16/22 22:07 06:31 17:51 RBC MCHC [place] % (Auto) ABG pO2 ABG HCO3 ABG Base Excess ABG Hemoglobin Sodium Chloride Carbon Dioxide Creatinine Glucose POC Glucose 66 L 135 H 142 H Albumin Urine Creatinine 02/17/22 02/18/22 02/18/22 19:57 06:57 17:02 RBC MCHC [place] % (Auto) ABG pO2 ABG HCO3 ABG Base Excess ABG Hemoglobin Sodium Chloride Carbon Dioxide Creatinine Glucose POC Glucose 185 H 159 H 131 H Albumin Urine Creatinine 02/18/22 02/19/22 02/19/22 22:10 12:10 16:49 RBC MCHC [place] % (Auto) ABG pO2 ABG HCO3 ABG Base Excess ABG Hemoglobin Sodium Chloride Carbon Dioxide Creatinine Glucose POC Glucose 157 H 133 H 175 H Albumin Urine Creatinine 02/19/22 02/20/22 02/20/22 22:25 07:38 16:16 RBC MCHC [place] % (Auto) ABG pO2 ABG HCO3 ABG Base Excess ABG Hemoglobin Sodium 133 L Chloride Carbon Dioxide 17 L Creatinine 0.4 L Glucose 110 H POC Glucose 133 H 159 H Albumin 3.6 L Urine Creatinine 02/20/22 02/21/22 02/21/22 21:58 18:05 22:05 RBC MCHC [place] % (Auto) ABG pO2 ABG HCO3 ABG Base Excess ABG Hemoglobin Sodium Chloride Carbon Dioxide Creatinine Glucose POC Glucose 69 L 185 H 63 L Albumin Urine Creatinine 02/22/22 02/22/22 02/22/22 02:49 05:39 11:10 RBC MCHC [place] % (Auto) ABG pO2 ABG HCO3 ABG Base Excess ABG Hemoglobin Sodium Chloride Carbon Dioxide Creatinine Glucose POC Glucose 206 H 112 H 48 L Albumin Urine Creatinine 02/22/22 02/23/22 02/23/22 16:14 07:34 17:17 RBC MCHC [place] % (Auto) ABG pO2 ABG HCO3 ABG Base Excess ABG Hemoglobin Sodium 130 L Chloride Carbon Dioxide 17 L Creatinine 0.5 L Glucose 134 H POC Glucose 198 H 106 H Albumin 3.4 L Urine Creatinine 02/23/22 02/24/22 02/24/22 17:43 16:43 21:24 RBC MCHC [place] % (Auto) ABG pO2 ABG HCO3 ABG Base Excess ABG Hemoglobin Sodium Chloride Carbon Dioxide Creatinine Glucose POC Glucose 138 H 185 H 143 H Albumin Urine Creatinine 02/25/22 02/25/22 10:55 21:26 RBC MCHC [place] % (Auto) ABG pO2 ABG HCO3 ABG Base Excess ABG Hemoglobin Sodium Chloride Carbon Dioxide Creatinine Glucose POC Glucose 128 H 111 H Albumin Urine Creatinine Laboratory Results - last 24 hr 02/25/22 02/25/22 02/25/22 07:32 10:55 16:42 POC Glucose 92 128 H 74 02/25/22 02/26/22 21:26 07:00 POC Glucose 111 H 96
[2022-02-26] MEDS: INSULIN NPH, HUMAN 100 UNIT/1 ML SUB-Q SCH ×2 (09:13→22:00)
[2022-02-26] MEDS: INSULIN LISPRO 100 UNIT/ML SUB-Q SCH ×3 (09:16→17:31)
[2022-02-26] MEDS: HALOPERIDOL 2 MG TAB PO SCH ×2 (10:14→21:57)
[2022-02-26] MEDS: PRENATAL VIT27-FE FUMARATE-FOLIC ACID VIT TAB PO SCH (10:17)
[2022-02-27 08:35] LABS: Hematocrit 34.1 % (30.3-42.9); Hemoglobin 11.1 gm/dl (10.1-14.3); Mean Corpuscular HGB Conc 33 % (30-34); Mean Corpuscular Volume 92 fl (79-97); Platelet Count 253 K/mm3 (140-440); Red Blood Count 3.69 M/mm3 (3.65-5.03); Red Cell Distribution Width 13.9 % (13.2-15.2)
[2022-02-27] MEDS: INSULIN NPH, HUMAN 100 UNIT/1 ML SUB-Q SCH ×2 (08:36→22:46)
[2022-02-27] MEDS: INSULIN LISPRO 100 UNIT/ML SUB-Q SCH ×3 (08:38→17:23)
[2022-02-27] MEDS: PRENATAL VIT27-FE FUMARATE-FOLIC ACID VIT TAB PO SCH (08:42)
[2022-02-27 08:59] LABS: Alanine Aminotransferase 12 units/L (7-56); Albumin 3.4 g/dL (3.9-5); Blood Urea Nitrogen 11 mg/dL (7-17); Calcium 9.3 mg/dL (8.4-10.2); Hemolysis Index 3
[2022-02-27 09:09] LABS: BUN/Creatinine Ratio 22
[2022-02-27] MEDS: HALOPERIDOL 2 MG TAB PO SCH ×2 (10:28→22:42)
--- NOTE | 2022-02-27 11:21 | Progress Note ---
Assessment and Plan Pt reports decreased movement, pt states "I feel her moving right now". Danielle RN requested to bedside and external monitors placed. Discussed kick counts and recommendations for continuous monitoring. Precautions reviewed. BPP ordered for today. Dr Moeller made aware. - Patient Problems (1) Bipolar disorder Current Visit: Yes Status: Acute Qualifiers: Current bipolar episode type: manic Plan to address problem: Haldol per orders (2) Gestational hypertension Current Visit: Yes Status: Acute Qualifiers: Trimester: third trimester Qualified Code(s): O13.3 - Gestational [-induced] hypertension without significant proteinuria, third trim alo Plan to address problem: Twice weekly CBC and CMP, completed today, next ordered 03/02/22 Monitor BP and ssx for worsening status (3) Homeless single person Current Visit: Yes Status: Acute (4) Noncompliance by refusing service Current Visit: Yes Status: Acute (5) Obesity, Class III, BMI 40-49.9 (morbid obesity) Current Visit: Yes Status: Acute (6) Schizophrenia Current Visit: No Status: Acute Qualifiers: Schizophrenia type: paranoid schizophrenia Qualified Code(s): F20.0 - Paranoid schizophrenia (7) Diabetes mellitus affecting Current Visit: Yes Status: Acute Qualifiers: Trimester: third trimester Qualified Code(s): O24.913 - Unspecified diabetes mellitus in , third trimester Plan to address problem: Accuchecks and sliding scale as ordered Humulin N 60 / Humulog 30 in am Humulog 22 at dinner Humulin N 24 at bedtime (8) 35 weeks gestation of Current Visit: Yes Status: Acute Plan to address problem: BPP twice a week, last completed on 02/24: 07/08, next ordered for today Growth scan q2wks, last completed 02/17: BANDAR 16.4cm, EFW 2356g, cephalic Subjective - Subjective Date of service: 02/27/22 Principal diagnosis: IUP@ 35+4 weeks: DM, GHTN, multiple mental health issues Patient reports: other (Denies edema, TERRELL, vision changes, and RUQ pain), no loss of fluid, no vaginal bleeding, no contractions Objective - Vital Signs Vital Signs: Vital Signs - 12hr 02/27/22 10:31 Pulse Rate 75 Blood Pressure 129/84 O2 Sat by Pulse 83 L Oximetry - Exam Breasts: deferred Abdomen: Present: soft Uterus: Absent: tenderness FHR: auscultation normal, category 1 Uterine Contraction Monitor Mode: External Uterine Tone Measurement Phase: Resting Extremities: normal - Labs Labs: Abnormal Labs 02/09/22 02/09/22 02/09/22 21:06 22:30 22:30 RBC 3.51 L MCHC 35 H [place] % (Auto) 12.8 H ABG pO2 ABG HCO3 ABG Base Excess ABG Hemoglobin Sodium 134 L Chloride Carbon Dioxide 20 L Creatinine Glucose 452 H POC Glucose 443 H Albumin 3.4 L Urine Creatinine 02/10/22 02/10/22 02/10/22 04:16 04:35 09:49 RBC MCHC [place] % (Auto) ABG pO2 104.0 H ABG HCO3 19.0 L ABG Base Excess -4.8 L ABG Hemoglobin 11.7 L Sodium Chloride Carbon Dioxide Creatinine Glucose POC Glucose 291 H 248 H Albumin Urine Creatinine 02/10/22 02/10/22 02/10/22 11:39 17:07 21:33 RBC MCHC [place] % (Auto) ABG pO2 ABG HCO3 ABG Base Excess ABG Hemoglobin Sodium Chloride Carbon Dioxide Creatinine Glucose POC Glucose 350 H 201 H 187 H Albumin Urine Creatinine 02/10/22 02/11/22 02/11/22 23:00 08:13 11:47 RBC MCHC [place] % (Auto) ABG pO2 ABG HCO3 ABG Base Excess ABG Hemoglobin Sodium 130 L Chloride 96.9 L Carbon Dioxide 19 L Creatinine 0.4 L Glucose 223 H POC Glucose 170 H 188 H Albumin Urine Creatinine 02/11/22 02/12/22 02/12/22 16:48 07:14 10:49 RBC MCHC [place] % (Auto) ABG pO2 ABG HCO3 ABG Base Excess ABG Hemoglobin Sodium Chloride Carbon Dioxide Creatinine Glucose POC Glucose 157 H 173 H 220 H Albumin Urine Creatinine 02/12/22 02/12/22 02/12/22 13:02 16:03 20:44 RBC MCHC [place] % (Auto) ABG pO2 ABG HCO3 ABG Base Excess ABG Hemoglobin Sodium Chloride Carbon Dioxide Creatinine Glucose POC Glucose 208 H 113 H 162 H Albumin Urine Creatinine 02/13/22 02/13/22 02/13/22 05:40 08:23 12:19 RBC MCHC [place] % (Auto) ABG pO2 ABG HCO3 ABG Base Excess ABG Hemoglobin Sodium 132 L Chloride Carbon Dioxide 17 L Creatinine 0.4 L Glucose 168 H POC Glucose 148 H 150 H Albumin Urine Creatinine 02/13/22 02/13/22 02/13/22 16:54 20:03 22:51 RBC MCHC [place] % (Auto) ABG pO2 ABG HCO3 ABG Base Excess ABG Hemoglobin Sodium Chloride Carbon Dioxide Creatinine Glucose POC Glucose 156 H 154 H 155 H Albumin Urine Creatinine 02/14/22 02/14/22 02/14/22 07:41 11:19 14:06 RBC MCHC [place] % (Auto) ABG pO2 ABG HCO3 ABG Base Excess ABG Hemoglobin Sodium Chloride Carbon Dioxide Creatinine Glucose POC Glucose 121 H 142 H 110 H Albumin Urine Creatinine 02/14/22 02/14/22 02/15/22 17:08 22:01 07:35 RBC MCHC [place] % (Auto) ABG pO2 ABG HCO3 ABG Base Excess ABG Hemoglobin Sodium Chloride Carbon Dioxide Creatinine Glucose POC Glucose 148 H 151 H Albumin Urine Creatinine 69.0 H 02/15/22 02/15/22 02/15/22 07:43 08:01 12:12 RBC MCHC [place] % (Auto) ABG pO2 ABG HCO3 ABG Base Excess ABG Hemoglobin Sodium Chloride Carbon Dioxide Creatinine 0.4 L Glucose POC Glucose 134 H 106 H Albumin Urine Creatinine 02/15/22 02/16/22 02/16/22 22:07 06:31 17:51 RBC MCHC [place] % (Auto) ABG pO2 ABG HCO3 ABG Base Excess ABG Hemoglobin Sodium Chloride Carbon Dioxide Creatinine Glucose POC Glucose 66 L 135 H 142 H Albumin Urine Creatinine 02/17/22 02/18/22 02/18/22 19:57 06:57 17:02 RBC MCHC [place] % (Auto) ABG pO2 ABG HCO3 ABG Base Excess ABG Hemoglobin Sodium Chloride Carbon Dioxide Creatinine Glucose POC Glucose 185 H 159 H 131 H Albumin Urine Creatinine 02/18/22 02/19/22 02/19/22 22:10 12:10 16:49 RBC MCHC [place] % (Auto) ABG pO2 ABG HCO3 ABG Base Excess ABG Hemoglobin Sodium Chloride Carbon Dioxide Creatinine Glucose POC Glucose 157 H 133 H 175 H Albumin Urine Creatinine 02/19/22 02/20/22 02/20/22 22:25 07:38 16:16 RBC MCHC [place] % (Auto) ABG pO2 ABG HCO3 ABG Base Excess ABG Hemoglobin Sodium 133 L Chloride Carbon Dioxide 17 L Creatinine 0.4 L Glucose 110 H POC Glucose 133 H 159 H Albumin 3.6 L Urine Creatinine 02/20/22 02/21/22 02/21/22 21:58 18:05 22:05 RBC MCHC [place] % (Auto) ABG pO2 ABG HCO3 ABG Base Excess ABG Hemoglobin Sodium Chloride Carbon Dioxide Creatinine Glucose POC Glucose 69 L 185 H 63 L Albumin Urine Creatinine 02/22/22 02/22/22 02/22/22 02:49 05:39 11:10 RBC MCHC [place] % (Auto) ABG pO2 ABG HCO3 ABG Base Excess ABG Hemoglobin Sodium Chloride Carbon Dioxide Creatinine Glucose POC Glucose 206 H 112 H 48 L Albumin Urine Creatinine 02/22/22 02/23/22 02/23/22 16:14 07:34 17:17 RBC MCHC [place] % (Auto) ABG pO2 ABG HCO3 ABG Base Excess ABG Hemoglobin Sodium 130 L Chloride Carbon Dioxide 17 L Creatinine 0.5 L Glucose 134 H POC Glucose 198 H 106 H Albumin 3.4 L Urine Creatinine 02/23/22 02/24/22 02/24/22 17:43 16:43 21:24 RBC MCHC [place] % (Auto) ABG pO2 ABG HCO3 ABG Base Excess ABG Hemoglobin Sodium Chloride Carbon Dioxide Creatinine Glucose POC Glucose 138 H 185 H 143 H Albumin Urine Creatinine 02/25/22 02/25/22 02/26/22 10:55 21:26 11:45 RBC MCHC [place] % (Auto) ABG pO2 ABG HCO3 ABG Base Excess ABG Hemoglobin Sodium Chloride Carbon Dioxide Creatinine Glucose POC Glucose 128 H 111 H 67 L Albumin Urine Creatinine 02/26/22 02/27/22 16:55 08:27 RBC MCHC [place] % (Auto) ABG pO2 ABG HCO3 ABG Base Excess ABG Hemoglobin Sodium 135 L Chloride Carbon Dioxide 18 L Creatinine 0.5 L Glucose POC Glucose 154 H Albumin 3.4 L Urine Creatinine Laboratory Results - last 24 hr 02/26/22 02/26/22 02/26/22 11:45 16:55 21:58 WBC RBC Hgb Hct MCV MCH MCHC RDW Plt Count Sodium Potassium Chloride Carbon Dioxide Anion Gap BUN Creatinine Estimated GFR BUN/Creatinine Ratio Glucose POC Glucose 67 L 154 H 94 Calcium Total Bilirubin AST ALT Alkaline Phosphatase Total Protein Albumin Albumin/Globulin Ratio 02/27/22 02/27/22 08:27 08:27 WBC 6.5 RBC 3.69 Hgb 11.1 Hct 34.1 MCV 92 MCH 30 MCHC 33 RDW 13.9 Plt Count 253 Sodium 135 L Potassium 4.2 Chloride 104.7 Carbon Dioxide 18 L Anion Gap 17 BUN 11 Creatinine 0.5 L Estimated GFR > 60 BUN/Creatinine Ratio 22 Glucose 91 POC Glucose Calcium 9.3 Total Bilirubin < 0.20 AST 13 ALT 12 Alkaline Phosphatase 108 Total Protein 6.6 Albumin 3.4 L Albumin/Globulin Ratio 1.1
[2022-02-27 16:55] LABS: Hepatitis C Virus Antibody Non-Reactive (NonReactive)
--- NOTE | 2022-02-27 18:15 | Ultrasound Report ---
Biophysical profile INDICATION: well-being FINDINGS: The biophysical profile measures 8 out of 8. heart rate is 121. Estimated age 35 week s 4 days. IMPRESSION: Biophysical profile 8 out of 8 Signer Name: Emanuel Carolina MD Signed: 02/27/2022 6:11 PM Workstation Name: [id number]
[2022-02-28] MEDS: INSULIN NPH, HUMAN 100 UNIT/1 ML SUB-Q SCH ×2 (08:17→22:07)
[2022-02-28] MEDS: INSULIN LISPRO 100 UNIT/ML SUB-Q SCH ×7 (08:18→17:02)
--- NOTE | 2022-02-28 08:42 | Progress Note ---
Assessment and Plan A: IUP @ 35.5 weeks: DM, GHTN, multiple mental health issues. - Patient Problems (1) GDM (gestational diabetes mellitus) Current Visit: Yes Status: Acute Qualifiers: Gestational diabetes mellitus control: insulin-controlled Trimester: third trimester Qualified Code(s): O24.414 - Gestational diabetes mellitus in , insulin controlled Plan to address problem: Accuchecks and sliding scale as ordered Humulin N 60 / Humulog 30 in am Humulog 22 at dinner Humulin N 24 at bedtime Continue to monitor glucose levels. (2) Gestational hypertension Current Visit: Yes Status: Acute Qualifiers: Trimester: third trimester Qualified Code(s): O13.3 - Gestational [-induced] hypertension without significant proteinuria, third trimester Plan to address problem: Continue to monitor blood pressures. Continue to monitor for s/sx of pre eclampsia. (3) Noncompliance by refusing service Current Visit: Yes Status: Acute (4) Bipolar disorder Current Visit: Yes Status: Acute Qualifiers: Current bipolar episode type: manic (5) Schizophrenia Current Visit: No Status: Acute Qualifiers: Schizophrenia type: paranoid schizophrenia Qualified Code(s): F20.0 - Paranoid schizophrenia Plan to address problem: pt followed by [facility] Continue teaching re: self-care and diabetes management Utilize therapeutic communication and redirection (6) 35 weeks gestation of Current Visit: Yes Status: Acute Plan to address problem: NST q4h Per APA: recommend continuous if possible. BPP twice a week, last completed on 02/27: 8/8. IOL to be started on 03/02. Subjective - Subjective Date of service: 02/28/22 Principal diagnosis: IUP@ 35.5 weeks: DM, GHTN, Bi polar, Schziophrenia Patient reports: other (Denies edema, TERRELL, vision changes, and RUQ pain), no loss of fluid, no vaginal bleeding, no contractions Objective - Vital Signs Vital Signs: Vital Signs - 12hr 02/27/22 02/27/22 02/27/22 20:39 20:44 20:49 Temperature Pulse Rate 77 81 85 Respiratory Rate Blood Pressure Blood Pressure [Left] O2 Sat by Pulse 99 99 99 Oximetry 02/27/22 02/27/22 02/27/22 20:54 20:59 21:04 Temperature Pulse Rate 81 78 80 Respiratory Rate Blood Pressure Blood Pressure [Left] O2 Sat by Pulse 100 100 100 Oximetry 02/27/22 02/27/22 02/28/22 21:09 21:18 04:46 Temperature Pulse Rate 84 60 79 Respiratory Rate Blood Pressure Blood Pressure [Left] O2 Sat by Pulse 100 82 L 76 L Oximetry 02/28/22 02/28/22 02/28/22 04:47 04:48 04:52 Temperature 97.9 F Pulse Rate 83 85 82 Respiratory 18 Rate Blood Pressure 123/62 Blood Pressure 123/62 [Left] O2 Sat by Pulse 99 99 Oximetry 02/28/22 02/28/22 02/28/22 04:53 04:58 05:03 Temperature Pulse Rate 77 80 73 Respiratory Rate Blood Pressure Blood Pressure [Left] O2 Sat by Pulse 99 99 99 Oximetry 02/28/22 02/28/22 02/28/22 05:08 05:13 05:18 Temperature Pulse Rate 77 82 86 Respiratory Rate Blood Pressure Blood Pressure [Left] O2 Sat by Pulse 99 99 99 Oximetry 02/28/22 02/28/22 02/28/22 05:23 05:28 05:33 Temperature Pulse Rate 79 71 85 Respiratory Rate Blood Pressure Blood Pressure [Left] O2 Sat by Pulse 99 100 99 Oximetry 02/28/22 02/28/22 02/28/22 05:38 05:43 05:48 Temperature Pulse Rate 79 77 77 Respiratory Rate Blood Pressure Blood Pressure [Left] O2 Sat by Pulse 100 100 100 Oximetry 02/28/22 02/28/22 02/28/22 05:53 05:58 06:03 Temperature Pulse Rate 79 80 77 Respiratory Rate Blood Pressure Blood Pressure [Left] O2 Sat by Pulse 100 99 98 Oximetry 02/28/22 02/28/22 02/28/22 06:08 06:13 06:18 Temperature Pulse Rate 77 77 86 Respiratory Rate Blood Pressure Blood Pressure [Left] O2 Sat by Pulse 99 98 99 Oximetry 02/28/22 02/28/22 06:23 06:28 Temperature Pulse Rate 94 H 85 Respiratory Rate Blood Pressure Blood Pressure [Left] O2 Sat by Pulse 99 98 Oximetry - Exam Narrative Exam: Blood pressure ranges have been 100-132/57-81. Glucose levels have been 80's- 140's. Breasts: deferred Cardiovascular: Regular rate Lungs: Normal air movement Abdomen: Present: normal appearance, soft FHR: category 1 Uterine Contraction Monitor Mode: External (NST have been reactive. Reported some contractions yesterday. NST to be completed this AM.) - Labs Labs: Abnormal Labs 02/09/22 02/09/22 02/09/22 21:06 22:30 22:30 RBC 3.51 L MCHC 35 H [place] % (Auto) 12.8 H ABG pO2 ABG HCO3 ABG Base Excess ABG Hemoglobin Sodium 134 L Chloride Carbon Dioxide 20 L Creatinine Glucose 452 H POC Glucose 443 H Albumin 3.4 L Urine Creatinine 02/10/22 02/10/22 02/10/22 04:16 04:35 09:49 RBC MCHC [place] % (Auto) ABG pO2 104.0 H ABG HCO3 19.0 L ABG Base Excess -4.8 L ABG Hemoglobin 11.7 L Sodium Chloride Carbon Dioxide Creatinine Glucose POC Glucose 291 H 248 H Albumin Urine Creatinine 02/10/22 02/10/22 02/10/22 11:39 17:07 21:33 RBC MCHC [place] % (Auto) ABG pO2 ABG HCO3 ABG Base Excess ABG Hemoglobin Sodium Chloride Carbon Dioxide Creatinine Glucose POC Glucose 350 H 201 H 187 H Albumin Urine Creatinine 02/10/22 02/11/22 02/11/22 23:00 08:13 11:47 RBC MCHC [place] % (Auto) ABG pO2 ABG HCO3 ABG Base Excess ABG Hemoglobin Sodium 130 L Chloride 96.9 L Carbon Dioxide 19 L Creatinine 0.4 L Glucose 223 H POC Glucose 170 H 188 H Albumin Urine Creatinine 02/11/22 02/12/22 02/12/22 16:48 07:14 10:49 RBC MCHC [place] % (Auto) ABG pO2 ABG HCO3 ABG Base Excess ABG Hemoglobin Sodium Chloride Carbon Dioxide Creatinine Glucose POC Glucose 157 H 173 H 220 H Albumin Urine Creatinine 02/12/22 02/12/22 02/12/22 13:02 16:03 20:44 RBC MCHC [place] % (Auto) ABG pO2 ABG HCO3 ABG Base Excess ABG Hemoglobin Sodium Chloride Carbon Dioxide Creatinine Glucose POC Glucose 208 H 113 H 162 H Albumin Urine Creatinine 02/13/22 02/13/22 02/13/22 05:40 08:23 12:19 RBC MCHC [place] % (Auto) ABG pO2 ABG HCO3 ABG Base Excess ABG Hemoglobin Sodium 132 L Chloride Carbon Dioxide 17 L Creatinine 0.4 L Glucose 168 H POC Glucose 148 H 150 H Albumin Urine Creatinine 02/13/22 02/13/22 02/13/22 16:54 20:03 22:51 RBC MCHC [place] % (Auto) ABG pO2 ABG HCO3 ABG Base Excess ABG Hemoglobin Sodium Chloride Carbon Dioxide Creatinine Glucose POC Glucose 156 H 154 H 155 H Albumin Urine Creatinine 02/14/22 02/14/22 02/14/22 07:41 11:19 14:06 RBC MCHC [place] % (Auto) ABG pO2 ABG HCO3 ABG Base Excess ABG Hemoglobin Sodium Chloride Carbon Dioxide Creatinine Glucose POC Glucose 121 H 142 H 110 H Albumin Urine Creatinine 02/14/22 02/14/22 02/15/22 17:08 22:01 07:35 RBC MCHC [place] % (Auto) ABG pO2 ABG HCO3 ABG Base Excess ABG Hemoglobin Sodium Chloride Carbon Dioxide Creatinine Glucose POC Glucose 148 H 151 H Albumin Urine Creatinine 69.0 H 02/15/22 02/15/22 02/15/22 07:43 08:01 12:12 RBC MCHC [place] % (Auto) ABG pO2 ABG HCO3 ABG Base Excess ABG Hemoglobin Sodium Chloride Carbon Dioxide Creatinine 0.4 L Glucose POC Glucose 134 H 106 H Albumin Urine Creatinine 02/15/22 02/16/22 02/16/22 22:07 06:31 17:51 RBC MCHC [place] % (Auto) ABG pO2 ABG HCO3 ABG Base Excess ABG Hemoglobin Sodium Chloride Carbon Dioxide Creatinine Glucose POC Glucose 66 L 135 H 142 H Albumin Urine Creatinine 02/17/22 02/18/22 02/18/22 19:57 06:57 17:02 RBC MCHC [place] % (Auto) ABG pO2 ABG HCO3 ABG Base Excess ABG Hemoglobin Sodium Chloride Carbon Dioxide Creatinine Glucose POC Glucose 185 H 159 H 131 H Albumin Urine Creatinine 02/18/22 02/19/22 02/19/22 22:10 12:10 16:49 RBC MCHC [place] % (Auto) ABG pO2 ABG HCO3 ABG Base Excess ABG Hemoglobin Sodium Chloride Carbon Dioxide Creatinine Glucose POC Glucose 157 H 133 H 175 H Albumin Urine Creatinine 02/19/22 02/20/22 02/20/22 22:25 07:38 16:16 RBC MCHC [place] % (Auto) ABG pO2 ABG HCO3 ABG Base Excess ABG Hemoglobin Sodium 133 L Chloride Carbon Dioxide 17 L Creatinine 0.4 L Glucose 110 H POC Glucose 133 H 159 H Albumin 3.6 L Urine Creatinine 02/20/22 02/21/22 02/21/22 21:58 18:05 22:05 RBC MCHC [place] % (Auto) ABG pO2 ABG HCO3 ABG Base Excess ABG Hemoglobin Sodium Chloride Carbon Dioxide Creatinine Glucose POC Glucose 69 L 185 H 63 L Albumin Urine Creatinine 02/22/22 02/22/22 02/22/22 02:49 05:39 11:10 RBC MCHC [place] % (Auto) ABG pO2 ABG HCO3 ABG Base Excess ABG Hemoglobin Sodium Chloride Carbon Dioxide Creatinine Glucose POC Glucose 206 H 112 H 48 L Albumin Urine Creatinine 02/22/22 02/23/22 02/23/22 16:14 07:34 17:17 RBC MCHC [place] % (Auto) ABG pO2 ABG HCO3 ABG Base Excess ABG Hemoglobin Sodium 130 L Chloride Carbon Dioxide 17 L Creatinine 0.5 L Glucose 134 H POC Glucose 198 H 106 H Albumin 3.4 L Urine Creatinine 02/23/22 02/24/22 02/24/22 17:43 16:43 21:24 RBC MCHC [place] % (Auto) ABG pO2 ABG HCO3 ABG Base Excess ABG Hemoglobin Sodium Chloride Carbon Dioxide Creatinine Glucose POC Glucose 138 H 185 H 143 H Albumin Urine Creatinine 02/25/22 02/25/22 02/26/22 10:55 21:26 11:45 RBC MCHC [place] % (Auto) ABG pO2 ABG HCO3 ABG Base Excess ABG Hemoglobin Sodium Chloride Carbon Dioxide Creatinine Glucose POC Glucose 128 H 111 H 67 L Albumin Urine Creatinine 02/26/22 02/27/22 02/27/22 16:55 08:27 11:42 RBC MCHC [place] % (Auto) ABG pO2 ABG HCO3 ABG Base Excess ABG Hemoglobin Sodium 135 L Chloride Carbon Dioxide 18 L Creatinine 0.5 L Glucose POC Glucose 154 H 126 H Albumin 3.4 L Urine Creatinine 02/27/22 02/27/22 16:15 22:45 RBC MCHC [place] % (Auto) ABG pO2 ABG HCO3 ABG Base Excess ABG Hemoglobin Sodium Chloride Carbon Dioxide Creatinine Glucose POC Glucose 132 H 134 H Albumin Urine Creatinine Laboratory Results - last 24 hr 02/27/22 02/27/22 02/27/22 08:27 08:28 11:42 Sodium 135 L Potassium 4.2 Chloride 104.7 Carbon Dioxide 18 L Anion Gap 17 BUN 11 Creatinine 0.5 L Estimated GFR > 60 BUN/Creatinine Ratio 22 Glucose 91 POC Glucose 95 126 H Calcium 9.3 Total Bilirubin < 0.20 AST 13 ALT 12 Alkaline Phosphatase 108 Total Protein 6.6 Albumin 3.4 L Albumin/Globulin Ratio 1.1 Syphilis IgG/IgM Ab Hep Bs Antigen Hepatitis C Antibody HIV 1&2 Antibody Rapid HIV P24 Antigen Rubella IgG Antibody 02/27/22 02/27/22 02/27/22 15:47 15:47 15:47 Sodium Potassium Chloride Carbon Dioxide Anion Gap BUN Creatinine Estimated GFR BUN/Creatinine Ratio Glucose POC Glucose Calcium Total Bilirubin AST ALT Alkaline Phosphatase Total Protein Albumin Albumin/Globulin Ratio Syphilis IgG/IgM Ab Nonreactive Hep Bs Antigen Non-reactive Hepatitis C Antibody Non-reactive HIV 1&2 Antibody Rapid HIV P24 Antigen Rubella IgG Antibody Immune 02/27/22 02/27/22 02/27/22 15:47 16:15 22:45 Sodium Potassium Chloride Carbon Dioxide Anion Gap BUN Creatinine Estimated GFR BUN/Creatinine Ratio Glucose POC Glucose 132 H 134 H Calcium Total Bilirubin AST ALT Alkaline Phosphatase Total Protein Albumin Albumin/Globulin Ratio Syphilis IgG/IgM Ab Hep Bs Antigen Hepatitis C Antibody HIV 1&2 Antibody Rapid Non react HIV P24 Antigen Non react Rubella IgG Antibody
[2022-02-28] MEDS: PRENATAL VIT27-FE FUMARATE-FOLIC ACID VIT TAB PO SCH (09:55)
[2022-02-28] MEDS: HALOPERIDOL 2 MG TAB PO SCH ×2 (09:56→22:00)
[2022-03-01] MEDS: INSULIN NPH, HUMAN 100 UNIT/1 ML SUB-Q SCH ×2 (08:09→22:10)
[2022-03-01] MEDS: INSULIN LISPRO 100 UNIT/ML SUB-Q SCH ×4 (08:10→22:06)
--- NOTE | 2022-03-01 08:54 | Event Note ---
Date: 03/01/22 Unable to asses patient because she was sleeping. Will come back and asses her at noon.
[2022-03-01] MEDS: PRENATAL VIT27-FE FUMARATE-FOLIC ACID VIT TAB PO SCH (10:00)
[2022-03-01] MEDS: HALOPERIDOL 2 MG TAB PO SCH ×2 (10:00→22:11)
--- NOTE | 2022-03-01 18:11 | Progress Note ---
Assessment and Plan A: IUP @ 35.6 weeks: DM, GHTN, multiple mental health issues. - Patient Problems (1) GDM (gestational diabetes mellitus) Current Visit: Yes Status: Acute Qualifiers: Gestational diabetes mellitus control: insulin-controlled Trimester: third trimester Qualified Code(s): O24.414 - Gestational diabetes mellitus in , insulin controlled Plan to address problem: Accuchecks and sliding scale as ordered Humulin N 60 / Humulog 30 in am Humulog 22 at dinner Humulin N 24 at bedtime Continue to monitor glucose levels. (2) Gestational hypertension Current Visit: Yes Status: Acute Qualifiers: Trimester: third trimester Qualified Code(s): O13.3 - Gestational [-induced] hypertension without significant proteinuria, third trimester Plan to address problem: Continue to monitor blood pressures. Continue to monitor for s/sx of pre eclampsia. (3) Noncompliance by refusing service Current Visit: Yes Status: Acute (4) Bipolar disorder Current Visit: Yes Status: Acute Qualifiers: Current bipolar episode type: manic (5) Schizophrenia Current Visit: No Status: Acute Qualifiers: Schizophrenia type: paranoid schizophrenia Qualified Code(s): F20.0 - Paranoid schizophrenia Plan to address problem: Psych has signed off on patient. Continue with Haldol as ordered. (6) 35 weeks gestation of Current Visit: Yes Status: Acute Plan to address problem: NST q4h Per APA: recommend continuous if possible. BPP twice a week, last completed on 02/27: 8/8. Next ordered for 03/02. IOL to be started on 03/04.. GBS culture in process. (7) Homeless single person Current Visit: Yes Status: Acute Plan to address problem: Case management involved and will continue to follow patient until discharge. Subjective - Subjective Date of service: 03/01/22 Principal diagnosis: IUP@ 35.6 weeks: DM, GHTN, Bipolar, Schizophrenia Interval history: Pt denies vaginal bleeding, LOF, ctxs. Also denies TERRELL, blurred vision, spots before her eyes, chest pain, shortness of breath, and upper abdominal pain. Patient reports: other (+ right ankle soreness), no loss of fluid, no vaginal bleeding, no contractions Objective - Vital Signs Vital Signs: Vital Signs - 12hr 03/01/22 03/01/22 03/01/22 07:58 08:35 14:29 Temperature 98.9 F Pulse Rate 91 H Respiratory 18 Rate Blood Pressure Blood Pressure [Left] O2 Sat by Pulse 98 Oximetry O2 Sat by Pulse 99 Oximetry [ Bilateral] 03/01/22 03/01/22 03/01/22 14:30 14:34 14:38 Temperature 98.2 F Pulse Rate 85 93 H 176 H Respiratory 16 Rate Blood Pressure 122/76 Blood Pressure 122/76 [Left] O2 Sat by Pulse 99 72 L Oximetry O2 Sat by Pulse Oximetry [ Bilateral] - Exam Narrative Exam: "The plan keeps changing and I want this to be over." Called by primary RN stating that pt is upset that IOL will no longer be starting this weekend. Upon entering room, pt lying right lateral in bed. Endorsing R ankle soreness. Denies regular contractions, LOF, vaginal bleeding, chest pain, SOB, headaches, vision changes and NVD. Upon questioning states she has not felt the baby move as much since the morning, believes the baby is sleeping currently, but "I was also just on the monitor". FHT Cat 1 tracing reviewed. Encouraged pt to share any concerns regarding movement with care team, and the need to initiate monitoring with decreased FM. Pt verbalized understanding and states she knows her baby is moving at least 4 times/hr. Conversation then shift to discuss the plan of care regarding induction of labor, now scheduled for Friday. Pt seeking reassurance that IOL will indeed happen on Friday and that there will be no further delays. IOL process, with an emphasis on the need to perform SVE to assess labor progress, continuous monitoring, and a likely timeframe of 2- 3 days reviewed with pt. When asked about her last labor process, pt states she presented to [facility] with abdominal pain, and she was given an injection in her arm and in her back. Does not believe she had an epidural. Does not remember pushing, does remember pushing and that "they took the baby the same day". She was surprised to hear that the labor induction process can take 2-3 days; Ms Posey verbalized understanding of all education provided, including need for cEFM for well being. Requesting razor to shave her chin hairs. States her brother will drop off clothes for her and the baby as well as a car seat tomorrow. She also shared that she will have a female friend that will be visiting with her tomorrow. Warm compress provided to pt for her R ankle. Breasts: deferred Cardiovascular: Regular rate Lungs: Normal air movement Abdomen: Present: normal appearance, soft FHR: category 1 Uterine Contraction Monitor Mode: Palpation Extremities: tenderness (R ankle) - Labs Labs: Abnormal Labs 02/09/22 02/09/22 02/09/22 21:06 22:30 22:30 RBC 3.51 L MCHC 35 H [place] % (Auto) 12.8 H ABG pO2 ABG HCO3 ABG Base Excess ABG Hemoglobin Sodium 134 L Chloride Carbon Dioxide 20 L Creatinine Glucose 452 H POC Glucose 443 H Albumin 3.4 L Urine Creatinine 02/10/22 02/10/22 02/10/22 04:16 04:35 09:49 RBC MCHC [place] % (Auto) ABG pO2 104.0 H ABG HCO3 19.0 L ABG Base Excess -4.8 L ABG Hemoglobin 11.7 L Sodium Chloride Carbon Dioxide Creatinine Glucose POC Glucose 291 H 248 H Albumin Urine Creatinine 02/10/22 02/10/22 02/10/22 11:39 17:07 21:33 RBC MCHC [place] % (Auto) ABG pO2 ABG HCO3 ABG Base Excess ABG Hemoglobin Sodium Chloride Carbon Dioxide Creatinine Glucose POC Glucose 350 H 201 H 187 H Albumin Urine Creatinine 02/10/22 02/11/22 02/11/22 23:00 08:13 11:47 RBC MCHC [place] % (Auto) ABG pO2 ABG HCO3 ABG Base Excess ABG Hemoglobin Sodium 130 L Chloride 96.9 L Carbon Dioxide 19 L Creatinine 0.4 L Glucose 223 H POC Glucose 170 H 188 H Albumin Urine Creatinine 02/11/22 02/12/22 02/12/22 16:48 07:14 10:49 RBC MCHC [place] % (Auto) ABG pO2 ABG HCO3 ABG Base Excess ABG Hemoglobin Sodium Chloride Carbon Dioxide Creatinine Glucose POC Glucose 157 H 173 H 220 H Albumin Urine Creatinine 02/12/22 02/12/22 02/12/22 13:02 16:03 20:44 RBC MCHC [place] % (Auto) ABG pO2 ABG HCO3 ABG Base Excess ABG Hemoglobin Sodium Chloride Carbon Dioxide Creatinine Glucose POC Glucose 208 H 113 H 162 H Albumin Urine Creatinine 03/02/13/22 02/13/22 05:40 08:23 12:19 RBC MCHC [place] % (Auto) ABG pO2 ABG HCO3 ABG Base Excess ABG Hemoglobin Sodium 132 L Chloride Carbon Dioxide 17 L Creatinine 0.4 L Glucose 168 H POC Glucose 148 H 150 H Albumin Urine Creatinine 02/13/22 02/13/22 02/13/22 16:54 20:03 22:51 RBC MCHC [place] % (Auto) ABG pO2 ABG HCO3 ABG Base Excess ABG Hemoglobin Sodium Chloride Carbon Dioxide Creatinine Glucose POC Glucose 156 H 154 H 155 H Albumin Urine Creatinine 02/14/22 02/14/22 02/14/22 07:41 11:19 14:06 RBC MCHC [place] % (Auto) ABG pO2 ABG HCO3 ABG Base Excess ABG Hemoglobin Sodium Chloride Carbon Dioxide Creatinine Glucose POC Glucose 121 H 142 H 110 H Albumin Urine Creatinine 02/14/22 02/14/22 02/15/22 17:08 22:01 07:35 RBC MCHC [place] % (Auto) ABG pO2 ABG HCO3 ABG Base Excess ABG Hemoglobin Sodium Chloride Carbon Dioxide Creatinine Glucose POC Glucose 148 H 151 H Albumin Urine Creatinine 69.0 H 02/15/22 02/15/22 02/15/22 07:43 08:01 12:12 RBC MCHC [place] % (Auto) ABG pO2 ABG HCO3 ABG Base Excess ABG Hemoglobin Sodium Chloride Carbon Dioxide Creatinine 0.4 L Glucose POC Glucose 134 H 106 H Albumin Urine Creatinine 02/15/22 02/16/22 02/16/22 22:07 06:31 17:51 RBC MCHC [place] % (Auto) ABG pO2 ABG HCO3 ABG Base Excess ABG Hemoglobin Sodium Chloride Carbon Dioxide Creatinine Glucose POC Glucose 66 L 135 H 142 H Albumin Urine Creatinine 02/17/22 02/18/22 02/18/22 19:57 06:57 17:02 RBC MCHC [place] % (Auto) ABG pO2 ABG HCO3 ABG Base Excess ABG Hemoglobin Sodium Chloride Carbon Dioxide Creatinine Glucose POC Glucose 185 H 159 H 131 H Albumin Urine Creatinine 02/18/22 02/19/22 02/19/22 22:10 12:10 16:49 RBC MCHC [place] % (Auto) ABG pO2 ABG HCO3 ABG Base Excess ABG Hemoglobin Sodium Chloride Carbon Dioxide Creatinine Glucose POC Glucose 157 H 133 H 175 H Albumin Urine Creatinine 02/19/22 02/20/22 02/20/22 22:25 07:38 16:16 RBC MCHC [place] % (Auto) ABG pO2 ABG HCO3 ABG Base Excess ABG Hemoglobin Sodium 133 L Chloride Carbon Dioxide 17 L Creatinine 0.4 L Glucose 110 H POC Glucose 133 H 159 H Albumin 3.6 L Urine Creatinine 02/20/22 02/21/22 02/21/22 21:58 18:05 22:05 RBC MCHC [place] % (Auto) ABG pO2 ABG HCO3 ABG Base Excess ABG Hemoglobin Sodium Chloride Carbon Dioxide Creatinine Glucose POC Glucose 69 L 185 H 63 L Albumin Urine Creatinine 02/22/22 02/22/22 02/22/22 02:49 05:39 11:10 RBC MCHC [place] % (Auto) ABG pO2 ABG HCO3 ABG Base Excess ABG Hemoglobin Sodium Chloride Carbon Dioxide Creatinine Glucose POC Glucose 206 H 112 H 48 L Albumin Urine Creatinine 02/22/22 02/22/22 02/23/22 16:14 21:04 07:34 RBC MCHC [place] % (Auto) ABG pO2 ABG HCO3 ABG Base Excess ABG Hemoglobin Sodium Chloride Carbon Dioxide Creatinine Glucose POC Glucose 198 H 147 H 106 H Albumin Urine Creatinine 02/23/22 02/23/22 02/24/22 17:17 17:43 16:43 RBC MCHC [place] % (Auto) ABG pO2 ABG HCO3 ABG Base Excess ABG Hemoglobin Sodium 130 L Chloride Carbon Dioxide 17 L Creatinine 0.5 L Glucose 134 H POC Glucose 138 H 185 H Albumin 3.4 L Urine Creatinine 02/24/22 02/25/22 02/25/22 21:24 10:55 21:26 RBC MCHC [place] % (Auto) ABG pO2 ABG HCO3 ABG Base Excess ABG Hemoglobin Sodium Chloride Carbon Dioxide Creatinine Glucose POC Glucose 143 H 128 H 111 H Albumin Urine Creatinine 02/26/22 02/26/22 02/27/22 11:45 16:55 08:27 RBC MCHC [place] % (Auto) ABG pO2 ABG HCO3 ABG Base Excess ABG Hemoglobin Sodium 135 L Chloride Carbon Dioxide 18 L Creatinine 0.5 L Glucose POC Glucose 67 L 154 H Albumin 3.4 L Urine Creatinine 02/27/22 02/27/22 02/27/22 11:42 16:15 22:45 RBC MCHC [place] % (Auto) ABG pO2 ABG HCO3 ABG Base Excess ABG Hemoglobin Sodium Chloride Carbon Dioxide Creatinine Glucose POC Glucose 126 H 132 H 134 H Albumin Urine Creatinine 02/28/22 02/28/22 02/28/22 11:58 16:26 22:09 RBC MCHC [place] % (Auto) ABG pO2 ABG HCO3 ABG Base Excess ABG Hemoglobin Sodium Chloride Carbon Dioxide Creatinine Glucose POC Glucose 152 H 150 H 116 H Albumin Urine Creatinine 03/01/22 11:58 RBC MCHC [place] % (Auto) ABG pO2 ABG HCO3 ABG Base Excess ABG Hemoglobin Sodium Chloride Carbon Dioxide Creatinine Glucose POC Glucose 58 L Albumin Urine Creatinine Laboratory Results - last 24 hr 02/28/22 03/01/22 03/01/22 22:09 08:08 11:58 POC Glucose 116 H 89 58 L
[2022-03-01] MEDS: ACETAMINOPHEN 500 MG TAB PO PRN (21:58)
[2022-03-02] MEDS: INSULIN LISPRO 100 UNIT/ML SUB-Q SCH ×6 (08:38→21:52)
[2022-03-02] MEDS: INSULIN NPH, HUMAN 100 UNIT/1 ML SUB-Q SCH ×2 (08:44→21:53)
[2022-03-02] MEDS: PRENATAL VIT27-FE FUMARATE-FOLIC ACID VIT TAB PO SCH (10:05)
[2022-03-02] MEDS: HALOPERIDOL 2 MG TAB PO SCH ×2 (10:06→21:57)
--- NOTE | 2022-03-02 10:11 | Progress Note ---
Assessment and Plan Patient in good spirits, walking around halls. denies TERRELL, visual changes or epigastric pain. She reports + FM. denies ctx, SROM or vag bleeding. Discussed IOL for Friday. All questions addressed. - Patient Problems (1) GDM (gestational diabetes mellitus) Current Visit: Yes Status: Acute Qualifiers: Gestational diabetes mellitus control: insulin-controlled Trimester: third trimester Qualified Code(s): O24.414 - Gestational diabetes mellitus in , insulin controlled Plan to address problem: Accuchecks and sliding scale as ordered Humulin N 60 / Humulog 30 in am Humulog 22 at dinner Humulin N 24 at bedtime IOL 03/04/2022 (2) Homeless single person Current Visit: Yes Status: Acute Plan to address problem: Case management and social media campaign manager aware, Pt will need assistance placement after delivery (3) Schizophrenia Current Visit: No Status: Acute Qualifiers: Schizophrenia type: paranoid schizophrenia Qualified Code(s): F20.0 - Paranoid schizophrenia Plan to address problem: pt followed by [facility] [place] Continue teaching re: self-care and diabetes management Utilize therapeutic communication and redirection (4) Gestational hypertension Current Visit: Yes Status: Acute Qualifiers: Trimester: third trimester Qualified Code(s): O13.3 - Gestational [-induced] hypertension without significant proteinuria, third trimester Plan to address problem: Will closely monitor b/p's no s/s pre-e Twice weekly CBC/CMP - ordered yesterday 02/23/2022 - normal ptl and AST/ALT (5) Noncompliance by refusing service Current Visit: Yes Status: Acute (6) 36 weeks gestation of Current Visit: Yes Status: Acute Subjective - Subjective Date of service: 03/02/22 Principal diagnosis: IUP@ 36+0 weeks: DM, GHTN, Bipolar, Schizophrenia Patient reports: no loss of fluid, no vaginal bleeding, no contractions Objective - Vital Signs Vital Signs: Vital Signs - 12hr 03/01/22 03/01/22 03/01/22 22:13 22:15 22:16 Temperature Pulse Rate 91 H 90 Respiratory Rate Blood Pressure 121/59 Blood Pressure [Left] O2 Sat by Pulse 95 Oximetry O2 Sat by Pulse 97 Oximetry [ Bilateral] 03/01/22 03/02/22 03/02/22 22:17 04:05 04:10 Temperature 97.4 F L Pulse Rate 96 H 139 H 82 Respiratory 18 17 Rate Blood Pressure 118/58 Blood Pressure 121/59 118/58 [Left] O2 Sat by Pulse 99 77 L 98 Oximetry O2 Sat by Pulse Oximetry [ Bilateral] 03/02/22 03/02/22 03/02/22 08:00 08:41 08:42 Temperature 97.8 F Pulse Rate 94 H 96 H Respiratory 14 Rate Blood Pressure 127/73 Blood Pressure [Left] O2 Sat by Pulse 98 Oximetry O2 Sat by Pulse 98 Oximetry [ Bilateral] 03/02/22 03/02/22 03/02/22 09:28 09:31 09:33 Temperature Pulse Rate 99 H 81 Respiratory Rate Blood Pressure Blood Pressure [Left] O2 Sat by Pulse 89 85 98 Oximetry O2 Sat by Pulse Oximetry [ Bilateral] 03/02/22 03/02/22 03/02/22 09:38 09:43 09:48 Temperature Pulse Rate 83 79 82 Respiratory Rate Blood Pressure Blood Pressure [Left] O2 Sat by Pulse 99 99 99 Oximetry O2 Sat by Pulse Oximetry [ Bilateral] 03/02/22 03/02/22 09:53 09:58 Temperature Pulse Rate 82 84 Respiratory Rate Blood Pressure Blood Pressure [Left] O2 Sat by Pulse 100 99 Oximetry O2 Sat by Pulse Oximetry [ Bilateral] - Exam Cardiovascular: Regular rate Lungs: Normal air movement Abdomen: Present: normal appearance Uterus: Present: normal, fundal height above umbilicus FHR: auscultation normal - Labs Labs: Abnormal Labs 02/09/22 02/09/22 02/09/22 21:06 22:30 22:30 RBC 3.51 L MCHC 35 H [place] % (Auto) 12.8 H ABG pO2 ABG HCO3 ABG Base Excess ABG Hemoglobin Sodium 134 L Chloride Carbon Dioxide 20 L Creatinine Glucose 452 H POC Glucose 443 H Albumin 3.4 L Urine Creatinine 02/10/22 02/10/22 02/10/22 04:16 04:35 09:49 RBC MCHC [place] % (Auto) ABG pO2 104.0 H ABG HCO3 19.0 L ABG Base Excess -4.8 L ABG Hemoglobin 11.7 L Sodium Chloride Carbon Dioxide Creatinine Glucose POC Glucose 291 H 248 H Albumin Urine Creatinine 02/10/22 02/10/22 02/10/22 11:39 17:07 21:33 RBC MCHC [place] % (Auto) ABG pO2 ABG HCO3 ABG Base Excess ABG Hemoglobin Sodium Chloride Carbon Dioxide Creatinine Glucose POC Glucose 350 H 201 H 187 H Albumin Urine Creatinine 02/10/22 02/11/22 02/11/22 23:00 08:13 11:47 RBC MCHC [place] % (Auto) ABG pO2 ABG HCO3 ABG Base Excess ABG Hemoglobin Sodium 130 L Chloride 96.9 L Carbon Dioxide 19 L Creatinine 0.4 L Glucose 223 H POC Glucose 170 H 188 H Albumin Urine Creatinine 02/11/22 02/12/22 02/12/22 16:48 07:14 10:49 RBC MCHC [place] % (Auto) ABG pO2 ABG HCO3 ABG Base Excess ABG Hemoglobin Sodium Chloride Carbon Dioxide Creatinine Glucose POC Glucose 157 H 173 H 220 H Albumin Urine Creatinine 02/12/22 02/12/22 02/12/22 13:02 16:03 20:44 RBC MCHC [place] % (Auto) ABG pO2 ABG HCO3 ABG Base Excess ABG Hemoglobin Sodium Chloride Carbon Dioxide Creatinine Glucose POC Glucose 208 H 113 H 162 H Albumin Urine Creatinine 02/13/22 02/13/22 02/13/22 05:40 08:23 12:19 RBC MCHC [place] % (Auto) ABG pO2 ABG HCO3 ABG Base Excess ABG Hemoglobin Sodium 132 L Chloride Carbon Dioxide 17 L Creatinine 0.4 L Glucose 168 H POC Glucose 148 H 150 H Albumin Urine Creatinine 02/13/22 02/13/22 02/13/22 16:54 20:03 22:51 RBC MCHC [place] % (Auto) ABG pO2 ABG HCO3 ABG Base Excess ABG Hemoglobin Sodium Chloride Carbon Dioxide Creatinine Glucose POC Glucose 156 H 154 H 155 H Albumin Urine Creatinine 02/14/22 02/14/22 02/14/22 07:41 11:19 14:06 RBC MCHC [place] % (Auto) ABG pO2 ABG HCO3 ABG Base Excess ABG Hemoglobin Sodium Chloride Carbon Dioxide Creatinine Glucose POC Glucose 121 H 142 H 110 H Albumin Urine Creatinine 02/14/22 02/14/22 02/15/22 17:08 22:01 07:35 RBC MCHC [place] % (Auto) ABG pO2 ABG HCO3 ABG Base Excess ABG Hemoglobin Sodium Chloride Carbon Dioxide Creatinine Glucose POC Glucose 148 H 151 H Albumin Urine Creatinine 69.0 H 0302/15/22 02/15/22 07:43 08:01 12:12 RBC MCHC [place] % (Auto) ABG pO2 ABG HCO3 ABG Base Excess ABG Hemoglobin Sodium Chloride Carbon Dioxide Creatinine 0.4 L Glucose POC Glucose 134 H 106 H Albumin Urine Creatinine 02/15/22 02/16/22 02/16/22 22:07 06:31 17:51 RBC MCHC [place] % (Auto) ABG pO2 ABG HCO3 ABG Base Excess ABG Hemoglobin Sodium Chloride Carbon Dioxide Creatinine Glucose POC Glucose 66 L 135 H 142 H Albumin Urine Creatinine 02/17/22 02/18/22 02/18/22 19:57 06:57 17:02 RBC MCHC [place] % (Auto) ABG pO2 ABG HCO3 ABG Base Excess ABG Hemoglobin Sodium Chloride Carbon Dioxide Creatinine Glucose POC Glucose 185 H 159 H 131 H Albumin Urine Creatinine 02/18/22 02/19/22 02/19/22 22:10 12:10 16:49 RBC MCHC [place] % (Auto) ABG pO2 ABG HCO3 ABG Base Excess ABG Hemoglobin Sodium Chloride Carbon Dioxide Creatinine Glucose POC Glucose 157 H 133 H 175 H Albumin Urine Creatinine 02/19/22 02/20/22 02/20/22 22:25 07:38 16:16 RBC MCHC [place] % (Auto) ABG pO2 ABG HCO3 ABG Base Excess ABG Hemoglobin Sodium 133 L Chloride Carbon Dioxide 17 L Creatinine 0.4 L Glucose 110 H POC Glucose 133 H 159 H Albumin 3.6 L Urine Creatinine 02/20/22 02/21/22 02/21/22 21:58 18:05 22:05 RBC MCHC [place] % (Auto) ABG pO2 ABG HCO3 ABG Base Excess ABG Hemoglobin Sodium Chloride Carbon Dioxide Creatinine Glucose POC Glucose 69 L 185 H 63 L Albumin Urine Creatinine 02/22/22 02/22/22 02/22/22 02:49 05:39 11:10 RBC MCHC [place] % (Auto) ABG pO2 ABG HCO3 ABG Base Excess ABG Hemoglobin Sodium Chloride Carbon Dioxide Creatinine Glucose POC Glucose 206 H 112 H 48 L Albumin Urine Creatinine 02/22/22 02/22/22 02/23/22 16:14 21:04 07:34 RBC MCHC [place] % (Auto) ABG pO2 ABG HCO3 ABG Base Excess ABG Hemoglobin Sodium Chloride Carbon Dioxide Creatinine Glucose POC Glucose 198 H 147 H 106 H Albumin Urine Creatinine 02/23/22 02/23/22 02/24/22 17:17 17:43 16:43 RBC MCHC [place] % (Auto) ABG pO2 ABG HCO3 ABG Base Excess ABG Hemoglobin Sodium 130 L Chloride Carbon Dioxide 17 L Creatinine 0.5 L Glucose 134 H POC Glucose 138 H 185 H Albumin 3.4 L Urine Creatinine 02/24/22 02/25/22 02/25/22 21:24 10:55 21:26 RBC MCHC [place] % (Auto) ABG pO2 ABG HCO3 ABG Base Excess ABG Hemoglobin Sodium Chloride Carbon Dioxide Creatinine Glucose POC Glucose 143 H 128 H 111 H Albumin Urine Creatinine 02/26/22 02/26/22 02/27/22 11:45 16:55 08:27 RBC MCHC [place] % (Auto) ABG pO2 ABG HCO3 ABG Base Excess ABG Hemoglobin Sodium 135 L Chloride Carbon Dioxide 18 L Creatinine 0.5 L Glucose POC Glucose 67 L 154 H Albumin 3.4 L Urine Creatinine 02/27/22 02/27/22 02/27/22 11:42 16:15 22:45 RBC MCHC [place] % (Auto) ABG pO2 ABG HCO3 ABG Base Excess ABG Hemoglobin Sodium Chloride Carbon Dioxide Creatinine Glucose POC Glucose 126 H 132 H 134 H Albumin Urine Creatinine 02/28/22 02/28/22 02/28/22 11:58 16:26 22:09 RBC MCHC [place] % (Auto) ABG pO2 ABG HCO3 ABG Base Excess ABG Hemoglobin Sodium Chloride Carbon Dioxide Creatinine Glucose POC Glucose 152 H 150 H 116 H Albumin Urine Creatinine 03/01/22 03/01/22 03/01/22 11:58 16:37 22:02 RBC MCHC [place] % (Auto) ABG pO2 ABG HCO3 ABG Base Excess ABG Hemoglobin Sodium Chloride Carbon Dioxide Creatinine Glucose POC Glucose 58 L 167 H 184 H Albumin Urine Creatinine 03/02/22 06:24 RBC MCHC [place] % (Auto) ABG pO2 ABG HCO3 ABG Base Excess ABG Hemoglobin Sodium Chloride Carbon Dioxide Creatinine Glucose POC Glucose 110 H Albumin Urine Creatinine Laboratory Results - last 24 hr 03/01/22 03/01/22 03/01/22 08:08 11:58 16:37 POC Glucose 89 58 L 167 H 03/01/22 03/02/22 03/02/22 22:02 06:24 07:48 POC Glucose 184 H 110 H 101
[2022-03-02 11:14] LABS: Hematocrit 38.1 % (30.3-42.9); Hemoglobin 12.6 gm/dl (10.1-14.3); Mean Corpuscular HGB Conc 33 % (30-34); Mean Corpuscular Volume 91 fl (79-97); Platelet Count 262 K/mm3 (140-440); Red Blood Count 4.17 M/mm3 (3.65-5.03); Red Cell Distribution Width 13.9 % (13.2-15.2)
[2022-03-02 11:38] LABS: Alanine Aminotransferase 14 units/L (7-56); Albumin 3.4 g/dL (3.9-5); Blood Urea Nitrogen 8 mg/dL (7-17); Calcium 9.1 mg/dL (8.4-10.2); Hemolysis Index 7
[2022-03-02 11:39] LABS: BUN/Creatinine Ratio 16
--- NOTE | 2022-03-02 11:47 | Ultrasound Report ---
ULTRASOUND BIOPHYSICAL PROFILE, 03/02/2022 INDICATION / CLINICAL INFORMATION: Evaluate well-being. COMPARISON: Obstetrical ultrasound with BPP, 02/27/2022 FINDINGS: BREATHING MOVEMENT = 2 GROSS BODY MOVEMENT = 2 TONE = 2 QUALITATIVE AMNIOTIC FLUID VOLUME = 2 TOTAL BIOPHYSICAL SCORE = 8/8 PRESENTATION: Cephalic. HEART RATE (beats per minute): 130 IMPRESSION: 1. biophysical profile = 07/08 Signer Name: Rivka Rae MD Signed: 03/02/2022 11:42 AM Workstation Name: [id number]
[2022-03-02] MEDS: ACETAMINOPHEN 500 MG TAB PO PRN (22:05)
--- NOTE | 2022-03-03 08:02 | Progress Note ---
Assessment and Plan Pt w/o complaints. denies TERRELL, visual changes or epigastric pain. She reports + FM. denies ctx, SROM or vag bleeding. Discussed IOL for Friday. All questions addressed. - Patient Problems (1) GDM (gestational diabetes mellitus) Current Visit: Yes Status: Acute Qualifiers: Gestational diabetes mellitus control: insulin-controlled Trimester: third trimester Qualified Code(s): O24.414 - Gestational diabetes mellitus in , insulin controlled Plan to address problem: Accuchecks and sliding scale as ordered Humulin N 60 / Humulog 30 in am Humulog 22 at dinner Humulin N 24 at bedtime IOL 03/04/2022 (2) Homeless single person Current Visit: Yes Status: Acute Plan to address problem: Case management and director of social work aware, Pt will need assistance placement after delivery (3) Schizophrenia Current Visit: No Status: Acute Qualifiers: Schizophrenia type: paranoid schizophrenia Qualified Code(s): F20.0 - Paranoid schizophrenia Plan to address problem: pt followed by [facility] Continue teaching re: self-care and diabetes management Utilize therapeutic communication and redirection (4) Gestational hypertension Current Visit: Yes Status: Acute Qualifiers: Trimester: third trimester Qualified Code(s): O13.3 - Gestational [-induced] hypertension without significant proteinuria, third trimester Plan to address problem: Will closely monitor b/p's no s/s pre-e Twice weekly CBC/CMP; normal ptl and AST/ALT (5) Noncompliance by refusing service Current Visit: Yes Status: Acute (6) 36 weeks gestation of Current Visit: Yes Status: Acute Subjective - Subjective Date of service: 03/03/22 Principal diagnosis: IUP@ 36+1 weeks: DM, GHTN, Bipolar, Schizophrenia Patient reports: movement normal, no new complaints, no loss of fluid, no vaginal bleeding, no contractions Objective - Vital Signs Vital Signs: Vital Signs - 12hr 03/02/22 03/02/22 03/02/22 20:05 21:40 21:42 Temperature Pulse Rate 177 H 87 Respiratory Rate Blood Pressure 127/60 Blood Pressure [Left] O2 Sat by Pulse 86 Oximetry O2 Sat by Pulse 98 Oximetry [ Bilateral] 03/02/22 03/03/22 03/03/22 21:43 04:48 04:49 Temperature 97.6 F Pulse Rate 88 89 83 Respiratory 16 Rate Blood Pressure 111/60 Blood Pressure 127/60 [Left] O2 Sat by Pulse 99 99 Oximetry O2 Sat by Pulse Oximetry [ Bilateral] 03/03/22 04:50 Temperature 98.1 F Pulse Rate Respiratory 16 Rate Blood Pressure Blood Pressure [Left] O2 Sat by Pulse 98 Oximetry O2 Sat by Pulse Oximetry [ Bilateral] - Exam Breasts: normal Cardiovascular: Regular rate Lungs: Normal air movement Abdomen: Present: normal appearance, soft Vulva: both: normal Uterus: Present: normal, fundal height above umbilicus FHR: auscultation normal Uterine Contraction Monitor Mode: Palpation Uterine Tone Measurement Phase: Resting Extremities: normal - Labs Labs: Abnormal Labs 02/09/22 02/09/22 02/09/22 21:06 22:30 22:30 RBC 3.51 L MCHC 35 H [place] % (Auto) 12.8 H ABG pO2 ABG HCO3 ABG Base Excess ABG Hemoglobin Sodium 134 L Chloride Carbon Dioxide 20 L Creatinine Glucose 452 H POC Glucose 443 H Alkaline Phosphatase Albumin 3.4 L Urine Creatinine 02/10/22 02/10/22 02/10/22 04:16 04:35 09:49 RBC MCHC [place] % (Auto) ABG pO2 104.0 H ABG HCO3 19.0 L ABG Base Excess -4.8 L ABG Hemoglobin 11.7 L Sodium Chloride Carbon Dioxide Creatinine Glucose POC Glucose 291 H 248 H Alkaline Phosphatase Albumin Urine Creatinine 02/10/22 02/10/22 02/10/22 11:39 17:07 21:33 RBC MCHC [place] % (Auto) ABG pO2 ABG HCO3 ABG Base Excess ABG Hemoglobin Sodium Chloride Carbon Dioxide Creatinine Glucose POC Glucose 350 H 201 H 187 H Alkaline Phosphatase Albumin Urine Creatinine 02/10/22 02/11/22 02/11/22 23:00 08:13 11:47 RBC MCHC [place] % (Auto) ABG pO2 ABG HCO3 ABG Base Excess ABG Hemoglobin Sodium 130 L Chloride 96.9 L Carbon Dioxide 19 L Creatinine 0.4 L Glucose 223 H POC Glucose 170 H 188 H Alkaline Phosphatase Albumin Urine Creatinine 02/11/22 02/12/22 02/12/22 16:48 07:14 10:49 RBC MCHC [place] % (Auto) ABG pO2 ABG HCO3 ABG Base Excess ABG Hemoglobin Sodium Chloride Carbon Dioxide Creatinine Glucose POC Glucose 157 H 173 H 220 H Alkaline Phosphatase Albumin Urine Creatinine 02/12/22 02/12/22 02/12/22 13:02 16:03 20:44 RBC MCHC [place] % (Auto) ABG pO2 ABG HCO3 ABG Base Excess ABG Hemoglobin Sodium Chloride Carbon Dioxide Creatinine Glucose POC Glucose 208 H 113 H 162 H Alkaline Phosphatase Albumin Urine Creatinine 02/13/22 02/13/22 02/13/22 05:40 08:23 12:19 RBC MCHC [place] % (Auto) ABG pO2 ABG HCO3 ABG Base Excess ABG Hemoglobin Sodium 132 L Chloride Carbon Dioxide 17 L Creatinine 0.4 L Glucose 168 H POC Glucose 148 H 150 H Alkaline Phosphatase Albumin Urine Creatinine 02/13/22 02/13/22 02/13/22 16:54 20:03 22:51 RBC MCHC [place] % (Auto) ABG pO2 ABG HCO3 ABG Base Excess ABG Hemoglobin Sodium Chloride Carbon Dioxide Creatinine Glucose POC Glucose 156 H 154 H 155 H Alkaline Phosphatase Albumin Urine Creatinine 02/14/22 02/14/22 02/14/22 07:41 11:19 14:06 RBC MCHC [place] % (Auto) ABG pO2 ABG HCO3 ABG Base Excess ABG Hemoglobin Sodium Chloride Carbon Dioxide Creatinine Glucose POC Glucose 121 H 142 H 110 H Alkaline Phosphatase Albumin Urine Creatinine 02/14/22 02/14/22 02/15/22 17:08 22:01 07:35 RBC MCHC [place] % (Auto) ABG pO2 ABG HCO3 ABG Base Excess ABG Hemoglobin Sodium Chloride Carbon Dioxide Creatinine Glucose POC Glucose 148 H 151 H Alkaline Phosphatase Albumin Urine Creatinine 69.0 H 02/15/22 02/15/22 02/15/22 07:43 08:01 12:12 RBC MCHC [place] % (Auto) ABG pO2 ABG HCO3 ABG Base Excess ABG Hemoglobin Sodium Chloride Carbon Dioxide Creatinine 0.4 L Glucose POC Glucose 134 H 106 H Alkaline Phosphatase Albumin Urine Creatinine 02/15/22 02/16/22 02/16/22 22:07 06:31 17:51 RBC MCHC [place] % (Auto) ABG pO2 ABG HCO3 ABG Base Excess ABG Hemoglobin Sodium Chloride Carbon Dioxide Creatinine Glucose POC Glucose 66 L 135 H 142 H Alkaline Phosphatase Albumin Urine Creatinine 02/17/22 02/18/22 02/18/22 19:57 06:57 17:02 RBC MCHC [place] % (Auto) ABG pO2 ABG HCO3 ABG Base Excess ABG Hemoglobin Sodium Chloride Carbon Dioxide Creatinine Glucose POC Glucose 185 H 159 H 131 H Alkaline Phosphatase Albumin Urine Creatinine 02/18/22 02/19/22 02/19/22 22:10 12:10 16:49 RBC MCHC [place] % (Auto) ABG pO2 ABG HCO3 ABG Base Excess ABG Hemoglobin Sodium Chloride Carbon Dioxide Creatinine Glucose POC Glucose 157 H 133 H 175 H Alkaline Phosphatase Albumin Urine Creatinine 02/19/22 02/20/22 02/20/22 22:25 07:38 16:16 RBC MCHC [place] % (Auto) ABG pO2 ABG HCO3 ABG Base Excess ABG Hemoglobin Sodium 133 L Chloride Carbon Dioxide 17 L Creatinine 0.4 L Glucose 110 H POC Glucose 133 H 159 H Alkaline Phosphatase Albumin 3.6 L Urine Creatinine 02/20/22 02/21/22 02/21/22 21:58 18:05 22:05 RBC MCHC [place] % (Auto) ABG pO2 ABG HCO3 ABG Base Excess ABG Hemoglobin Sodium Chloride Carbon Dioxide Creatinine Glucose POC Glucose 69 L 185 H 63 L Alkaline Phosphatase Albumin Urine Creatinine 02/22/22 02/22/22 02/22/22 02:49 05:39 11:10 RBC MCHC [place] % (Auto) ABG pO2 ABG HCO3 ABG Base Excess ABG Hemoglobin Sodium Chloride Carbon Dioxide Creatinine Glucose POC Glucose 206 H 112 H 48 L Alkaline Phosphatase Albumin Urine Creatinine 02/22/22 02/22/22 02/23/22 16:14 21:04 07:34 RBC MCHC [place] % (Auto) ABG pO2 ABG HCO3 ABG Base Excess ABG Hemoglobin Sodium Chloride Carbon Dioxide Creatinine Glucose POC Glucose 198 H 147 H 106 H Alkaline Phosphatase Albumin Urine Creatinine 02/23/22 02/23/22 02/24/22 17:17 17:43 16:43 RBC MCHC [place] % (Auto) ABG pO2 ABG HCO3 ABG Base Excess ABG Hemoglobin Sodium 130 L Chloride Carbon Dioxide 17 L Creatinine 0.5 L Glucose 134 H POC Glucose 138 H 185 H Alkaline Phosphatase Albumin 3.4 L Urine Creatinine 02/24/22 02/25/22 02/25/22 21:24 10:55 21:26 RBC MCHC [place] % (Auto) ABG pO2 ABG HCO3 ABG Base Excess ABG Hemoglobin Sodium Chloride Carbon Dioxide Creatinine Glucose POC Glucose 143 H 128 H 111 H Alkaline Phosphatase Albumin Urine Creatinine 02/26/22 02/26/22 02/27/22 11:45 16:55 08:27 RBC MCHC [place] % (Auto) ABG pO2 ABG HCO3 ABG Base Excess ABG Hemoglobin Sodium 135 L Chloride Carbon Dioxide 18 L Creatinine 0.5 L Glucose POC Glucose 67 L 154 H Alkaline Phosphatase Albumin 3.4 L Urine Creatinine 02/27/22 02/27/22 02/27/22 11:42 16:15 22:45 RBC MCHC [place] % (Auto) ABG pO2 ABG HCO3 ABG Base Excess ABG Hemoglobin Sodium Chloride Carbon Dioxide Creatinine Glucose POC Glucose 126 H 132 H 134 H Alkaline Phosphatase Albumin Urine Creatinine 02/28/22 02/28/22 02/28/22 11:58 16:26 22:09 RBC MCHC [place] % (Auto) ABG pO2 ABG HCO3 ABG Base Excess ABG Hemoglobin Sodium Chloride Carbon Dioxide Creatinine Glucose POC Glucose 152 H 150 H 116 H Alkaline Phosphatase Albumin Urine Creatinine 03/01/22 03/01/22 03/01/22 11:58 16:37 22:02 RBC MCHC [place] % (Auto) ABG pO2 ABG HCO3 ABG Base Excess ABG Hemoglobin Sodium Chloride Carbon Dioxide Creatinine Glucose POC Glucose 58 L 167 H 184 H Alkaline Phosphatase Albumin Urine Creatinine 03/02/22 03/02/22 03/02/22 06:24 10:40 11:33 RBC MCHC [place] % (Auto) ABG pO2 ABG HCO3 ABG Base Excess ABG Hemoglobin Sodium 130 L Chloride 97.8 L Carbon Dioxide 18 L Creatinine 0.5 L Glucose 156 H POC Glucose 110 H 116 H Alkaline Phosphatase 132 H Albumin 3.4 L Urine Creatinine 03/02/22 03/02/22 03/03/22 16:38 21:39 04:53 RBC MCHC [place] % (Auto) ABG pO2 ABG HCO3 ABG Base Excess ABG Hemoglobin Sodium Chloride Carbon Dioxide Creatinine Glucose POC Glucose 122 H 208 H 154 H Alkaline Phosphatase Albumin Urine Creatinine Laboratory Results - last 24 hr 03/02/22 03/02/22 03/02/22 10:40 10:40 10:40 WBC 6.5 RBC 4.17 Hgb 12.6 Hct 38.1 MCV 91 MCH 30 MCHC 33 RDW 13.9 Plt Count 262 Sodium 130 L Potassium 4.0 Chloride 97.8 L Carbon Dioxide 18 L Anion Gap 18 BUN 8 Creatinine 0.5 L Estimated GFR > 60 BUN/Creatinine Ratio 16 Glucose 156 H POC Glucose Calcium 9.1 Total Bilirubin < 0.20 AST 14 ALT 14 Alkaline Phosphatase 132 H Total Protein 7.4 Albumin 3.4 L Albumin/Globulin Ratio 0.9 Syphilis IgG/IgM Ab Nonreactive Blood Type Antibody Screen 03/02/22 03/02/22 03/02/22 10:40 11:33 16:38 WBC RBC Hgb Hct MCV MCH MCHC RDW Plt Count Sodium Potassium Chloride Carbon Dioxide Anion Gap BUN Creatinine Estimated GFR BUN/Creatinine Ratio Glucose POC Glucose 116 H 122 H Calcium Total Bilirubin AST ALT Alkaline Phosphatase Total Protein Albumin Albumin/Globulin Ratio Syphilis IgG/IgM Ab Blood Type O POSITIVE Antibody Screen Negative 03/02/22 03/03/22 21:39 04:53 WBC RBC Hgb Hct MCV MCH MCHC RDW Plt Count Sodium Potassium Chloride Carbon Dioxide Anion Gap BUN Creatinine Estimated GFR BUN/Creatinine Ratio Glucose POC Glucose 208 H 154 H Calcium Total Bilirubin AST ALT Alkaline Phosphatase Total Protein Albumin Albumin/Globulin Ratio Syphilis IgG/IgM Ab Blood Type Antibody Screen
[2022-03-03] MEDS: INSULIN NPH, HUMAN 100 UNIT/1 ML SUB-Q SCH ×2 (08:46→21:59)
[2022-03-03] MEDS: INSULIN LISPRO 100 UNIT/ML SUB-Q SCH ×3 (08:47→21:57)
[2022-03-03] MEDS: HALOPERIDOL 2 MG TAB PO SCH ×2 (10:27→21:55)
[2022-03-03] MEDS: PRENATAL VIT27-FE FUMARATE-FOLIC ACID VIT TAB PO SCH (10:29)
--- NOTE | 2022-03-04 08:27 | Progress Note ---
Assessment and Plan Pt reports +FM and irregular contractions. Pt denies all other complaints. Serial IOL with continuous monitoring discussed. Questions encouraged and answered. POC d/w Eve RN for low dose Pitocin to max of 6mL/hr. Pt and RN verbalize understanding and agree to POC. Dr. Orozco aware. - Patient Problems (1) Bipolar disorder Current Visit: Yes Status: Acute Qualifiers: Current bipolar episode type: manic Plan to address problem: Haldol per orders (2) Gestational hypertension Current Visit: Yes Status: Acute Qualifiers: Trimester: third trimester Qualified Code(s): O13.3 - Gestational [-induced] hypertension without significant proteinuria, third trimest er Plan to address problem: Twice weekly CBC and CMP, completed 03/02/22 Monitor BP and ssx for worsening status (3) Homeless single person Current Visit: Yes Status: Acute (4) Noncompliance by refusing service Current Visit: Yes Status: Acute (5) Obesity, Class III, BMI 40-49.9 (morbid obesity) Current Visit: Yes Status: Acute (6) Schizophrenia Current Visit: No Status: Acute Qualifiers: Schizophrenia type: paranoid schizophrenia Qualified Code(s): F20.0 - Paranoid schizophrenia (7) Diabetes mellitus affecting Current Visit: Yes Status: Acute Qualifiers: Trimester: third trimester Qualified Code(s): O24.913 - Unspecified diabetes mellitus in , third trimester Plan to address problem: if eating: Accuchecks and sliding scale as ordered Humulin N 60 / Humulog 30 in am Humulog 22 at dinner Humulin N 24 at bedtime while NPO: accucheck q4h with SS only (8) 36 weeks gestation of Current Visit: Yes Status: Acute Plan to address problem: BPP twice a week, last completed on 03/02: 07/08 Growth scan last completed 02/17: BANDAR 16.4cm, EFW 2356g, cephalic serial IOL as recommended to start today Subjective - Subjective Date of service: 03/04/22 Principal diagnosis: IUP@ 36+2 weeks: DM, GHTN, Bipolar, Schizophrenia Patient reports: movement normal, contractions, no new complaints, no loss of fluid, no vaginal bleeding Objective - Vital Signs Vital Signs: Vital Signs - 12hr 03/03/22 03/03/22 03/04/22 20:30 22:02 06:08 Temperature 97.6 F Pulse Rate 88 85 Respiratory 18 Rate Blood Pressure 138/65 114/51 Blood Pressure 138/65 [Left] O2 Sat by Pulse 100 Oximetry O2 Sat by Pulse 98 Oximetry [ Bilateral] 03/04/22 03/04/22 06:10 06:14 Temperature 97.7 F Pulse Rate 83 85 Respiratory 18 Rate Blood Pressure Blood Pressure 114/51 [Left] O2 Sat by Pulse 98 100 Oximetry O2 Sat by Pulse Oximetry [ Bilateral] - Exam Breasts: deferred Lungs: Normal air movement Abdomen: Present: normal appearance, soft. Absent: distention, tenderness, guarding Vulva: both: normal Uterus: Present: normal, other (gravid) Uterine Contraction Monitor Mode: Palpation Cervical Dilatation: 0 Cervical Effacement Percentage: 0 station: -3 Uterine Contraction Pattern: Absent Uterine Tone Measurement Phase: Resting Extremities: normal - Labs Labs: Abnormal Labs 02/09/22 02/09/22 02/09/22 21:06 22:30 22:30 RBC 3.51 L MCHC 35 H [place] % (Auto) 12.8 H ABG pO2 ABG HCO3 ABG Base Excess ABG Hemoglobin Sodium 134 L Chloride Carbon Dioxide 20 L Creatinine Glucose 452 H POC Glucose 443 H Alkaline Phosphatase Albumin 3.4 L Urine Creatinine 02/10/22 02/10/22 02/10/22 04:16 04:35 09:49 RBC MCHC [place] % (Auto) ABG pO2 104.0 H ABG HCO3 19.0 L ABG Base Excess -4.8 L ABG Hemoglobin 11.7 L Sodium Chloride Carbon Dioxide Creatinine Glucose POC Glucose 291 H 248 H Alkaline Phosphatase Albumin Urine Creatinine 02/10/22 02/10/22 02/10/22 11:39 17:07 21:33 RBC MCHC [place] % (Auto) ABG pO2 ABG HCO3 ABG Base Excess ABG Hemoglobin Sodium Chloride Carbon Dioxide Creatinine Glucose POC Glucose 350 H 201 H 187 H Alkaline Phosphatase Albumin Urine Creatinine 02/10/22 02/11/22 02/11/22 23:00 08:13 11:47 RBC MCHC [place] % (Auto) ABG pO2 ABG HCO3 ABG Base Excess ABG Hemoglobin Sodium 130 L Chloride 96.9 L Carbon Dioxide 19 L Creatinine 0.4 L Glucose 223 H POC Glucose 170 H 188 H Alkaline Phosphatase Albumin Urine Creatinine 02/11/22 02/12/22 02/12/22 16:48 07:14 10:49 RBC MCHC [place] % (Auto) ABG pO2 ABG HCO3 ABG Base Excess ABG Hemoglobin Sodium Chloride Carbon Dioxide Creatinine Glucose POC Glucose 157 H 173 H 220 H Alkaline Phosphatase Albumin Urine Creatinine 02/12/22 02/12/22 02/12/22 13:02 16:03 20:44 RBC MCHC [place] % (Auto) ABG pO2 ABG HCO3 ABG Base Excess ABG Hemoglobin Sodium Chloride Carbon Dioxide Creatinine Glucose POC Glucose 208 H 113 H 162 H Alkaline Phosphatase Albumin Urine Creatinine 02/13/22 02/13/22 02/13/22 05:40 08:23 12:19 RBC MCHC [place] % (Auto) ABG pO2 ABG HCO3 ABG Base Excess ABG Hemoglobin Sodium 132 L Chloride Carbon Dioxide 17 L Creatinine 0.4 L Glucose 168 H POC Glucose 148 H 150 H Alkaline Phosphatase Albumin Urine Creatinine 02/13/22 02/13/22 02/13/22 16:54 20:03 22:51 RBC MCHC [place] % (Auto) ABG pO2 ABG HCO3 ABG Base Excess ABG Hemoglobin Sodium Chloride Carbon Dioxide Creatinine Glucose POC Glucose 156 H 154 H 155 H Alkaline Phosphatase Albumin Urine Creatinine 02/14/22 02/14/22 02/14/22 07:41 11:19 14:06 RBC MCHC [place] % (Auto) ABG pO2 ABG HCO3 ABG Base Excess ABG Hemoglobin Sodium Chloride Carbon Dioxide Creatinine Glucose POC Glucose 121 H 142 H 110 H Alkaline Phosphatase Albumin Urine Creatinine 02/14/22 02/14/22 02/15/22 17:08 22:01 07:35 RBC MCHC [place] % (Auto) ABG pO2 ABG HCO3 ABG Base Excess ABG Hemoglobin Sodium Chloride Carbon Dioxide Creatinine Glucose POC Glucose 148 H 151 H Alkaline Phosphatase Albumin Urine Creatinine 69.0 H 02/15/22 02/15/22 02/15/22 07:43 08:01 12:12 RBC MCHC [place] % (Auto) ABG pO2 ABG HCO3 ABG Base Excess ABG Hemoglobin Sodium Chloride Carbon Dioxide Creatinine 0.4 L Glucose POC Glucose 134 H 106 H Alkaline Phosphatase Albumin Urine Creatinine 02/15/22 02/16/22 02/16/22 22:07 06:31 17:51 RBC MCHC [place] % (Auto) ABG pO2 ABG HCO3 ABG Base Excess ABG Hemoglobin Sodium Chloride Carbon Dioxide Creatinine Glucose POC Glucose 66 L 135 H 142 H Alkaline Phosphatase Albumin Urine Creatinine 02/17/22 02/18/22 02/18/22 19:57 06:57 17:02 RBC MCHC [place] % (Auto) ABG pO2 ABG HCO3 ABG Base Excess ABG Hemoglobin Sodium Chloride Carbon Dioxide Creatinine Glucose POC Glucose 185 H 159 H 131 H Alkaline Phosphatase Albumin Urine Creatinine 02/18/22 02/19/22 02/19/22 22:10 12:10 16:49 RBC MCHC [place] % (Auto) ABG pO2 ABG HCO3 ABG Base Excess ABG Hemoglobin Sodium Chloride Carbon Dioxide Creatinine Glucose POC Glucose 157 H 133 H 175 H Alkaline Phosphatase Albumin Urine Creatinine 02/19/22 02/20/22 02/20/22 22:25 07:38 16:16 RBC MCHC [place] % (Auto) ABG pO2 ABG HCO3 ABG Base Excess ABG Hemoglobin Sodium 133 L Chloride Carbon Dioxide 17 L Creatinine 0.4 L Glucose 110 H POC Glucose 133 H 159 H Alkaline Phosphatase Albumin 3.6 L Urine Creatinine 02/20/22 02/21/22 02/21/22 21:58 18:05 22:05 RBC MCHC [place] % (Auto) ABG pO2 ABG HCO3 ABG Base Excess ABG Hemoglobin Sodium Chloride Carbon Dioxide Creatinine Glucose POC Glucose 69 L 185 H 63 L Alkaline Phosphatase Albumin Urine Creatinine 02/22/22 02/22/22 02/22/22 02:49 05:39 11:10 RBC MCHC [place] % (Auto) ABG pO2 ABG HCO3 ABG Base Excess ABG Hemoglobin Sodium Chloride Carbon Dioxide Creatinine Glucose POC Glucose 206 H 112 H 48 L Alkaline Phosphatase Albumin Urine Creatinine 02/22/22 02/22/22 02/23/22 16:14 21:04 07:34 RBC MCHC [place] % (Auto) ABG pO2 ABG HCO3 ABG Base Excess ABG Hemoglobin Sodium Chloride Carbon Dioxide Creatinine Glucose POC Glucose 198 H 147 H 106 H Alkaline Phosphatase Albumin Urine Creatinine 02/23/22 02/23/22 02/24/22 17:17 17:43 16:43 RBC MCHC [place] % (Auto) ABG pO2 ABG HCO3 ABG Base Excess ABG Hemoglobin Sodium 130 L Chloride Carbon Dioxide 17 L Creatinine 0.5 L Glucose 134 H POC Glucose 138 H 185 H Alkaline Phosphatase Albumin 3.4 L Urine Creatinine 0302/25/22 02/25/22 21:24 10:55 21:26 RBC MCHC [place] % (Auto) ABG pO2 ABG HCO3 ABG Base Excess ABG Hemoglobin Sodium Chloride Carbon Dioxide Creatinine Glucose POC Glucose 143 H 128 H 111 H Alkaline Phosphatase Albumin Urine Creatinine 02/26/22 02/26/22 02/27/22 11:45 16:55 08:27 RBC MCHC [place] % (Auto) ABG pO2 ABG HCO3 ABG Base Excess ABG Hemoglobin Sodium 135 L Chloride Carbon Dioxide 18 L Creatinine 0.5 L Glucose POC Glucose 67 L 154 H Alkaline Phosphatase Albumin 3.4 L Urine Creatinine 02/27/22 02/27/22 02/27/22 11:42 16:15 22:45 RBC MCHC [place] % (Auto) ABG pO2 ABG HCO3 ABG Base Excess ABG Hemoglobin Sodium Chloride Carbon Dioxide Creatinine Glucose POC Glucose 126 H 132 H 134 H Alkaline Phosphatase Albumin Urine Creatinine 02/28/22 02/28/22 02/28/22 11:58 16:26 22:09 RBC MCHC [place] % (Auto) ABG pO2 ABG HCO3 ABG Base Excess ABG Hemoglobin Sodium Chloride Carbon Dioxide Creatinine Glucose POC Glucose 152 H 150 H 116 H Alkaline Phosphatase Albumin Urine Creatinine 03/01/22 03/01/22 03/01/22 11:58 16:37 22:02 RBC MCHC [place] % (Auto) ABG pO2 ABG HCO3 ABG Base Excess ABG Hemoglobin Sodium Chloride Carbon Dioxide Creatinine Glucose POC Glucose 58 L 167 H 184 H Alkaline Phosphatase Albumin Urine Creatinine 03/02/22 03/02/22 03/02/22 06:24 10:40 11:33 RBC MCHC [place] % (Auto) ABG pO2 ABG HCO3 ABG Base Excess ABG Hemoglobin Sodium 130 L Chloride 97.8 L Carbon Dioxide 18 L Creatinine 0.5 L Glucose 156 H POC Glucose 110 H 116 H Alkaline Phosphatase 132 H Albumin 3.4 L Urine Creatinine 03/02/22 03/02/22 03/03/22 16:38 21:39 04:53 RBC MCHC [place] % (Auto) ABG pO2 ABG HCO3 ABG Base Excess ABG Hemoglobin Sodium Chloride Carbon Dioxide Creatinine Glucose POC Glucose 122 H 208 H 154 H Alkaline Phosphatase Albumin Urine Creatinine 03/03/22 03/03/22 11:44 21:16 RBC MCHC [place] % (Auto) ABG pO2 ABG HCO3 ABG Base Excess ABG Hemoglobin Sodium Chloride Carbon Dioxide Creatinine Glucose POC Glucose 127 H 212 H Alkaline Phosphatase Albumin Urine Creatinine Laboratory Results - last 24 hr 03/03/22 03/03/22 03/03/22 08:42 11:44 16:24 POC Glucose 104 127 H 77 03/03/22 21:16 POC Glucose 212 H
[2022-03-04] MEDS: INSULIN NPH, HUMAN 100 UNIT/1 ML SUB-Q SCH (08:55)
[2022-03-04] MEDS: INSULIN LISPRO 100 UNIT/ML SUB-Q SCH ×3 (08:59→12:29)
[2022-03-04] MEDS ORDERED: OXYTOCIN DRIP 30,000 MILLIUNITS/500 ML BAG IV ONE (09:00)
[2022-03-04] MEDS ORDERED: LACTATED RINGERS 1,000 ML ONE (10:31)
[2022-03-04] MEDS: HALOPERIDOL 2 MG TAB PO SCH ×2 (10:43→22:00)
[2022-03-04] MEDS: LACTATED RINGERS 1,000 ML IV SCH (16:20)
[2022-03-04] MEDS ORDERED: DINOPROSTONE 10 MG VAG SUPP VG ONE (18:15)
[2022-03-04] MEDS: ACETAMINOPHEN 500 MG TAB PO PRN (18:58)
--- NOTE | 2022-03-04 19:05 | Progress Note ---
Assessment and Plan FHT's reviewed with Dr. Orozco; category 2. MD to bedside and POC d/w pt for cervidil induction attempt tonight with plans for delivery if fetus continues to be intolerant to contractions. All questions and concerns addressed. Pt verbalizes understanding and agrees to POC. Pt NPO since 1699. - Patient Problems (1) Bipolar disorder Current Visit: Yes Status: Acute Qualifiers: Current bipolar episode type: manic Plan to address problem: Haldol per orders (2) Gestational hypertension Current Visit: Yes Status: Acute Qualifiers: Trimester: third trimester Qualified Code(s): O13.3 - Gestational [-induced] hypertension without significant proteinuria, third trimester Plan to address problem: Twice weekly CBC and CMP, completed 03/02/22 Monitor BP and ssx for worsening status (3) Homeless single person Current Visit: Yes Status: Acute (4) Noncompliance by refusing service Current Visit: Yes Status: Acute (5) Obesity, Class III, BMI 40-49.9 (morbid obesity) Current Visit: Yes Status: Acute (6) Schizophrenia Current Visit: No Status: Acute Qualifiers: Schizophrenia type: paranoid schizophrenia Qualified Code(s): F20.0 - Paranoid schizophrenia (7) Diabetes mellitus affecting Current Visit: Yes Status: Acute Qualifiers: Trimester: third trimester Qualified Code(s): O24.913 - Unspecified diabetes mellitus in , third trimester Plan to address problem: if eating: Accuchecks and sliding scale as ordered Humulin N 60 / Humulog 30 in am Humulog 22 at dinner Humulin N 24 at bedtime while NPO: accucheck q4h with SS only (8) 36 weeks gestation of Current Visit: Yes Status: Acute Plan to address problem: BPP twice a week, last completed on 03/02: 07/08 Growth scan last completed 02/17: BANDAR 16.4cm, EFW 2356g, cephalic serial IOL, cervidil placed continuous efm and toco Subjective - Subjective Date of service: 03/04/22 Principal diagnosis: IUP@ 36+2 weeks: DM, GHTN, Bipolar, Schizophrenia Patient reports: movement normal, no new complaints, no loss of fluid, no vaginal bleeding, no contractions Objective - Vital Signs Vital Signs: Vital Signs - 12hr 03/04/22 03/04/2203/04/22 08:55 08:57 09:00 Temperature 97.7 F Pulse Rate 92 H 82 92 H Respiratory 16 Rate Blood Pressure 132/73 Blood Pressure [Right] O2 Sat by Pulse 99 92 100 Oximetry 03/04/22 03/04/22 03/04/22 09:05 09:10 09:15 Temperature Pulse Rate 85 92 H 87 Respiratory Rate Blood Pressure Blood Pressure [Right] O2 Sat by Pulse 98 99 98 Oximetry 03/04/22 03/04/22 03/04/22 09:20 09:25 09:30 Temperature Pulse Rate 85 84 91 H Respiratory Rate Blood Pressure Blood Pressure [Right] O2 Sat by Pulse 99 99 100 Oximetry 03/04/22 03/04/22 03/04/22 09:35 09:40 09:45 Temperature Pulse Rate 89 83 79 Respiratory Rate Blood Pressure Blood Pressure [Right] O2 Sat by Pulse 99 100 100 Oximetry 03/04/22 03/04/22 03/04/22 09:50 09:55 10:00 Temperature Pulse Rate 90 80 76 Respiratory Rate Blood Pressure Blood Pressure [Right] O2 Sat by Pulse 99 99 99 Oximetry 03/04/22 03/04/22 03/04/22 10:05 10:10 10:15 Temperature Pulse Rate 78 97 H 84 Respiratory Rate Blood Pressure Blood Pressure [Right] O2 Sat by Pulse 99 100 100 Oximetry 03/04/22 03/04/22 03/04/22 10:20 10:25 10:30 Temperature Pulse Rate 79 90 93 H Respiratory Rate Blood Pressure Blood Pressure [Right] O2 Sat by Pulse 99 99 97 Oximetry 03/04/22 03/04/22 03/04/22 10:35 10:40 10:45 Temperature Pulse Rate 86 76 78 Respiratory Rate Blood Pressure Blood Pressure [Right] O2 Sat by Pulse 97 98 98 Oximetry 03/04/22 03/04/22 03/04/22 10:50 10:55 11:00 Temperature Pulse Rate 86 91 H 83 Respiratory Rate Blood Pressure Blood Pressure [Right] O2 Sat by Pulse 99 99 100 Oximetry 03/04/22 03/04/22 03/04/22 11:05 11:10 11:15 Temperature Pulse Rate 80 88 84 Respiratory Rate Blood Pressure Blood Pressure [Right] O2 Sat by Pulse 98 98 98 Oximetry 03/04/22 03/04/22 03/04/22 11:20 11:25 11:30 Temperature Pulse Rate 83 88 82 Respiratory Rate Blood Pressure Blood Pressure [Right] O2 Sat by Pulse 99 98 99 Oximetry 03/04/22 03/04/22 03/04/22 11:35 11:40 11:45 Temperature Pulse Rate 87 80 82 Respiratory Rate Blood Pressure Blood Pressure [Right] O2 Sat by Pulse 98 98 97 Oximetry 03/04/22 03/04/22 03/04/22 11:50 11:55 12:00 Temperature Pulse Rate 86 89 85 Respiratory Rate Blood Pressure Blood Pressure [Right] O2 Sat by Pulse 98 97 98 Oximetry 03/04/22 03/04/22 03/04/22 12:05 12:10 12:15 Temperature Pulse Rate 88 89 93 H Respiratory Rate Blood Pressure Blood Pressure [Right] O2 Sat by Pulse 98 99 98 Oximetry 03/04/22 03/04/22 03/04/22 12:20 12:25 12:28 Temperature Pulse Rate 85 94 H 85 Respiratory Rate Blood Pressure Blood Pressure [Right] O2 Sat by Pulse 99 99 88 Oximetry 03/04/22 03/04/22 03/04/22 12:30 12:35 12:37 Temperature 97.4 F L Pulse Rate 99 H 108 H 86 Respiratory 16 Rate Blood Pressure Blood Pressure 133/71 [Right] O2 Sat by Pulse 99 97 99 Oximetry 03/04/22 03/04/22 03/04/22 12:39 12:40 12:45 Temperature Pulse Rate 85 85 82 Respiratory Rate Blood Pressure 133/71 Blood Pressure [Right] O2 Sat by Pulse 99 98 Oximetry 03/04/22 03/04/22 03/04/22 12:50 12:55 13:00 Temperature Pulse Rate 78 81 77 Respiratory Rate Blood Pressure Blood Pressure [Right] O2 Sat by Pulse 99 100 98 Oximetry 03/04/22 03/04/22 03/04/22 13:05 13:08 13:13 Temperature Pulse Rate 80 51 L 106 H Respiratory Rate Blood Pressure Blood Pressure [Right] O2 Sat by Pulse 98 82 L 74 L Oximetry 03/04/22 03/04/22 03/04/22 13:18 13:23 13:28 Temperature Pulse Rate 86 88 92 H Respiratory Rate Blood Pressure Blood Pressure [Right] O2 Sat by Pulse 99 99 99 Oximetry 03/04/22 03/04/22 03/04/22 13:29 13:33 13:38 Temperature Pulse Rate 85 81 80 Respiratory Rate Blood Pressure 121/70 Blood Pressure [Right] O2 Sat by Pulse 90 99 Oximetry 03/04/22 03/04/22 03/04/22 13:43 13:48 13:53 Temperature Pulse Rate 83 84 86 Respiratory Rate Blood Pressure Blood Pressure [Right] O2 Sat by Pulse 99 98 99 Oximetry 03/04/22 03/04/22 03/04/22 13:58 14:03 14:08 Temperature Pulse Rate 87 85 82 Respiratory Rate Blood Pressure Blood Pressure [Right] O2 Sat by Pulse 99 100 99 Oximetry 03/04/22 03/04/22 03/04/22 14:13 14:18 14:23 Temperature Pulse Rate 84 84 80 Respiratory Rate Blood Pressure Blood Pressure [Right] O2 Sat by Pulse 97 95 96 Oximetry 03/04/22 03/04/22 03/04/22 14:28 14:29 14:33 Temperature Pulse Rate 80 79 81 Respiratory Rate Blood Pressure 135/72 Blood Pressure [Right] O2 Sat by Pulse 100 96 Oximetry 03/04/22 03/04/22 03/04/22 14:34 14:38 14:43 Temperature Pulse Rate 82 85 83 Respiratory Rate Blood Pressure Blood Pressure [Right] O2 Sat by Pulse 94 97 95 Oximetry 03/04/22 03/04/22 03/04/22 14:44 14:48 14:53 Temperature Pulse Rate 83 83 83 Respiratory Rate Blood Pressure Blood Pressure [Right] O2 Sat by Pulse 94 97 97 Oximetry 03/04/22 03/04/22 03/04/22 14:54 15:00 15:05 Temperature 98.3 F Pulse Rate 84 143 H 85 Respiratory 18 Rate Blood Pressure Blood Pressure 135/72 [Right] O2 Sat by Pulse 98 83 L 98 Oximetry 03/04/22 03/04/22 03/04/22 15:10 15:15 15:20 Temperature Pulse Rate 74 89 82 Respiratory Rate Blood Pressure Blood Pressure [Right] O2 Sat by Pulse 100 100 100 Oximetry 03/04/22 03/04/22 03/04/22 15:34 15:35 15:40 Temperature Pulse Rate 82 82 83 Respiratory Rate Blood Pressure Blood Pressure [Right] O2 Sat by Pulse 77 L 75 L 91 Oximetry 03/04/22 03/04/22 03/04/22 15:45 15:50 15:55 Temperature Pulse Rate 78 92 H 90 Respiratory Rate Blood Pressure Blood Pressure [Right] O2 Sat by Pulse 100 100 99 Oximetry 03/04/22 03/04/22 03/04/22 16:00 16:05 16:10 Temperature Pulse Rate 76 87 75 Respiratory Rate Blood Pressure Blood Pressure [Right] O2 Sat by Pulse 99 100 99 Oximetry 03/04/22 03/04/22 03/04/22 16:15 16:20 16:25 Temperature Pulse Rate 81 84 88 Respiratory Rate Blood Pressure Blood Pressure [Right] O2 Sat by Pulse 99 99 98 Oximetry 03/04/22 03/04/22 03/04/22 16:29 16:30 16:35 Temperature Pulse Rate 75 85 84 Respiratory Rate Blood Pressure 106/53 Blood Pressure [Right] O2 Sat by Pulse 99 99 Oximetry 03/04/22 03/04/22 03/04/22 16:40 16:45 16:50 Temperature Pulse Rate 97 H 98 H 85 Respiratory Rate Blood Pressure Blood Pressure [Right] O2 Sat by Pulse 97 97 99 Oximetry 03/04/22 03/04/22 03/04/22 16:55 17:00 17:05 Temperature Pulse Rate 94 H 106 H 79 Respiratory Rate Blood Pressure Blood Pressure [Right] O2 Sat by Pulse 99 96 96 Oximetry 03/04/22 03/04/22 03/04/22 17:10 17:15 17:20 Temperature Pulse Rate 83 83 87 Respiratory Rate Blood Pressure Blood Pressure [Right] O2 Sat by Pulse 96 95 96 Oximetry 03/04/22 03/04/22 03/04/22 17:25 17:29 17:30 Temperature Pulse Rate 81 85 87 Respiratory Rate Blood Pressure 101/59 Blood Pressure [Right] O2 Sat by Pulse 96 98 Oximetry 03/04/22 03/04/22 03/04/22 17:35 17:40 17:45 Temperature Pulse Rate 82 86 80 Respiratory Rate Blood Pressure Blood Pressure [Right] O2 Sat by Pulse 96 97 97 Oximetry 03/04/22 03/04/22 03/04/22 17:50 17:55 18:21 Temperature Pulse Rate 79 87 196 H Respiratory Rate Blood Pressure Blood Pressure [Right] O2 Sat by Pulse 96 96 83 L Oximetry 03/04/22 03/04/22 03/04/22 18:27 18:32 18:37 Temperature Pulse Rate 67 98 H 87 Respiratory Rate Blood Pressure Blood Pressure [Right] O2 Sat by Pulse 81 L 98 98 Oximetry 03/04/22 03/04/22 03/04/22 18:42 18:47 18:52 Temperature Pulse Rate 80 79 83 Respiratory Rate Blood Pressure Blood Pressure [Right] O2 Sat by Pulse 99 99 99 Oximetry 03/04/22 18:57 Temperature Pulse Rate 86 Respiratory Rate Blood Pressure Blood Pressure [Right] O2 Sat by Pulse 99 Oximetry - Exam Breasts: deferred Cardiovascular: Regular rate Lungs: Normal air movement Abdomen: Present: normal appearance, soft. Absent: distention, tenderness, guarding Vulva: both: normal Uterus: Absent: tenderness FHR: category 2 Uterine Contraction Monitor Mode: External Cervical Dilatation: 0 Cervical Effacement Percentage: 0 Uterine Contraction Pattern: Irregular Uterine Tone Measurement Phase: Resting Extremities: normal - Labs Labs: Abnormal Labs 02/09/22 02/09/22 02/09/22 21:06 22:30 22:30 RBC 3.51 L MCHC 35 H [place] % (Auto) 12.8 H ABG pO2 ABG HCO3 ABG Base Excess ABG Hemoglobin Sodium 134 L Chloride Carbon Dioxide 20 L Creatinine Glucose 452 H POC Glucose 443 H Alkaline Phosphatase Albumin 3.4 L Urine Creatinine 02/10/22 02/10/22 02/10/22 04:16 04:35 09:49 RBC MCHC [place] % (Auto) ABG pO2 104.0 H ABG HCO3 19.0 L ABG Base Excess -4.8 L ABG Hemoglobin 11.7 L Sodium Chloride Carbon Dioxide Creatinine Glucose POC Glucose 291 H 248 H Alkaline Phosphatase Albumin Urine Creatinine 02/10/22 02/10/22 02/10/22 11:39 17:07 21:33 RBC MCHC [place] % (Auto) ABG pO2 ABG HCO3 ABG Base Excess ABG Hemoglobin Sodium Chloride Carbon Dioxide Creatinine Glucose POC Glucose 350 H 201 H 187 H Alkaline Phosphatase Albumin Urine Creatinine 02/10/22 02/11/22 02/11/22 23:00 08:13 11:47 RBC MCHC [place] % (Auto) ABG pO2 ABG HCO3 ABG Base Excess ABG Hemoglobin Sodium 130 L Chloride 96.9 L Carbon Dioxide 19 L Creatinine 0.4 L Glucose 223 H POC Glucose 170 H 188 H Alkaline Phosphatase Albumin Urine Creatinine 02/11/22 02/12/22 02/12/22 16:48 07:14 10:49 RBC MCHC [place] % (Auto) ABG pO2 ABG HCO3 ABG Base Excess ABG Hemoglobin Sodium Chloride Carbon Dioxide Creatinine Glucose POC Glucose 157 H 173 H 220 H Alkaline Phosphatase Albumin Urine Creatinine 02/12/22 02/12/22 02/12/22 13:02 16:03 20:44 RBC MCHC [place] % (Auto) ABG pO2 ABG HCO3 ABG Base Excess ABG Hemoglobin Sodium Chloride Carbon Dioxide Creatinine Glucose POC Glucose 208 H 113 H 162 H Alkaline Phosphatase Albumin Urine Creatinine 02/13/22 02/13/22 02/13/22 05:40 08:23 12:19 RBC MCHC [place] % (Auto) ABG pO2 ABG HCO3 ABG Base Excess ABG Hemoglobin Sodium 132 L Chloride Carbon Dioxide 17 L Creatinine 0.4 L Glucose 168 H POC Glucose 148 H 150 H Alkaline Phosphatase Albumin Urine Creatinine 02/13/22 02/13/22 02/13/22 16:54 20:03 22:51 RBC MCHC [place] % (Auto) ABG pO2 ABG HCO3 ABG Base Excess ABG Hemoglobin Sodium Chloride Carbon Dioxide Creatinine Glucose POC Glucose 156 H 154 H 155 H Alkaline Phosphatase Albumin Urine Creatinine 02/14/22 02/14/22 02/14/22 07:41 11:19 14:06 RBC MCHC [place] % (Auto) ABG pO2 ABG HCO3 ABG Base Excess ABG Hemoglobin Sodium Chloride Carbon Dioxide Creatinine Glucose POC Glucose 121 H 142 H 110 H Alkaline Phosphatase Albumin Urine Creatinine 02/14/22 02/14/22 02/15/22 17:08 22:01 07:35 RBC MCHC [place] % (Auto) ABG pO2 ABG HCO3 ABG Base Excess ABG Hemoglobin Sodium Chloride Carbon Dioxide Creatinine Glucose POC Glucose 148 H 151 H Alkaline Phosphatase Albumin Urine Creatinine 69.0 H 02/15/22 02/15/22 02/15/22 07:43 08:01 12:12 RBC MCHC [place] % (Auto) ABG pO2 ABG HCO3 ABG Base Excess ABG Hemoglobin Sodium Chloride Carbon Dioxide Creatinine 0.4 L Glucose POC Glucose 134 H 106 H Alkaline Phosphatase Albumin Urine Creatinine 02/15/22 02/16/22 02/16/22 22:07 06:31 17:51 RBC MCHC [place] % (Auto) ABG pO2 ABG HCO3 ABG Base Excess ABG Hemoglobin Sodium Chloride Carbon Dioxide Creatinine Glucose POC Glucose 66 L 135 H 142 H Alkaline Phosphatase Albumin Urine Creatinine 02/17/22 02/18/22 02/18/22 19:57 06:57 17:02 RBC MCHC [place] % (Auto) ABG pO2 ABG HCO3 ABG Base Excess ABG Hemoglobin Sodium Chloride Carbon Dioxide Creatinine Glucose POC Glucose 185 H 159 H 131 H Alkaline Phosphatase Albumin Urine Creatinine 02/18/22 02/19/22 02/19/22 22:10 12:10 16:49 RBC MCHC [place] % (Auto) ABG pO2 ABG HCO3 ABG Base Excess ABG Hemoglobin Sodium Chloride Carbon Dioxide Creatinine Glucose POC Glucose 157 H 133 H 175 H Alkaline Phosphatase Albumin Urine Creatinine 02/19/22 02/20/22 02/20/22 22:25 07:38 16:16 RBC MCHC [place] % (Auto) ABG pO2 ABG HCO3 ABG Base Excess ABG Hemoglobin Sodium 133 L Chloride Carbon Dioxide 17 L Creatinine 0.4 L Glucose 110 H POC Glucose 133 H 159 H Alkaline Phosphatase Albumin 3.6 L Urine Creatinine 02/20/22 02/21/22 02/21/22 21:58 18:05 22:05 RBC MCHC [place] % (Auto) ABG pO2 ABG HCO3 ABG Base Excess ABG Hemoglobin Sodium Chloride Carbon Dioxide Creatinine Glucose POC Glucose 69 L 185 H 63 L Alkaline Phosphatase Albumin Urine Creatinine 02/22/22 02/22/22 02/22/22 02:49 05:39 11:10 RBC MCHC [place] % (Auto) ABG pO2 ABG HCO3 ABG Base Excess ABG Hemoglobin Sodium Chloride Carbon Dioxide Creatinine Glucose POC Glucose 206 H 112 H 48 L Alkaline Phosphatase Albumin Urine Creatinine 02/22/22 02/22/22 02/23/22 16:14 21:04 07:34 RBC MCHC [place] % (Auto) ABG pO2 ABG HCO3 ABG Base Excess ABG Hemoglobin Sodium Chloride Carbon Dioxide Creatinine Glucose POC Glucose 198 H 147 H 106 H Alkaline Phosphatase Albumin Urine Creatinine 02/23/22 02/23/22 02/24/22 17:17 17:43 16:43 RBC MCHC [place] % (Auto) ABG pO2 ABG HCO3 ABG Base Excess ABG Hemoglobin Sodium 130 L Chloride Carbon Dioxide 17 L Creatinine 0.5 L Glucose 134 H POC Glucose 138 H 185 H Alkaline Phosphatase Albumin 3.4 L Urine Creatinine 02/24/22 02/25/22 02/25/22 21:24 10:55 21:26 RBC MCHC [place] % (Auto) ABG pO2 ABG HCO3 ABG Base Excess ABG Hemoglobin Sodium Chloride Carbon Dioxide Creatinine Glucose POC Glucose 143 H 128 H 111 H Alkaline Phosphatase Albumin Urine Creatinine 02/26/22 02/26/22 02/27/22 11:45 16:55 08:27 RBC MCHC [place] % (Auto) ABG pO2 ABG HCO3 ABG Base Excess ABG Hemoglobin Sodium 135 L Chloride Carbon Dioxide 18 L Creatinine 0.5 L Glucose POC Glucose 67 L 154 H Alkaline Phosphatase Albumin 3.4 L Urine Creatinine 02/27/22 02/27/22 02/27/22 11:42 16:15 22:45 RBC MCHC [place] % (Auto) ABG pO2 ABG HCO3 ABG Base Excess ABG Hemoglobin Sodium Chloride Carbon Dioxide Creatinine Glucose POC Glucose 126 H 132 H 134 H Alkaline Phosphatase Albumin Urine Creatinine 02/28/22 02/28/22 02/28/22 11:58 16:26 22:09 RBC MCHC [place] % (Auto) ABG pO2 ABG HCO3 ABG Base Excess ABG Hemoglobin Sodium Chloride Carbon Dioxide Creatinine Glucose POC Glucose 152 H 150 H 116 H Alkaline Phosphatase Albumin Urine Creatinine 03/01/22 03/01/22 03/01/22 11:58 16:37 22:02 RBC MCHC [place] % (Auto) ABG pO2 ABG HCO3 ABG Base Excess ABG Hemoglobin Sodium Chloride Carbon Dioxide Creatinine Glucose POC Glucose 58 L 167 H 184 H Alkaline Phosphatase Albumin Urine Creatinine 03/02/22 03/02/22 03/02/22 06:24 10:40 11:33 RBC MCHC [place] % (Auto) ABG pO2 ABG HCO3 ABG Base Excess ABG Hemoglobin Sodium 130 L Chloride 97.8 L Carbon Dioxide 18 L Creatinine 0.5 L Glucose 156 H POC Glucose 110 H 116 H Alkaline Phosphatase 132 H Albumin 3.4 L Urine Creatinine 03/02/22 03/02/22 03/03/22 16:38 21:39 04:53 RBC MCHC [place] % (Auto) ABG pO2 ABG HCO3 ABG Base Excess ABG Hemoglobin Sodium Chloride Carbon Dioxide Creatinine Glucose POC Glucose 122 H 208 H 154 H Alkaline Phosphatase Albumin Urine Creatinine 03/03/22 03/03/22 03/04/22 11:44 21:16 06:06 RBC MCHC [place] % (Auto) ABG pO2 ABG HCO3 ABG Base Excess ABG Hemoglobin Sodium Chloride Carbon Dioxide Creatinine Glucose POC Glucose 127 H 212 H 146 H Alkaline Phosphatase Albumin Urine Creatinine 03/04/22 12:09 RBC MCHC [place] % (Auto) ABG pO2 ABG HCO3 ABG Base Excess ABG Hemoglobin Sodium Chloride Carbon Dioxide Creatinine Glucose POC Glucose 161 H Alkaline Phosphatase Albumin Urine Creatinine Laboratory Results - last 24 hr 03/03/22 03/04/22 03/04/22 21:16 06:06 12:09 POC Glucose 212 H 146 H 161 H 03/04/22 15:32 POC Glucose 103
[2022-03-05] MEDS: LACTATED RINGERS 1,000 ML IV SCH (02:30)
[2022-03-05] MEDS: ACETAMINOPHEN 500 MG TAB PO PRN ×2 (06:57→15:57)
[2022-03-05] MEDS ORDERED: miSOPROStol 25 MCG TAB PO SCH (08:30)
--- NOTE | 2022-03-05 08:59 | Progress Note ---
Assessment and Plan IOl day 2, SVE by Marcy BEAR closed/thick/-3. Pt does not feel ctx this morning, she reports her vagina is sore. advised that cervidil can have that effect. Pt states she would like to continue IOL today, discussed use of cytotec for one dose. reviewed w/ Ms. Posey that yesterday there was some concern over the baby's FHT during pitocin. if FHT respond similarly today, we may need to proceed with an operative . pt states she understands and agrees, her goal is to have a healthy baby even. Discussed plan with patient and nurse, all questions addressed. Pt to have brief AM care and breakfast before cytotec. 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 (3) Schizophrenia Current Visit: No Status: Acute Qualifiers: Schizophrenia type: paranoid schizophrenia Qualified Code(s): F20.0 - Paranoid schizophrenia Plan to address problem: pt followed by [facility] Continue teaching re: self-care and diabetes management Utilize therapeutic communication and redirection (4) Gestational hypertension Current Visit: Yes Status: Acute Qualifiers: Trimester: third trimester Qualified Code(s): O13.3 - Gestational [-induced] hypertension without significant proteinuria, third trimester Plan to address problem: Will closely monitor b/p's no s/s pre-e (5) Noncompliance by refusing service Current Visit: Yes Status: Acute (6) 36 weeks gestation of Current Visit: Yes Status: Acute Subjective - Subjective Date of service: 03/05/22 Principal diagnosis: IUP@ 36+3 weeks: DM, GHTN, Bipolar, Schizophrenia Patient reports: movement normal, no new complaints, no loss of fluid, no vaginal bleeding, no contractions Objective - Vital Signs Vital Signs: Vital Signs - 12hr 03/04/22 03/04/22 03/04/22 20:58 21:02 21:07 Temperature Pulse Rate 65 73 75 Respiratory Rate Blood Pressure Blood Pressure [Right] O2 Sat by Pulse 90 99 99 Oximetry 03/04/22 03/04/22 03/04/22 21:12 21:17 21:22 Temperature Pulse Rate 80 69 76 Respiratory Rate Blood Pressure Blood Pressure [Right] O2 Sat by Pulse 99 100 98 Oximetry 03/04/22 03/04/22 03/04/22 21:27 21:32 21:36 Temperature Pulse Rate 78 74 77 Respiratory Rate Blood Pressure 127/62 Blood Pressure [Right] O2 Sat by Pulse 98 98 Oximetry 03/04/22 03/04/22 03/04/22 21:37 21:42 21:47 Temperature Pulse Rate 81 82 78 Respiratory Rate Blood Pressure Blood Pressure [Right] O2 Sat by Pulse 98 98 98 Oximetry 03/04/22 03/04/22 03/04/22 21:52 21:57 22:02 Temperature Pulse Rate 74 73 88 Respiratory Rate Blood Pressure Blood Pressure [Right] O2 Sat by Pulse 98 99 99 Oximetry 03/04/22 03/04/22 03/04/22 22:07 22:12 22:17 Temperature Pulse Rate 83 81 81 Respiratory Rate Blood Pressure Blood Pressure [Right] O2 Sat by Pulse 98 99 99 Oximetry 03/04/22 03/04/22 03/04/22 22:22 22:28 22:33 Temperature Pulse Rate 79 73 81 Respiratory Rate Blood Pressure Blood Pressure [Right] O2 Sat by Pulse 99 100 99 Oximetry 03/04/22 03/04/22 03/04/22 22:36 22:38 22:43 Temperature Pulse Rate 69 82 77 Respiratory Rate Blood Pressure 116/62 Blood Pressure [Right] O2 Sat by Pulse 99 99 Oximetry 03/04/22 03/04/22 03/04/22 22:48 22:53 22:58 Temperature Pulse Rate 71 76 76 Respiratory Rate Blood Pressure Blood Pressure [Right] O2 Sat by Pulse 99 99 99 Oximetry 03/04/22 03/04/22 03/04/22 23:03 23:08 23:13 Temperature Pulse Rate 81 69 79 Respiratory Rate Blood Pressure Blood Pressure [Right] O2 Sat by Pulse 99 99 99 Oximetry 03/04/22 03/04/22 03/04/22 23:18 23:23 23:28 Temperature Pulse Rate 72 76 72 Respiratory Rate Blood Pressure Blood Pressure [Right] O2 Sat by Pulse 100 99 99 Oximetry 03/04/22 03/04/2222 23:33 23:36 23:38 Temperature Pulse Rate 75 74 73 Respiratory Rate Blood Pressure 101/55 Blood Pressure [Right] O2 Sat by Pulse 99 99 Oximetry 03/04/22 03/04/22 03/04/22 23:43 23:48 23:53 Temperature Pulse Rate 74 76 74 Respiratory Rate Blood Pressure Blood Pressure [Right] O2 Sat by Pulse 100 99 99 Oximetry 03/04/22 03/05/22 03/05/22 23:58 00:01 00:03 Temperature 98.3 F Pulse Rate 81 71 Respiratory 18 Rate Blood Pressure Blood Pressure [Right] O2 Sat by Pulse 100 99 99 Oximetry 03/05/22 03/05/22 03/05/22 00:08 00:13 00:18 Temperature Pulse Rate 90 78 75 Respiratory Rate Blood Pressure Blood Pressure [Right] O2 Sat by Pulse 100 100 99 Oximetry 03/05/22 03/05/22 03/05/22 00:23 00:28 00:33 Temperature Pulse Rate 78 79 71 Respiratory Rate Blood Pressure Blood Pressure [Right] O2 Sat by Pulse 98 98 99 Oximetry 03/05/22 03/05/22 03/05/22 00:38 00:43 00:48 Temperature Pulse Rate 69 67 71 Respiratory Rate Blood Pressure Blood Pressure [Right] O2 Sat by Pulse 100 100 100 Oximetry 03/05/22 03/05/22 03/05/22 00:53 00:58 01:03 Temperature Pulse Rate 72 80 74 Respiratory Rate Blood Pressure Blood Pressure [Right] O2 Sat by Pulse 99 99 100 Oximetry 03/05/22 03/05/22 03/05/22 01:08 01:13 01:18 Temperature Pulse Rate 71 74 72 Respiratory Rate Blood Pressure Blood Pressure [Right] O2 Sat by Pulse 99 99 99 Oximetry 03/05/22 03/05/22 03/05/22 01:23 01:28 01:33 Temperature Pulse Rate 73 71 73 Respiratory Rate Blood Pressure Blood Pressure [Right] O2 Sat by Pulse 99 99 100 Oximetry 03/05/22 03/05/22 03/05/22 01:38 01:43 01:48 Temperature Pulse Rate 70 73 75 Respiratory Rate Blood Pressure Blood Pressure [Right] O2 Sat by Pulse 99 99 94 Oximetry 03/05/22 03/05/22 03/05/22 01:53 01:58 02:03 Temperature Pulse Rate 74 72 75 Respiratory Rate Blood Pressure Blood Pressure [Right] O2 Sat by Pulse 99 99 99 Oximetry 03/05/22 03/05/22 03/05/22 02:08 02:13 02:18 Temperature Pulse Rate 74 73 77 Respiratory Rate Blood Pressure Blood Pressure [Right] O2 Sat by Pulse 99 99 99 Oximetry 03/05/22 03/05/22 03/05/22 02:28 02:33 02:38 Temperature Pulse Rate 79 84 72 Respiratory Rate Blood Pressure 129/65 Blood Pressure [Right] O2 Sat by Pulse 100 98 100 Oximetry 03/05/22 03/05/22 03/05/22 02:43 02:48 02:53 Temperature Pulse Rate 70 70 72 Respiratory Rate Blood Pressure Blood Pressure [Right] O2 Sat by Pulse 99 99 99 Oximetry 03/05/22 03/05/22 03/05/22 02:58 03:03 03:08 Temperature Pulse Rate 75 75 78 Respiratory Rate Blood Pressure Blood Pressure [Right] O2 Sat by Pulse 99 99 99 Oximetry 03/05/22 03/05/22 03/05/22 03:13 03:18 03:23 Temperature Pulse Rate 77 81 73 Respiratory Rate Blood Pressure Blood Pressure [Right] O2 Sat by Pulse 99 99 99 Oximetry 03/05/22 03/05/22 03/05/22 03:28 03:31 03:33 Temperature Pulse Rate 80 77 78 Respiratory Rate Blood Pressure Blood Pressure [Right] O2 Sat by Pulse 100 92 100 Oximetry 03/05/22 03/05/22 03/05/22 03:38 03:43 03:48 Temperature Pulse Rate 71 77 79 Respiratory Rate Blood Pressure Blood Pressure [Right] O2 Sat by Pulse 99 100 99 Oximetry 03/05/22 03/05/22 03/05/22 03:53 03:58 04:03 Temperature Pulse Rate 82 81 81 Respiratory Rate Blood Pressure Blood Pressure [Right] O2 Sat by Pulse 99 99 98 Oximetry 03/05/22 03/05/22 03/05/22 04:04 04:08 04:13 Temperature 98.2 F Pulse Rate 82 71 73 Respiratory 16 Rate Blood Pressure 122/65 Blood Pressure [Right] O2 Sat by Pulse 98 98 99 Oximetry 03/05/22 03/05/22 03/05/22 04:18 04:23 04:28 Temperature Pulse Rate 74 72 82 Respiratory Rate Blood Pressure Blood Pressure [Right] O2 Sat by Pulse 99 98 99 Oximetry 03/05/22 03/05/22 03/05/22 04:33 04:38 04:43 Temperature Pulse Rate 83 78 88 Respiratory Rate Blood Pressure Blood Pressure [Right] O2 Sat by Pulse 98 99 98 Oximetry 03/05/22 03/05/22 03/05/22 04:48 04:53 04:56 Temperature Pulse Rate 83 83 85 Respiratory Rate Blood Pressure 129/63 Blood Pressure [Right] O2 Sat by Pulse 98 99 Oximetry 03/05/22 03/05/22 03/05/22 04:58 05:03 05:08 Temperature Pulse Rate 76 77 72 Respiratory Rate Blood Pressure Blood Pressure [Right] O2 Sat by Pulse 100 98 99 Oximetry 03/05/22 03/05/22 03/05/22 05:13 05:18 05:23 Temperature Pulse Rate 82 83 73 Respiratory Rate Blood Pressure Blood Pressure [Right] O2 Sat by Pulse 98 98 99 Oximetry 03/05/22 03/05/22 03/05/22 05:28 05:33 05:38 Temperature Pulse Rate 77 78 81 Respiratory Rate Blood Pressure Blood Pressure [Right] O2 Sat by Pulse 100 100 100 Oximetry 03/05/22 03/05/22 03/05/22 05:43 05:48 05:53 Temperature Pulse Rate 72 75 72 Respiratory Rate Blood Pressure Blood Pressure [Right] O2 Sat by Pulse 99 99 98 Oximetry 03/05/22 03/05/22 03/05/22 05:58 06:03 06:08 Temperature Pulse Rate 75 69 77 Respiratory Rate Blood Pressure Blood Pressure [Right] O2 Sat by Pulse 98 99 98 Oximetry 03/05/22 03/05/22 03/05/22 06:13 06:18 06:23 Temperature Pulse Rate 79 73 74 Respiratory Rate Blood Pressure Blood Pressure [Right] O2 Sat by Pulse 99 99 99 Oximetry 03/05/22 03/05/22 03/05/22 06:28 06:33 06:38 Temperature Pulse Rate 83 73 78 Respiratory Rate Blood Pressure Blood Pressure [Right] O2 Sat by Pulse 99 99 99 Oximetry 03/05/22 03/05/22 03/05/22 06:50 06:51 06:55 Temperature Pulse Rate 97 H 80 Respiratory Rate Blood Pressure 122/75 Blood Pressure [Right] O2 Sat by Pulse 100 99 Oximetry 03/05/22 03/05/22 03/05/22 07:00 07:05 07:10 Temperature 97.8 F Pulse Rate 80 81 83 Respiratory 16 Rate Blood Pressure 123/57 Blood Pressure 123/57 [Right] O2 Sat by Pulse 100 98 99 Oximetry 03/05/22 03/05/22 03/05/22 07:15 07:20 07:25 Temperature Pulse Rate 80 88 82 Respiratory Rate Blood Pressure Blood Pressure [Right] O2 Sat by Pulse 100 100 99 Oximetry 03/05/22 03/05/22 03/05/22 07:30 07:35 07:40 Temperature Pulse Rate 76 78 84 Respiratory Rate Blood Pressure Blood Pressure [Right] O2 Sat by Pulse 99 100 100 Oximetry 03/05/22 03/05/22 03/05/22 07:45 07:50 07:55 Temperature Pulse Rate 85 79 74 Respiratory Rate Blood Pressure Blood Pressure [Right] O2 Sat by Pulse 99 99 98 Oximetry 03/05/22 03/05/22 03/05/22 07:57 08:00 08:05 Temperature Pulse Rate 80 81 73 Respiratory Rate Blood Pressure 123/72 Blood Pressure [Right] O2 Sat by Pulse 99 99 Oximetry 03/05/22 03/05/22 03/05/22 08:10 08:15 08:20 Temperature Pulse Rate 83 83 78 Respiratory Rate Blood Pressure Blood Pressure [Right] O2 Sat by Pulse 99 99 99 Oximetry 03/05/22 03/05/22 03/05/22 08:25 08:30 08:31 Temperature Pulse Rate 86 94 H 110 H Respiratory Rate Blood Pressure Blood Pressure [Right] O2 Sat by Pulse 99 100 86 Oximetry - Exam Cardiovascular: Regular rate Lungs: Normal air movement Abdomen: Present: normal appearance, soft Vulva: both: normal Uterus: Present: normal, fundal height above umbilicus FHR: category 1 Uterine Contraction Monitor Mode: External Cervical Dilatation: 0 Cervical Effacement Percentage: 0 station: -3 Uterine Contraction Pattern: Irregular Uterine Tone Measurement Phase: Contraction Uterine Contraction Intensity: Mild Extremities: edema (left hand from infiltrated IV) Deep Tendon Reflex Grade: Normal +2 - Labs Labs: Abnormal Labs 02/09/22 02/09/22 02/09/22 21:06 22:30 22:30 RBC 3.51 L MCHC 35 H [place] % (Auto) 12.8 H ABG pO2 ABG HCO3 ABG Base Excess ABG Hemoglobin Sodium 134 L Chloride Carbon Dioxide 20 L Creatinine Glucose 452 H POC Glucose 443 H Alkaline Phosphatase Albumin 3.4 L Urine Creatinine 02/10/22 02/10/22 02/10/22 04:16 04:35 09:49 RBC MCHC [place] % (Auto) ABG pO2 104.0 H ABG HCO3 19.0 L ABG Base Excess -4.8 L ABG Hemoglobin 11.7 L Sodium Chloride Carbon Dioxide Creatinine Glucose POC Glucose 291 H 248 H Alkaline Phosphatase Albumin Urine Creatinine 02/10/22 02/10/22 02/10/22 11:39 17:07 21:33 RBC MCHC [place] % (Auto) ABG pO2 ABG HCO3 ABG Base Excess ABG Hemoglobin Sodium Chloride Carbon Dioxide Creatinine Glucose POC Glucose 350 H 201 H 187 H Alkaline Phosphatase Albumin Urine Creatinine 02/10/22 02/11/22 02/11/22 23:00 08:13 11:47 RBC MCHC [place] % (Auto) ABG pO2 ABG HCO3 ABG Base Excess ABG Hemoglobin Sodium 130 L Chloride 96.9 L Carbon Dioxide 19 L Creatinine 0.4 L Glucose 223 H POC Glucose 170 H 188 H Alkaline Phosphatase Albumin Urine Creatinine 02/11/22 02/12/22 02/12/22 16:48 07:14 10:49 RBC MCHC [place] % (Auto) ABG pO2 ABG HCO3 ABG Base Excess ABG Hemoglobin Sodium Chloride Carbon Dioxide Creatinine Glucose POC Glucose 157 H 173 H 220 H Alkaline Phosphatase Albumin Urine Creatinine 02/12/22 02/12/22 02/12/22 13:02 16:03 20:44 RBC MCHC [place] % (Auto) ABG pO2 ABG HCO3 ABG Base Excess ABG Hemoglobin Sodium Chloride Carbon Dioxide Creatinine Glucose POC Glucose 208 H 113 H 162 H Alkaline Phosphatase Albumin Urine Creatinine 02/13/22 02/13/22 02/13/22 05:40 08:23 12:19 RBC MCHC [place] % (Auto) ABG pO2 ABG HCO3 ABG Base Excess ABG Hemoglobin Sodium 132 L Chloride Carbon Dioxide 17 L Creatinine 0.4 L Glucose 168 H POC Glucose 148 H 150 H Alkaline Phosphatase Albumin Urine Creatinine 02/13/22 02/13/22 02/13/22 16:54 20:03 22:51 RBC MCHC [place] % (Auto) ABG pO2 ABG HCO3 ABG Base Excess ABG Hemoglobin Sodium Chloride Carbon Dioxide Creatinine Glucose POC Glucose 156 H 154 H 155 H Alkaline Phosphatase Albumin Urine Creatinine 02/14/22 02/14/22 02/14/22 07:41 11:19 14:06 RBC MCHC [place] % (Auto) ABG pO2 ABG HCO3 ABG Base Excess ABG Hemoglobin Sodium Chloride Carbon Dioxide Creatinine Glucose POC Glucose 121 H 142 H 110 H Alkaline Phosphatase Albumin Urine Creatinine 02/14/22 02/14/22 02/15/22 17:08 22:01 07:35 RBC MCHC [place] % (Auto) ABG pO2 ABG HCO3 ABG Base Excess ABG Hemoglobin Sodium Chloride Carbon Dioxide Creatinine Glucose POC Glucose 148 H 151 H Alkaline Phosphatase Albumin Urine Creatinine 69.0 H 02/15/22 02/15/22 02/15/22 07:43 08:01 12:12 RBC MCHC [place] % (Auto) ABG pO2 ABG HCO3 ABG Base Excess ABG Hemoglobin Sodium Chloride Carbon Dioxide Creatinine 0.4 L Glucose POC Glucose 134 H 106 H Alkaline Phosphatase Albumin Urine Creatinine 02/15/22 02/16/22 02/16/22 22:07 06:31 17:51 RBC MCHC [place] % (Auto) ABG pO2 ABG HCO3 ABG Base Excess ABG Hemoglobin Sodium Chloride Carbon Dioxide Creatinine Glucose POC Glucose 66 L 135 H 142 H Alkaline Phosphatase Albumin Urine Creatinine 02/17/22 02/18/22 02/18/22 19:57 06:57 17:02 RBC MCHC [place] % (Auto) ABG pO2 ABG HCO3 ABG Base Excess ABG Hemoglobin Sodium Chloride Carbon Dioxide Creatinine Glucose POC Glucose 185 H 159 H 131 H Alkaline Phosphatase Albumin Urine Creatinine 02/18/22 02/19/22 02/19/22 22:10 12:10 16:49 RBC MCHC [place] % (Auto) ABG pO2 ABG HCO3 ABG Base Excess ABG Hemoglobin Sodium Chloride Carbon Dioxide Creatinine Glucose POC Glucose 157 H 133 H 175 H Alkaline Phosphatase Albumin Urine Creatinine 02/19/22 02/20/22 02/20/22 22:25 07:38 16:16 RBC MCHC [place] % (Auto) ABG pO2 ABG HCO3 ABG Base Excess ABG Hemoglobin Sodium 133 L Chloride Carbon Dioxide 17 L Creatinine 0.4 L Glucose 110 H POC Glucose 133 H 159 H Alkaline Phosphatase Albumin 3.6 L Urine Creatinine 02/20/22 02/21/22 02/21/22 21:58 18:05 22:05 RBC MCHC [place] % (Auto) ABG pO2 ABG HCO3 ABG Base Excess ABG Hemoglobin Sodium Chloride Carbon Dioxide Creatinine Glucose POC Glucose 69 L 185 H 63 L Alkaline Phosphatase Albumin Urine Creatinine 02/22/22 02/22/22 02/22/22 02:49 05:39 11:10 RBC MCHC [place] % (Auto) ABG pO2 ABG HCO3 ABG Base Excess ABG Hemoglobin Sodium Chloride Carbon Dioxide Creatinine Glucose POC Glucose 206 H 112 H 48 L Alkaline Phosphatase Albumin Urine Creatinine 02/22/22 02/22/22 02/23/22 16:14 21:04 07:34 RBC MCHC [place] % (Auto) ABG pO2 ABG HCO3 ABG Base Excess ABG Hemoglobin Sodium Chloride Carbon Dioxide Creatinine Glucose POC Glucose 198 H 147 H 106 H Alkaline Phosphatase Albumin Urine Creatinine 02/23/22 02/23/22 02/24/22 17:17 17:43 16:43 RBC MCHC [place] % (Auto) ABG pO2 ABG HCO3 ABG Base Excess ABG Hemoglobin Sodium 130 L Chloride Carbon Dioxide 17 L Creatinine 0.5 L Glucose 134 H POC Glucose 138 H 185 H Alkaline Phosphatase Albumin 3.4 L Urine Creatinine 02/24/22 02/25/22 02/25/22 21:24 10:55 21:26 RBC MCHC [place] % (Auto) ABG pO2 ABG HCO3 ABG Base Excess ABG Hemoglobin Sodium Chloride Carbon Dioxide Creatinine Glucose POC Glucose 143 H 128 H 111 H Alkaline Phosphatase Albumin Urine Creatinine 02/26/22 02/26/22 02/27/22 11:45 16:55 08:27 RBC MCHC [place] % (Auto) ABG pO2 ABG HCO3 ABG Base Excess ABG Hemoglobin Sodium 135 L Chloride Carbon Dioxide 18 L Creatinine 0.5 L Glucose POC Glucose 67 L 154 H Alkaline Phosphatase Albumin 3.4 L Urine Creatinine 02/27/22 02/27/22 02/27/22 11:42 16:15 22:45 RBC MCHC [place] % (Auto) ABG pO2 ABG HCO3 ABG Base Excess ABG Hemoglobin Sodium Chloride Carbon Dioxide Creatinine Glucose POC Glucose 126 H 132 H 134 H Alkaline Phosphatase Albumin Urine Creatinine 02/28/22 02/28/22 02/28/22 11:58 16:26 22:09 RBC MCHC [place] % (Auto) ABG pO2 ABG HCO3 ABG Base Excess ABG Hemoglobin Sodium Chloride Carbon Dioxide Creatinine Glucose POC Glucose 152 H 150 H 116 H Alkaline Phosphatase Albumin Urine Creatinine 03/01/22 03/01/22 03/01/22 11:58 16:37 22:02 RBC MCHC [place] % (Auto) ABG pO2 ABG HCO3 ABG Base Excess ABG Hemoglobin Sodium Chloride Carbon Dioxide Creatinine Glucose POC Glucose 58 L 167 H 184 H Alkaline Phosphatase Albumin Urine Creatinine 03/02/22 03/02/22 03/02/22 06:24 10:40 11:33 RBC MCHC [place] % (Auto) ABG pO2 ABG HCO3 ABG Base Excess ABG Hemoglobin Sodium 130 L Chloride 97.8 L Carbon Dioxide 18 L Creatinine 0.5 L Glucose 156 H POC Glucose 110 H 116 H Alkaline Phosphatase 132 H Albumin 3.4 L Urine Creatinine 03/02/22 03/02/22 03/03/22 16:38 21:39 04:53 RBC MCHC [place] % (Auto) ABG pO2 ABG HCO3 ABG Base Excess ABG Hemoglobin Sodium Chloride Carbon Dioxide Creatinine Glucose POC Glucose 122 H 208 H 154 H Alkaline Phosphatase Albumin Urine Creatinine 03/03/22 03/03/22 03/04/22 11:44 21:16 06:06 RBC MCHC [place] % (Auto) ABG pO2 ABG HCO3 ABG Base Excess ABG Hemoglobin Sodium Chloride Carbon Dioxide Creatinine Glucose POC Glucose 127 H 212 H 146 H Alkaline Phosphatase Albumin Urine Creatinine 03/04/22 03/04/22 12:09 20:09 RBC MCHC [place] % (Auto) ABG pO2 ABG HCO3 ABG Base Excess ABG Hemoglobin Sodium Chloride Carbon Dioxide Creatinine Glucose POC Glucose 161 H 130 H Alkaline Phosphatase Albumin Urine Creatinine Laboratory Results - last 24 hr 03/04/22 03/04/22 03/04/22 06:06 12:09 15:32 POC Glucose 146 H 161 H 103 03/04/22 03/04/22 20:09 23:59 POC Glucose 130 H 87
[2022-03-05] MEDS: PRENATAL VIT27-FE FUMARATE-FOLIC ACID VIT TAB PO SCH (09:30)
[2022-03-05] MEDS: HALOPERIDOL 2 MG TAB PO SCH (09:30)
[2022-03-05 11:40] LABS: Hematocrit 34.8 % (30.3-42.9); Hemoglobin 11.5 gm/dl (10.1-14.3); Mean Corpuscular HGB Conc 33 % (30-34); Mean Corpuscular Volume 92 fl (79-97); Platelet Count 237 K/mm3 (140-440); Red Blood Count 3.79 M/mm3 (3.65-5.03); Red Cell Distribution Width 13.9 % (13.2-15.2)
[2022-03-05] MEDS: INSULIN LISPRO 100 UNIT/ML SUB-Q SCH ×3 (12:33→20:35)
[2022-03-05] MEDS ORDERED: miSOPROStol 25 MCG TAB PO ONE (13:00)
--- NOTE | 2022-03-05 17:22 | Progress Note ---
Assessment and Plan - Patient Problems (1) 36 weeks gestation of Current Visit: Yes Status: Acute Plan to address problem: Serial IOL again discussed, she received 2 doses of cytotec today. Will allow pm care and ? cervidil tonight. Patient request to s/w caser up tomorrow to plan for discharge, consult ordered. Questions about plan of care for tonight encouraged and answered. She voiced understanding and agrees with POC> (2) Hyperglycemia due to type 2 diabetes mellitus Current Visit: Yes Status: Chronic (3) Obesity, Class III, BMI 40-49.9 (morbid obesity) Current Visit: Yes Status: Acute (4) DVT prophylaxis Current Visit: Yes Status: Acute (5) Schizophrenia Current Visit: No Status: Acute Qualifiers: Schizophrenia type: paranoid schizophrenia Qualified Code(s): F20.0 - Paranoid schizophrenia Subjective - Subjective Principal diagnosis: IUP@ 36+3 weeks: DM, GHTN, Bipolar, Schizophrenia Interval history: No complaints. Patient reports: movement normal, no new complaints, no loss of fluid, no vaginal bleeding, no contractions Objective - Vital Signs Vital Signs: Vital Signs - 12hr 03/05/22 03/05/22 03/05/22 05:23 05:28 05:33 Temperature Pulse Rate 73 77 78 Respiratory Rate Blood Pressure Blood Pressure [Right] O2 Sat by Pulse 99 100 100 Oximetry 03/05/22 03/05/22 03/05/22 05:38 05:43 05:48 Temperature Pulse Rate 81 72 75 Respiratory Rate Blood Pressure Blood Pressure [Right] O2 Sat by Pulse 100 99 99 Oximetry 03/05/22 03/05/22 03/05/22 05:53 05:58 06:03 Temperature Pulse Rate 72 75 69 Respiratory Rate Blood Pressure Blood Pressure [Right] O2 Sat by Pulse 98 98 99 Oximetry 03/05/22 03/05/22 03/05/22 06:08 06:13 06:18 Temperature Pulse Rate 77 79 73 Respiratory Rate Blood Pressure Blood Pressure [Right] O2 Sat by Pulse 98 99 99 Oximetry 03/05/22 03/05/22 03/05/22 06:23 06:28 06:33 Temperature Pulse Rate 74 83 73 Respiratory Rate Blood Pressure Blood Pressure [Right] O2 Sat by Pulse 99 99 99 Oximetry 03/05/22 03/05/22 03/05/22 06:38 06:50 06:51 Temperature Pulse Rate 78 97 H Respiratory Rate Blood Pressure 122/75 Blood Pressure [Right] O2 Sat by Pulse 99 100 Oximetry 03/05/22 03/05/22 03/05/22 06:55 07:00 07:05 Temperature 97.8 F Pulse Rate 80 80 81 Respiratory 16 Rate Blood Pressure 123/57 Blood Pressure 123/57 [Right] O2 Sat by Pulse 99 100 98 Oximetry 03/05/22 03/05/22 03/05/22 07:10 07:15 07:20 Temperature Pulse Rate 83 80 88 Respiratory Rate Blood Pressure Blood Pressure [Right] O2 Sat by Pulse 99 100 100 Oximetry 03/05/22 03/05/22 03/05/22 07:25 07:30 07:35 Temperature Pulse Rate 82 76 78 Respiratory Rate Blood Pressure Blood Pressure [Right] O2 Sat by Pulse 99 99 100 Oximetry 03/05/22 03/05/22 03/05/22 07:40 07:45 07:50 Temperature Pulse Rate 84 85 79 Respiratory Rate Blood Pressure Blood Pressure [Right] O2 Sat by Pulse 100 99 99 Oximetry 03/05/22 03/05/22 03/05/22 07:55 07:57 08:00 Temperature Pulse Rate 74 80 81 Respiratory Rate Blood Pressure 123/72 Blood Pressure [Right] O2 Sat by Pulse 98 99 Oximetry 03/05/22 03/05/22 03/05/22 08:05 08:10 08:15 Temperature Pulse Rate 73 83 83 Respiratory Rate Blood Pressure Blood Pressure [Right] O2 Sat by Pulse 99 99 99 Oximetry 03/05/22 03/05/22 03/05/22 08:20 08:25 08:30 Temperature Pulse Rate 78 86 94 H Respiratory Rate Blood Pressure Blood Pressure [Right] O2 Sat by Pulse 99 99 100 Oximetry 03/05/22 03/05/22 03/05/22 08:31 09:03 09:04 Temperature Pulse Rate 110 H 91 H 88 Respiratory Rate Blood Pressure 131/72 Blood Pressure [Right] O2 Sat by Pulse 86 95 Oximetry 03/05/22 03/05/22 03/05/22 09:05 09:08 09:13 Temperature 97.9 F Pulse Rate 89 91 H 79 Respiratory 16 Rate Blood Pressure Blood Pressure 131/72 [Right] O2 Sat by Pulse 97 98 98 Oximetry 03/05/22 03/05/22 03/05/22 09:18 09:23 09:28 Temperature Pulse Rate 82 83 84 Respiratory Rate Blood Pressure Blood Pressure [Right] O2 Sat by Pulse 98 98 97 Oximetry 03/05/22 03/05/22 03/05/22 09:33 09:38 09:43 Temperature Pulse Rate 84 79 74 Respiratory Rate Blood Pressure Blood Pressure [Right] O2 Sat by Pulse 98 98 98 Oximetry 03/05/22 03/05/22 03/05/22 09:48 09:53 09:58 Temperature Pulse Rate 76 77 77 Respiratory Rate Blood Pressure Blood Pressure [Right] O2 Sat by Pulse 98 98 98 Oximetry 03/05/22 03/05/22 03/05/22 10:03 10:08 10:13 Temperature Pulse Rate 76 81 79 Respiratory Rate Blood Pressure Blood Pressure [Right] O2 Sat by Pulse 98 98 98 Oximetry 03/05/22 03/05/22 03/05/22 10:18 10:23 10:24 Temperature Pulse Rate 81 80 82 Respiratory Rate Blood Pressure 119/59 Blood Pressure [Right] O2 Sat by Pulse 97 98 Oximetry 03/05/22 03/05/22 03/05/22 10:28 10:33 10:38 Temperature Pulse Rate 72 86 87 Respiratory Rate Blood Pressure Blood Pressure [Right] O2 Sat by Pulse 98 97 97 Oximetry 03/05/22 03/05/22 03/05/22 10:43 10:48 10:53 Temperature Pulse Rate 92 H 72 78 Respiratory Rate Blood Pressure Blood Pressure [Right] O2 Sat by Pulse 99 98 98 Oximetry 03/05/22 03/05/22 03/05/22 10:58 11:03 11:08 Temperature Pulse Rate 95 H 89 88 Respiratory Rate Blood Pressure Blood Pressure [Right] O2 Sat by Pulse 99 99 99 Oximetry 03/05/22 03/05/22 03/05/22 11:13 11:18 11:23 Temperature Pulse Rate 86 82 79 Respiratory Rate Blood Pressure Blood Pressure [Right] O2 Sat by Pulse 99 99 99 Oximetry 03/05/22 03/05/22 03/05/22 11:25 11:28 11:33 Temperature Pulse Rate 86 80 82 Respiratory Rate Blood Pressure 134/77 Blood Pressure [Right] O2 Sat by Pulse 98 98 Oximetry 03/05/22 03/05/22 03/05/22 11:38 11:43 11:48 Temperature Pulse Rate 103 H 89 94 H Respiratory Rate Blood Pressure Blood Pressure [Right] O2 Sat by Pulse 100 99 100 Oximetry 03/05/22 03/05/22 03/05/22 11:53 11:58 12:03 Temperature Pulse Rate 87 85 86 Respiratory Rate Blood Pressure Blood Pressure [Right] O2 Sat by Pulse 99 98 99 Oximetry 03/05/22 03/05/22 03/05/22 12:08 12:13 12:19 Temperature Pulse Rate 82 84 90 Respiratory Rate Blood Pressure Blood Pressure [Right] O2 Sat by Pulse 98 99 99 Oximetry 03/05/22 03/05/22 03/05/22 12:24 12:29 12:34 Temperature Pulse Rate 95 H 85 78 Respiratory Rate Blood Pressure 125/69 Blood Pressure [Right] O2 Sat by Pulse 99 99 99 Oximetry 03/05/22 03/05/22 03/05/22 12:39 12:44 12:49 Temperature Pulse Rate 81 86 86 Respiratory Rate Blood Pressure Blood Pressure [Right] O2 Sat by Pulse 99 99 98 Oximetry 03/05/22 03/05/22 03/05/22 12:54 12:59 13:00 Temperature 99.0 F Pulse Rate 90 85 Respiratory 16 Rate Blood Pressure Blood Pressure [Right] O2 Sat by Pulse 99 99 98 Oximetry 03/05/22 03/05/22 03/05/22 13:04 13:09 13:14 Temperature Pulse Rate 85 82 76 Respiratory Rate Blood Pressure Blood Pressure [Right] O2 Sat by Pulse 99 99 99 Oximetry 03/05/22 03/05/22 03/05/22 13:19 13:24 13:29 Temperature Pulse Rate 83 90 81 Respiratory Rate Blood Pressure 136/78 Blood Pressure [Right] O2 Sat by Pulse 99 100 100 Oximetry 03/05/22 03/05/22 03/05/22 13:34 13:39 13:44 Temperature Pulse Rate 78 83 82 Respiratory Rate Blood Pressure Blood Pressure [Right] O2 Sat by Pulse 100 100 100 Oximetry 03/05/22 03/05/22 03/05/22 13:49 14:04 14:05 Temperature Pulse Rate 80 82 79 Respiratory Rate Blood Pressure 128/75 Blood Pressure [Right] O2 Sat by Pulse 100 100 Oximetry 03/05/22 03/05/22 03/05/22 14:09 14:14 14:19 Temperature Pulse Rate 86 82 82 Respiratory Rate Blood Pressure Blood Pressure [Right] O2 Sat by Pulse 100 99 99 Oximetry 03/05/22 03/05/22 03/05/22 14:24 14:27 14:28 Temperature 98.8 F Pulse Rate 79 78 78 Respiratory 14 Rate Blood Pressure 135/83 130/81 Blood Pressure 130/81 [Right] O2 Sat by Pulse 100 99 Oximetry 03/05/22 03/05/22 03/05/22 14:29 14:34 14:39 Temperature Pulse Rate 82 76 72 Respiratory Rate Blood Pressure Blood Pressure [Right] O2 Sat by Pulse 99 100 100 Oximetry 03/05/22 03/05/22 03/05/22 14:44 14:49 14:54 Temperature Pulse Rate 78 75 72 Respiratory Rate Blood Pressure Blood Pressure [Right] O2 Sat by Pulse 100 100 100 Oximetry 03/05/22 03/05/22 03/05/22 14:59 15:04 15:09 Temperature Pulse Rate 74 71 74 Respiratory Rate Blood Pressure Blood Pressure [Right] O2 Sat by Pulse 99 100 100 Oximetry 03/05/22 03/05/22 03/05/22 15:14 15:19 15:24 Temperature Pulse Rate 69 71 84 Respiratory Rate Blood Pressure 123/67 Blood Pressure [Right] O2 Sat by Pulse 99 99 99 Oximetry 03/05/22 03/05/22 03/05/22 15:29 15:34 15:39 Temperature Pulse Rate 71 74 75 Respiratory Rate Blood Pressure Blood Pressure [Right] O2 Sat by Pulse 99 99 99 Oximetry 03/05/22 03/05/22 03/05/22 15:44 15:49 15:57 Temperature Pulse Rate 77 74 80 Respiratory Rate Blood Pressure Blood Pressure [Right] O2 Sat by Pulse 100 99 100 Oximetry 03/05/22 03/05/22 03/05/22 16:02 16:07 16:12 Temperature Pulse Rate 74 74 78 Respiratory Rate Blood Pressure Blood Pressure [Right] O2 Sat by Pulse 100 100 100 Oximetry 03/05/22 03/05/22 03/05/22 16:17 16:22 16:24 Temperature Pulse Rate 71 73 75 Respiratory Rate Blood Pressure 134/86 Blood Pressure [Right] O2 Sat by Pulse 100 100 Oximetry 03/05/22 03/05/22 03/05/22 16:27 16:32 16:37 Temperature Pulse Rate 70 69 71 Respiratory Rate Blood Pressure Blood Pressure [Right] O2 Sat by Pulse 100 100 99 Oximetry 03/05/22 03/05/22 03/05/22 16:42 16:47 16:52 Temperature Pulse Rate 67 71 71 Respiratory Rate Blood Pressure Blood Pressure [Right] O2 Sat by Pulse 99 100 100 Oximetry 03/05/22 03/05/22 03/05/22 16:57 17:02 17:07 Temperature Pulse Rate 68 96 H 83 Respiratory Rate Blood Pressure Blood Pressure [Right] O2 Sat by Pulse 100 100 100 Oximetry - Exam Narrative Exam: Resting comfortably FHR: category 1 Uterine Contraction Monitor Mode: External Uterine Contraction Pattern: Irregular - Labs Labs: Abnormal Labs 02/09/22 02/09/22 02/09/22 21:06 22:30 22:30 RBC 3.51 L MCHC 35 H [place] % (Auto) 12.8 H ABG pO2 ABG HCO3 ABG Base Excess ABG Hemoglobin Sodium 134 L Chloride Carbon Dioxide 20 L Creatinine Glucose 452 H POC Glucose 443 H Alkaline Phosphatase Albumin 3.4 L Urine Creatinine 02/10/22 02/10/22 02/10/22 04:16 04:35 09:49 RBC MCHC [place] % (Auto) ABG pO2 104.0 H ABG HCO3 19.0 L ABG Base Excess -4.8 L ABG Hemoglobin 11.7 L Sodium Chloride Carbon Dioxide Creatinine Glucose POC Glucose 291 H 248 H Alkaline Phosphatase Albumin Urine Creatinine 02/10/22 02/10/22 02/10/22 11:39 17:07 21:33 RBC MCHC [place] % (Auto) ABG pO2 ABG HCO3 ABG Base Excess ABG Hemoglobin Sodium Chloride Carbon Dioxide Creatinine Glucose POC Glucose 350 H 201 H 187 H Alkaline Phosphatase Albumin Urine Creatinine 02/10/22 02/11/22 02/11/22 23:00 08:13 11:47 RBC MCHC [place] % (Auto) ABG pO2 ABG HCO3 ABG Base Excess ABG Hemoglobin Sodium 130 L Chloride 96.9 L Carbon Dioxide 19 L Creatinine 0.4 L Glucose 223 H POC Glucose 170 H 188 H Alkaline Phosphatase Albumin Urine Creatinine 02/11/22 02/12/22 02/12/22 16:48 07:14 10:49 RBC MCHC [place] % (Auto) ABG pO2 ABG HCO3 ABG Base Excess ABG Hemoglobin Sodium Chloride Carbon Dioxide Creatinine Glucose POC Glucose 157 H 173 H 220 H Alkaline Phosphatase Albumin Urine Creatinine 02/12/22 02/12/22 02/12/22 13:02 16:03 20:44 RBC MCHC [place] % (Auto) ABG pO2 ABG HCO3 ABG Base Excess ABG Hemoglobin Sodium Chloride Carbon Dioxide Creatinine Glucose POC Glucose 208 H 113 H 162 H Alkaline Phosphatase Albumin Urine Creatinine 02/13/22 02/13/22 02/13/22 05:40 08:23 12:19 RBC MCHC [place] % (Auto) ABG pO2 ABG HCO3 ABG Base Excess ABG Hemoglobin Sodium 132 L Chloride Carbon Dioxide 17 L Creatinine 0.4 L Glucose 168 H POC Glucose 148 H 150 H Alkaline Phosphatase Albumin Urine Creatinine 02/13/22 02/13/22 02/13/22 16:54 20:03 22:51 RBC MCHC [place] % (Auto) ABG pO2 ABG HCO3 ABG Base Excess ABG Hemoglobin Sodium Chloride Carbon Dioxide Creatinine Glucose POC Glucose 156 H 154 H 155 H Alkaline Phosphatase Albumin Urine Creatinine 02/14/22 02/14/22 02/14/22 07:41 11:19 14:06 RBC MCHC [place] % (Auto) ABG pO2 ABG HCO3 ABG Base Excess ABG Hemoglobin Sodium Chloride Carbon Dioxide Creatinine Glucose POC Glucose 121 H 142 H 110 H Alkaline Phosphatase Albumin Urine Creatinine 02/14/22 02/14/22 02/15/22 17:08 22:01 07:35 RBC MCHC [place] % (Auto) ABG pO2 ABG HCO3 ABG Base Excess ABG Hemoglobin Sodium Chloride Carbon Dioxide Creatinine Glucose POC Glucose 148 H 151 H Alkaline Phosphatase Albumin Urine Creatinine 69.0 H 02/15/22 02/15/22 02/15/22 07:43 08:01 12:12 RBC MCHC [place] % (Auto) ABG pO2 ABG HCO3 ABG Base Excess ABG Hemoglobin Sodium Chloride Carbon Dioxide Creatinine 0.4 L Glucose POC Glucose 134 H 106 H Alkaline Phosphatase Albumin Urine Creatinine 02/15/22 02/16/22 02/16/22 22:07 06:31 17:51 RBC MCHC [place] % (Auto) ABG pO2 ABG HCO3 ABG Base Excess ABG Hemoglobin Sodium Chloride Carbon Dioxide Creatinine Glucose POC Glucose 66 L 135 H 142 H Alkaline Phosphatase Albumin Urine Creatinine 02/17/22 02/18/22 02/18/22 19:57 06:57 17:02 RBC MCHC [place] % (Auto) ABG pO2 ABG HCO3 ABG Base Excess ABG Hemoglobin Sodium Chloride Carbon Dioxide Creatinine Glucose POC Glucose 185 H 159 H 131 H Alkaline Phosphatase Albumin Urine Creatinine 02/18/22 02/19/22 02/19/22 22:10 12:10 16:49 RBC MCHC [place] % (Auto) ABG pO2 ABG HCO3 ABG Base Excess ABG Hemoglobin Sodium Chloride Carbon Dioxide Creatinine Glucose POC Glucose 157 H 133 H 175 H Alkaline Phosphatase Albumin Urine Creatinine 02/19/22 02/20/22 02/20/22 22:25 07:38 16:16 RBC MCHC [place] % (Auto) ABG pO2 ABG HCO3 ABG Base Excess ABG Hemoglobin Sodium 133 L Chloride Carbon Dioxide 17 L Creatinine 0.4 L Glucose 110 H POC Glucose 133 H 159 H Alkaline Phosphatase Albumin 3.6 L Urine Creatinine 02/20/22 02/21/22 02/21/22 21:58 18:05 22:05 RBC MCHC [place] % (Auto) ABG pO2 ABG HCO3 ABG Base Excess ABG Hemoglobin Sodium Chloride Carbon Dioxide Creatinine Glucose POC Glucose 69 L 185 H 63 L Alkaline Phosphatase Albumin Urine Creatinine 02/22/22 02/22/22 02/22/22 02:49 05:39 11:10 RBC MCHC [place] % (Auto) ABG pO2 ABG HCO3 ABG Base Excess ABG Hemoglobin Sodium Chloride Carbon Dioxide Creatinine Glucose POC Glucose 206 H 112 H 48 L Alkaline Phosphatase Albumin Urine Creatinine 02/22/22 02/22/22 02/23/22 16:14 21:04 07:34 RBC MCHC [place] % (Auto) ABG pO2 ABG HCO3 ABG Base Excess ABG Hemoglobin Sodium Chloride Carbon Dioxide Creatinine Glucose POC Glucose 198 H 147 H 106 H Alkaline Phosphatase Albumin Urine Creatinine 02/23/22 02/23/22 02/24/22 17:17 17:43 16:43 RBC MCHC [place] % (Auto) ABG pO2 ABG HCO3 ABG Base Excess ABG Hemoglobin Sodium 130 L Chloride Carbon Dioxide 17 L Creatinine 0.5 L Glucose 134 H POC Glucose 138 H 185 H Alkaline Phosphatase Albumin 3.4 L Urine Creatinine 02/24/22 02/25/22 02/25/22 21:24 10:55 21:26 RBC MCHC [place] % (Auto) ABG pO2 ABG HCO3 ABG Base Excess ABG Hemoglobin Sodium Chloride Carbon Dioxide Creatinine Glucose POC Glucose 143 H 128 H 111 H Alkaline Phosphatase Albumin Urine Creatinine 02/26/22 02/26/22 02/27/22 11:45 16:55 08:27 RBC MCHC [place] % (Auto) ABG pO2 ABG HCO3 ABG Base Excess ABG Hemoglobin Sodium 135 L Chloride Carbon Dioxide 18 L Creatinine 0.5 L Glucose POC Glucose 67 L 154 H Alkaline Phosphatase Albumin 3.4 L Urine Creatinine 02/27/22 02/27/22 02/27/22 11:42 16:15 22:45 RBC MCHC [place] % (Auto) ABG pO2 ABG HCO3 ABG Base Excess ABG Hemoglobin Sodium Chloride Carbon Dioxide Creatinine Glucose POC Glucose 126 H 132 H 134 H Alkaline Phosphatase Albumin Urine Creatinine 02/28/22 02/28/22 02/28/22 11:58 16:26 22:09 RBC MCHC [place] % (Auto) ABG pO2 ABG HCO3 ABG Base Excess ABG Hemoglobin Sodium Chloride Carbon Dioxide Creatinine Glucose POC Glucose 152 H 150 H 116 H Alkaline Phosphatase Albumin Urine Creatinine 03/01/22 03/01/22 03/01/22 11:58 16:37 22:02 RBC MCHC [place] % (Auto) ABG pO2 ABG HCO3 ABG Base Excess ABG Hemoglobin Sodium Chloride Carbon Dioxide Creatinine Glucose POC Glucose 58 L 167 H 184 H Alkaline Phosphatase Albumin Urine Creatinine 03/02/22 03/02/22 03/02/22 06:24 10:40 11:33 RBC MCHC [place] % (Auto) ABG pO2 ABG HCO3 ABG Base Excess ABG Hemoglobin Sodium 130 L Chloride 97.8 L Carbon Dioxide 18 L Creatinine 0.5 L Glucose 156 H POC Glucose 110 H 116 H Alkaline Phosphatase 132 H Albumin 3.4 L Urine Creatinine 03/02/22 03/02/22 03/03/22 16:38 21:39 04:53 RBC MCHC [place] % (Auto) ABG pO2 ABG HCO3 ABG Base Excess ABG Hemoglobin Sodium Chloride Carbon Dioxide Creatinine Glucose POC Glucose 122 H 208 H 154 H Alkaline Phosphatase Albumin Urine Creatinine 03/03/22 03/03/22 03/04/22 11:44 21:16 06:06 RBC MCHC [place] % (Auto) ABG pO2 ABG HCO3 ABG Base Excess ABG Hemoglobin Sodium Chloride Carbon Dioxide Creatinine Glucose POC Glucose 127 H 212 H 146 H Alkaline Phosphatase Albumin Urine Creatinine 03/04/22 03/04/22 12:09 20:09 RBC MCHC [place] % (Auto) ABG pO2 ABG HCO3 ABG Base Excess ABG Hemoglobin Sodium Chloride Carbon Dioxide Creatinine Glucose POC Glucose 161 H 130 H Alkaline Phosphatase Albumin Urine Creatinine Laboratory Results - last 24 hr 03/04/22 03/04/22 03/05/22 20:09 23:59 04:00 WBC RBC Hgb Hct MCV MCH MCHC RDW Plt Count POC Glucose 130 H 87 84 Blood Type Antibody Screen 03/05/22 03/05/22 03/05/22 07:38 10:39 10:43 WBC 6.2 RBC 3.79 Hgb 11.5 Hct 34.8 MCV 92 MCH 30 MCHC 33 RDW 13.9 Plt Count 237 POC Glucose 88 Blood Type O POSITIVE Antibody Screen Negative 03/05/22 11:27 WBC RBC Hgb Hct MCV MCH MCHC RDW Plt Count POC Glucose 104 Blood Type Antibody Screen
[2022-03-05] MEDS ORDERED: DINOPROSTONE 10 MG VAG SUPP VG ONE (19:00)
[2022-03-06] MEDS: HALOPERIDOL 2 MG TAB PO SCH ×2 (01:39→10:39)
[2022-03-06] MEDS ORDERED: BICITRA ORAL LIQD 30ML ONE (01:48)
[2022-03-06] MEDS ORDERED: BICITRA ORAL LIQD 30ML PO PRN (01:54)
--- NOTE | 2022-03-06 01:54 | Event Note ---
Date: 03/06/22 pt declined cervidil d/t vaginal discomforts. Will allow patient to rest and start pitocin @ 0500.
[2022-03-06] MEDS: ACETAMINOPHEN 500 MG TAB PO PRN ×2 (02:20→13:59)
--- NOTE | 2022-03-06 03:44 | Event Note ---
Date: 03/06/22 [place] after last entry, patient called out "I am ready for my cervidil now." Placed without difficulty by SN[facility]
[2022-03-06] MEDS: LACTATED RINGERS 1,000 ML IV SCH (04:34)
[2022-03-06] MEDS ORDERED: OXYTOCIN DRIP 30 UNITS/500 ML BAG IV SCH (05:00)
--- NOTE | 2022-03-06 08:14 | Progress Note ---
Assessment and Plan A: 31 y.o. @ 36.4 wks, IOL d/t GDM, gHTN. - Patient Problems (1) GDM (gestational diabetes mellitus) Current Visit: Yes Status: Acute Qualifiers: Gestational diabetes mellitus control: insulin-controlled Trimester: third trimester Qualified Code(s): O24.414 - Gestational diabetes mellitus in , insulin controlled Plan to address problem: Continue with insulin per protocol. Continue with IOL. Cervidil to be removed @ 2pm. Discussed possibility of removing it @ 1pm. Will start Pitocin per protocol after Cervidil removed. Will continue to monitor status through EFM. (2) Gestational hypertension Current Visit: Yes Status: Acute Qualifiers: Trimester: third trimester Qualified Code(s): O13.3 - Gestational [-induced] hypertension without significant proteinuria, third trimester Plan to address problem: Continue to monitor blood pressures. Continue to monitor for s/sx of pre eclampsia. (3) Noncompliance by refusing service Current Visit: Yes Status: Acute (4) Bipolar disorder Current Visit: Yes Status: Acute Qualifiers: Current bipolar episode type: manic (5) Schizophrenia Current Visit: No Status: Acute Qualifiers: Schizophrenia type: paranoid schizophrenia Qualified Code(s): F20.0 - Paranoid schizophrenia Plan to address problem: Continue with Haldol as ordered.l (6) Homeless single person Current Visit: Yes Status: Acute Plan to address problem: Case Management after delivery to determine placement. Subjective - Subjective Date of service: 03/06/22 Principal diagnosis: IUP@ 36.4 weeks: DM, GHTN, Bipolar, Schizophrenia Interval history: Pt denies vaginal bleeding, LOF. Not feeling any ctxs although on monitor she is having some occasional. Also denies TERRELL, blurred vision, spots before her eyes, chest pain, shortness of breath, and upper abdominal pain. Patient reports: movement normal, no new complaints, no loss of fluid, no vaginal bleeding, no contractions Objective - Vital Signs Vital Signs: Vital Signs - 12hr 03/05/22 03/05/22 03/05/22 20:13 20:18 20:23 Temperature Pulse Rate 79 73 Respiratory Rate Blood Pressure Blood Pressure [Left] O2 Sat by Pulse 85 99 99 Oximetry O2 Sat by Pulse Oximetry [ Bilateral] 03/05/22 03/05/22 03/05/22 20:28 20:33 20:36 Temperature Pulse Rate 72 74 Respiratory Rate Blood Pressure Blood Pressure [Left] O2 Sat by Pulse 99 99 Oximetry O2 Sat by Pulse 77 L Oximetry [ Bilateral] 03/05/22 03/05/22 03/05/22 20:38 20:39 20:41 Temperature 97.1 F L Pulse Rate 74 79 74 Respiratory 18 Rate Blood Pressure 113/55 Blood Pressure 113/55 [Left] O2 Sat by Pulse 99 98 Oximetry O2 Sat by Pulse Oximetry [ Bilateral] 03/05/22 03/05/22 03/05/22 20:43 20:48 20:53 Temperature Pulse Rate 75 74 71 Respiratory Rate Blood Pressure Blood Pressure [Left] O2 Sat by Pulse 98 100 100 Oximetry O2 Sat by Pulse Oximetry [ Bilateral] 03/05/22 03/05/22 03/05/22 20:58 21:03 21:08 Temperature Pulse Rate 76 71 75 Respiratory Rate Blood Pressure Blood Pressure [Left] O2 Sat by Pulse 99 100 99 Oximetry O2 Sat by Pulse Oximetry [ Bilateral] 03/05/22 03/05/22 03/05/22 21:13 21:18 21:23 Temperature Pulse Rate 73 72 72 Respiratory Rate Blood Pressure Blood Pressure [Left] O2 Sat by Pulse 99 100 100 Oximetry O2 Sat by Pulse Oximetry [ Bilateral] 03/05/22 03/05/22 03/05/22 21:28 21:33 21:38 Temperature Pulse Rate 74 75 75 Respiratory Rate Blood Pressure Blood Pressure [Left] O2 Sat by Pulse 100 100 100 Oximetry O2 Sat by Pulse Oximetry [ Bilateral] 03/05/22 03/05/22 03/05/22 21:43 21:48 21:53 Temperature Pulse Rate 76 75 71 Respiratory Rate Blood Pressure Blood Pressure [Left] O2 Sat by Pulse 100 100 99 Oximetry O2 Sat by Pulse Oximetry [ Bilateral] 03/05/22 03/05/22 03/05/22 21:58 22:03 22:08 Temperature Pulse Rate 70 76 70 Respiratory Rate Blood Pressure Blood Pressure [Left] O2 Sat by Pulse 100 99 99 Oximetry O2 Sat by Pulse Oximetry [ Bilateral] 03/05/22 03/05/22 03/05/22 22:13 22:18 22:23 Temperature Pulse Rate 76 74 73 Respiratory Rate Blood Pressure Blood Pressure [Left] O2 Sat by Pulse 98 98 99 Oximetry O2 Sat by Pulse Oximetry [ Bilateral] 03/05/22 03/05/22 03/05/22 22:28 22:33 22:38 Temperature Pulse Rate 71 73 73 Respiratory Rate Blood Pressure Blood Pressure [Left] O2 Sat by Pulse 99 98 98 Oximetry O2 Sat by Pulse Oximetry [ Bilateral] 03/05/22 03/05/22 03/05/22 22:43 22:48 22:53 Temperature Pulse Rate 72 73 80 Respiratory Rate Blood Pressure Blood Pressure [Left] O2 Sat by Pulse 100 97 100 Oximetry O2 Sat by Pulse Oximetry [ Bilateral] 03/05/22 03/05/22 03/05/22 23:00 23:05 23:10 Temperature Pulse Rate 85 85 83 Respiratory Rate Blood Pressure Blood Pressure [Left] O2 Sat by Pulse 98 98 99 Oximetry O2 Sat by Pulse Oximetry [ Bilateral] 03/05/22 03/05/22 03/05/22 23:15 23:20 23:25 Temperature Pulse Rate 67 71 75 Respiratory Rate Blood Pressure Blood Pressure [Left] O2 Sat by Pulse 98 98 99 Oximetry O2 Sat by Pulse Oximetry [ Bilateral] 03/05/22 03/05/22 03/05/22 23:30 23:35 23:40 Temperature Pulse Rate 70 73 69 Respiratory Rate Blood Pressure Blood Pressure [Left] O2 Sat by Pulse 99 100 99 Oximetry O2 Sat by Pulse Oximetry [ Bilateral] 03/05/22 03/05/22 03/05/22 23:45 23:50 23:55 Temperature Pulse Rate 69 66 68 Respiratory Rate Blood Pressure Blood Pressure [Left] O2 Sat by Pulse 100 99 100 Oximetry O2 Sat by Pulse Oximetry [ Bilateral] 03/06/22 03/06/22 03/06/22 00:00 00:05 00:10 Temperature Pulse Rate 62 68 69 Respiratory Rate Blood Pressure Blood Pressure [Left] O2 Sat by Pulse 100 100 100 Oximetry O2 Sat by Pulse Oximetry [ Bilateral] 03/06/22 03/06/22 03/06/22 00:15 00:20 00:25 Temperature Pulse Rate 69 66 73 Respiratory Rate Blood Pressure Blood Pressure [Left] O2 Sat by Pulse 99 99 98 Oximetry O2 Sat by Pulse Oximetry [ Bilateral] 03/06/22 03/06/22 03/06/22 00:30 00:35 00:40 Temperature Pulse Rate 73 65 65 Respiratory Rate Blood Pressure Blood Pressure [Left] O2 Sat by Pulse 98 100 97 Oximetry O2 Sat by Pulse Oximetry [ Bilateral] 03/06/22 03/06/22 03/06/22 00:45 00:50 00:55 Temperature Pulse Rate 75 64 74 Respiratory Rate Blood Pressure Blood Pressure [Left] O2 Sat by Pulse 98 99 97 Oximetry O2 Sat by Pulse Oximetry [ Bilateral] 03/06/22 03/06/22 03/06/22 01:00 01:05 01:10 Temperature Pulse Rate 67 66 77 Respiratory Rate Blood Pressure Blood Pressure [Left] O2 Sat by Pulse 98 97 97 Oximetry O2 Sat by Pulse Oximetry [ Bilateral] 03/06/22 03/06/22 03/06/22 01:15 01:20 01:25 Temperature Pulse Rate 73 85 72 Respiratory Rate Blood Pressure Blood Pressure [Left] O2 Sat by Pulse 98 97 97 Oximetry O2 Sat by Pulse Oximetry [ Bilateral] 03/06/22 03/06/22 03/06/22 01:30 01:35 01:40 Temperature Pulse Rate 83 79 77 Respiratory Rate Blood Pressure Blood Pressure [Left] O2 Sat by Pulse 97 97 97 Oximetry O2 Sat by Pulse Oximetry [ Bilateral] 03/06/22 03/06/22 03/06/22 01:45 01:50 01:55 Temperature Pulse Rate 72 71 74 Respiratory Rate Blood Pressure Blood Pressure [Left] O2 Sat by Pulse 98 97 99 Oximetry O2 Sat by Pulse Oximetry [ Bilateral] 03/06/22 03/06/22 03/06/22 02:00 02:05 02:20 Temperature Pulse Rate 68 75 Respiratory 18 Rate Blood Pressure Blood Pressure [Left] O2 Sat by Pulse 98 98 Oximetry O2 Sat by Pulse Oximetry [ Bilateral] 03/06/22 03/06/22 03/06/22 02:22 02:27 02:32 Temperature Pulse Rate 97 H 72 84 Respiratory Rate Blood Pressure Blood Pressure [Left] O2 Sat by Pulse 99 100 99 Oximetry O2 Sat by Pulse Oximetry [ Bilateral] 03/06/22 03/06/22 03/06/22 02:37 02:42 02:47 Temperature Pulse Rate 86 87 78 Respiratory Rate Blood Pressure Blood Pressure [Left] O2 Sat by Pulse 99 97 98 Oximetry O2 Sat by Pulse Oximetry [ Bilateral] 03/06/22 03/06/22 03/06/22 02:52 02:57 03:02 Temperature Pulse Rate 69 74 66 Respiratory Rate Blood Pressure Blood Pressure [Left] O2 Sat by Pulse 99 99 98 Oximetry O2 Sat by Pulse Oximetry [ Bilateral] 03/06/22 03/06/22 03/06/22 03:07 03:12 03:20 Temperature Pulse Rate 70 62 Respiratory 18 Rate Blood Pressure Blood Pressure [Left] O2 Sat by Pulse 100 98 Oximetry O2 Sat by Pulse Oximetry [ Bilateral] 03/06/22 03/06/22 03/06/22 04:15 04:20 04:25 Temperature Pulse Rate 70 69 75 Respiratory Rate Blood Pressure Blood Pressure [Left] O2 Sat by Pulse 100 98 100 Oximetry O2 Sat by Pulse Oximetry [ Bilateral] 03/06/22 03/06/22 03/06/22 04:30 04:35 04:40 Temperature Pulse Rate 71 77 66 Respiratory Rate Blood Pressure Blood Pressure [Left] O2 Sat by Pulse 99 99 99 Oximetry O2 Sat by Pulse Oximetry [ Bilateral] 03/06/22 03/06/22 03/06/22 04:45 04:50 04:55 Temperature Pulse Rate 78 64 76 Respiratory Rate Blood Pressure Blood Pressure [Left] O2 Sat by Pulse 100 99 98 Oximetry O2 Sat by Pulse Oximetry [ Bilateral] 03/06/22 03/06/22 03/06/22 05:00 05:05 05:10 Temperature Pulse Rate 66 78 61 Respiratory Rate Blood Pressure Blood Pressure [Left] O2 Sat by Pulse 98 97 97 Oximetry O2 Sat by Pulse Oximetry [ Bilateral] 03/06/22 03/06/22 03/06/22 05:15 05:20 05:25 Temperature Pulse Rate 73 67 78 Respiratory Rate Blood Pressure Blood Pressure [Left] O2 Sat by Pulse 97 95 98 Oximetry O2 Sat by Pulse Oximetry [ Bilateral] 03/06/22 03/06/22 03/06/22 05:30 05:35 05:40 Temperature Pulse Rate 68 65 69 Respiratory Rate Blood Pressure Blood Pressure [Left] O2 Sat by Pulse 98 100 99 Oximetry O2 Sat by Pulse Oximetry [ Bilateral] 03/06/22 03/06/22 03/06/22 05:45 05:50 05:55 Temperature Pulse Rate 82 67 76 Respiratory Rate Blood Pressure Blood Pressure [Left] O2 Sat by Pulse 98 99 99 Oximetry O2 Sat by Pulse Oximetry [ Bilateral] 03/06/22 03/06/22 03/06/22 06:00 06:05 06:10 Temperature Pulse Rate 64 78 64 Respiratory Rate Blood Pressure Blood Pressure [Left] O2 Sat by Pulse 98 99 99 Oximetry O2 Sat by Pulse Oximetry [ Bilateral] 03/06/22 03/06/22 03/06/22 06:15 06:20 06:25 Temperature Pulse Rate 79 67 80 Respiratory Rate Blood Pressure Blood Pressure [Left] O2 Sat by Pulse 99 99 100 Oximetry O2 Sat by Pulse Oximetry [ Bilateral] 03/06/22 03/06/22 03/06/22 06:30 06:35 06:40 Temperature Pulse Rate 79 76 83 Respiratory Rate Blood Pressure Blood Pressure [Left] O2 Sat by Pulse 99 100 98 Oximetry O2 Sat by Pulse Oximetry [ Bilateral] 03/06/22 03/06/22 03/06/22 06:45 06:50 06:55 Temperature Pulse Rate 73 83 76 Respiratory Rate Blood Pressure Blood Pressure [Left] O2 Sat by Pulse 100 100 100 Oximetry O2 Sat by Pulse Oximetry [ Bilateral] 03/06/22 03/06/22 03/06/22 06:57 07:00 07:05 Temperature Pulse Rate 59 L 75 78 Respiratory Rate Blood Pressure Blood Pressure [Left] O2 Sat by Pulse 93 100 100 Oximetry O2 Sat by Pulse Oximetry [ Bilateral] 03/06/22 07:10 Temperature Pulse Rate 63 Respiratory Rate Blood Pressure Blood Pressure [Left] O2 Sat by Pulse 99 Oximetry O2 Sat by Pulse Oximetry [ Bilateral] - Exam Narrative Exam: Cervidil was placed at 224 am. Breasts: deferred Cardiovascular: Regular rate Lungs: Normal air movement Abdomen: Present: normal appearance FHR: category 1 Uterine Contraction Monitor Mode: External Uterine Contraction Pattern: Irregular Uterine Tone Measurement Phase: Resting Uterine Contraction Intensity: Mild Extremities: normal - Labs Labs: Abnormal Labs 02/09/22 02/09/22 02/09/22 21:06 22:30 22:30 RBC 3.51 L MCHC 35 H Luna % (Auto) 12.8 H ABG pO2 ABG HCO3 ABG Base Excess ABG Hemoglobin Sodium 134 L Chloride Carbon Dioxide 20 L Creatinine Glucose 452 H POC Glucose 443 H Alkaline Phosphatase Albumin 3.4 L Urine Creatinine 02/10/22 02/10/22 02/10/22 04:16 04:35 09:49 RBC MCHC Luna % (Auto) ABG pO2 104.0 H ABG HCO3 19.0 L ABG Base Excess -4.8 L ABG Hemoglobin 11.7 L Sodium Chloride Carbon Dioxide Creatinine Glucose POC Glucose 291 H 248 H Alkaline Phosphatase Albumin Urine Creatinine 02/10/22 02/10/22 02/10/22 11:39 17:07 21:33 RBC MCHC Luna % (Auto) ABG pO2 ABG HCO3 ABG Base Excess ABG Hemoglobin Sodium Chloride Carbon Dioxide Creatinine Glucose POC Glucose 350 H 201 H 187 H Alkaline Phosphatase Albumin Urine Creatinine 02/10/22 02/11/22 02/11/22 23:00 08:13 11:47 RBC MCHC Luna % (Auto) ABG pO2 ABG HCO3 ABG Base Excess ABG Hemoglobin Sodium 130 L Chloride 96.9 L Carbon Dioxide 19 L Creatinine 0.4 L Glucose 223 H POC Glucose 170 H 188 H Alkaline Phosphatase Albumin Urine Creatinine 02/11/22 02/12/22 02/12/22 16:48 07:14 10:49 RBC MCHC Luna % (Auto) ABG pO2 ABG HCO3 ABG Base Excess ABG Hemoglobin Sodium Chloride Carbon Dioxide Creatinine Glucose POC Glucose 157 H 173 H 220 H Alkaline Phosphatase Albumin Urine Creatinine 02/12/22 02/12/22 02/12/22 13:02 16:03 20:44 RBC MCHC Luna % (Auto) ABG pO2 ABG HCO3 ABG Base Excess ABG Hemoglobin Sodium Chloride Carbon Dioxide Creatinine Glucose POC Glucose 208 H 113 H 162 H Alkaline Phosphatase Albumin Urine Creatinine 02/13/22 02/13/22 02/13/22 05:40 08:23 12:19 RBC MCHC Luna % (Auto) ABG pO2 ABG HCO3 ABG Base Excess ABG Hemoglobin Sodium 132 L Chloride Carbon Dioxide 17 L Creatinine 0.4 L Glucose 168 H POC Glucose 148 H 150 H Alkaline Phosphatase Albumin Urine Creatinine 02/13/22 02/13/22 02/13/22 16:54 20:03 22:51 RBC MCHC Luna % (Auto) ABG pO2 ABG HCO3 ABG Base Excess ABG Hemoglobin Sodium Chloride Carbon Dioxide Creatinine Glucose POC Glucose 156 H 154 H 155 H Alkaline Phosphatase Albumin Urine Creatinine 02/14/22 02/14/22 02/14/22 07:41 11:19 14:06 RBC MCHC Luna % (Auto) ABG pO2 ABG HCO3 ABG Base Excess ABG Hemoglobin Sodium Chloride Carbon Dioxide Creatinine Glucose POC Glucose 121 H 142 H 110 H Alkaline Phosphatase Albumin Urine Creatinine 02/14/22 02/14/22 02/15/22 17:08 22:01 07:35 RBC MCHC Luna % (Auto) ABG pO2 ABG HCO3 ABG Base Excess ABG Hemoglobin Sodium Chloride Carbon Dioxide Creatinine Glucose POC Glucose 148 H 151 H Alkaline Phosphatase Albumin Urine Creatinine 69.0 H 02/15/22 02/15/22 02/15/22 07:43 08:01 12:12 RBC MCHC Luna % (Auto) ABG pO2 ABG HCO3 ABG Base Excess ABG Hemoglobin Sodium Chloride Carbon Dioxide Creatinine 0.4 L Glucose POC Glucose 134 H 106 H Alkaline Phosphatase Albumin Urine Creatinine 02/15/22 02/16/22 02/16/22 22:07 06:31 17:51 RBC MCHC Luna % (Auto) ABG pO2 ABG HCO3 ABG Base Excess ABG Hemoglobin Sodium Chloride Carbon Dioxide Creatinine Glucose POC Glucose 66 L 135 H 142 H Alkaline Phosphatase Albumin Urine Creatinine 02/17/22 02/18/22 02/18/22 19:57 06:57 17:02 RBC MCHC Luna % (Auto) ABG pO2 ABG HCO3 ABG Base Excess ABG Hemoglobin Sodium Chloride Carbon Dioxide Creatinine Glucose POC Glucose 185 H 159 H 131 H Alkaline Phosphatase Albumin Urine Creatinine 02/18/22 02/19/22 02/19/22 22:10 12:10 16:49 RBC MCHC Luna % (Auto) ABG pO2 ABG HCO3 ABG Base Excess ABG Hemoglobin Sodium Chloride Carbon Dioxide Creatinine Glucose POC Glucose 157 H 133 H 175 H Alkaline Phosphatase Albumin Urine Creatinine 02/19/22 02/20/22 02/20/22 22:25 07:38 16:16 RBC MCHC Luna % (Auto) ABG pO2 ABG HCO3 ABG Base Excess ABG Hemoglobin Sodium 133 L Chloride Carbon Dioxide 17 L Creatinine 0.4 L Glucose 110 H POC Glucose 133 H 159 H Alkaline Phosphatase Albumin 3.6 L Urine Creatinine 02/20/22 02/21/22 02/21/22 21:58 18:05 22:05 RBC MCHC Luna % (Auto) ABG pO2 ABG HCO3 ABG Base Excess ABG Hemoglobin Sodium Chloride Carbon Dioxide Creatinine Glucose POC Glucose 69 L 185 H 63 L Alkaline Phosphatase Albumin Urine Creatinine 02/22/22 02/22/22 02/22/22 02:49 05:39 11:10 RBC MCHC Luna % (Auto) ABG pO2 ABG HCO3 ABG Base Excess ABG Hemoglobin Sodium Chloride Carbon Dioxide Creatinine Glucose POC Glucose 206 H 112 H 48 L Alkaline Phosphatase Albumin Urine Creatinine 02/22/22 02/22/22 02/23/22 16:14 21:04 07:34 RBC MCHC Luna % (Auto) ABG pO2 ABG HCO3 ABG Base Excess ABG Hemoglobin Sodium Chloride Carbon Dioxide Creatinine Glucose POC Glucose 198 H 147 H 106 H Alkaline Phosphatase Albumin Urine Creatinine 02/23/22 02/23/22 02/24/22 17:17 17:43 16:43 RBC MCHC Luna % (Auto) ABG pO2 ABG HCO3 ABG Base Excess ABG Hemoglobin Sodium 130 L Chloride Carbon Dioxide 17 L Creatinine 0.5 L Glucose 134 H POC Glucose 138 H 185 H Alkaline Phosphatase Albumin 3.4 L Urine Creatinine 02/24/22 02/25/22 02/25/22 21:24 10:55 21:26 RBC MCHC Luna % (Auto) ABG pO2 ABG HCO3 ABG Base Excess ABG Hemoglobin Sodium Chloride Carbon Dioxide Creatinine Glucose POC Glucose 143 H 128 H 111 H Alkaline Phosphatase Albumin Urine Creatinine 02/26/22 02/26/22 02/27/22 11:45 16:55 08:27 RBC MCHC Luna % (Auto) ABG pO2 ABG HCO3 ABG Base Excess ABG Hemoglobin Sodium 135 L Chloride Carbon Dioxide 18 L Creatinine 0.5 L Glucose POC Glucose 67 L 154 H Alkaline Phosphatase Albumin 3.4 L Urine Creatinine 02/27/22 02/27/22 02/27/22 11:42 16:15 22:45 RBC MCHC Luna % (Auto) ABG pO2 ABG HCO3 ABG Base Excess ABG Hemoglobin Sodium Chloride Carbon Dioxide Creatinine Glucose POC Glucose 126 H 132 H 134 H Alkaline Phosphatase Albumin Urine Creatinine 02/28/22 02/28/22 02/28/22 11:58 16:26 22:09 RBC MCHC Luna % (Auto) ABG pO2 ABG HCO3 ABG Base Excess ABG Hemoglobin Sodium Chloride Carbon Dioxide Creatinine Glucose POC Glucose 152 H 150 H 116 H Alkaline Phosphatase Albumin Urine Creatinine 03/01/22 03/01/22 03/01/22 11:58 16:37 22:02 RBC MCHC Luna % (Auto) ABG pO2 ABG HCO3 ABG Base Excess ABG Hemoglobin Sodium Chloride Carbon Dioxide Creatinine Glucose POC Glucose 58 L 167 H 184 H Alkaline Phosphatase Albumin Urine Creatinine 03/02/22 03/02/22 03/02/22 06:24 10:40 11:33 RBC MCHC Luna % (Auto) ABG pO2 ABG HCO3 ABG Base Excess ABG Hemoglobin Sodium 130 L Chloride 97.8 L Carbon Dioxide 18 L Creatinine 0.5 L Glucose 156 H POC Glucose 110 H 116 H Alkaline Phosphatase 132 H Albumin 3.4 L Urine Creatinine 03/02/22 03/02/22 03/03/22 16:38 21:39 04:53 RBC MCHC Luna % (Auto) ABG pO2 ABG HCO3 ABG Base Excess ABG Hemoglobin Sodium Chloride Carbon Dioxide Creatinine Glucose POC Glucose 122 H 208 H 154 H Alkaline Phosphatase Albumin Urine Creatinine 03/03/22 03/03/22 03/04/22 11:44 21:16 06:06 RBC MCHC Luna % (Auto) ABG pO2 ABG HCO3 ABG Base Excess ABG Hemoglobin Sodium Chloride Carbon Dioxide Creatinine Glucose POC Glucose 127 H 212 H 146 H Alkaline Phosphatase Albumin Urine Creatinine 03/04/22 03/04/22 03/05/22 12:09 20:09 15:42 RBC MCHC Luna % (Auto) ABG pO2 ABG HCO3 ABG Base Excess ABG Hemoglobin Sodium Chloride Carbon Dioxide Creatinine Glucose POC Glucose 161 H 130 H 120 H Alkaline Phosphatase Albumin Urine Creatinine 03/05/22 20:07 RBC MCHC Luna % (Auto) ABG pO2 ABG HCO3 ABG Base Excess ABG Hemoglobin Sodium Chloride Carbon Dioxide Creatinine Glucose POC Glucose 157 H Alkaline Phosphatase Albumin Urine Creatinine Laboratory Results - last 24 hr 03/05/22 03/05/22 03/05/22 04:00 07:38 10:39 WBC 6.2 RBC 3.79 Hgb 11.5 Hct 34.8 MCV 92 MCH 30 MCHC 33 RDW 13.9 Plt Count 237 POC Glucose 84 88 Blood Type Antibody Screen 03/05/22 03/05/22 03/05/22 10:43 11:27 15:42 WBC RBC Hgb Hct MCV MCH MCHC RDW Plt Count POC Glucose 104 120 H Blood Type O POSITIVE Antibody Screen Negative 03/05/22 20:07 WBC RBC Hgb Hct MCV MCH MCHC RDW Plt Count POC Glucose 157 H Blood Type Antibody Screen
[2022-03-06] MEDS: INSULIN NPH, HUMAN 100 UNIT/1 ML SUB-Q SCH (09:05)
[2022-03-06] MEDS: INSULIN LISPRO 100 UNIT/ML SUB-Q SCH ×6 (09:10→17:38)
[2022-03-06] MEDS: PRENATAL VIT27-FE FUMARATE-FOLIC ACID VIT TAB PO SCH (10:40)
--- NOTE | 2022-03-06 14:43 | Event Note ---
Date: 03/06/22 Went in to room to remove Cervidil. Cervical exam essentially unchanged: 3. Pt states that she does not want to continue with IOL, but would like to have a . States "I don't want anymore hands in my vagina. I'm allergic to the Pitocin. I don't want any more pills for my induction and I don't want that medicine in my vagina". Dr. Castnao updated on patient wishes. senior site manager aware.
--- NOTE | 2022-03-06 17:43 | Ultrasound Report ---
Limited obstetric ultrasound INDICATION: presentation FINDINGS: Single live intrauterine with cephalic position. Estimated age 37 weeks 4 days. F etal heart rate 1 51 bpm. IMPRESSION: Live intrauterine in cephalic position Signer Name: Emanuel Carolina MD Signed: 03/06/2022 5:38 PM Workstation Name: [id number]
[2022-03-07] MEDS: INSULIN NPH, HUMAN 100 UNIT/1 ML SUB-Q SCH (03:10)
[2022-03-07] MEDS: HALOPERIDOL 2 MG TAB PO SCH ×2 (03:12→23:26)
--- NOTE | 2022-03-07 09:20 | Anesthesia Day of Surgery ---
Anesthesia Day of Surgery - Day of Surgery Patient Examined: Yes Patient H&P Reviewed: Yes Patient is NPO: Yes Beta Blockers: No Cardiac Clearance: No Pulmonary Clearance: No Christopher's Test: N/A
--- NOTE | 2022-03-07 09:22 | Anesthesia Consultation ---
Anesthesia Consult and Med Hx Date of service: 03/07/22 - Airway Anesthetic Teeth Evaluation: Poor ROM Head & Neck: Adequate Mental/Hyoid Distance: Adequate Mallampati Class: Class III Intubation Access Assessment: Possibly Difficult - Pulmonary Exam CTA: Yes - Cardiac Exam Cardiac Exam: RRR - Pre-Operative Health Status ASA Pre-Surgery Classification: ASA3 Proposed Anesthetic Plan: General, Spinal Nerve Block: TAP - Pulmonary Hx Smoking: No Hx Asthma: No COPD: No Hx Pneumonia: No Hx Sleep Apnea: No - Cardiovascular System Hx Hypertension: Yes (pt states) Hx Heart Attack/AMI: No Hx Angina: No - Central Nervous System Hx Seizures: No Hx Psychiatric Problems: Yes (bipolar, schizophrenia) - Gastrointestinal Hx Gastroesophageal Reflux Disease: No - Endocrine Hx Renal Disease: No Hx End Stage Renal Disease: No Hx Liver Disease: No Hx Insulin Dependent Diabetes: Yes Hx Non-Insulin Dependent Diabetes: No Hx Hypothyroidism: No Hx Hyperthyroidism: No - Hematic Hx Anemia: No Hx Sickle Cell Disease: No - Other Systems Hx Alcohol Use: Yes (Prior to knowing she was ) Hx Obesity: Yes
[2022-03-07] MEDS ORDERED: ceFAZolin/Water 2 GM/20 ML 2 GM/20 ML SYRINGE IV ONE (11:26)
[2022-03-07] MEDS ORDERED: METOCLOPRAMIDE 10 MG/2 ML INJ ONE (11:26)
[2022-03-07] MEDS ORDERED: FAMOTIDINE 20 MG/2 ML INJ IV ONE (11:26)
[2022-03-07] MEDS ORDERED: NALOXONE 0.4 MG/1 ML INJ IV PRN ×2 (11:48→17:29)
[2022-03-07] MEDS ORDERED: ONDANSETRON 4 MG/2 ML INJ IV PRN ×2 (11:48→17:29)
[2022-03-07] MEDS ORDERED: HYDROmorphone 1 MG/1 ML INJ IV PRN (11:48)
[2022-03-07] MEDS ORDERED: PROMETHAZINE 25 MG RECT SUPP PR PRN (11:48)
[2022-03-07] MEDS ORDERED: PROMETHAZINE 25 MG TAB PO PRN (11:48)
--- NOTE | 2022-03-07 12:50 | Event Note ---
Date: 03/07/22 Patient previously requested primary section. Will now proceed to the OR for delivery.
[2022-03-07] MEDS ORDERED: dexAMETHasone 20 MG/5 ML VIAL ONE (13:04)
[2022-03-07] MEDS ORDERED: BUPIVACAINE/PF (0.5%) 5 MG/1 ML 30 ML VIAL INFILTRATI ONE (13:04)
[2022-03-07] MEDS ORDERED: ONDANSETRON 4 MG/2 ML INJ ONE (13:04)
[2022-03-07] MEDS ORDERED: KETOROLAC 30 MG/1 ML INJ ONE (13:04)
[2022-03-07] MEDS ORDERED: ceFAZolin/STERILE WATER 2 GM/20 ML SYRINGE IV ONE (13:10)
[2022-03-07] MEDS ORDERED: SODIUM CHLORIDE 0.9% IRR 1,500 ML BOTTLE IR ONE (13:34)
[2022-03-07] MEDS ORDERED: WATER FOR IRRIG STERILE 1,500 ML BOTTLE IR ONE (13:34)
--- NOTE | 2022-03-07 13:34 | Progress Note ---
Spinal Anesthesia Block - Spinal Anesthesia Block Start Time: 13:15 Stop Time: 13:20 Performed by:: ABDELRAHMAN KING (Mandy Batista CRNA) Procedure: Spinal anesthesia block is being performed for [C/S]. H&P, labs have been reviewed. Patient's questions and concerns have been answered. Informed consent has been performed. Timeout has was performed. Patient in sitting position on side of bed. Sterile prep and drape was performed. 3 mL 1% lid ocaine skin wheal at L [3]-L [4]. Needle introducer advanced. 24-gauge spinal needle advanced, [+] CSF [-] blood. [Marcaine 10mg and Precedex 5mcg] Spinal dose was given. All needles removed. Patient tolerated procedure well. Procedure performed by Mandy Batista CRNA.
[2022-03-07] MEDS ORDERED: MIDAZOLAM 5 MG/5 ML INJ MDV IV ONE (13:50)
[2022-03-07] MEDS ORDERED: ePHEDrine SULFATE 50 MG/1 ML INJ ONE (14:46)
--- NOTE | 2022-03-07 15:04 | Operative Report ---
Operative Report Operative Report: Date of Procedure: March 07, 2022 Preoperative diagnosis: IUP at 37 weeks, type 2 diabetes, bipolar disorder, maternal request for Postoperative diagnosis: same, s/p low transverse section Procedure: Low transverse section Surgeon: Keri Orozco MD Anesthesia: Spinal Complications: none QBL: 510 ml IV Fluids: 1400 ml UOP: 200 ml, clear urine at the end of procedure Indications: Maternal request due to slow induction of labor Findings: 3000 g female in left occiput anterior position cephalic presentation with Apgars 8 & 9 Amniotic fluid clear Fallopian tubes normal in appearance bilaterally Ovaries normal in appearance bilaterally Procedure: The patient was taken to the operating room where epidural anesthesia was found to be adequate. 2 g Ancef was given prior to the procedure. She was then prepared and draped in the usual sterile fashion in the dorsal supine position with a leftward tilt. A Pfannenstiel skin incision was made with the scalpel and carried through to the underlying layer of fascia with the bovie. The fascia was incised in the midline and the incision extended laterally. The superior aspect of the fascial incision was then grasped with the Mt's clamps, elevated, and the underlying rectus muscles dissected off bluntly and with sharp dissection using bovie. Attention was then turned to the inferior aspect of this incision which, in a similar fashion, was grasped, tented up with the Mt clamps, and the rectus was dissected off bluntly and with sharp dissection. The rectus muscles were then in the midline, and the peritoneum identified and entered bluntly. The peritoneal incision was then ext ended superiorly and inferiorly with good visualization of the bladder. The bladder blade was then inserted and the vesicouterine peritoneum identified, grasped with the pick ups, and entered sharply with the Metzenbaum scissors. This incision was then extended laterally and the bladder flap created digitally. The bladder blade was then reinserted and the lower uterine segment incised in a transverse fashion with the scalpel. The uterine incision was then extended laterally digitally. The bladder blade was then removed and the infant was delivered via SERGIO position. Nuchal cord reduced. The nose and mouth were suctioned with the bulb suction and the cord clamped and cut. The was handed off to the waiting pediatricians.The placenta was then removed; the uterus exteriorized and cleared of all clots and debris. The uterine incision was repaired with 0 vicryl in a running locked fashion to obtain excellent hemostasis. An imbrication layer was done. An area of oozing was noted and a f igure of eight suture was placed giving excellent hemostasis. Uterus returned to the abdomen. A small subserosal hematoma was noted and ligated with 0 Vicryl in a caidth-pl-vysgz fashion to to stop further expansion. The rectus muscle was reapproximated with 2-0 vicryl. The fascia was reapproximated with 0 vicryl in a running fashion. Subcutaneous layer reapproximated with interrupted sutures of 0 vicryl. The skin was closed with 4-0 monocryl subcuticular stitch and the incision sealed with Dermabond. The patient tolerated the procedure well. Sponge, lap, needle counts correct X 2. The patient was taken to the recovery room in a stable condition.
[2022-03-07] MEDS ORDERED: OXYTOCIN DRIP 30 UNITS/500 ML BAG IV SCH (17:29)
[2022-03-07] MEDS ORDERED: SIMETHICONE 80 MG CHEW TAB PO PRN (17:29)
[2022-03-07] MEDS ORDERED: WITCH HAZEL/ GLYCERIN PAD TP PRN (17:29)
[2022-03-07] MEDS ORDERED: LANOLIN/ZINC/DIMETHICONE (LANSINOH) 7 GM TP PRN (17:29)
[2022-03-07] MEDS: oxyCODONE /ACETAMINOPHEN 5-325MG TAB PO PRN (18:19)
[2022-03-07] MEDS: INSULIN LISPRO 100 UNIT/ML SUB-Q SCH (18:22)
[2022-03-07] MEDS ORDERED: LACTATED RINGERS 1,000 ML IV SCH (19:15)
[2022-03-07] MEDS: KETOROLAC 30 MG/1 ML INJ IV SCH (21:44)
[2022-03-08] MEDS: KETOROLAC 30 MG/1 ML INJ IV SCH ×2 (04:24→19:31)
[2022-03-08] MEDS: INSULIN REGULAR, HUMAN 100 UNITS/1 ML SUB-Q SCH ×5 (05:00→22:33)
--- NOTE | 2022-03-08 08:47 | Progress Note ---
Assessment and Plan A: 31 y.o. s/p primary , POD #1. - Patient Problems (1) Bipolar disorder Current Visit: Yes Status: Acute Qualifiers: Current bipolar episode type: manic Plan to address problem: Continue to redirect and orient patient as needed. Continue with Haldol as ordered. (2) Schizophrenia Current Visit: No Status: Acute Qualifiers: Schizophrenia type: paranoid schizophrenia Qualified Code(s): F20.0 - Paranoid schizophrenia Plan to address problem: continue with Haldol as ordered. (3) Homeless single person Current Visit: Yes Status: Acute Plan to address problem: Case management has been consulted and is working on placement for pt when able to discharge home. (4) delivery delivered Current Visit: Yes Status: Acute Plan to address problem: Continue with care. Advance diet as tolerated. Will continue for now with insulin and glucose checks as ordered. Encourage IS use. Encourage ambulation. Will discharge when stable and has placement. Subjective - Subjective Date of service: 03/08/22 Principal diagnosis: s/p primary d/t gHTN, DM, and pt refused continued IOL Interval history: Upon walking into the room for an assessment. Pt stated that she was having some pain and needed pain medication. RN made aware. Pt denies TERRELL, blurred vision, spots before her eyes, chest pain, shortness of breath, and upper abdominal pain. Patient reports: appetite normal, flatus, pain poorly controlled, ambulating normally [place]: doing well, bottle feeding Objective - Vital Signs Latest vital signs: Vital Signs Temp Pulse Resp BP BP Pulse Ox Pulse Ox 03/08/22 04:54 18 03/08/22 04:47 98 F 83 20 123/77 99 03/08/22 04:24 18 03/08/22 00:51 97.9 F 74 20 119/59 98 03/07/22 22:14 18 03/07/22 21:44 18 03/07/22 20:24 97.8 F 58 L 18 184/90 100 03/07/22 20:00 98 03/07/22 19:01 97.3 F L 03/07/22 18:09 95.9 F L 03/07/22 17:39 100 03/07/22 16:55 94.5 F L 54 L 19 156/90 100 03/07/22 15:58 98.4 F 66 18 135/73 99 03/07/22 15:45 61 15 132/67 99 03/07/22 15:30 58 L 16 140/75 99 03/07/22 15:15 58 L 16 147/76 100 03/07/22 15:00 61 14 145/53 100 03/07/22 14:55 55 L 16 148/54 100 03/07/22 14:50 98.6 F 60 16 152/89 100 03/07/22 11:04 99 03/07/22 09:57 77 96 03/07/22 09:52 87 100 03/07/22 09:46 78 99 03/07/22 09:41 80 98 03/07/22 09:36 88 98 03/07/22 09:31 84 99 03/07/22 09:27 83 126/69 03/07/22 09:26 82 96 Intake and Output 03/07/22 03/08/22 03/08/22 22:59 06:59 14:59 Intake Total 400 Output Total 600 Balance -200 Intake: IV 100 Oral 300 Output: Urine 600 Indwelling Catheter 400 Other: Total, Intake Amount 300 Total, Output Amount 400 # Voids Indwelling Catheter 1 Estimated Blood Loss 510 - Exam Narrative Exam: Glucose ranges have been 140-160's and blood pressure ranges have been 104-120's/50-70's. Breasts: Present: deferred Cardiovascular: Present: Regular rate Lungs: Present: Normal air movement Abdomen: Present: normal appearance, soft Vulva: both: normal Uterus: Present: normal, firm Extremities: Present: normal Incision: Present: normal, dry, intact, other (No s/sx of infection and no drainage noted. ) - Labs Labs: Abnormal lab results 03/07/22 03/07/22 03/08/22 Range/Units 11:47 17:14 02:12 POC Glucose 68 L 113 H 163 H (70-105) mg/dL 03/08/22 Range/Units 07:29 POC Glucose 149 H (70-105) mg/dL
[2022-03-08] MEDS: INSULIN NPH, HUMAN 100 UNIT/1 ML SUB-Q SCH ×4 (09:15→22:33)
[2022-03-08] MEDS: INSULIN LISPRO 100 UNIT/ML SUB-Q SCH ×3 (09:16→19:28)
[2022-03-08] MEDS: oxyCODONE /ACETAMINOPHEN 5-325MG TAB PO PRN ×2 (09:18→20:51)
--- NOTE | 2022-03-08 09:56 | Post Anesthesia Evaluation ---
- Post Anesthesia Evaluation Patient Participated: Yes Airway Patent: Yes Stable Respiratory Function: Yes Nausea/Vomiting: No Temp > 96.8F: Yes Pain Manageable: Yes Adequeate Hydration: Yes Anesthesia Complications: No Block Receding Appropriately: Yes Patient on Ventilator: No
[2022-03-08] MEDS: HALOPERIDOL 2 MG TAB PO SCH ×3 (10:36→22:23)
[2022-03-08] MEDS: PRENATAL VIT27-FE FUMARATE-FOLIC ACID VIT TAB PO SCH (17:52)
[2022-03-08] MEDS: IBUPROFEN 800 MG TAB PO SCH ×2 (17:53→23:11)
[2022-03-08 19:15] LABS: Hematocrit 34.3 % (30.3-42.9); Hemoglobin 11.1 gm/dl (10.1-14.3)
[2022-03-09] MEDS: IBUPROFEN 800 MG TAB PO SCH ×4 (06:18→22:19)
[2022-03-09] MEDS: INSULIN REGULAR, HUMAN 100 UNITS/1 ML SUB-Q SCH ×4 (08:30→22:23)
[2022-03-09] MEDS: INSULIN LISPRO 100 UNIT/ML SUB-Q SCH ×2 (08:42→17:06)
[2022-03-09] MEDS: INSULIN NPH, HUMAN 100 UNIT/1 ML SUB-Q SCH ×2 (08:42→22:24)
[2022-03-09] MEDS: PRENATAL VIT27-FE FUMARATE-FOLIC ACID VIT TAB PO SCH (09:58)
[2022-03-09] MEDS: HALOPERIDOL 2 MG TAB PO SCH ×2 (11:53→22:20)
--- NOTE | 2022-03-09 13:57 | Progress Note ---
Assessment and Plan - Patient Problems (1) Bipolar disorder Current Visit: Yes Status: Acute Qualifiers: Current bipolar episode type: manic (2) delivery delivered Current Visit: Yes Status: Acute Plan to address problem: We will continue routine postoperative care (3) Diabetes mellitus affecting Current Visit: Yes Status: Acute Qualifiers: Trimester: third trimester Qualified Code(s): O24.913 - Unspecified diabetes mellitus in , third trimester Plan to address problem: Patient with glucoses under 200 patient with some low readings this morning we will continue to monitor (4) Homeless single person Current Visit: Yes Status: Acute Plan to address problem: Case management has been consulted and is working on placement for patient when able to discharge home. (5) Schizophrenia Current Visit: No Status: Acute Qualifiers: Schizophrenia type: paranoid schizophrenia Qualified Code(s): F20.0 - Paranoid schizophrenia Plan to address problem: We will continue treatment with Haldol Subjective - Subjective Date of service: 03/09/22 Principal diagnosis: s/p primary d/t gHTN, DM, and pt refused continued IOL Interval history: Patient complains of normal postoperative pain denies any fever chills nausea vomiting Patient reports: appetite normal, voiding normally [place]: doing well Objective - Vital Signs Latest vital signs: Vital Signs Temp Pulse Resp BP Pulse Ox Pulse Ox 03/09/22 08:31 97.7 F 92 H 17 127/74 100 03/09/22 08:30 98 03/09/22 00:47 98.2 F 90 20 106/45 98 03/08/22 20:51 97 Intake and Output 03/08/22 03/09/22 03/09/22 22:59 06:59 14:59 Intake Total 240 480 600 Output Total 300 Balance 240 480 300 Intake: Oral 240 240 600 Intake, Free Water 240 Output: Urine 300 Void 300 Other: Total, Intake Amount 240 240 240 Total, Output Amount 300 # Voids Void 2 1 - Exam Breasts: Present: deferred Cardiovascular: Present: Regular rate Lungs: Present: Normal air movement Incision: Present: normal, dry, intact - Labs Labs: Abnormal lab results 03/08/22 03/08/22 03/09/22 Range/Units 17:37 22:32 08:29 POC Glucose 127 H 144 H 68 L (70-105) mg/dL
[2022-03-09] MEDS: oxyCODONE /ACETAMINOPHEN 5-325MG TAB PO PRN (14:51)
[2022-03-10] MEDS: IBUPROFEN 800 MG TAB PO SCH ×4 (02:35→21:59)
[2022-03-10] MEDS: INSULIN REGULAR, HUMAN 100 UNITS/1 ML SUB-Q SCH ×3 (08:24→22:03)
[2022-03-10] MEDS: INSULIN NPH, HUMAN 100 UNIT/1 ML SUB-Q SCH ×2 (08:24→22:04)
--- NOTE | 2022-03-10 12:41 | Progress Note ---
Assessment and Plan - Patient Problems (1) Bipolar disorder Current Visit: Yes Status: Chronic Qualifiers: Current bipolar episode type: manic Current episode severity: mild (2) delivery delivered Current Visit: Yes Status: Acute Plan to address problem: We will continue routine postoperative care. Per RN patient desires Tylenol for pain instead of Percocet. (3) Diabetes mellitus affecting Current Visit: Yes Status: Acute Qualifiers: Trimester: third trimester Qualified Code(s): O24.913 - Unspecified diabetes mellitus in , third trimester Plan to address problem: Patient with glucoses under 200 we will continue present insulin dose and monitor patient's blood glucoses. (4) Homeless single person Current Visit: Yes Status: Acute Plan to address problem: Case management has been consulted and is working on placement for patient when able to discharge. Patient currently on the phone discussed with him being discharged to her aunt. Case management and [facility] expected to see the patient on tomorrow Friday (5) Schizophrenia Current Visit: No Status: Acute Qualifiers: Schizophrenia type: paranoid schizophrenia Qualified Code(s): F20.0 - Paranoid schizophrenia Plan to address problem: We will continue treatment with Haldol Subjective - Subjective Date of service: 03/10/22 Principal diagnosis: s/p primary d/t gHTN, DM, and pt refused continued IOL Interval history: Patient complains of normal postoperative pain denies any fever, chills, nausea or vomiting. Patient stopped on her phone with her stating that possibly where she will go after discharge. Patient reports: appetite normal, voiding normally, pain well controlled [place]: doing well, in NICU Objective - Vital Signs Latest vital signs: Vital Signs Temp Pulse Resp BP BP Pulse Ox Pulse Ox 03/10/22 08:26 98.1 F 97 H 18 138/79 95 03/10/22 00:52 96.3 F L 70 18 108/60 99 03/09/22 20:00 99 03/09/22 14:47 98.1 F 77 18 149/77 100 Intake and Output 03/09/22 03/10/22 03/10/22 22:59 06:59 14:59 Intake Total 480 240 Balance 480 240 Intake: Oral 360 Intake, Free Water 120 240 Other: Total, Intake Amount 360 Voiding Method Toilet # Voids Void 1 2 - Exam Breasts: Present: deferred Cardiovascular: Present: Regular rate Lungs: Present: Normal air movement Abdomen: Present: normal appearance, soft Uterus: Present: firm Incision: Present: normal, dry
[2022-03-10] MEDS: ACETAMINOPHEN 325 MG TAB PO PRN ×2 (12:55→18:05)
[2022-03-10] MEDS: HALOPERIDOL 2 MG TAB PO SCH ×2 (12:57→21:59)
[2022-03-10] MEDS: INSULIN LISPRO 100 UNIT/ML SUB-Q SCH (12:57)
[2022-03-10] MEDS: PRENATAL VIT27-FE FUMARATE-FOLIC ACID VIT TAB PO SCH (12:57)
[2022-03-11] MEDS: IBUPROFEN 800 MG TAB PO SCH ×2 (04:10→11:17)
[2022-03-11] MEDS: PRENATAL VIT27-FE FUMARATE-FOLIC ACID VIT TAB PO SCH (11:17)
[2022-03-11] MEDS: HALOPERIDOL 2 MG TAB PO SCH (11:18)
--- NOTE | 2022-03-11 12:25 | Discharge Summary ---
Providers - Providers Date of Admission: 02/10/22 03:42 Date of discharge: 03/11/22 Attending physician: DEDRICK VO 02/09/22 Consult to Case Management [CONS] Routine Services Needed at Discharge: Sales Development Coordinator Notified:: FRANCINE Additional Physician Instructions: Uncontrolled diabetes, homeless. Was on a 1013 in a previous admission. 02/09/22 21:37 Consult to Dietitian/Nutrition [CONS] Routine Physician Instructions: Reason For Exam: Reason for Consult: Diet education 02/09/22 21:41 Consult to Physician [CONS] Stat Comment: Consulting Provider: JAYJAY GUY Physician Instructions: Reason For Exam: Uncontrolled diabetes 02/10/22 00:09 Consult to Dietitian/Nutrition [CONS] Routine Physician Instructions: Reason For Exam: Reason for Consult: Diet education 02/10/22 12:44 Consult to Physician [CONS] Routine Comment: Consulting Provider: DANNIE WILLIAM Physician Instructions: Reason For Exam: uncontrolled DM, IUP@32 ewga 02/11/22 10:20 Consult to Mental Health [CONS] Urgent Reason For Exam: unmedicated schizophrenia w/ psychosis 02/12/22 09:21 Consult to Case Management [CONS] Stat Services Needed at Discharge: Sales Development Coordinator Notified:: 02/12/2022 Additional Physician Instructions: Placement for patient: She is homeless, female only facility, Diabetes, schziphrenia, Bipolar. 02/12/22 15:07 Consult to Physician [CONS] Routine Comment: Consulting Provider: SEYMOUR RON Physician Instructions: Reason For Exam: 33 + wks, diabetes, possible delivery before 37 wk 02/13/22 11:15 Consult to Mental Health [CONS] Urgent Reason For Exam: pt refusing medication, Schizophrenia w/ psychosis 02/15/22 19:38 Consult to Mental Health [CONS] Routine Reason For Exam: medication management Consult to Physician [CONS] Routine Comment: Consulting Provider: DAGO MANN Physician Instructions: Reason For Exam: medication managment 02/24/22 10:20 Consult to Mental Health [CONS] Routine Reason For Exam: competancy to make medical decisons 03/06/22 09:00 Consult to Case Management [CONS] Routine Services Needed at Discharge: Sales Development Coordinator Notified:: y 03/07/22 17:29 Consult to Case Management [CONS] Routine Services Needed at Discharge: Sales Development Coordinator Notified:: y Comment:: Patient homeless with Bipolar Disorder and Type 2 DM. Recently Delivered Additional Physician Instructions: Will patient be allowed to have in room and will she be able to be discharge with or will placment be necessary? Primary care physician: DEDRICK VO Hospitalization Reason for admission: IUP - , observation Delivery: Procedure: section, primary low transverse Episiotomy: none Laceration: none Incision: normal, dry, intact Other procedures: none complications: none Discharge diagnosis: IUP at term delivered [place] baby: female Condition at discharge: Stable Disposition: 01 HOME / SELF CARE / HOMELESS - Discharge Diagnoses (1) Bipolar disorder Status: Chronic Qualifiers: Current bipolar episode type: manic Current episode severity: mild (2) Gestational hypertension Status: Acute Qualifiers: Trimester: third trimester Qualified Code(s): O13.3 - Gestational [-induced] hypertension without significant proteinuria, third trimester (3) Homeless single person Status: Acute (4) Noncompliance by refusing service Status: Acute (5) Obesity, Class III, BMI 40-49.9 (morbid obesity) Status: Acute (6) Schizophrenia Status: Acute Qualifiers: Schizophrenia type: paranoid schizophrenia Qualified Code(s): F20.0 - Paranoid schizophrenia (7) Diabetes mellitus affecting Status: Acute Qualifiers: Trimester: third trimester Qualified Code(s): O24.913 - Unspecified diabetes mellitus in , third trimester Comment: Per counter caser Idania pt may be discharged home. Dr Moeller made aware. Discharge orders placed. Plan - Discharge Medications Prescriptions: Docusate Sodium [Colace] 100 mg PO BID #60 capsule Ferrous Sulfate [Feosol 325 MG tab] 325 mg PO QDAY #30 tablet haloperidoL [Haldol] 2 mg PO BID #60 tablet Lispro Insulin [HumaLOG] 30 unit SUB-Q QDDIAB #1 vial Ibuprofen [Motrin 800 MG tab] 800 mg PO Q8HR #30 tablet oxyCODONE /ACETAMINOPHEN [Percocet 5/325] 1 tab PO Q6HR PRN #20 tablet PRN Reason: Pain Vit-Fe Fumar-FA [ Vitamin] 1 tab PO QDAY #30 tablet - Provider Discharge Summary Activity: routine, no sex for 6 weeks, no heavy lifting 4 weeks, no strenuous exercise Diet: routine Instructions: routine Additional instructions: [] Smoking cessation referral if applicable(refer to patient education folder for contact #) [] Refer to [facility]'s [facility] Booklet Call your doctor immediately for: * Fever > 100.5 * Heavy vaginal bleeding ( >1 pad per hour) * Severe persistent headache * Shortness of breath * Reddened, hot, painful area to leg or breast * Drainage or odor from incision. * Keep incision clean and dry at all times and follow doctor's instructions regarding bathing/showering Please call [phone] and schedule a visit in 1 week. Thank you! - Follow up plan Follow up: PRIMARY CARE, [Referring] - 7 Days JOSE MARIA MOELLER MD [Staff Physician] - 7 Days Forms: Discharge Signature Page
[2022-03-11 13:57] VITALS: BP 146/104
== END 2022-03-11 13:55 | disposition home or self-care (01) | DRG 786 ==
LOC: TRG 19:18 → APU 19:20 → TRG 02-10 01:44 → APU 02-10 01:44 → 3A 02-10 03:42 → LD 02-10 13:49 → APU 03-07 13:27 → OB 03-07 16:47
PROVIDERS: ADMIT Obstetrics & Gynecology; ATTEND Obstetrics & Gynecology
PROC: 10D00Z1 Extraction of Products of Conception, Low, Open Approach (ICD-10-PCS; principal; 2022-03-07)
DX: O24.429 Gestational diabetes mellitus in childbirth, unspecified control (principal); O60.23X0 Term delivery with preterm labor, third trimester, not applicable or unspecified; F20.0 Paranoid schizophrenia; Z3A.31 31 weeks gestation of pregnancy; O99.344 Other mental disorders complicating childbirth; O99.214 Obesity complicating childbirth; Z37.0 Single live birth; Z20.822 Contact with and (suspected) exposure to COVID-19; E66.01 Morbid (severe) obesity due to excess calories; F31.9 Bipolar disorder, unspecified; Z59.00 Homelessness unspecified; O13.4 Gestational [pregnancy-induced] hypertension without significant proteinuria, complicating childbirth; Z91.19 Patient's noncompliance with other medical treatment and regimen
CPT/HCPCS: 36415; 36600; 76815; 76816; 76819; 80048; 80053; 82010; 82565; 82570; 82803; 82962; 83615; 84156; 84450; 84460; 84550; 85014; 85018; 85025; 85027; 85610; 86592; 86706; 86762; 86803; 86850; 86900; 86901; 87116; 87641; 87806; G0378; J2354; J3490; J7121; Q9967; J0690; J1100; J1815; J1885; J2250; J2405; J2590; J7120; U0003